=== PATIENT | male | born 1955 | race Caucasian/White ===

== ENCOUNTER → 2017-09-03 | Outpatient (CLI) | payer BC, SELFPAY | PROVIDERS: Visit Provider Family Medicine | DX: Z87.891 Personal history of nicotine dependence (principal); Z12.2 Encounter for screening for malignant neoplasm of respiratory organs ==

== ENCOUNTER → 2018-03-24 11:22 | Outpatient (CLI) | payer BC, SELFPAY ==
--- NOTE | 2018-03-24 11:27 | XR_ITS ---
XR chest 2V HISTORY: ITS.REASON: BRONCHITIS ORDERING PHYSICIAN: Andreia Gabriel PATIENT AGE: 62 years COMPARISON: 07/19/2016 FINDINGS: Prior median sternotomy. There is fracture of the second from the top median sternotomy wire. Normal heart size. There is mild biapical pleural thickening unchanged No lobar consolidation or collapse. No acute bony anomalies. IMPRESSION: No change with no acute finding.
== END ==
PROVIDERS: PCP Nurse Practitioner Family; Visit Provider Nurse Practitioner Family
DX: J40 Bronchitis, not specified as acute or chronic (principal)
CPT/HCPCS: 71046

== ENCOUNTER 2018-04-02 11:22 | Inpatient (IN) ==
--- NOTE | 2018-04-02 12:08 | History & Physical Report ---
*Admission Date: 04/02/18 <Nisreen Delong 04/02/18 12:11> *Chief complaint: SOA, chills <Nisreen Delong 04/02/18 12:11> *History of present illness: Mr. Lynn is a 62yo male who has been seen in the office now for the third time d/t shortness of breath, cough, and chills. His initial CXR showed no pneumonia , although he was clinically felt to have a pneumonia. He was treated with cefdinir, steroids, and nebs. He presented to the office today and continues to feel poorly. His WBC has increased. His oxygen was 87-89% on RA in the office today. He continues to smoke 1ppd. He will be admitted for a possible pneumonia failing outpatient therapy. <Nisreen Delong 04/02/18 14:07> [facility] History Medical History: Reports:: Cancer ([place]), Coronary Artery Disease, Diabetes Mellitus Type 2, Hyperlipidemia, Hypertension, Myocardial Infarction Denies:: Diabetes Mellitus Type 1, MRSA <Nisreen Delong 04/02/18 12:11> Other Medical History: Reports: Arthritis, Blood Transfusion Reaction (pt "had a heart attack"), Cataracts, Chemotherapy, Radiation Therapy <Nisreen Delong 04/02/18 12:11> Laterality Cases: Bilateral: Cataract <Nisreen Delong 04/02/18 12:11> Other Surgeries: Yes: Angioplasty, Cardiac Catheterization, Cardiac Surgery < Nisreen Delong 04/02/18 12:11> Amputation: No <Nisreen Delong 04/02/18 12:11> Fractures: No <Nisreen Delong 04/02/18 12:11> - *Social History Educational Level: Completed High School <Nisreen Delong 04/02/18 12:11> Smoking Status: Current every day smoker <Nisreen Delong 04/02/18 12:11> Tobacco Type: cigarettes <Nisreen Delong 04/02/18 12:11> # Packs/Day (cigarettes): 2 <Nisreen Delong 04/02/18 12:11> #Yrs smoked (if former smoker): 50 <Nisreen Delong 04/02/18 12:11> Alcohol Intake: never <Nisreen Delong 04/02/18 12:11> Occupational Status: employed <Nisreen Delong 04/02/18 12:11> Housing: house <Nisreen Delong 04/02/18 12:11> Household Members: spouse <Nisreen Delong 04/02/18 12:11> - Psychiatric History Expresses thoughts of harming self/others: None <Nisreen Delong 04/02/18 12: 11> Suicide Plan Description: No Plan <Nisreen Delong 04/02/18 12:11> *Family Hx:: Coronary Artery Disease, Diabetes, Heart Attack, Hypertension, Stroke <Nisreen Delong 04/02/18 12:11> Review of Systems - Constitutional Reports body ache(s), Reports chills, Reports fatigue, Reports weakness < Wong Delonga 04/02/18 12:11> - Eyes Denies blurry vision, Denies double vision [facility] 04/02/[facility] 12:11> - ENT Reports nasal congestion, Denies sore throat <[facility] 04/02/18 12:11> - *Cardiovascular Reports chest pain, Denies generalized swelling <[facility] 04/02/18 12: 11> - *Respiratory Reports chest congestion, Reports cough, Reports shortness of breath <[facility] 04/02/18 12:11> - *Gastrointestinal Reports nausea, Denies abdominal pain, Denies loose stools, Denies vomiting < [facility] 04/02/18 12:11> - *Genitourinary Denies difficulty urinating, Denies painful urination <[facility] 12:11> - *Musculoskeletal Denies joint pain <[facility] 04/02/18 12:11> - *Neurologic Reports headache(s), Reports dizziness, Reports weakness [facility] 12:[facility]> Meds Home Medications Medication Instructions Recorded Confirmed Type Acetaminophen [Acetaminophen 325mg 650 mg PO Q6HP PRN 04/02/18 04/02/18 History tab] Aspirin [Aspirin 81mg EC Tab] 81 mg PO DAILY 04/02/18 04/02/18 History Budesonide/Formoterol Fumarate 2 puffs INHALATION BID 04/02/18 04/02/18 History [Symbicort 160-4.5 Mcg Inhaler] Carvedilol [Carvedilol 6.25mg Tab] 6.25 mg PO BID 04/02/18 04/02/18 History Cefdinir [Omnicef 300mg Capsule] 300 mg PO BID 04/02/18 04/02/18 History Clopidogrel Bisulfate [Plavix 75mg 1 tab PO DAILY 04/02/18 04/02/18 History Tab] Dexlansoprazole [Dexilant] 60 mg PO DAILY 04/02/18 04/02/18 History Furosemide [Furosemide 40MG tAB] 40 mg PO DAILY 04/02/18 04/02/18 History Gemfibrozil 600 mg PO DAILY 04/02/18 04/02/18 History Ipratropium/Albuterol Sulfate 3 ml IH QIDRT 04/02/18 04/02/18 History [Duoneb 3mL neb] Isosorbide Mononitrate [Imdur 60mg 1 tab PO DAILY 04/02/18 04/02/18 History ER tablet] Metformin HCl [Metformin 500mg 1,000 mg PO DAILY 04/02/18 04/02/18 History Tablet] Promethazine/Dextromethorphan 120 ml PO Q6HP PRN 04/02/18 04/02/18 History [Promethazine-Dm Syrup] Rosuvastatin Calcium [Crestor] 10 mg PO DAILY 04/02/18 04/02/18 History Sacubitril/Valsartan [Entresto 1 tab PO BID 04/02/18 04/02/18 History 24/26mg Tablet] <Damien Murillo - 04/02/18 22:31> Allergies Allergy/AdvReac Type Severity Reaction Status Date / Time No Known Drug Allergies Allergy Verified 04/02/18 14:42 <Damien Murillo - 04/02/18 22:31> Exam Vital signs and Labs for Last 24 Hours: Temp Pulse Resp BP Pulse Ox 97.8 F 84 20 143/64 96 04/02/18 20:00 04/02/18 20:00 04/02/18 20:00 04/02/18 20:00 04/02/18 20:00 Laboratory Results - last 24 hr 04/02/18 12:00: WBC 11.0 H, RBC 4.65, Hgb 13.8 L, Hct 44.8, MCV 96.3 H, MCH 29.6 , MCHC 30.7 L, RDW 13.9, Plt Count 292, MPV 7.9, Neut % (Auto) 82.4 H, Lymph % ( Auto) 10.9, [place] % (Auto) 5.0, Eos % (Auto) 1.3, Baso % (Auto) 0.3, Neut # (Auto ) 9.1 H, Lymph # (Auto) 1.2, [place] # (Auto) 0.6, Eos # (Auto) 0.2, Baso # (Auto) 0.0 04/02/18 12:00: Sodium 139, Potassium 4.1, Chloride 104, Carbon Dioxide 25, Anion Gap 14.1, BUN 24 H, Creatinine 1.40 H, Estimated Creat Clear 64, Estimated GFR 51 L, Est GFR ( Amer) 62, Glucose 123 H, Calcium 9.0, Total Bilirubin 0.5, AST 9 L, ALT 18, Alkaline Phosphatase 93, Total Protein 7.4 , Albumin 3.6, Globulin 3.8 H, Albumin/Globulin Ratio 0.9 L 04/02/18 12:00: Mycoplasma pneumon IgM Non-reactive 04/02/18 12:00: B-Natriuretic Peptide 351 H 04/02/18 12:00: Total Creatine Kinase 112, CK-MB (CK-2) 2.0, CK-MB (CK-2) Rel Index 1.8, Troponin I < 0.02 04/02/18 16:44: POC Glucose 130 H 04/02/18 20:56: POC Glucose 258 H <ChidiDamien Otoniel - 04/02/18 22:31> Temp Pulse Resp BP Pulse Ox 98.5 F 46 L 22 146/73 95 04/02/18 11:46 04/02/18 11:46 04/02/18 11:46 04/02/18 11:46 04/02/18 11:46 <Nisreen Delong - 04/02/18 12:11> I & O for Last 24 hours: Intake & Output 03/31/18 04/01/18 04/02/1818 11:59 11:59 11:59 11:59 Intake Total 918 / 918 Balance 918 / 918 Weight 187 lb 8 oz <Damien Murillo - 04/02/18 22:31> Intake & Output 03/31/18 04/01/18 04/02/18 04/03/18 11:59 11:59 11:59 11:59 Weight 187 lb 8 oz <Nisreen Delong 04/02/18 12:11> Microbiology Reports for the Last 24 Hours: Microbiology 04/02/18 14:00 Sputum - Expectorated Sputum Gram Stain - Final <Damien Murillo - 04/02/18 22:31> - Constitutional Comments: Does not appear to feel well <Nisreen Delong 04/02/18 12:11> - *Routine HEENT Exam Head: Present: normocephalic, atraumatic <Nisreen Delong 04/02/18 12:11> Eye: Present: EOMI, PERRL <Nisreen Delong 04/02/18 12:11> ENT: Present: mucous membranes dry <Nisreen Delong 04/02/18 12:11> - *Routine Neck Exam Present: supple, full ROM <Nisreen Delong 04/02/18 12:11> - *Routine Respiratory Exam Present: decreased breath sounds, rhonchi (right base) <Nisreen Delong 12:11> - *Routine Cardiovascular Exam Present: RRR <Nisreen Delong 04/02/18 12:11> - *Routine Abdominal Exam Present: soft, normoactive bowel sounds. Absent: tenderness <Nisreen Delong 04/02/18 12:11> - *Routine Extremities Exam Absent: edema <Nisreen Delong 04/02/18 12:11> - *Routine Skin Exam Present: intact <Nisreen Delong 04/02/18 12:11> - *Routine Neurological Exam Present: alert, oriented X3 <Nisreen Delong 04/02/18 12:11> H&P: Result - Labs Labs: Short CBC 04/02/18 Range/Units 12:00 WBC 11.0 H (4.8-10.8) K/mm3 Hgb 13.8 L (14.1-18.0) g/dL Hct 44.8 (42.0-52.0) % Plt Count 292 (142-424) K/mm3 BMP 04/02/18 12:00 Sodium 139 Potassium 4.1 Chloride 104 Carbon Dioxide 25 BUN 24 H Creatinine 1.40 H Glucose 123 H Calcium 9.0 Cardiac Enzymes 04/02/18 Range/Units 12:00 Total Creatine Kinase 112 (39-308) U/L CK-MB (CK-2) 2.0 (0.0-3.6) ng/ml Troponin I < 0.02 (0.00-0.06) ng/ml Liver Function 04/02/18 Range/Units 12:00 Total Bilirubin 0.5 (0.2-1.0) mg/dL AST 9 L (15-37) U/L ALT 18 (12-78) U/L Alkaline Phosphatase 93 (46-116) U/L Albumin 3.6 (3.4-5.0) gm/dL <Damien Murillo - 04/02/18 22:31> - Impressions CXR - pending <Nisreen Delong - 04/02/18 16:52> Assessment and Plan (1) Hypoxia Current visit: Yes Status: Acute Category: Medical Code(s): R09.02 - Hypoxemia (2) Bronchitis Current visit: Yes Status: Acute Category: Medical Code(s): J40 - Bronchitis, not specified as acute or chronic (3) COPD (chronic obstructive pulmonary disease) Current visit: Yes Status: Chronic Category: Medical Code(s): J44.9 - Chronic obstructive pulmonary disease, unspecified (4) Tobacco abuse Current visit: Yes Status: Chronic Category: Medical Code(s): Z72.0 - Tobacco use (5) Hypertension Current visit: Yes Status: Chronic Category: Medical Code(s): I10 - Essential (primary) hypertension (6) Hyperlipidemia Current visit: Yes Status: Chronic Category: Medical Code(s): E78.5 - Hyperlipidemia, unspecified (7) Coronary artery disease Current visit: Yes Status: Chronic Category: Medical Code(s): I25.10 - Atherosclerotic heart disease of [place] coronary artery without angina pectoris (8) Type 2 diabetes mellitus Current visit: Yes Status: Chronic Category: Medical Code(s): E11.9 - Type 2 diabetes mellitus without complications (9) Lymphoma Current visit: Yes Status: Chronic Category: Medical Code(s): C85.90 - Non-Hodgkin lymphoma, unspecified, unspecified site (10) History of CVA (cerebrovascular accident) Current visit: Yes Status: Chronic Category: Medical Code(s): Z86.73 - Personal history of transient ischemic attack (TIA), and cerebral infarction without residual deficits (11) History of non-ST elevation myocardial infarction (NSTEMI) Current visit: Yes Status: Acute Category: Medical Code(s): I25.2 - Old myocardial infarction (12) Ischemic cardiomyopathy Current visit: Yes Status: Chronic Category: Medical Code(s): I25.5 - Ischemic cardiomyopathy <Nisreen Delong - 04/02/18 16:51> (1) COPD exacerbation Problem details: R/o pneumonia Current visit: Yes Status: Acute Category: Medical Code(s): J44.1 - Chronic obstructive pulmonary disease with (acute) exacerbation (2) Acute bronchitis due to infection Current visit: Yes Status: Acute Category: Medical Code(s): J20.8 - Acute bronchitis due to other specified organisms (3) Hypoxia Current visit: Yes Status: Acute Category: Medical Code(s): R09.02 - Hypoxemia (4) COPD (chronic obstructive pulmonary disease) Current visit: Yes Status: Chronic Category: Medical Code(s): J44.9 - Chronic obstructive pulmonary disease, unspecified (5) Tobacco abuse Current visit: Yes Status: Chronic Category: Medical Code(s): Z72.0 - Tobacco use (6) Hypertension Current visit: Yes Status: Chronic Category: Medical Code(s): I10 - Essential (primary) hypertension (7) Hyperlipidemia Current visit: Yes Status: Chronic Category: Medical Code(s): E78.5 - Hyperlipidemia, unspecified (8) Coronary artery disease Current visit: Yes Status: Chronic Category: Medical Code(s): I25.10 - Atherosclerotic heart disease of [place] coronary artery without angina pectoris (9) Type 2 diabetes mellitus Current visit: Yes Status: Chronic Category: Medical Code(s): E11.9 - Type 2 diabetes mellitus without complications (10) Lymphoma Current visit: Yes Status: Chronic Category: Medical Code(s): C85.90 - Non-Hodgkin lymphoma, unspecified, unspecified site (11) History of CVA (cerebrovascular accident) Current visit: Yes Status: Chronic Category: Medical Code(s): Z86.73 - Personal history of transient ischemic attack (TIA), and cerebral infarction without residual deficits (12) History of non-ST elevation myocardial infarction (NSTEMI) Current visit: Yes Status: Acute Category: Medical Code(s): I25.2 - Old myocardial infarction (13) Ischemic cardiomyopathy Current visit: Yes Status: Chronic Category: Medical Code(s): I25.5 - Ischemic cardiomyopathy <Damien Murillo - 04/02/18 22:31> - Assessment and plan all Dx Assessment and Plan for all problems:: Patient seen and examined. Concur with assessment and plan per admision orders. <Damien Murillo - 04/02/18 22:31> As patient has failed outpatient treatment, he was admitted and started on IV abx, nebs, steroids, and oxygen. <Nisreen Delong - 04/02/18 16:52>
[2018-04-02 12:30] LABS: Basophils % 0.3 % (0.1-2.0); Eosinophils # 0.2 K/mm3 (0.0-0.4); Eosinophils % 1.3 % (0.1-12.0); Hematocrit 44.8 % (42.0-52.0); Hemoglobin 13.8 g/dL (14.1-18.0); Lymphocytes # 1.2 K/mm3 (0.7-4.5); Lymphocytes % 10.9 K/mm3 (10-50); Mean Corpuscular HGB Conc 30.7 g/dL (31.8-35.4); Mean Corpuscular Hemoglobin 29.6 pg (27.0-31.2); Mean Corpuscular Volume 96.3 fl (80-94); Mean Platelet Volume 7.9 fl (7.4-10.4); Monocytes # 0.6 K/mm3 (0.1-1.0); Neutrophils # 9.1 K/mm3 (1.8-7.8); Neutrophils % 82.4 % (37.0-80.0); Platelet Count 292 K/mm3 (142-424); Red Blood Count 4.65 M/mm3 (4.60-6.20); Red Cell Distribution Width 13.9 % (11.5-17.5)
[2018-04-02 12:36] LABS: Albumin Level 3.6 gm/dL (3.4-5.0); Albumin/Globulin Ratio 0.9 (1.1-1.8); Anion Gap 14.1 mEq/L (5-15); Bilirubin,Total 0.5 mg/dL (0.2-1.0); Globulin 3.8 gm/dl (1.3-3.2); Potassium 4.1 mmoL/L (3.5-5.1); Total Protein,Serum 7.4 gm/dL (6.4-8.2)
[2018-04-02 13:15] LABS: Creatine Kinase 112 U/L (39-308)
--- NOTE | 2018-04-03 07:26 | Pharmacy Consult Notes ---
[facility] Pharmacy VTE Monitoring - Patient Demographics Admission date: 04/02/18 Report Date: 04/03/18 Time: 07:26 Allergies/Adverse Reactions: Patient Allergies No Known Drug Allergies Allergy (Verified 04/02/18 14:42) Height: 1.8 m Weight: 85.049 kg Patient Problems: Current Active Problems Hypoxia (Acute) COPD (chronic obstructive pulmonary disease) (Chronic) Tobacco abuse (Chronic) Hypertension (Chronic) Hyperlipidemia (Chronic) Coronary artery disease (Chronic) Type 2 diabetes mellitus (Chronic) Lymphoma (Chronic) History of CVA (cerebrovascular accident) (Chronic) History of non-ST elevation myocardial infarction (NSTEMI) (Acute) Ischemic cardiomyopathy (Chronic) COPD exacerbation (Acute) Acute bronchitis due to infection (Acute) - VTE Risk Labs: VTE Related Lab Results Hgb 13.8 g/dL (14.1-18.0) L 04/02/18 12:00 Hct 44.8 % (42.0-52.0) 04/02/18 12:00 Plt Count 292 K/mm3 (142-424) 04/02/18 12:00 BUN 24 mg/dL (7-18) H 04/02/18 12:00 Creatinine 1.40 mg/dL (0.70-1.30) H 04/02/18 12:00 Estimated Creat Clear 64 mL/min (0-300) 04/02/18 12:00 Was VTE Risk Assessment Performed: Yes VTE Score: 5 VTE Risk Level: Low Risk - Prophylaxis VTE Prophylaxis Ordered?: Yes Types of VTE Prophylaxis: TEDS Knee High Location of Applied Device: Bilateral Lower Extremeties - VTE Diagnosis Confirmed Treatment or plan recommended: Continue Current Treatment
--- NOTE | 2018-04-03 08:25 | Progress Note ---
<Nisreen Delong - Last Filed: 04/03/18 08:23> Internal Medicine - PN: Subj *Date: 04/03/18 *Time: 08:23 Interval history: Patient states he is feeling much better this morning. He is less short of breath. His chills and fever have improved. He denies any pain. He slept off and on throughout the night and ate breakfast. Exam Vital signs and Labs for Last 24 Hours: Temp Pulse Resp BP Pulse Ox 9.3 F L 64 18 143/44 97 04/03/18 07:46 04/03/18 07:46 04/03/18 07:46 04/03/18 07:46 04/03/18 07:46 Laboratory Results - last 24 hr 04/02/18 12:00: WBC 11.0 H, RBC 4.65, Hgb 13.8 L, Hct 44.8, MCV 96.3 H, MCH 29.6 , MCHC 30.7 L, RDW 13.9, Plt Count 292, MPV 7.9, Neut % (Auto) 82.4 H, Lymph % ( Auto) 10.9, [place] % (Auto) 5.0, Eos % (Auto) 1.3, Baso % (Auto) 0.3, Neut # (Auto ) 9.1 H, Lymph # (Auto) 1.2, [place] # (Auto) 0.6, Eos # (Auto) 0.2, Baso # (Auto) 0.0 04/02/18 12:00: Sodium 139, Potassium 4.1, Chloride 104, Carbon Dioxide 25, Anion Gap 14.1, BUN 24 H, Creatinine 1.40 H, Estimated Creat Clear 64, Estimated GFR 51 L, Est GFR ( Amer) 62, Glucose 123 H, Calcium 9.0, Total Bilirubin 0.5, AST 9 L, ALT 18, Alkaline Phosphatase 93, Total Protein 7.4 , Albumin 3.6, Globulin 3.8 H, Albumin/Globulin Ratio 0.9 L 04/02/18 12:00: Mycoplasma pneumon IgM Non-reactive 04/02/18 12:00: B-Natriuretic Peptide 351 H 04/02/18 12:00: Total Creatine Kinase 112, CK-MB (CK-2) 2.0, CK-MB (CK-2) Rel Index 1.8, Troponin I < 0.02 04/02/18 16:44: POC Glucose 130 H 04/02/18 20:56: POC Glucose 258 H 04/03/18 05:46: POC Glucose 207 H I & O for Last 24 hours: Intake & Output 03/31/18 04/01/18 04/02/18 04/03/18 11:59 11:59 11:59 11:59 Intake Total 1278 / 1278 Balance 1278 / 1278 Weight 187 lb 8 oz 187 lb 8 oz Microbiology Reports for the Last 24 Hours: Microbiology 04/02/18 14:00 Sputum - Expectorated Sputum Gram Stain - Final 04/02/18 14:00 Sputum - Expectorated Sputum Sputum Culture - Preliminary Gram Negative Rods - Constitutional no acute distress - *Routine Respiratory Exam Present: rhonchi (bibasilar) - *Routine Cardiovascular Exam Present: RRR - *Routine Abdominal Exam Present: soft, normoactive bowel sounds. Absent: tenderness - *Routine Extremities Exam Absent: edema Assessment and Plan (1) COPD exacerbation Problem details: R/o pneumonia Current visit: Yes Status: Acute Category: Medical Code(s): J44.1 - Chronic obstructive pulmonary disease with (acute) exacerbation (2) Acute bronchitis due to infection Current visit: Yes Status: Acute Category: Medical Code(s): J20.8 - Acute bronchitis due to other specified organisms (3) Hypoxia Current visit: Yes Status: Acute Category: Medical Code(s): R09.02 - Hypoxemia (4) COPD (chronic obstructive pulmonary disease) Current visit: Yes Status: Chronic Category: Medical Code(s): J44.9 - Chronic obstructive pulmonary disease, unspecified (5) Tobacco abuse Current visit: Yes Status: Chronic Category: Medical Code(s): Z72.0 - Tobacco use (6) Hypertension Current visit: Yes Status: Chronic Category: Medical Code(s): I10 - Essential (primary) hypertension (7) Hyperlipidemia Current visit: Yes Status: Chronic Category: Medical Code(s): E78.5 - Hyperlipidemia, unspecified (8) Coronary artery disease Current visit: Yes Status: Chronic Category: Medical Code(s): I25.10 - Atherosclerotic heart disease of [place] coronary artery without angina pectoris (9) Type 2 diabetes mellitus Current visit: Yes Status: Chronic Category: Medical Code(s): E11.9 - Type 2 diabetes mellitus without complications (10) Lymphoma Current visit: Yes Status: Chronic Category: Medical Code(s): C85.90 - Non -Hodgkin lymphoma, unspecified, unspecified site (11) History of CVA (cerebrovascular accident) Current visit: Yes Status: Chronic Category: Medical Code(s): Z86.73 - Personal history of transient ischemic attack (TIA), and cerebral infarction without residual deficits (12) History of non-ST elevation myocardial infarction (NSTEMI) Current visit: Yes Status: Acute Category: Medical Code(s): I25.2 - Old myocardial infarction (13) Ischemic cardiomyopathy Current visit: Yes Status: Chronic Category: Medical Code(s): I25.5 - Ischemic cardiomyopathy - Assessment and plan all Dx Assessment and Plan for all problems:: Will wean steroids as well as oxygen. Will continue antibiotics. <Damien Murillo - Last Filed: 04/03/18 13:06> Internal Medicine - PN: Subj *Date: 04/03/18 *Time: 13:05 Exam Vital signs and Labs for Last 24 Hours: Temp Pulse Resp BP Pulse Ox 97.3 F L 64 18 143/44 97 04/03/18 07:46 04/03/18 07:46 04/03/18 07:46 04/03/18 07:46 04/03/18 07:46 Laboratory Results - last 24 hr 04/02/18 12:00: Mycoplasma pneumon IgM Non-reactive 04/02/18 12:00: B-Natriuretic Peptide 351 H 04/02/18 12:00: Total Creatine Kinase 112, CK-MB (CK-2) 2.0, CK-MB (CK-2) Rel Index 1.8, Troponin I < 0.02 04/02/18 16:44: POC Glucose 130 H 04/02/18 20:56: POC Glucose 258 H 04/03/18 05:46: POC Glucose 207 H 04/03/18 11:19: POC Glucose 283 H I & O for Last 24 hours: Intake & Output 04/01/18 04/02/18 04/03/18 04/04/18 11:59 11:59 11:59 11:59 Intake Total 1278 / 1278 Balance 1278 / 1278 Weight 187 lb 8 oz 187 lb 8 oz Microbiology Reports for the Last 24 Hours: Microbiology 04/02/18 14:00 Sputum - Expectorated Sputum Gram Stain - Final 04/02/18 14:00 Sputum - Expectorated Sputum Sputum Culture - Preliminary Gram Negative Rods Assessment and Plan (1) COPD exacerbation Problem details: R/o pneumonia Current visit: Yes Status: Acute Category: Medical Code(s): J44.1 - Chronic obstructive pulmonary disease with (acute) exacerbation (2) Acute bronchitis due to infection Current visit: Yes Status: Acute Category: Medical Code(s): J20.8 - Acute bronchitis due to other specified organisms (3) Hypoxia Current visit: Yes Status: Acute Category: Medical Code(s): R09.02 - Hypoxemia (4) COPD (chronic obstructive pulmonary disease) Current visit: Yes Status: Chronic Category: Medical Code(s): J44.9 - Chronic obstructive pulmonary disease, unspecified (5) Tobacco abuse Current visit: Yes Status: Chronic Category: Medical Code(s): Z72.0 - Tobacco use (6) Hypertension Current visit: Yes Status: Chronic Category: Medical Code(s): I10 - Essential (primary) hypertension (7) Hyperlipidemia Current visit: Yes Status: Chronic Category: Medical Code(s): E78.5 - Hyperlipidemia, unspecified (8) Coronary artery disease Current visit: Yes Status: Chronic Category: Medical Code(s): I25.10 - Atherosclerotic heart disease of [place] coronary artery without angina pectoris (9) Type 2 diabetes mellitus Current visit: Yes Status: Chronic Category: Medical Code(s): E11.9 - Type 2 diabetes mellitus without complications (10) Lymphoma Current visit: Yes Status: Chronic Category: Medical Code(s): C85.90 - Non -Hodgkin lymphoma, unspecified, unspecified site (11) History of CVA (cerebrovascular accident) Current visit: Yes Status: Chronic Category: Medical Code(s): Z86.73 - Personal history of transient ischemic attack (TIA), and cerebral infarction without residual deficits (12) History of non-ST elevation myocardial infarction (NSTEMI) Current visit: Yes Status: Acute Category: Medical Code(s): I25.2 - Old myocardial infarction (13) Ischemic cardiomyopathy Current visit: Yes Status: Chronic Category: Medical Code(s): I25.5 - Ischemic cardiomyopathy - Assessment and plan all Dx Assessment and Plan for all problems:: Patient seen and examined. Clinically improved. Concur with assessment and plan.
[2018-04-04 07:56] VITALS: BP 142/53
--- NOTE | 2018-04-04 08:14 | Progress Note ---
<Nisreen Delong - Last Filed: 04/04/18 08:12> Internal Medicine - PN: Subj *Date: 04/04/18 *Time: 08:12 Interval history: Patient states he is feeling better today. He has less shortness of breath. He has been off of his supplemental oxygen for the past hour and his oxygen saturation is 95% on room air. Denies any pain and is anxious to go home. Exam Vital signs and Labs for Last 24 Hours: Temp Pulse Resp BP Pulse Ox 97.9 F 65 18 142/53 95 04/04/18 07:54 04/04/18 07:54 04/04/18 07:54 04/04/18 07:54 04/04/18 07:54 Laboratory Results - last 24 hr 04/03/18 11:19: POC Glucose 283 H 04/03/18 16:22: POC Glucose 244 H 04/03/18 21:04: POC Glucose 282 H 04/04/18 06:14: POC Glucose 230 H I & O for Last 24 hours: Intake & Output 04/01/18 04/02/18 04/03/18 04/04/18 11:59 11:59 11:59 11:59 Intake Total 1278 / 1278 1723 / 1723 Balance 1278 / 1278 1723 / 1723 Weight 187 lb 8 oz 187 lb 8 oz 202 lb Microbiology Reports for the Last 24 Hours: Microbiology 04/02/18 14:00 Sputum - Expectorated Sputum Gram Stain - Final 04/02/18 14:00 Sputum - Expectorated Sputum Sputum Culture - Preliminary Gram Negative Rods - Constitutional no acute distress - *Routine Respiratory Exam Present: wheezes (worse on the left but improved from yesterday) - *Routine Cardiovascular Exam Present: RRR - *Routine Abdominal Exam Present: soft, normoactive bowel sounds. Absent: tenderness - *Routine Extremities Exam Absent: edema Assessment and Plan (1) COPD exacerbation Problem details: R/o pneumonia Status: Acute Category: Medical Code(s): J44.1 - Chronic obstructive pulmonary disease with (acute) exacerbation (2) Acute bronchitis due to infection Status: Acute Category: Medical Code(s): J20.8 - Acute bronchitis due to other specified organisms (3) Hypoxia Status: Acute Category: Medical Code(s): R09.02 - Hypoxemia (4) COPD (chronic obstructive pulmonary disease) Status: Chronic Category: Medical Code(s): J44.9 - Chronic obstructive pulmonary disease, unspecified (5) Tobacco abuse Status: Chronic Category: Medical Code(s): Z72.0 - Tobacco use (6) Hypertension Status: Chronic Category: Medical Code(s): I10 - Essential (primary) hypertension (7) Hyperlipidemia Status: Chronic Category: Medical Code(s): E78.5 - Hyperlipidemia, unspecified (8) Coronary artery disease Status: Chronic Category: Medical Code(s): I25.10 - Atherosclerotic heart disease of [place] coronary artery without angina pectoris (9) Type 2 diabetes mellitus Status: Chronic Category: Medical Code(s): E11.9 - Type 2 diabetes mellitus without complications (10) Lymphoma Status: Chronic Category: Medical Code(s): C85.90 - Non-Hodgkin lymphoma, unspecified, unspecified site (11) History of CVA (cerebrovascular accident) Status: Chronic Category: Medical Code(s): Z86.73 - Personal history of transient ischemic attack (TIA), and cerebral infarction without residual deficits (12) History of non-ST elevation myocardial infarction (NSTEMI) Status: Acute Category: Medical Code(s): I25.2 - Old myocardial infarction (13) Ischemic cardiomyopathy Status: Chronic Category: Medical Code(s): I25.5 - Ischemic cardiomyopathy - Assessment and plan all Dx Assessment and Plan for all problems:: Possible discharge home today on abx, nebs, and steroids. <Damien Murillo - Last Filed: 04/04/18 17:07> Internal Medicine - PN: Subj *Date: 04/04/18 *Time: 17:05 Exam Vital signs and Labs for Last 24 Hours: Temp Pulse Resp BP Pulse Ox 97.9 F 65 18 142/53 95 04/04/18 07:54 04/04/18 07:54 04/04/18 07:54 04/04/18 07:54 04/04/18 08:00 Laboratory Results - last 24 hr 04/03/18 21:04: POC Glucose 282 H 04/04/18 06:14: POC Glucose 230 H I & O for Last 24 hours: Intake & Output 04/02/18 04/03/18 04/04/18 04/05/18 11:59 11:59 11:59 11:59 Intake Total 1278 / 1278 1723 / 1723 Balance 1278 / 1278 1723 / 1723 Weight 187 lb 8 oz 187 lb 8 oz 202 lb Microbiology Reports for the Last 24 Hours: Microbiology 04/02/18 12:00 Blood Blood Culture - Preliminary NO GROWTH AFTER 48 HOURS 04/02/18 12:00 Blood Blood Culture - Preliminary NO GROWTH AFTER 48 HOURS 04/02/18 14:00 Sputum - Expectorated Sputum Gram Stain - Final 04/02/18 14:00 Sputum - Expectorated Sputum Sputum Culture - Preliminary Gram Negative Rods Assessment and Plan (1) COPD exacerbation Problem details: R/o pneumonia Status: Acute Category: Medical Code(s): J44.1 - Chronic obstructive pulmonary disease with (acute) exacerbation (2) Acute bronchitis due to infection Status: Acute Category: Medical Code(s): J20.8 - Acute bronchitis due to other specified organisms (3) Hypoxia Status: Acute Category: Medical Code(s): R09.02 - Hypoxemia (4) COPD (chronic obstructive pulmonary disease) Status: Chronic Category: Medical Code(s): J44.9 - Chronic obstructive pulmonary disease, unspecified (5) Tobacco abuse Status: Chronic Category: Medical Code(s): Z72.0 - Tobacco use (6) Hypertension Status: Chronic Category: Medical Code(s): I10 - Essential (primary) hypertension (7) Hyperlipidemia Status: Chronic Category: Medical Code(s): E78.5 - Hyperlipidemia, unspecified (8) Coronary artery disease Status: Chronic Category: Medical Code(s): I25.10 - Atherosclerotic heart disease of [place] coronary artery without angina pectoris (9) Type 2 diabetes mellitus Status: Chronic Category: Medical Code(s): E11.9 - Type 2 diabetes mellitus without complications (10) Lymphoma Status: Chronic Category: Medical Code(s): C85.90 - Non-Hodgkin lymphoma, unspecified, unspecified site (11) History of CVA (cerebrovascular accident) Status: Chronic Category: Medical Code(s): Z86.73 - Personal history of transient ischemic attack (TIA), and cerebral infarction without residual deficits (12) History of non-ST elevation myocardial infarction (NSTEMI) Status: Acute Category: Medical Code(s): I25.2 - Old myocardial infarction (13) Ischemic cardiomyopathy Status: Chronic Category: Medical Code(s): I25.5 - Ischemic cardiomyopathy - Assessment and plan all Dx Assessment and Plan for all problems:: Patient seen and examined. He is feeling better and eager to go home. Notes that he still feels weak but SOA is improved and cough is minimal. He is stable for discharge. Sputum cultures are showing a Gm negative efren with ID still pending. Will f/u on report.
--- NOTE | 2018-04-05 08:28 | Discharge Summary ---
General - General Admission date:: 04/02/18 <Damien Murillo - 04/17/18 14:00> 04/02/18 <Nisreen Delong - 04/05/18 08:28> Discharge date: 04/04/18 <Nisreen Delong - 04/05/18 08:28> HPI HPI: Mr. Lynn is a 62yo male who has been seen in the office now for the third time d/t shortness of breath, cough, and chills. His initial CXR showed no pneumonia , although he was clinically felt to have a pneumonia. He was treated with cefdinir, steroids, and nebs. He presented to the office today and continues to feel poorly. His WBC has increased. His oxygen was 87-89% on RA in the office today. He continues to smoke 1ppd. He will be admitted for a possible pneumonia failing outpatient therapy. <Nisreen Delong - 04/05/18 08:28> Hospital Course Hospital Course: The patient was started on IV abx, nebs, steroids, and oxygen. His repeat CXR showed no pneumonia, only COPD and fibrotic changes. He improved throughout his stay and was able to be weaned off of his oxygen. He was stable to be discharged home on antibiotics and steroids. Sputum cx's are still pending. <Nisreen Delong - 04/05/18 08:28> Objective Vital signs: Temp Pulse Resp BP Pulse Ox 97.9 F 65 18 142/53 95 04/04/18 07:54 04/04/18 07:54 04/04/18 07:54 04/04/18 07:54 04/04/18 08:00 <Damien Murillo - 04/17/18 14:00> Temp Pulse Resp BP Pulse Ox 97.9 F 65 18 142/53 95 04/04/18 07:54 04/04/18 07:54 04/04/18 07:54 04/04/18 07:54 04/04/18 08:00 <Nisreen Delong - 04/05/18 08:28> Narrative: - Constitutional Comments: Does not appear to feel well - *Routine HEENT Exam Head: Present: normocephalic, atraumatic Eye: Present: EOMI, PERRL ENT: Present: mucous membranes dry - *Routine Neck Exam Present: supple, full ROM - *Routine Respiratory Exam Present: decreased breath sounds, rhonchi (right base) - *Routine Cardiovascular Exam Present: RRR - *Routine Abdominal Exam Present: soft, normoactive bowel sounds. Absent: tenderness - *Routine Extremities Exam Absent: edema - *Routine Skin Exam Present: intact - *Routine Neurological Exam Present: alert, oriented X3 <Nisreen Delong - 04/05/18 08:28> Results Labs on day of discharge: Preliminary micro results at discharge 04/02/18 14:00 Sputum Culture - Preliminary Sputum - Expectorated Sputum Gram Positive Cocci 04/02/18 12:00 Blood Culture - Preliminary Blood NO GROWTH AFTER 48 HOURS 04/02/18 12:00 Blood Culture - Preliminary Blood NO GROWTH AFTER 48 HOURS <Nisreen Delong - 04/05/18 08:28> DS: Diagnosis - Discharge Diagnosis (1) COPD exacerbation Status: Acute Problem details: R/o pneumonia (2) Acute bronchitis due to infection Status: Acute (3) Hypoxia Status: Acute (4) COPD (chronic obstructive pulmonary disease) Status: Chronic (5) Tobacco abuse Status: Chronic (6) Hypertension Status: Chronic (7) Hyperlipidemia Status: Chronic (8) Coronary artery disease Status: Chronic (9) Type 2 diabetes mellitus Status: Chronic (10) Lymphoma Status: Chronic (11) History of CVA (cerebrovascular accident) Status: Chronic (12) History of non-ST elevation myocardial infarction (NSTEMI) Status: Acute (13) Ischemic cardiomyopathy Status: Chronic <Nisreen Delong - 04/05/18 08:24> (1) COPD exacerbation Status: Acute Problem details: R/o pneumonia (2) Acute bronchitis due to infection Status: Acute (3) Hypoxia Status: Acute (4) COPD (chronic obstructive pulmonary disease) Status: Chronic (5) Tobacco abuse Status: Chronic (6) Hypertension Status: Chronic (7) Hyperlipidemia Status: Chronic (8) Coronary artery disease Status: Chronic (9) Type 2 diabetes mellitus Status: Chronic (10) Lymphoma Status: Chronic (11) History of CVA (cerebrovascular accident) Status: Chronic (12) History of non-ST elevation myocardial infarction (NSTEMI) Status: Acute (13) Ischemic cardiomyopathy Status: Chronic <Damien Murillo - 04/17/18 14:00> Discharge Plan - Patient Discharge Instructions ACTIVITY: Limited activity <Nisreen Delong - 04/05/18 08:28> DIET: continue same diet <Nisreen Delong - 04/05/18 08:28> Patient Instructions: DI for Hypoxia <Damien Murillo - 04/17/18 14:00 > Forms: <Damien Murillo - 04/17/18 14:00> - Follow up Plan Follow up with: Damien Murillo MD [Primary Care Provider] - 04/08/18 <Damien Murillo - 04/17/18 14:00> Disposition: Home, Self-Care <Damien Murillo - 04/17/18 14:00> Home Medications: Home Medications Medication Instructions Recorded Confirmed Type Acetaminophen [Acetaminophen 325mg 650 mg PO Q6HP PRN 04/02/18 04/02/18 History tab] Aspirin [Aspirin 81mg EC Tab] 81 mg PO DAILY 04/02/18 04/02/18 History Budesonide/Formoterol Fumarate 2 puffs INHALATION BID 04/02/18 04/02/18 History [Symbicort 160-4.5 Mcg Inhaler] Carvedilol [Carvedilol 6.25mg Tab] 6.25 mg PO BID 04/02/18 04/02/18 History Clopidogrel Bisulfate [Plavix 75mg 1 tab PO DAILY 04/02/18 04/02/18 History Tab] Dexlansoprazole [Dexilant] 60 mg PO DAILY 04/02/18 04/02/18 History Furosemide [Furosemide 40MG tAB] 40 mg PO DAILY 04/02/18 04/03/18 History Gemfibrozil 600 mg PO DAILY 04/02/18 04/02/18 History Ipratropium/Albuterol Sulfate 3 ml IH QIDRT 04/02/18 04/02/18 History [Duoneb 3mL neb] Isosorbide Mononitrate [Imdur 60mg 1 tab PO DAILY 04/02/18 04/02/18 History ER tablet] Metformin HCl [Metformin 500mg 1,000 mg PO DAILY 04/02/18 04/02/18 History Tablet] Promethazine/Dextromethorphan 120 ml PO Q6HP PRN 04/02/18 04/02/18 History [Promethazine-Dm Syrup] Rosuvastatin Calcium [Crestor] 10 mg PO DAILY 04/02/18 04/02/18 History Sacubitril/Valsartan [Entresto 1 tab PO BID 04/02/18 04/02/18 History 24/26mg Tablet] <Damien Murillo - 04/17/18 14:00> Prescriptions/Medication Reconciliation: New Azithromycin [Zithromax 500mg ADV] 500 mg IV Q24H #3 vial.port cefUROXime axetil [Ceftin 500mg Tab (GEQ)] 500 mg PO BID #10 tab Nicotine [Nicoderm 21mg/24hr patch] 21 mg TD DAILY #30 patch.td24 predniSONE [Deltasone 10mg tablet] 10 mg PO DIRECTED #18 tab Continue Furosemide [Furosemide 40MG tAB] 40 mg PO DAILY Rosuvastatin Calcium [Crestor] 10 mg PO DAILY Carvedilol [Carvedilol 6.25mg Tab] 6.25 mg PO BID Metformin HCl [Metformin 500mg Tablet] 1,000 mg PO DAILY Gemfibrozil 600 mg PO DAILY Isosorbide Mononitrate [Imdur 60mg ER tablet] 1 tab PO DAILY Sacubitril/Valsartan [Entresto 24/26mg Tablet] 1 tab PO BID Ipratropium/Albuterol Sulfate [Duoneb 3mL neb] 3 ml IH QIDRT Clopidogrel Bisulfate [Plavix 75mg Tab] 1 tab PO DAILY Budesonide/Formoterol Fumarate [Symbicort 160-4.5 Mcg Inhaler] 2 puffs INHALATION BID Promethazine/Dextromethorphan [Promethazine-Dm Syrup] 120 ml PO Q6HP PRN PRN Reason: Cough Acetaminophen [Acetaminophen 325mg tab] 650 mg PO Q6HP PRN PRN Reason: Mild To Moderate Pain Aspirin [Aspirin 81mg EC Tab] 81 mg PO DAILY Dexlansoprazole [Dexilant] 60 mg PO DAILY Discontinued Cefdinir [Omnicef 300mg Capsule] 300 mg PO BID <Damien Murillo - 14:00> - Additional Information Additional Information: Concur with assessment and plan for discharge. <Damien Murillo - 04/17/18 14:00>
== END 2018-04-04 10:07 | disposition home or self-care (01) ==
LOC: 2ND → OBSVTOIN 11:30
PROVIDERS: ADMIT Family Medicine; ATTEND Family Medicine

== ENCOUNTER → 2018-04-22 12:05 | Outpatient (CLI) | payer BC, SELFPAY ==
--- NOTE | 2018-04-22 12:14 | XR_ITS ---
EXAM: XR lumbar spine min 4V HISTORY: ITS.REASON: LOW BACK PAIN ORDERING PHYSICIAN: Damien Murillo MD PATIENT AGE: 62 years COMPARISON: None FINDINGS: Normal alignment. No fracture or dislocation. No lytic or blastic change. Mild facet hypertrophic changes are present at L5-S1. Calcification is noted in the right mid abdominal region may be renal in nature. Possible renal stone. There is diffuse vascular calcification. There is some sclerosis of the right femoral head seen on image of the film. IMPRESSION: 1. Mild facet arthritic change L5-S1 2. Possible right nephrolithiasis 3. Nonspecific sclerosis of the right femoral head. Hip films may be of further value if clinically warranted
== END ==
PROVIDERS: PCP Family Medicine; Visit Provider Family Medicine
DX: M54.5 Low back pain (principal)
CPT/HCPCS: 72110

== ENCOUNTER 2019-08-31 14:57 | Observation (INO) ==
--- NOTE | 2019-08-31 15:23 | History & Physical Report ---
*Admission Date: 08/31/19 <Andreia Gabriel 08/31/19 15:30> *Chief complaint: Shortness of breath <Andreia Gabriel 08/31/19 15:30> *History of present illness: Mr. Lynn is a 63-year-old male patient with a history of hypertension, hyperlipidemia, coronary artery disease status post CABG 1996, tobacco abuse, type 2 diabetes mellitus, multiple lacunar infarcts, lymphoma, CVA, GERD, and ischemic cardiomyopathy who presented to the office of [facility] today for follow-up on his cough. He states that he has been sick since and has been on several antibiotics to include Levaquin, cefdinir, and Zithromax. He states initially he did fell a little better after 2 days of the first antibiotic but then has felt worse since. He has had postnasal drainage, some chest pain, increasing shortness of breath, and dizziness as well as body aches. Despite antibiotics his white count has increased to 18,000 today. Thus he was admitted having failed outpatient treatment for IV antibiotics and respiratory care. At the time of this exam patient continues to have shortness of breath. He describes very little cough. Nasal drainage is green. He does continues to smoke although he is down to half a pack per day. <Gabriel,Andreia 08/31/19 16:06> [facility] History Medical History: Reports:: Atherosclerotic Heart Disease, Cancer ([place]), Cardiomyopathy, Chronic Obstructive Pulmonary Disease (COPD), Coronary Artery Disease, Cerebrovascular Accident, Diabetes Mellitus Type 2, Gastroesophageal Reflux Disease(GERD), Hyperlipidemia, Hypertension, Lung Disease, Myocardial Infarction Denies:: Diabetes Mellitus Type 1, Home Oxygen, MRSA <HarveyAndreia 08/31/19 16:06> *Have you ever received a pneumonia vaccine?: Yes <HarveyAndreia - 08/31/19 15:30> *Have you received a flu vaccine this season?: Yes <Andreia Gabriel 08/31/19 15:30> Other Medical History: Reports: Arthritis, Blood Transfusion Reaction (pt "had a heart attack"), Cataracts, Chemotherapy, Radiation Therapy <Andreia Gabriel 08/31/19 16:06> Other Surgeries: Yes: Angioplasty, Cardiac Catheterization, Cardiac Surgery, Coronary Stent <Andreia Gabriel 08/31/19 16:06> Amputation: No <Andreia Gabriel 08/31/19 15:30> Fractures: No <Andreia Gabriel 08/31/19 15:30> - *Social History Smoking Status: Current every day smoker <Andreia Gabriel 08/31/19 15:30> Tobacco Type: cigarettes <HarveyAndreia 08/31/19 15:30> # Packs/Day (cigarettes): 2 <HarveyAndreia 08/31/19 15:30> #Yrs smoked (if former smoker): 50 <HarveyAndreia 08/31/19 15:30> Alcohol Intake: never <HarveyAndreia 08/31/19 15:30> *Occupational Status:: employed <HarveyAndreia 08/31/19 15:30> Housing: house <HarveyAndreia 08/31/19 15:30> Household Members: spouse <HarveyAndreia 08/31/19 15:30> *Travel in the last 8 weeks: None <GabrielAndreia - 08/31/19 16:06> Family Hx:: Cancer, Coronary Artery Disease, Diabetes, Heart Attack, Hypertension, Stroke <[facility] 08/31/19 16:06> Review of Systems - Constitutional Reports body ache(s), Reports headache(s), Denies fever(s) <HarveyAndreia 08/31/19 16:06> - Eyes Denies change in vision <GabrielAndreia - 08/31/19 16:06> - ENT Reports abnormal hearing, Reports hearing loss, Reports nasal congestion, Reports nasal discharge, Reports sore throat <GabrielAndreia - 08/31/19 16:06> - *Cardiovascular Reports chest pain, Reports shortness of breath <GabrielAndreia - 08/31/19 16:06> - *Respiratory Reports chest congestion, Reports cough, Reports shortness of breath, Denies coughing up blood <GabrielAndreia - 08/31/19 16:06> - *Gastrointestinal Denies abdominal pain, Denies loose stools, Denies nausea, Denies vomiting <HarveyAndreia - 08/31/19 16:06> - *Genitourinary Denies difficulty urinating <Andreia Gabriel - 08/31/19 16:06> - *Musculoskeletal Denies abnormal walking, Denies joint pain <HarveyAndreia - 08/31/19 16:06> - *Neurologic Reports dizziness, Denies seizure-like activity <GabrielGalileaAndreia - 08/31/19 16:06> Meds Home Medications Medication Instructions Recorded Confirmed Type Acetaminophen [Acetaminophen 325mg 650 mg PO Q6HP PRN 04/02/18 08/31/19 History tab] Aspirin [Aspirin 81mg EC Tab] 81 mg PO DAILY 04/02/18 08/31/19 History Budesonide/Formoterol Fumarate 2 puffs INHALATION BID 04/02/18 08/31/19 History [Symbicort 160-4.5 Mcg Inhaler] Clopidogrel Bisulfate [Plavix 75mg 1 tab PO DAILY 04/02/18 08/31/19 History Tab] Dexlansoprazole [Dexilant] 60 mg PO DAILY 04/02/18 08/31/19 History Furosemide [Furosemide 40MG tAB] 40 mg PO DAILY 04/02/18 08/31/19 History Gemfibrozil 600 mg PO DAILY 04/02/18 08/31/19 History Ipratropium/Albuterol Sulfate 3 ml IH QIDRT 04/02/18 08/31/19 History [Duoneb 3mL neb] Isosorbide Mononitrate [Imdur 60mg 1 tab PO DAILY 04/02/18 08/31/19 History ER tablet] Metformin HCl [Glucophage 500mg 1,000 mg PO DAILY 04/02/18 08/31/19 History Tablet] Promethazine/Dextromethorphan 120 ml PO Q6HP PRN 04/02/18 08/31/19 History [Promethazine-Dm Syrup] Rosuvastatin Calcium [Crestor] 10 mg PO DAILY 04/02/18 08/31/19 History Sacubitril/Valsartan [Entresto 1 tab PO BID 04/02/18 08/31/19 History 24/26mg Tablet] carvediloL [Carvedilol 6.25mg Tab] 6.25 mg PO BID 04/02/18 08/31/19 History Azithromycin [Zithromax 500mg ADV] 500 mg IV Q24H 08/31/19 08/31/19 History Nicotine [Nicoderm 21mg/24hr 21 mg TD DAILY 08/31/19 08/31/19 History patch] Potassium Chloride [Pot Chlor 10 10 meq PO DAILY 08/31/19 08/31/19 History mEq Tab] cefUROXime axetil [Ceftin 500mg 500 mg PO BID 08/31/19 08/31/19 History Tab (GEQ)] predniSONE [Deltasone 10mg tablet] 10 mg PO DIRECTED 08/31/19 08/31/19 History <Damien Murillo - 08/31/19 21:45> Allergies Allergy/AdvReac Type Severity Reaction Status Date / Time No Known Drug Allergies Allergy Verified 04/02/18 14:42 <Damien Murillo - 08/31/19 21:45> Exam Vital signs and Labs for Last 24 Hours: Temp Pulse Resp BP Pulse Ox 98.2 F 56 L 21 146/70 H 96 08/31/19 19:40 08/31/19 19:40 08/31/19 19:40 08/31/19 19:40 08/31/19 19:40 Laboratory Results - last 24 hr 08/31/19 16:20: WBC 15.0 H, RBC 4.05 L, Hgb 12.7 L, Hct 40.4 L, MCV 99.5 H, MCH 31.3 H, MCHC 31.4 L, RDW 13.4, Plt Count 296, MPV 8.3, Neut % (Auto) 87.5 H, Lymph % (Auto) 7.2 L, [place] % (Auto) 5.0, Eos % (Auto) 0.3, Baso % (Auto) 0.1, Neut # (Auto) 13.1 H, Lymph # (Auto) 1.1, [place] # (Auto) 0.8, Eos # (Auto) 0.0, Baso # (Auto) 0.0, Total Counted 100, Neutrophils % (Manual) 90 H, Lymphocytes % (Manual) 7 L, Monocytes % (Manual) 3, Platelet Estimate Normal, RBC Morphology Normal 08/31/19 16:20: Sodium 134 L, Potassium 4.6, Chloride 96 L, Carbon Dioxide 26, Anion Gap 16.6 H, BUN 38 H, Creatinine 1.77 H, Estimated Creat Clear 52, Estimated GFR 39 L, Est GFR ( Amer) 47 L, Glucose 396 H, Calcium 8.5, Total Bilirubin 0.2, AST 4 L, ALT 19, Alkaline Phosphatase 83, Total Protein 7.1, Albumin 3.2 L, Globulin 3.9 H, Albumin/Globulin Ratio 0.8 L 08/31/19 16:20: Mycoplasma pneumon IgM Non-reactive 08/31/19 16:45: POC Glucose 387 H* 08/31/19 18:04: Chlamy pneumoniae PCR Not detected, Adenovirus (PCR) Not detected, B. pertussis DNA (PCR) Not detected, Coronavirus OC43 (PCR) Not detected, Coronavirus HKU1 (PCR) Not detected, Coronavirus 229E (PCR) Not detected, Coronavirus NL63 (PCR) Not detected, Human Metapneumovir PCR Not detected, Influenza A (H1) PCR Not detected, Influ A (H1N1/09) PCR Not detected, Influenza A (H3) PCR Not detected, Influenza Type A (PCR) Not detected, Influenza Type B (PCR) Not detected, M. pneumoniae (PCR) Not detected, Parainfluenza 1 (PCR) Not detected, Parainfluenza 2 (PCR) Not detected, Parainfluenza 3 (PCR) Not detected, Parainfluenza 4 (PCR) Not detected, RSV (PCR) Not detected, Entero/Rhino (PCR) Not detected <Damien Murillo - 08/31/19 21:45> I & O for Last 24 hours: Intake & Output 08/29/19 08/30/19 08/31/19 09/01/19 11:59 11:59 11:59 11:59 Intake Total 240 / 240 Balance 240 / 240 Weight 195 lb <Damien Murillo - 08/31/19 21:45> Microbiology Reports for the Last 24 Hours: Microbiology 08/31/19 18:50 Sputum - Expectorated Sputum Gram Stain - Final <Damien Murillo - 08/31/19 21:45> - Constitutional no acute distress <Andreia Gabriel 08/31/19 16:06> - *Routine HEENT Exam Head: Present: normocephalic, atraumatic <[facility] 08/31/19 16:06> Eye: Present: PERRL. Absent: conjunctival icterus, scleral injection <[facility] 08/31/19 16:06> ENT: Present: mucous membranes moist, oropharynx clear <[facility] 08/31/19 16:06> - *Routine Neck Exam Present: full ROM, carotid bruit (right). Absent: lymphadenopathy, thyromegaly <[facility] 08/31/19 16:06> - *Routine Respiratory Exam Present: wheezes (On the right), crackles (On the right) <[facility] 08/31/19 16:06> - *Routine Cardiovascular Exam Present: RRR <[facility] 08/31/19 16:06> - *Routine Abdominal Exam Present: soft, normoactive bowel sounds. Absent: tenderness <[facility] 08/31/19 16:06> - *Routine Extremities Exam Absent: edema, calf tenderness <[facility] 08/31/19 16:06> - *Routine Neurological Exam Present: alert, oriented X3 <[facility] 08/31/19 16:06> Assessment and Plan (1) COPD exacerbation Problem details: R/o pneumonia Current visit: No Status: Acute Category: Medical Code(s): J44.1 - Chronic obstructive pulmonary disease with (acute) exacerbation (2) Acute bronchitis Current visit: Yes Status: Acute Category: Medical Code(s): J20.9 - Acute bronchitis, unspecified (3) COPD (chronic obstructive pulmonary disease) Current visit: No Status: Chronic Category: Medical Code(s): J44.9 - Chronic obstructive pulmonary disease, unspecified (4) Coronary artery disease Current visit: No Status: Chronic Category: Medical Code(s): I25.10 - Atherosclerotic heart disease of [place] coronary artery without angina pectoris (5) History of CVA (cerebrovascular accident) Current visit: No Status: Chronic Category: Medical Code(s): Z86.73 - Personal history of transient ischemic attack (TIA), and cerebral infarction without residual deficits (6) Hypertension Current visit: No Status: Chronic Category: Medical Code(s): I10 - Essential (primary) hypertension (7) Ischemic cardiomyopathy Current visit: No Status: Chronic Category: Medical Code(s): I25.5 - Ischemic cardiomyopathy (8) Lymphoma Current visit: No Status: Chronic Category: Medical Code(s): C85.90 - Non-Hodgkin lymphoma, unspecified, unspecified site (9) Tobacco abuse Current visit: No Status: Chronic Category: Medical Code(s): Z72.0 - Tobacco use (10) Type 2 diabetes mellitus Current visit: No Status: Chronic Category: Medical Code(s): E11.9 - Type 2 diabetes mellitus without complications <Damien Murillo - 08/31/19 21:45> (1) Pneumonia Current visit: Yes Status: Acute Category: Medical Code(s): J18.9 - Pneumonia, unspecified organism (2) COPD exacerbation Problem details: R/o pneumonia Current visit: No Status: Acute Category: Medical Code(s): J44.1 - Chronic obstructive pulmonary disease with (acute) exacerbation (3) COPD (chronic obstructive pulmonary disease) Current visit: No Status: Chronic Category: Medical Code(s): J44.9 - Chronic obstructive pulmonary disease, unspecified (4) Coronary artery disease Current visit: No Status: Chronic Category: Medical Code(s): I25.10 - Atherosclerotic heart disease of [place] coronary artery without angina pectoris (5) History of CVA (cerebrovascular accident) Current visit: No Status: Chronic Category: Medical Code(s): Z86.73 - Personal history of transient ischemic attack (TIA), and cerebral infarction without residual deficits (6) Hypertension Current visit: No Status: Chronic Category: Medical Code(s): I10 - Essential (primary) hypertension (7) Ischemic cardiomyopathy Current visit: No Status: Chronic Category: Medical Code(s): I25.5 - Ischemic cardiomyopathy (8) Lymphoma Current visit: No Status: Chronic Category: Medical Code(s): C85.90 - Non-Hodgkin lymphoma, unspecified, unspecified site (9) Tobacco abuse Current visit: No Status: Chronic Category: Medical Code(s): Z72.0 - Tobacco use (10) Type 2 diabetes mellitus Current visit: No Status: Chronic Category: Medical Code(s): E11.9 - Type 2 diabetes mellitus without complications <Andreia Gabriel - 08/31/19 15:45> - Assessment and plan all Dx Assessment and Plan for all problems:: He is being admitted from the office today having failed 3 rounds of antibiotics as an outpatient. Clinically appears to have bronchitis but with his increasing white count, cannot rule out pneumonia. <Damien Murillo - 08/31/19 21:45> Having failed outpatient treatment with Levaquin, cefdinir and Zithromax patient placed on Zosyn and vancomycin. Will start on duo nebs and continue most of home meds. <Andreia Gabriel - 08/31/19 16:06>
--- NOTE | 2019-08-31 15:46 | Pharmacy Consult Notes ---
[facility] Pharmacy VTE Monitoring - Patient Demographics Admission date: 08/31/19 Report Date: 08/31/19 Time: 15:46 Allergies/Adverse Reactions: Patient Allergies No Known Drug Allergies Allergy (Verified 04/02/18 14:42) - VTE Risk Clinical Trial Participant: No - Prophylaxis VTE Prophylaxis Ordered?: Yes Types of VTE Prophylaxis: TEDS Knee High
[2019-08-31 16:43] LABS: Basophils % 0.1 % (0.1-2.0); Eosinophils % 0.3 % (0.1-12.0); Hematocrit 40.4 % (42.0-52.0); Hemoglobin 12.7 g/dL (14.1-18.0); Lymphocytes # 1.1 K/mm3 (0.7-4.5); Lymphocytes % 7.2 % (10-50); Mean Corpuscular HGB Conc 31.4 g/dL (31.8-35.4); Mean Corpuscular Volume 99.5 fl (80-94); Mean Platelet Volume 8.3 fl (7.4-10.4); Monocytes # 0.8 K/mm3 (0.1-1.0); Neutrophils # 13.1 K/mm3 (1.8-7.8); Neutrophils % 87.5 % (37.0-80.0); Platelet Count 296 K/mm3 (142-424); Red Blood Count 4.05 M/mm3 (4.60-6.20); Red Cell Distribution Width 13.4 % (11.5-17.5)
[2019-08-31 17:04] LABS: Lymphocytes % 7 % (10-50); Monocytes % 3 % (2-9); Neutrophils % 90 % (42-76); RBC Morphology Normal; Total Cells Counted 100
[2019-08-31 17:09] LABS: Albumin Level 3.2 gm/dL (3.4-5.0); Albumin/Globulin Ratio 0.8 (1.1-1.8); Anion Gap 16.6 mEq/L (5-15); Bilirubin,Total 0.2 mg/dL (0.2-1.0); Calcium 8.5 mg/dL (8.5-10.1); Globulin 3.9 gm/dl (1.3-3.2); Total Protein,Serum 7.1 gm/dL (6.4-8.2)
[2019-08-31 18:14] LABS: Coronavirus 229E Not Detected (NotDetected); Coronavirus NL63 Not Detected (NotDetected); Coronavirus OC43 Not Detected (NotDetected); Coronovirus HKU1,PCR Not Detected (NotDetected)
[2019-09-01 07:09] LABS: Basophils % 0.1 % (0.1-2.0); Hematocrit 36.3 % (42.0-52.0); Hemoglobin 11.7 g/dL (14.1-18.0); Lymphocytes # 0.8 K/mm3 (0.7-4.5); Lymphocytes % 7.5 % (10-50); Mean Corpuscular HGB Conc 32.2 g/dL (31.8-35.4); Mean Corpuscular Volume 97.1 fl (80-94); Mean Platelet Volume 8.8 fl (7.4-10.4); Monocytes # 0.2 K/mm3 (0.1-1.0); Monocytes % 1.9 % (1.7-9.3); Neutrophils # 9.8 K/mm3 (1.8-7.8); Neutrophils % 90.5 % (37.0-80.0); Platelet Count 246 K/mm3 (142-424); Red Blood Count 3.74 M/mm3 (4.60-6.20); Red Cell Distribution Width 13.3 % (11.5-17.5); White Blood Count 10.9 K/mm3 (4.8-10.8)
--- NOTE | 2019-09-01 08:18 | Progress Note ---
<Andreia Gabriel - Last Filed: 09/01/19 08:15> Internal Medicine - PN: Subj *Date: 09/01/19 *Time: 08:15 Interval history: Was unable to sleep last night and request sleeping med for tonight. He states he does not feel any better. He has a rare cough. He remains short of breath. He has some chest tightness. He is eating without problems. He is voiding without difficulties. Exam Vital signs and Labs for Last 24 Hours: Temp Pulse Resp BP Pulse Ox 97.5 F L 70 24 143/59 H 96 09/01/19 04:00 09/01/19 05:54 09/01/19 04:00 09/01/19 04:00 09/01/19 04:00 Laboratory Results - last 24 hr 08/31/19 16:20: WBC 15.0 H, RBC 4.05 L, Hgb 12.7 L, Hct 40.4 L, MCV 99.5 H, MCH 31.3 H, MCHC 31.4 L, RDW 13.4, Plt Count 296, MPV 8.3, Neut % (Auto) 87.5 H, Lymph % (Auto) 7.2 L, [place] % (Auto) 5.0, Eos % (Auto) 0.3, Baso % (Auto) 0.1, Neut # (Auto) 13.1 H, Lymph # (Auto) 1.1, [place] # (Auto) 0.8, Eos # (Auto) 0.0, Baso # (Auto) 0.0, Total Counted 100, Neutrophils % (Manual) 90 H, Lymphocytes % (Manual) 7 L, Monocytes % (Manual) 3, Platelet Estimate Normal, RBC Morphology Normal 08/31/19 16:20: Sodium 134 L, Potassium 4.6, Chloride 96 L, Carbon Dioxide 26, Anion Gap 16.6 H, BUN 38 H, Creatinine 1.77 H, Estimated Creat Clear 52, Estimated GFR 39 L, Est GFR ( Amer) 47 L, Glucose 396 H, Calcium 8.5, Total Bilirubin 0.2, AST 4 L, ALT 19, Alkaline Phosphatase 83, Total Protein 7.1, Albumin 3.2 L, Globulin 3.9 H, Albumin/Globulin Ratio 0.8 L 08/31/19 16:20: Mycoplasma pneumon IgM Non-reactive 08/31/19 16:45: POC Glucose 387 H* 08/31/19 18:04: Chlamy pneumoniae PCR Not detected, Adenovirus (PCR) Not detected, B. pertussis DNA (PCR) Not detected, Coronavirus OC43 (PCR) Not detected, Coronavirus HKU1 (PCR) Not detected, Coronavirus 229E (PCR) Not detected, Coronavirus NL63 (PCR) Not detected, Human Metapneumovir PCR Not detected, Influenza A (H1) PCR Not detected, Influ A (H1N1/09) PCR Not detected, Influenza A (H3) PCR Not detected, Influenza Type A (PCR) Not detected, I nfluenza Type B (PCR) Not detected, M. pneumoniae (PCR) Not detected, Parainfluenza 1 (PCR) Not detected, Parainfluenza 2 (PCR) Not detected, Parainfluenza 3 (PCR) Not detected, Parainfluenza 4 (PCR) Not detected, RSV (PCR) Not detected, Entero/Rhino (PCR) Not detected 09/01/19 06:45: WBC 10.9 H D, RBC 3.74 L, Hgb 11.7 L, Hct 36.3 L, MCV 97.1 H, MCH 31.2, MCHC 32.2, RDW 13.3, Plt Count 246, MPV 8.8, Neut % (Auto) 90.5 H, Lymph % (Auto) 7.5 L, [place] % (Auto) 1.9, Eos % (Auto) 0.0 L, Baso % (Auto) 0.1, Neut # (Auto) 9.8 H, Lymph # (Auto) 0.8, [place] # (Auto) 0.2, Eos # (Auto) 0.0, Baso # (Auto) 0.0 I & O for Last 24 hours: Intake & Output 08/29/19 08/30/19 08/31/19 09/01/19 11:59 11:59 11:59 11:59 Intake Total 1268 / 1268 Balance 1268 / 1268 Weight 190 lb 4 oz Microbiology Reports for the Last 24 Hours: Microbiology 08/31/19 18:50 Sputum - Expectorated Sputum Gram Stain - Final Radiology Reports for the Last 24 Hours: 08/31/2019 chest x-ray IMPRESSION: No change with no acute finding - Constitutional no acute distress Comments: Sitting on the bedside eating his breakfast - *Routine Respiratory Exam Comments: Fair air movement with wheezing scattered throughout. Crackles also noted - *Routine Cardiovascular Exam Present: RRR - *Routine Abdominal Exam Present: soft, normoactive bowel sounds. Absent: tenderness - *Routine Extremities Exam Absent: edema, calf tenderness - *Routine Neurological Exam Present: alert, oriented X3 Assessment and Plan (1) COPD exacerbation Problem details: R/o pneumonia Current visit: No Status: Acute Category: Medical Code(s): J44.1 - Chronic obstructive pulmonary disease with (acute) exacerbation (2) Acute bronchitis Current visit: Yes Status: Acute Category: Medical Code(s): J20.9 - Acute bronchitis, unspecified (3) COPD (chronic obstructive pulmonary disease) Current visit: No Status: Chronic Category: Medical Code(s): J44.9 - Chronic obstructive pulmonary disease, unspecified (4) Coronary artery disease Current visit: No Status: Chronic Category: Medical Code(s): I25.10 - Atherosclerotic heart disease of [place] coronary artery without angina pectoris (5) History of CVA (cerebrovascular accident) Current visit: No Status: Chronic Category: Medical Code(s): Z86.73 - Personal history of transient ischemic attack (TIA), and cerebral infarction without residual deficits (6) Hypertension Current visit: No Status: Chronic Category: Medical Code(s): I10 - Essential (primary) hypertension (7) Ischemic cardiomyopathy Current visit: No Status: Chronic Category: Medical Code(s): I25.5 - Ischemic cardiomyopathy (8) Lymphoma Current visit: No Status: Chronic Category: Medical Code(s): C85.90 - Non- Hodgkin lymphoma, unspecified, unspecified site (9) Tobacco abuse Current visit: No Status: Chronic Category: Medical Code(s): Z72.0 - Tobacco use (10) Type 2 diabetes mellitus Current visit: No Status: Chronic Category: Medical Code(s): E11.9 - Type 2 diabetes mellitus without complications - Assessment and plan all Dx Assessment and Plan for all problems:: Continue with current pulmonary care. <Damien Murillo - Last Filed: 09/01/19 08:58> Internal Medicine - PN: Subj *Date: 09/01/19 *Time: 08:55 Exam Vital signs and Labs for Last 24 Hours: Temp Pulse Resp BP Pulse Ox 97.9 F 67 22 142/64 H 96 09/01/19 08:00 09/01/19 08:00 09/01/19 08:00 09/01/19 08:00 09/01/19 08:00 Laboratory Results - last 24 hr 08/31/19 16:20: WBC 15.0 H, RBC 4.05 L, Hgb 12.7 L, Hct 40.4 L, MCV 99.5 H, MCH 31.3 H, MCHC 31.4 L, RDW 13.4, Plt Count 296, MPV 8.3, Neut % (Auto) 87.5 H, Lymph % (Auto) 7.2 L, [place] % (Auto) 5.0, Eos % (Auto) 0.3, Baso % (Auto) 0.1, Neut # (Auto) 13.1 H, Lymph # (Auto) 1.1, [place] # (Auto) 0.8, Eos # (Auto) 0.0, Baso # (Auto) 0.0, Total Counted 100, Neutrophils % (Manual) 90 H, Lymphocytes % (Manual) 7 L, Monocytes % (Manual) 3, Platelet Estimate Normal, RBC Morphology Normal 08/31/19 16:20: Sodium 134 L, Potassium 4.6, Chloride 96 L, Carbon Dioxide 26, Anion Gap 16.6 H, BUN 38 H, Creatinine 1.77 H, Estimated Creat Clear 52, Estimated GFR 39 L, Est GFR ( Amer) 47 L, Glucose 396 H, Calcium 8.5, Total Bilirubin 0.2, AST 4 L, ALT 19, Alkaline Phosphatase 83, Total Protein 7.1, Albumin 3.2 L, Globulin 3.9 H, Albumin/Globulin Ratio 0.8 L 08/31/19 16:20: Mycoplasma pneumon IgM Non-reactive 08/31/19 16:45: POC Glucose 387 H* 08/31/19 18:04: Chlamy pneumoniae PCR Not detected, Adenovirus (PCR) Not detected, B. pertussis DNA (PCR) Not detected, Coronavirus OC43 (PCR) Not detected, Coronavirus HKU1 (PCR) Not detected, Coronavirus 229E (PCR) Not detected, Coronavirus NL63 (PCR) Not detected, Human Metapneumovir PCR Not detected, Influenza A (H1) PCR Not detected, Influ A (H1N1/09) PCR Not detected, Influenza A (H3) PCR Not detected, Influenza Type A (PCR) Not detected, Influenza Type B (PCR) Not detected, M. pneumoniae (PCR) Not detected, Parainfluenza 1 (PCR) Not detected, Parainfluenza 2 (PCR) Not detected, Parainfluenza 3 (PCR) Not detected, Parainfluenza 4 (PCR) Not detected, RSV (PCR) Not detected, Entero/Rhino (PCR) Not detected 09/01/19 06:45: WBC 10.9 H D, RBC 3.74 L, Hgb 11.7 L, Hct 36.3 L, MCV 97.1 H, MCH 31.2, MCHC 32.2, RDW 13.3, Plt Count 246, MPV 8.8, Neut % (Auto) 90.5 H, Lymph % (Auto) 7.5 L, [place] % (Auto) 1.9, Eos % (Auto) 0.0 L, Baso % (Auto) 0.1, Neut # (Auto) 9.8 H, Lymph # (Auto) 0.8, [place] # (Auto) 0.2, Eos # (Auto) 0.0, Baso # (Auto) 0.0 I & O for Last 24 hours: Intake & Output 08/29/19 08/30/19 08/31/19 09/01/19 11:59 11:59 11:59 11:59 Intake Total 1748 / 1748 Balance 1748 / 1748 Weight 190 lb 4 oz Microbiology Reports for the Last 24 Hours: Microbiology 08/31/19 18:50 Sputum - Expectorated Sputum Gram Stain - Final Assessment and Plan (1) COPD exacerbation Problem details: R/o pneumonia Current visit: No Status: Acute Category: Medical Code(s): J44.1 - Chronic obstructive pulmonary disease with (acute) exacerbation (2) Acute bronchitis Current visit: Yes Status: Acute Category: Medical Code(s): J20.9 - Acute bronchitis, unspecified (3) COPD (chronic obstructive pulmonary disease) Current visit: No Status: Chronic Category: Medical Code(s): J44.9 - Chronic obstructive pulmonary disease, unspecified (4) Coronary artery disease Current visit: No Status: Chronic Category: Medical Code(s): I25.10 - Atherosclerotic heart disease of [place] coronary artery without angina pectoris (5) History of CVA (cerebrovascular accident) Current visit: No Status: Chronic Category: Medical Code(s): Z86.73 - Personal history of transient ischemic attack (TIA), and cerebral infarction without residual deficits (6) Hypertension Current visit: No Status: Chronic Category: Medical Code(s): I10 - Essential (primary) hypertension (7) Ischemic cardiomyopathy Current visit: No Status: Chronic Category: Medical Code(s): I25.5 - Ischemic cardiomyopathy (8) Lymphoma Current visit: No Status: Chronic Category: Medical Code(s): C85.90 - Non- Hodgkin lymphoma, unspecified, unspecified site (9) Tobacco abuse Current visit: No Status: Chronic Category: Medical Code(s): Z72.0 - Tobacco use (10) Type 2 diabetes mellitus Current visit: No Status: Chronic Category: Medical Code(s): E11.9 - Type 2 diabetes mellitus without complications - Assessment and plan all Dx Assessment and Plan for all problems:: He feels about the same. Did not rest well last night. Cough is only occasionally productive after aerosol treatments. Denies chest pain. Chest x- ray yesterday did not show pneumonia. His white count is improved today 18 PCR respiratory panel was negative. Sputum cultures are pending. We will continue current antibiotics and steroids.
[2019-09-01 09:17] LABS: Anion Gap 14.8 mEq/L (5-15); Calcium 8.6 mg/dL (8.5-10.1)
[2019-09-01 09:18] LABS: Lymphocytes % 9 % (10-50); Monocytes % 2 % (2-9); Neutrophils % 89 % (42-76); Nucleated Red Blood Cells 1; Ovalocytes 1+; Tear Drop Cells 2+; Total Cells Counted 100
--- NOTE | 2019-09-01 11:17 | Pharmacy Consult Notes ---
- Pharmacy Consult Date: 09/01/19 Time: 11:12 Referring provider: DR. HOGAN Reason for Consult:: VANCOMYCIN DOSING Allergies and ADEs:: Allergies Allergy/AdvReac Type Severity Reaction Status Date / Time No Known Drug Allergies Allergy Verified 04/02/18 14:42 Home Medications:: Home Medications Medication Instructions Recorded Confirmed Type Acetaminophen [Acetaminophen 325mg 650 mg PO Q6HP PRN 04/02/18 08/31/19 History tab] Aspirin [Aspirin 81mg EC Tab] 81 mg PO DAILY 04/02/18 08/31/19 History Budesonide/Formoterol Fumarate 2 puffs INHALATION BID 04/02/18 08/31/19 History [Symbicort 160-4.5 Mcg Inhaler] Furosemide [Furosemide 40MG tAB] 40 mg PO DAILY 04/02/18 08/31/19 History Ipratropium/Albuterol Sulfate 3 ml IH QIDRT 04/02/18 08/31/19 History [Duoneb 3mL neb] Isosorbide Mononitrate [Imdur 60mg 60 mg PO DAILY 04/02/18 09/01/19 History ER tablet] Metformin HCl [Glucophage 500mg 1,000 mg PO DAILY 04/02/18 08/31/19 History Tablet] Promethazine/Dextromethorphan 120 ml PO Q6HP PRN 04/02/18 08/31/19 History [Promethazine-Dm Syrup] Sacubitril/Valsartan [Entresto 1 tab PO BID 04/02/18 08/31/19 History 24/26mg Tablet] carvediloL [Carvedilol 6.25mg Tab] 6.25 mg PO BID 04/02/18 08/31/19 History Azithromycin [Zithromax 500mg ADV] 500 mg IV Q24H 08/31/19 08/31/19 History Nicotine [Nicoderm 21mg/24hr 21 mg TD DAILY 08/31/19 08/31/19 History patch] Potassium Chloride [Pot Chlor 10 10 meq PO DAILY 08/31/19 08/31/19 History mEq Tab] cefUROXime axetil [Ceftin 500mg 500 mg PO BID 08/31/19 08/31/19 History Tab (GEQ)] predniSONE [Deltasone 10mg tablet] 10 mg PO DIRECTED 08/31/19 08/31/19 History Dexlansoprazole [Dexilant] 60 mg PO DAILY 09/01/19 09/01/19 History Gemfibrozil 600 mg PO DAILY 09/01/19 09/01/19 History Rosuvastatin Calcium [Crestor 10mg 10 mg PO HS 09/01/19 09/01/19 History Tablets] Ticagrelor [Brilinta 90mg Tablet] 90 mg PO BID 09/01/19 09/01/19 History Height: 1.8 m Weight: 86.296 kg Laboratory Results:: Laboratory Results - last 24 hr 08/31/19 16:20: WBC 15.0 H, RBC 4.05 L, Hgb 12.7 L, Hct 40.4 L, MCV 99.5 H, MCH 31.3 H, MCHC 31.4 L, RDW 13.4, Plt Count 296, MPV 8.3, Neut % (Auto) 87.5 H, Lymph % (Auto) 7.2 L, [place] % (Auto) 5.0, Eos % (Auto) 0.3, Baso % (Auto) 0.1, Neut # (Auto) 13.1 H, Lymph # (Auto) 1.1, [place] # (Auto) 0.8, Eos # (Auto) 0.0, Baso # (Auto) 0.0, Total Counted 100, Neutrophils % (Manual) 90 H, Lymphocytes % (Manual) 7 L, Monocytes % (Manual) 3, Platelet Estimate Normal, RBC Morphology Normal 08/31/19 16:20: Sodium 134 L, Potassium 4.6, Chloride 96 L, Carbon Dioxide 26, Anion Gap 16.6 H, BUN 38 H, Creatinine 1.77 H, Estimated Creat Clear 52, Estimated GFR 39 L, Est GFR ( Amer) 47 L, Glucose 396 H, Calcium 8.5, Total Bilirubin 0.2, AST 4 L, ALT 19, Alkaline Phosphatase 83, Total Protein 7.1, Albumin 3.2 L, Globulin 3.9 H, Albumin/Globulin Ratio 0.8 L 08/31/19 16:20: Mycoplasma pneumon IgM Non-reactive 08/31/19 16:45: POC Glucose 387 H* 08/31/19 18:04: Chlamy pneumoniae PCR Not detected, Adenovirus (PCR) Not detected, B. pertussis DNA (PCR) Not detected, Coronavirus OC43 (PCR) Not detected, Coronavirus HKU1 (PCR) Not detected, Coronavirus 229E (PCR) Not detected, Coronavirus NL63 (PCR) Not detected, Human Metapneumovir PCR Not detected, Influenza A (H1) PCR Not detected, Influ A (H1N1/09) PCR Not detected, Influenza A (H3) PCR Not detected, Influenza Type A (PCR) Not detected, Influenza Type B (PCR) Not detected, M. pneumoniae (PCR) Not detected, Parainfluenza 1 (PCR) Not detected, Parainfluenza 2 (PCR) Not detected, Parainfluenza 3 (PCR) Not detected, Parainfluenza 4 (PCR) Not detected, RSV (PCR) Not detected, Entero/Rhino (PCR) Not detected 09/01/19 06:45: WBC 10.9 H D, RBC 3.74 L, Hgb 11.7 L, Hct 36.3 L, MCV 97.1 H, MCH 31.2, MCHC 32.2, RDW 13.3, Plt Count 246, MPV 8.8, Neut % (Auto) 90.5 H, Lymph % (Auto) 7.5 L, [place] % (Auto) 1.9, Eos % (Auto) 0.0 L, Baso % (Auto) 0.1, Neut # (Auto) 9.8 H, Lymph # (Auto) 0.8, [place] # (Auto) 0.2, Eos # (Auto) 0.0, Baso # (Auto) 0.0, Total Counted 100, Neutrophils % (Manual) 89 H, Lymphocytes % (Manual) 9 L, Monocytes % (Manual) 2, Nucleated RBCs 1, Platelet Estimate Normal, Poikilocytosis 2+, Tear Drop Cells 2+, Ovalocytes 1+ 09/01/19 06:45: Sodium 136, Potassium 4.8, Chloride 99, Carbon Dioxide 27, Anion Gap 14.8, BUN 32 H, Creatinine 1.78 H, Estimated Creat Clear 51, Estimated GFR 39 L, Est GFR ( Amer) 47 L, Glucose 343 H, Calcium 8.6 Medical History: Reports:: Atherosclerotic Heart Disease, Cancer ([place]), Cardiomyopathy, Chronic Obstructive Pulmonary Disease (COPD), Coronary Artery Disease, Cerebrovascular Accident, Diabetes Mellitus Type 1, Diabetes Mellitus Type 2, Gastroesophageal Reflux Disease(GERD), Hyperlipidemia, Hypertension, Lung Disease, Myocardial Infarction Denies:: Home Oxygen, MRSA Assessment and Plan (1) COPD exacerbation Problem details: R/o pneumonia Current visit: No Status: Acute Category: Medical Code(s): J44.1 - Chronic obstructive pulmonary disease with (acute) exacerbation (2) Acute bronchitis Current visit: Yes Status: Acute Category: Medical Code(s): J20.9 - Acute bronchitis, unspecified (3) COPD (chronic obstructive pulmonary disease) Current visit: No Status: Chronic Category: Medical Code(s): J44.9 - Chronic obstructive pulmonary disease, unspecified (4) Coronary artery disease Current visit: No Status: Chronic Category: Medical Code(s): I25.10 - Atherosclerotic heart disease of [place] coronary artery without angina pectoris (5) History of CVA (cerebrovascular accident) Current visit: No Status: Chronic Category: Medical Code(s): Z86.73 - Personal history of transient ischemic attack (TIA), and cerebral infarction without residual deficits (6) Hypertension Current visit: No Status: Chronic Category: Medical Code(s): I10 - Essential (primary) hypertension (7) Ischemic cardiomyopathy Current visit: No Status: Chronic Category: Medical Code(s): I25.5 - Ischemic cardiomyopathy (8) Lymphoma Current visit: No Status: Chronic Category: Medical Code(s): C85.90 - Non- Hodgkin lymphoma, unspecified, unspecified site (9) Tobacco abuse Current visit: No Status: Chronic Category: Medical Code(s): Z72.0 - Tobacco use (10) Type 2 diabetes mellitus Current visit: No Status: Chronic Category: Medical Code(s): E11.9 - Type 2 diabetes mellitus without complications - Assessment and plan all Dx Assessment and Plan for all problems:: BASED ON PATIENT FACTORS, RECOMMEND VANCOMYCIN 1750 MG IV ONCE, FOLLOWED BY VANCOMYCIN 1500 MG IV Q24H. WILL OBTAIN VANCOMYCIN TROUGH LEVEL TOMORROW PRIOR TO 3RD DOSE. PHARMACY WILL FOLLOW DAILY AND ADJUST APPROPRIATE.
[2019-09-02 06:24] LABS: Eosinophils % 0.1 % (0.1-12.0); Hematocrit 35.3 % (42.0-52.0); Hemoglobin 11.4 g/dL (14.1-18.0); Lymphocytes # 0.8 K/mm3 (0.7-4.5); Lymphocytes % 4.6 % (10-50); Mean Corpuscular HGB Conc 32.2 g/dL (31.8-35.4); Mean Corpuscular Volume 97.4 fl (80-94); Mean Platelet Volume 8.8 fl (7.4-10.4); Monocytes # 0.4 K/mm3 (0.1-1.0); Monocytes % 2.6 % (1.7-9.3); Neutrophils # 15.9 K/mm3 (1.8-7.8); Neutrophils % 92.8 % (37.0-80.0); Platelet Count 245 K/mm3 (142-424); Red Blood Count 3.63 M/mm3 (4.60-6.20); Red Cell Distribution Width 13.4 % (11.5-17.5); White Blood Count 17.1 K/mm3 (4.8-10.8)
--- NOTE | 2019-09-02 07:56 | Progress Note ---
<Andreia Gabriel - Last Filed: 09/02/19 07:50> Internal Medicine - PN: Subj *Date: 09/02/19 *Time: 07:50 Interval history: Patient had several coughing spasms throughout the night. Cough was productive. Cough medicine and hot tea did help. He denies chest pain. Shortness of breath is better. He is eating well. He is voiding QS and bowels have moved. Exam Vital signs and Labs for Last 24 Hours: Temp Pulse Resp BP Pulse Ox 97.4 F L 56 L 18 134/46 L 93 L 09/02/19 04:00 09/02/19 05:58 09/02/19 04:00 09/02/19 04:00 09/02/19 05:58 Laboratory Results - last 24 hr 09/01/19 06:08: POC Glucose 326 H* 09/01/19 06:45: Total Counted 100, Neutrophils % (Manual) 89 H, Lymphocytes % (Manual) 9 L, Monocytes % (Manual) 2, Nucleated RBCs 1, Platelet Estimate Normal, Poikilocytosis 2+, Tear Drop Cells 2+, Ovalocytes 1+ 09/01/19 06:45: Sodium 136, Potassium 4.8, Chloride 99, Carbon Dioxide 27, Anion Gap 14.8, BUN 32 H, Creatinine 1.78 H, Estimated Creat Clear 51, Estimated GFR 39 L, Est GFR ( Amer) 47 L, Glucose 343 H, Calcium 8.6 09/01/19 11:36: POC Glucose 541 H* 09/01/19 11:55: POC Glucose 500 H* 09/01/19 12:10: Random Glucose 459 H 09/01/19 16:10: POC Glucose 374 H* 09/01/19 21:15: POC Glucose 344 H* 09/02/19 05:48: POC Glucose 289 H 09/02/19 06:10: WBC 17.1 H D, RBC 3.63 L, Hgb 11.4 L, Hct 35.3 L, MCV 97.4 H, MCH 31.4 H, MCHC 32.2, RDW 13.4, Plt Count 245, MPV 8.8, Neut % (Auto) 92.8 H, Lymph % (Auto) 4.6 L, [place] % (Auto) 2.6, Eos % (Auto) 0.1, Baso % (Auto) 0.0 L, Neut # (Auto) 15.9 H, Lymph # (Auto) 0.8, [place] # (Auto) 0.4, Eos # (Auto) 0.0, Baso # (Auto) 0.0 I & O for Last 24 hours: Intake & Output 08/30/19 08/31/19 09/01/19 09/02/19 11:59 11:59 11:59 11:59 Intake Total 1748 / 1748 1350 / 1350 Balance 1748 / 1748 1350 / 1350 Weight 190 lb 4 oz 193 lb 3 oz - Constitutional no acute distress - *Routine Respiratory Exam Comments: Bilateral prescription scattered wheezing and loose crackles. Loose cough. - *Routine Cardiovascular Exam Present: RRR - *Routine Abdominal Exam Present: soft, normoactive bowel sounds. Absent: tenderness - *Routine Extremities Exam Absent: edema, calf tenderness - *Routine Neurological Exam Present: alert, oriented X3 Assessment and Plan (1) COPD exacerbation Problem details: R/o pneumonia Current visit: No Status: Acute Category: Medical Code(s): J44.1 - Chronic obstructive pulmonary disease with (acute) exacerbation (2) Acute bronchitis Current visit: Yes Status: Acute Category: Medical Code(s): J20.9 - Acute bronchitis, unspecified (3) COPD (chronic obstructive pulmonary disease) Current visit: No Status: Chronic Category: Medical Code(s): J44.9 - Chronic obstructive pulmonary disease, unspecified (4) Coronary artery disease Current visit: No Status: Chronic Category: Medical Code(s): I25.10 - Atherosclerotic heart disease of [place] coronary artery without angina pectoris (5) History of CVA (cerebrovascular accident) Current visit: No Status: Chronic Category: Medical Code(s): Z86.73 - Personal history of transient ischemic attack (TIA), and cerebral infarction without residual deficits (6) Hypertension Current visit: No Status: Chronic Category: Medical Code(s): I10 - Essential (primary) hypertension (7) Ischemic cardiomyopathy Current visit: No Status: Chronic Category: Medical Code(s): I25.5 - Ischemic cardiomyopathy (8) Lymphoma Current visit: No Status: Chronic Category: Medical Code(s): C85.90 - Non- Hodgkin lymphoma, unspecified, unspecified site (9) Tobacco abuse Current visit: No Status: Chronic Category: Medical Code(s): Z72.0 - Tobacco use (10) Type 2 diabetes mellitus Current visit: No Status: Chronic Category: Medical Code(s): E11.9 - Type 2 diabetes mellitus without complications - Assessment and plan all Dx Assessment and Plan for all problems:: Will repeat chest x-ray. We will add as needed duo nebs. White blood cell count elevated to 17.1 possibly due to steroids. <Damien Murillo - Last Filed: 09/02/19 08:47> Internal Medicine - PN: Subj *Date: 09/02/19 *Time: 08:45 Exam Vital signs and Labs for Last 24 Hours: Temp Pulse Resp BP Pulse Ox 98.2 F 54 L 22 139/49 L 96 09/02/19 08:00 09/02/19 08:00 09/02/19 08:00 09/02/19 08:00 09/02/19 08:00 Laboratory Results - last 24 hr 09/01/19 06:08: POC Glucose 326 H* 09/01/19 06:45: Total Counted 100, Neutrophils % (Manual) 89 H, Lymphocytes % (Manual) 9 L, Monocytes % (Manual) 2, Nucleated RBCs 1, Platelet Estimate Normal, Poikilocytosis 2+, Tear Drop Cells 2+, Ovalocytes 1+ 09/01/19 06:45: Sodium 136, Potassium 4.8, Chloride 99, Carbon Dioxide 27, Anion Gap 14.8, BUN 32 H, Creatinine 1.78 H, Estimated Creat Clear 51, Estimated GFR 39 L, Est GFR ( Amer) 47 L, Glucose 343 H, Calcium 8.6 09/01/19 11:36: POC Glucose 541 H* 09/01/19 11:55: POC Glucose 500 H* 09/01/19 12:10: Random Glucose 459 H 09/01/19 16:10: POC Glucose 374 H* 09/01/19 21:15: POC Glucose 344 H* 09/02/19 05:48: POC Glucose 289 H 09/02/19 06:10: WBC 17.1 H D, RBC 3.63 L, Hgb 11.4 L, Hct 35.3 L, MCV 97.4 H, MCH 31.4 H, MCHC 32.2, RDW 13.4, Plt Count 245, MPV 8.8, Neut % (Auto) 92.8 H, Lymph % (Auto) 4.6 L, [place] % (Auto) 2.6, Eos % (Auto) 0.1, Baso % (Auto) 0.0 L, Neut # (Auto) 15.9 H, Lymph # (Auto) 0.8, [place] # (Auto) 0.4, Eos # (Auto) 0.0, Baso # (Auto) 0.0, Total Counted 100, Neutrophils % (Manual) 90 H, Lymphocytes % (Manual) 6 L, Monocytes % (Manual) 4, Platelet Estimate Normal, RBC Morphology Normal I & O for Last 24 hours: Intake & Output 08/30/19 08/31/19 09/01/19 09/02/19 11:59 11:59 11:59 11:59 Intake Total 1748 / 1748 1710 / 1710 Balance 1748 / 1748 1710 / 1710 Weight 190 lb 4 oz 193 lb 3 oz Assessment and Plan (1) COPD exacerbation Problem details: R/o pneumonia Current visit: No Status: Acute Category: Medical Code(s): J44.1 - Chronic obstructive pulmonary disease with (acute) exacerbation (2) Acute bronchitis Current visit: Yes Status: Acute Category: Medical Code(s): J20.9 - Acute bronchitis, unspecified (3) COPD (chronic obstructive pulmonary disease) Current visit: No Status: Chronic Category: Medical Code(s): J44.9 - Chronic obstructive pulmonary disease, unspecified (4) Coronary artery disease Current visit: No Status: Chronic Category: Medical Code(s): I25.10 - Atherosclerotic heart disease of [place] coronary artery without angina pectoris (5) History of CVA (cerebrovascular accident) Current visit: No Status: Chronic Category: Medical Code(s): Z86.73 - Personal history of transient ischemic attack (TIA), and cerebral infarction without residual deficits (6) Hypertension Current visit: No Status: Chronic Category: Medical Code(s): I10 - Essential (primary) hypertension (7) Ischemic cardiomyopathy Current visit: No Status: Chronic Category: Medical Code(s): I25.5 - Ischemic cardiomyopathy (8) Lymphoma Current visit: No Status: Chronic Category: Medical Code(s): C85.90 - Non- Hodgkin lymphoma, unspecified, unspecified site (9) Tobacco abuse Current visit: No Status: Chronic Category: Medical Code(s): Z72.0 - Tobacco use (10) Type 2 diabetes mellitus Current visit: No Status: Chronic Category: Medical Code(s): E11.9 - Type 2 diabetes mellitus without complications - Assessment and plan all Dx Assessment and Plan for all problems:: Subjectively feels better. Cough is more productive. He is breathing better and less short of breath. White count elevated likely due to steroids. Repeat chest pending. Continue current antibiotic regimen pending cultures.
[2019-09-02 08:05] LABS: Lymphocytes % 6 % (10-50); Monocytes % 4 % (2-9); Neutrophils % 90 % (42-76); RBC Morphology Normal; Total Cells Counted 100
--- NOTE | 2019-09-03 07:57 | Progress Note ---
Internal Medicine - PN: Subj *Date: 09/03/19 *Time: 07:57 Exam Vital signs and Labs for Last 24 Hours: Temp Pulse Resp BP Pulse Ox 97.8 F 57 L 18 140/54 L 92 L 09/03/19 04:00 09/03/19 06:15 09/03/19 04:00 09/03/19 04:00 09/03/19 06:15 Laboratory Results - last 24 hr 09/02/19 06:10: Total Counted 100, Neutrophils % (Manual) 90 H, Lymphocytes % (Manual) 6 L, Monocytes % (Manual) 4, Platelet Estimate Normal, RBC Morphology Normal 09/02/19 11:02: POC Glucose 395 H* 09/02/19 16:08: POC Glucose 326 H* 09/02/19 17:23: Vancomycin Trough 8.5 L 09/02/19 20:15: POC Glucose 364 H* 09/03/19 06:11: POC Glucose 287 H I & O for Last 24 hours: Intake & Output 08/31/19 09/01/19 09/02/19 09/03/19 23:59 23:59 23:59 23:59 Intake Total 240 / 240 2738 / 2738 2005 908 / 908 Balance 240 / 240 2738 / 2738 2005 908 / 908 Weight 88.451 kg 86.296 kg 87.628 kg 89.386 kg Microbiology Reports for the Last 24 Hours: Microbiology 08/31/19 17:24 Blood Blood Culture - Preliminary NO GROWTH AFTER 48 HOURS 08/31/19 16:20 Blood Blood Culture - Preliminary NO GROWTH AFTER 48 HOURS 08/31/19 18:50 Sputum - Expectorated Sputum Gram Stain - Final 08/31/19 18:50 Sputum - Expectorated Sputum Sputum Culture - Preliminary Assessment and Plan (1) COPD exacerbation Problem details: R/o pneumonia Current visit: No Status: Acute Category: Medical Code(s): J44.1 - Chronic obstructive pulmonary disease with (acute) exacerbation (2) Acute bronchitis Current visit: Yes Status: Acute Category: Medical Code(s): J20.9 - Acute bronchitis, unspecified (3) COPD (chronic obstructive pulmonary disease) Current visit: No Status: Chronic Category: Medical Code(s): J44.9 - Chronic obstructive pulmonary disease, unspecified (4) Coronary artery disease Current visit: No Status: Chronic Category: Medical Code(s): I25.10 - Atherosclerotic heart disease of [place] coronary artery without angina pectoris (5) History of CVA (cerebrovascular accident) Current visit: No Status: Chronic Category: Medical Code(s): Z86.73 - Personal history of transient ischemic attack (TIA), and cerebral infarction without residual deficits (6) Hypertension Current visit: No Status: Chronic Category: Medical Code(s): I10 - E ssential (primary) hypertension (7) Ischemic cardiomyopathy Current visit: No Status: Chronic Category: Medical Code(s): I25.5 - Ischemic cardiomyopathy (8) Lymphoma Current visit: No Status: Chronic Category: Medical Code(s): C85.90 - Non- Hodgkin lymphoma, unspecified, unspecified site (9) Tobacco abuse Current visit: No Status: Chronic Category: Medical Code(s): Z72.0 - Tobacco use (10) Type 2 diabetes mellitus Current visit: No Status: Chronic Category: Medical Code(s): E11.9 - Type 2 diabetes mellitus without complications The patient's infection will respond to the chosen ABx?: Yes Is the patient receiving the right drug, dose, and route?: Yes Could a more targeted ABx be ordered?: No (SPUTUM PENDING OF DOCUMENTATION)
--- NOTE | 2019-09-03 08:27 | Progress Note ---
<Nisreen Delong - Last Filed: 09/03/19 08:24> Internal Medicine - PN: Subj *Date: 09/03/19 *Time: 08:24 Interval history: Patient states he is feeling much better today. He has less shortness of breath and less wheezing. He finally slept last night and is eating this morning. Exam Vital signs and Labs for Last 24 Hours: Temp Pulse Resp BP Pulse Ox 97.7 F 52 L 18 165/60 H 96 09/03/19 07:58 09/03/19 07:58 09/03/19 07:58 09/03/19 07:58 09/03/19 07:58 Laboratory Results - last 24 hr 09/02/19 11:02: POC Glucose 395 H* 09/02/19 16:08: POC Glucose 326 H* 09/02/19 17:23: Vancomycin Trough 8.5 L 09/02/19 20:15: POC Glucose 364 H* 09/03/19 06:11: POC Glucose 287 H I & O for Last 24 hours: Intake & Output 08/31/19 09/01/19 09/02/19 09/03/19 11:59 11:59 11:59 11:59 Intake Total 1748 / 1748 1710 / 1710 2794 / 2794 Balance 1748 / 1748 1710 / 1710 2794 / 2794 Weight 190 lb 4 oz 193 lb 3 oz 197 lb 1 oz Microbiology Reports for the Last 24 Hours: Microbiology 08/31/19 17:24 Blood Blood Culture - Preliminary NO GROWTH AFTER 48 HOURS 08/31/19 16:20 Blood Blood Culture - Preliminary NO GROWTH AFTER 48 HOURS 08/31/19 18:50 Sputum - Expectorated Sputum Gram Stain - Final 08/31/19 18:50 Sputum - Expectorated Sputum Sputum Culture - Preliminary Radiology Reports for the Last 24 Hours: CXR - Hyperinflation which may be related to small airway disease such as COPD bronchitis or asthma otherwise negative - Constitutional no acute distress - *Routine Respiratory Exam Present: rhonchi, wheezes. Absent: rales - *Routine Cardiovascular Exam Present: RRR - *Routine Abdominal Exam Present: soft, normoactive bowel sounds. Absent: tenderness - *Routine Extremities Exam Absent: cyanosis, clubbing, edema - *Routine Skin Exam Present: warm. Absent: rash - *Routine Neurological Exam Present: alert, oriented X3 Assessment and Plan (1) COPD exacerbation Problem details: R/o pneumonia Status: Acute Category: Medical Code(s): J44.1 - Chronic obstructive pulmonary disease with (acute) exacerbation (2) Acute bronchitis Status: Acute Category: Medical Code(s): J20.9 - Acute bronchitis, unspecified (3) COPD (chronic obstructive pulmonary disease) Status: Chronic Category: Medical Code(s): J44.9 - Chronic obstructive pulmonary disease, unspecified (4) Coronary artery disease Status: Chronic Category: Medical Code(s): I25.10 - Atherosclerotic heart disease of [place] coronary artery without angina pectoris (5) History of CVA (cerebrovascular accident) Status: Chronic Category: Medical Code(s): Z86.73 - Personal history of transient ischemic attack (TIA), and cerebral infarction without residual deficits (6) Hypertension Status: Chronic Category: Medical Code(s): I10 - Essential (primary) hypertension (7) Ischemic cardiomyopathy Status: Chronic Category: Medical Code(s): I25.5 - Ischemic cardiomyopathy (8) Lymphoma Status: Chronic Category: Medical Code(s): C85.90 - Non-Hodgkin lymphoma, unspecified, unspecified site (9) Tobacco abuse Status: Chronic Category: Medical Code(s): Z72.0 - Tobacco use (10) Type 2 diabetes mellitus Status: Chronic Category: Medical Code(s): E11.9 - Type 2 diabetes mellitus without complications - Assessment and plan all Dx Assessment and Plan for all problems:: Sputum culture is growing a few gram-positive cocci. Patient is improving on IV antibiotics. Will discuss further care with Dr. Murillo. <Damien Murillo - Last Filed: 09/05/19 08:52> Internal Medicine - PN: Subj *Date: 09/05/19 *Time: 08:51 Exam Vital signs and Labs for Last 24 Hours: Temp Pulse Resp BP Pulse Ox 97.7 F 52 L 18 165/60 H 96 09/03/19 07:58 09/03/19 07:58 09/03/19 07:58 09/03/19 07:58 09/03/19 07:58 I & O for Last 24 hours: Intake & Output 09/02/19 09/03/19 09/04/19 09/05/19 11:59 11:59 11:59 11:59 Intake Total 1709 / 1710 2794 / 2794 Balance 1709 1710 2794 / 2794 Weight 193 lb 3 oz 197 lb 1 oz Microbiology Reports for the Last 24 Hours: Microbiology 08/31/19 18:50 Sputum - Expectorated Sputum Gram Stain - Final 08/31/19 18:50 Sputum - Expectorated Sputum Sputum Culture - Preliminary Assessment and Plan (1) COPD exacerbation Problem details: R/o pneumonia Status: Acute Category: Medical Code(s): J44.1 - Chronic obstructive pulmonary disease with (acute) exacerbation (2) Acute bronchitis Status: Acute Category: Medical Code(s): J20.9 - Acute bronchitis, unspecified (3) COPD (chronic obstructive pulmonary disease) Status: Chronic Category: Medical Code(s): J44.9 - Chronic obstructive pulmonary disease, unspecified (4) Coronary artery disease Status: Chronic Category: Medical Code(s): I25.10 - Atherosclerotic heart disease of [place] coronary artery without angina pectoris (5) History of CVA (cerebrovascular accident) Status: Chronic Category: Medical Code(s): Z86.73 - Personal history of transient ischemic attack (TIA), and cerebral infarction without residual deficits (6) Hypertension Status: Chronic Category: Medical Code(s): I10 - Essential (primary) hypertension (7) Ischemic cardiomyopathy Status: Chronic Category: Medical Code(s): I25.5 - Ischemic cardiomyopathy (8) Lymphoma Status: Chronic Category: Medical Code(s): C85.90 - Non-Hodgkin lymphoma, unspecified, unspecified site (9) Tobacco abuse Status: Chronic Category: Medical Code(s): Z72.0 - Tobacco use (10) Type 2 diabetes mellitus Status: Chronic Category: Medical Code(s): E11.9 - Type 2 diabetes mellitus without complications - Assessment and plan all Dx Assessment and Plan for all problems:: Patient seen and examined this AM. Concur with plan as outlined above.
--- NOTE | 2019-09-08 10:33 | Discharge Summary ---
General - General Admission date:: 08/31/19 Discharge date: 09/03/19 HPI HPI: Mr. Lynn is a 63-year-old male patient with a history of hypertension, hyperlipidemia, coronary artery disease status post CABG 1996, tobacco abuse, type 2 diabetes mellitus, multiple lacunar infarcts, lymphoma, CVA, GERD, and ischemic cardiomyopathy who presented to the office of [facility] for follow-up on his cough. He stated that he has been sick since and had been on several antibiotics to include Levaquin, cefdinir, and Zithromax. He stated initially he did fell a little better after 2 days of the first antibiotic, but then had felt worse since. He had had postnasal drainage, some chest pain, increasing shortness of breath, and dizziness as well as body aches. Despite antibiotics, his white count has increased to 18,000, thus he was admitted having failed outpatient treatment for IV antibiotics and respiratory care. Hospital Course Hospital Course: The patient was admitted and started on Zosyn and vancomycin as well as duo nebs, steroids, and most of his home medications. A chest x-ray was ordered and showed nothing acute. His white count did improve with antibiotics. A PCR re spiratory panel was ordered and was negative. He continued with a productive cough, but his shortness of breath did improve. His white count did elevate, but this was thought to be due to the steroids. He had a repeat chest x-ray showing COPD bronchitis versus asthma. He did begin feeling much better and had less wheezing. He was finally able to sleep and eat. His blood cultures revealed no growth. His sputum cultures came back positive for many gram- positive cocci but only fungus was isolated from the specimen. He was stable to be discharged home on Bactrim as well as prednisone will follow-up with Dr. Murillo in the office. Objective Vital signs: Temp Pulse Resp BP Pulse Ox 97.7 F 52 L 18 165/60 H 96 09/03/19 07:58 09/03/19 07:58 09/03/19 07:58 09/03/19 07:58 09/03/19 07:58 Narrative: - Constitutional no acute distress - *Routine Respiratory Exam Present: rhonchi, wheezes. Absent: rales - *Routine Cardiovascular Exam Present: RRR - *Routine Abdominal Exam Present: soft, normoactive bowel sounds. Absent: tenderness - *Routine Extremities Exam Absent: cyanosis, clubbing, edema - *Routine Skin Exam Present: warm. Absent: rash - *Routine Neurological Exam Present: alert, oriented X3 DS: Diagnosis - Discharge Diagnosis (1) COPD exacerbation Status: Acute Problem details: R/o pneumonia (2) Acute bronchitis Status: Acute (3) COPD (chronic obstructive pulmonary disease) Status: Chronic (4) Coronary artery disease Status: Chronic (5) History of CVA (cerebrovascular accident) Status: Chronic (6) Hypertension Status: Chronic (7) Ischemic cardiomyopathy Status: Chronic (8) Lymphoma Status: Chronic (9) Tobacco abuse Status: Chronic (10) Type 2 diabetes mellitus Status: Chronic Discharge Plan - Patient Discharge Instructions ACTIVITY: Limited activity DIET: continue same diet Patient Instructions: Serious Ways to Stop Smoking, DI for Chronic Obstructive Pulmonary Disease, DI for Acute Bronchitis - Follow up Plan Follow up with: Damien Murillo MD [Primary Care Provider] - 09/07/19 Disposition: Home, Self-M[facility] Medications: Home Medications Medication Instructions Recorded Confirmed Type Acetaminophen [Acetaminophen 325mg 650 mg PO Q6HP PRN 04/02/18 08/31/19 History tab] Aspirin [Aspirin 81mg EC Tab] 81 mg PO DAILY 04/02/18 08/31/19 History Budesonide/Formoterol Fumarate 2 puffs INHALATION BID 04/02/18 08/31/19 History [Symbicort 160-4.5 Mcg Inhaler] Furosemide [Furosemide 40MG tAB] 40 mg PO DAILY 04/02/18 08/31/19 History Ipratropium/Albuterol Sulfate 3 ml IH QIDRT 04/02/18 08/31/19 History [Duoneb 3mL neb] Isosorbide Mononitrate [Imdur 60mg 60 mg PO DAILY 04/02/18 09/01/19 History ER tablet] Metformin HCl [Glucophage 500mg 1,000 mg PO DAILY 04/02/18 08/31/19 History Tablet] Promethazine/Dextromethorphan 120 ml PO Q6HP PRN 04/02/18 08/31/19 History [Promethazine-Dm Syrup] Sacubitril/Valsartan [Entresto 1 tab PO BID 04/02/18 08/31/19 History 24/26mg Tablet] carvediloL [Carvedilol 6.25mg Tab] 6.25 mg PO BID 04/02/18 08/31/19 History Nicotine [Nicoderm 21mg/24hr 21 mg TD DAILY 08/31/19 08/31/19 History patch] Potassium Chloride [Pot Chlor 10 10 meq PO DAILY 08/31/19 08/31/19 History mEq Tab] Dexlansoprazole [Dexilant] 60 mg PO DAILY 09/01/19 09/01/19 History Gemfibrozil 600 mg PO DAILY 09/01/19 09/01/19 History Rosuvastatin Calcium [Crestor 10mg 10 mg PO HS 09/01/19 09/01/19 History Tablets] Ticagrelor [Brilinta 90mg Tablet] 90 mg PO BID 09/01/19 09/01/19 History Sulfamethoxazole/Trimethoprim 1 each PO BID #14 tab 09/03/19 Rx [Bactrim DS tablet] predniSONE [Prednisone 20mg 20 mg PO BID #10 tab 09/03/19 Rx Tab] Prescriptions/Medication Reconciliation: New Sulfamethoxazole/Trimethoprim [Bactrim DS tablet] 1 each PO BID #14 tab predniSONE [Prednisone 20mg Tab] 20 mg PO BID #10 tab Continued Furosemide [Furosemide 40MG tAB] 40 mg PO DAILY carvediloL [Carvedilol 6.25mg Tab] 6.25 mg PO BID Metformin HCl [Glucophage 500mg Tablet] 1,000 mg PO DAILY Isosorbide Mononitrate [Imdur 60mg ER tablet] 60 mg PO DAILY Sacubitril/Valsartan [Entresto 24/26mg Tablet] 1 tab PO BID Ipratropium/Albuterol Sulfate [Duoneb 3mL neb] 3 ml IH QIDRT Budesonide/Formoterol Fumarate [Symbicort 160-4.5 Mcg Inhaler] 2 puffs INHALATION BID Promethazine/Dextromethorphan [Promethazine-Dm Syrup] 120 ml PO Q6HP PRN PRN Reason: Cough Rosuvastatin Calcium [Crestor 10mg Tablets] 10 mg PO HS Ticagrelor [Brilinta 90mg Tablet] 90 mg PO BID Acetaminophen [Acetaminophen 325mg tab] 650 mg PO Q6HP PRN PRN Reason: Mild To Moderate Pain Aspirin [Aspirin 81mg EC Tab] 81 mg PO DAILY Nicotine [Nicoderm 21mg/24hr patch] 21 mg TD DAILY Potassium Chloride [Pot Chlor 10 mEq Tab] 10 meq PO DAILY Dexlansoprazole [Dexilant] 60 mg PO DAILY Gemfibrozil 600 mg PO DAILY Discontinued cefUROXime axetil [Ceftin 500mg Tab (GEQ)] 500 mg PO BID Azithromycin [Zithromax 500mg ADV] 500 mg IV Q24H predniSONE [Deltasone 10mg tablet] 10 mg PO DIRECTED - Problem Reconciliation Problems Reviewed?: Yes
== END 2019-09-03 09:45 | disposition home or self-care (01) ==
LOC: 2ND
PROVIDERS: ADMIT Family Medicine; ATTEND Family Medicine
CPT/HCPCS: 36415; 71010; 71020; 71045; 71046; 80048; 80053; 80202; 82947; 82962; 85007; 85025; 86738; 87040; 87070; 87077; 87205; 87486; 87581; 87633; 87798; 94640; 94761; G0378; J2543; J3370

== ENCOUNTER 2020-07-03 11:51 | Observation (INO) | payer MEDICARE, SELFPAY ==
[2020-07-03] VITALS (10 sets, daily range): BP systolic 118–144; BP diastolic 61–69; PULSE 66–86; RESP 17–22; TEMP 36.5–36.8; O2SAT 93–96; BMI 28.1; BMI 26.9
--- NOTE | 2020-07-03 11:55 | HMH.EDGENADL ---
ED Disposition Clinical Impression: Acute exacerbation of chronic obstructive airways disease COPD (chronic obstructive pulmonary disease) Qualifiers: COPD type: COPD with acute exacerbation Qualified Code(s): J44.1 - Chronic obstructive pulmonary disease with (acute) exacerbation Disposition: Admitted As Inpatient Condition on Discharge: Fair Instructions: DI for Chronic Obstructive Pulmonary Disease Referrals: Damien Murillo MD [Primary Care Provider] - - Critical Care Critical Care Time: No Attestation: On , the high probability of a clinically significant, sudden or life threatening deterioration of the following system(s) required my full and direct attention, intervention and personal management. The time I documented below is in addition to time spent performing reported procedures but includes the following listed in this critical care notation. Medical Decision Making - Medical Records Medical records reviewed: Yes: I reviewed the patient's medical records. - Samson Inquiry Pt receiving controlled substance: No Vital Signs: 07/03/20 11:54 07/03/20 12:20 Temperature 97.8 F Temperature Source Oral Pulse Rate [Left Radial] 66 Respiratory Rate 18 Blood Pressure [Right Arm] 136/68 Blood Pressure Mean [Right Arm] 90 Blood Pressure Source [Right Arm] Automatic Cuff Blood Pressure Position [Right Arm] Sitting 02 Sat by Pulse Oximetry 96 96 Oxygen Delivery Method Room Air Nasal Cannula Oxygen Flow Rate (LPM) 0.5 - Lab Data Lab Results 07/03/20 12:07: WBC 11.8 H, RBC 3.99 L, Hgb 11.9 L, Hct 39.3 L, MCV 98.4 H, MCH 29.7, MCHC 30.2 L, RDW 13.9, Plt Count 391, MPV 8.1, Neut % (Auto) 82.0 H, Lymph % (Auto) 9.8 L, Caroline % (Auto) 6.1, Eos % (Auto) 1.8, Baso % (Auto) 0.3, Neut # (Auto) 9.7 H, Lymph # (Auto) 1.2, Caroline # (Auto) 0.7, Eos # (Auto) 0.2, Baso # (Auto) 0.0 07/03/20 12:07: Sodium 138, Potassium 4.1, Chloride 101, Carbon Dioxide 25, Anion Gap 16.1 H, BUN 19, Creatinine 1.40 H, Estimated Creat Clear 62, Estimated GFR 51 L, Est GFR ( Amer) 61, Glucose 130 H, Calcium 10.0, Total Bilirubin 0.5, AST 24, ALT 18, Alkaline Phosphatase 107, Total Protein 7.9, Albumin 4.1, Globulin 3.8 H, Albumin/Globulin Ratio 1.1 07/03/20 12:12: Specimen Source Right radial, O2 % 0.5l nc, ABG pH 7.47 H, ABG pCO2 30.3 L, ABG pO2 72.0 L, ABG HCO3 21.3 L, ABG Total CO2 22.2 L, ABG O2 Saturation 95, ABG Base Excess -2.4, Fan Test Acceptable Result diagrams: 07/03/20 12:07 07/03/20 12:07 Orders (Tests/Meds): ED MEDICATIONS Generic Name Dose Route Start Last Admin Trade Name Freq PRN Reason Stop Dose Admin Ceftriaxone Sodium 1 gm/ 50 mls @ 100 mls/hr 07/03/20 12:15 07/03/20 12:25 Sodium Chloride IV 07/17/20 12:14 100 mls/hr Q24H ROYER Administration Protocol Azithromycin 500 mg/ Sodium 250 mls @ 250 mls/hr 07/03/20 12:15 07/03/20 12:24 Chloride IV 07/17/20 12:14 250 mls/hr Q24H ROYER Administration Protocol Discontinued Medications Generic Name Dose Route Start Last Admin Trade Name Freq PRN Reason Stop Dose Admin Albuterol/Ipratropium 3 ml 07/03/20 12:12 07/03/20 12:20 Albuterol/Ipratropium 3 Ml Neb IH 07/03/20 12:13 3 ml ONCE ONE Administration Methylprednisolone Sodium Succinate 125 mg 07/03/20 12:23 07/03/20 12:24 Methylprednisolone Sod Succ 125mg Vial IV 07/03/20 12:24 125 mg ONCE ONE Administration Prednisone 60 mg 07/03/20 12:12 07/03/20 12:23 Prednisone 20mg Tab PO 07/03/20 12:13 Not Given ONCE ONE ORDERS Category Date Time Status XR chest portable Stat Exams 07/03/20 12:12 Taken Blood Culture Stat Micro 07/03/20 12:07 Received ECG Request by /Anat Stat Y 07/03/20 12:12 Ordered - ECG Data Tracing #2 I reviewed this ECG and interpreted as documented below: EKG demonstrates sinus rhythm at a rate of 70 bpm; no acute ST elevation/depression noted on my assessment; no dysrhythmia Medical Decision
--- NOTE | 2020-07-03 12:12 | XR_ITS ---
PROCEDURE: XR CHEST PORTABLE CLINICAL HISTORY: cough COMPARISON: CR CXR2V XR chest 2V from 04/02/2018 CR XR CHEST PORTABLE from 08/31/2019 CR XR CHEST 2V from 09/02/2019 FINDINGS: The cardiomediastinal silhouette and pulmonary vascularity are within normal limits. There is a left-sided cardiac pacemaker with dual chamber electrodes in good position. There are sternal wire sutures likely from previous CABG. The lungs are slightly hyperexpanded and are clear without infiltrates, suspicious nodules, or pleural effusions. No acute bony abnormalities. IMPRESSION: Borderline emphysematous changes, no acute chest pathology noted Dictated by: Dr. Maninder Roy MD 07/03/2020 18:53 Dr. Maninder Roy MD in [place] 07/03/2020 18:53
[2020-07-03 12:24] LABS: Basophils % 0.3 % (0.1-2.0); Eosinophils # 0.2 K/mm3 (0.0-0.4); Eosinophils % 1.8 % (0.1-12.0); Hematocrit 39.3 % (42.0-52.0); Hemoglobin 11.9 g/dL (14.1-18.0); Lymphocytes # 1.2 K/mm3 (0.7-4.5); Lymphocytes % 9.8 % (10-50); Mean Corpuscular HGB Conc 30.2 g/dL (31.8-35.4); Mean Corpuscular Hemoglobin 29.7 pg (27.0-31.2); Mean Corpuscular Volume 98.4 fl (80-94); Mean Platelet Volume 8.1 fl (7.4-10.4); Monocytes # 0.7 K/mm3 (0.1-1.0); Monocytes % 6.1 % (1.7-9.3); Neutrophils # 9.7 K/mm3 (1.8-7.8); Platelet Count 391 K/mm3 (142-424); Red Blood Count 3.99 M/mm3 (4.60-6.20); Red Cell Distribution Width 13.9 % (11.5-17.5); White Blood Count 11.8 K/mm3 (4.8-10.8)
[2020-07-03 12:30] LABS: Alanine Aminotransferase 18 U/L (12-78); Albumin Level 4.1 g/dl (3.5-5.0); Albumin/Globulin Ratio 1.1 (1.1-1.8); Alkaline Phosphatase 107 U/L (38-126); Anion Gap 16.1 mEq/L (5-15); Aspartate Amino Transferase 24 U/L (17-59); Bilirubin,Total 0.5 mg/dl (0.2-1.3); Blood Urea Nitrogen 19 mg/dl (9-20); Carbon Dioxide 25 mmol/L (22.0-30.0); Chloride 101 mmol/L (98-107); Creatinine Clearance Estimated 62 mL/min (50-200); Estimated Glomerular Filt Rate 51 ml/min (>60); GFR (African American) 61 ML/MIN (>60); Globulin 3.8 g/dL (1.3-3.2); Glucose 130 mg/dl (74-100); Potassium 4.1 mmoL/L (3.5-5.1); Sodium 138 mmol/L (136-145); Total Protein,Serum 7.9 g/dl (6.3-8.2)
[2020-07-03 12:34] LABS: ABG Base Excess -2.4 mmol/L (-2.4-2.3); ABG HCO3 21.3 mmhg (22.0-26.0); ABG Oxygen Saturation 95 % (90-100); ABG PCO2 30.3 mmhg (35.0-45.0); ABG PH 7.47 mmol/L (7.35-7.45); ABG TCO2 22.2 mmhg (23-27)
[2020-07-03 12:35] LABS: Allen's Test Acceptable; Oxygen 0.5L NC %; Source Right Radial
--- NOTE | 2020-07-03 14:03 | ECG_ITS ---
APPROVED REPORT Exam: Resting ECG HR:74 bpm ECG Measurements Heart Rate 74 AXES CA 80 P QRSd 150 QRS 229 QT 488 T 76 QTc 541 Conclusion Sinus rhythm with short CA Nonspecific intraventricular block Right ventricular hypertrophy Lateral infarct, age undetermined Inferior infarct, age undetermined Abnormal ECG Electronically signed by : Akin Jaeger, 07/04/2020 15:10:31
[2020-07-03 14:31] LABS: Coronavirus 19 IgG Antibody Negative (Negative); Coronavirus 19 IgM Antibody Positive (Negative)
[2020-07-03 14:44] LABS: Adenovirus,PCR Not Detected (NotDetected); Bordetella Pertussis Not Detected (NotDetected); Chlamydophila Pneumoniae, PCR Not Detected (NotDetected); Coronavirus 19, PCR Not Detected (NotDetected); Coronavirus 229E Not Detected (NotDetected); Coronavirus NL63 Not Detected (NotDetected); Coronavirus OC43 Not Detected (NotDetected); Coronovirus HKU1,PCR Not Detected (NotDetected); Human Metapneumovirus Not Detected (NotDetected); Influenza A, PCR Not Detected (NotDetected); Influenza AH1, 2009 Not Detected (NotDetected); Influenza AH1, PCR Not Detected (NotDetected); Influenza AH3,PCR Not Detected (NotDetected); Influenza B, PCR Not Detected (NotDetected); Mycoplasma Pneumoniae, PCR Not Detected (NotDetected); Parainfluenza 1, PCR Not Detected (NotDetected); Parainfluenza 2, PCR Not Detected (NotDetected); Parainfluenza 3, PCR Not Detected (NotDetected); Parainfluenza 4, PCR Not Detected (NotDetected); Respiratory Syncytial Virus Not Detected (NotDetected); Rhinovirus/Enterovirus Not Detected (NotDetected)
[2020-07-03 15:03] LABS: Lactic Acid 2.2 mmol/L (0.7-2.1)
--- NOTE | 2020-07-03 15:10 | PC.NURSE ---
igM results called to Ariane Reed RN. aware. Covid swab ordered and running at this time. As soon as results are back pt will be admitted to the appropriate unit.
[2020-07-03 17:37] LABS: Reflex Lactic Add Lactic Reflex
[2020-07-03 18:13] LABS: Lactic Acid Follow Up (RFLX 1) 2.3 mmol/L (0.7-2.1)
[2020-07-03 19:57] LABS: Reflex Lactic (2 hrs) Add Lactic Reflex
[2020-07-03 20:46] LABS: Lactic Acid Follow up (RFLX 2) 2.2 mmol/L (0.7-2.1)
[2020-07-03 20:59] LABS: POC Glucose,Bedside 305 (70-110)
--- NOTE | 2020-07-03 21:03 | PC.NURSE ---
During assessment, pt c/o soa. RT notified for breathing Tx. Pt noted to have rhonchi t/o and crackles in (R) base. Random fingerstick obtained because pt is diabetic resulting 305. MD notified. Pt placed on ACHS medium intensity sliding scale.
[2020-07-04] VITALS (14 sets, daily range): BP systolic 123–145; BP diastolic 55–82; PULSE 60–81; RESP 16–28; TEMP 36.3–36.9; O2SAT 92–97; BMI 26.7; BMI 26.8
--- NOTE | 2020-07-04 | ECG_ITS ---
APPROVED REPORT Exam: Resting ECG HR:70 bpm ECG Measurements Heart Rate 70 AXES WA 136 P 67 QRSd 126 QRS 83 QT 424 T 257 QTc 457 Conclusion Normal sinus rhythm Nonspecific intraventricular block T wave abnormality, consider inferolateral ischemia Abnormal ECG Electronically signed by : Akin Jaeger, 07/04/2020 15:07:54
--- NOTE | 2020-07-04 02:23 | PC.NURSE ---
Pt c/o a headache and a sore throat. Requested tylenol. Medication administered. Pt requested to have a snack. Stated that he was craving a cigarette. Pt was offered a nicotine patch. Pt declined. He has been coughing frequently,but nonproductive. Lungs noted to have rhonchi t/o and crackles to (R) base. Pt has been given breathing tx for soa this shift. Remains on 2L NC. notified of pt condition. Solumedrol 60 mg Q8 IV ordered and administered. No other concerns at this time. Will continue to monitor.
--- NOTE | 2020-07-04 03:40 | PC.NURSE ---
Pt c/o chest pain @ 0309. Pt described it as burning and heaviness and rated it an 9 on [employer] scale. Pt stated that this happens occasionally at home and he takes a nitro and it goes away. Pt has a cardiac Hx. VS obtained. BP 139/82, P 81, 97% 2L NC. Nitro 0.4 mg SL tab administered @ 030. EKG obtained. 0314 pt states that pain is now 0. EKG taken to ER. MD Mars read EKG @ 0320. No acute ME. New VS obtained @ 0325. BP 137/61, P 70, 94% 2L NC. Pain level remains 0. MD Murillo notified @ 0330. Declined order for troponins or CXR. No additional orders. Will continue to monitor.
--- NOTE | 2020-07-04 05:44 | ECG_ITS ---
APPROVED REPORT Exam: Resting ECG HR:66 bpm ECG Measurements Heart Rate 66 AXES NJ 140 P 68 QRSd 130 QRS 84 QT 436 T -60 QTc 457 Conclusion Normal sinus rhythm Nonspecific intraventricular block T wave abnormality, consider inferolateral ischemia Abnormal ECG Electronically signed by : Akin Jaeger, 07/04/2020 15:07:50
--- NOTE | 2020-07-04 06:01 | PC.NURSE ---
Pt c/o chest pain after ambulating to toilet @ 0525. Rating 8. Describing it as pressure. VS 155/78, P 67, O2 99% 2L NC, R28. Nitro SL tab ADMINISTERED @ 0526. MD NOTIFIED. Repeat EKG and cardiac enzymes obtained. ER MD Mars read EKG. No acute changes. Pt states that pain is 0 at this time. FSBS obtained 315. Humalog 10 units administered. Will continue to monitor.
[2020-07-04 06:03] LABS: Hematocrit 36.8 % (42.0-52.0); Hemoglobin 11.4 g/dL (14.1-18.0); Lymphocytes # 0.7 K/mm3 (0.7-4.5); Mean Corpuscular Hemoglobin 29.7 pg (27.0-31.2); Mean Corpuscular Volume 95.7 fl (80-94); Mean Platelet Volume 8.6 fl (7.4-10.4); Monocytes # 0.4 K/mm3 (0.1-1.0); Monocytes % 1.9 % (1.7-9.3); Neutrophils # 17.2 K/mm3 (1.8-7.8); Neutrophils % 94.1 % (37.0-80.0); Platelet Count 368 K/mm3 (142-424); Red Blood Count 3.84 M/mm3 (4.60-6.20); Red Cell Distribution Width 14.3 % (11.5-17.5); White Blood Count 18.2 K/mm3 (4.8-10.8)
[2020-07-04 06:07] LABS: MANUAL DIFFERENTIAL MANUAL DIFFERENTIAL (MANUAL DIFF)
[2020-07-04 06:17] LABS: Hypochromasia 1+; Lymphocytes % 3 % (10-50); Macrocytosis 1+; Neutrophils % 86 % (42-76); Platelet Estimate Normal; Poikilocytosis 1+; Rouleaux 2+; Total Cells Counted 100
[2020-07-04 06:18] LABS: Chloride 99 mmol/L (98-107); Sodium 134 mmol/L (136-145)
[2020-07-04 06:19] LABS: Potassium 4.1 mmoL/L (3.5-5.1)
[2020-07-04 06:20] LABS: Creatine Kinase 39 U/L (55-170)
[2020-07-04 06:21] LABS: Alanine Aminotransferase 16 U/L (12-78); Alkaline Phosphatase 88 U/L (38-126); Anion Gap 16.1 mEq/L (5-15); Aspartate Amino Transferase 19 U/L (17-59); Bilirubin,Total 0.3 mg/dl (0.2-1.3); Blood Urea Nitrogen 23 mg/dl (9-20); Carbon Dioxide 23 mmol/L (22.0-30.0); Creatinine Clearance Estimated 73 mL/min (50-200); Estimated Glomerular Filt Rate 61 ml/min (>60); GFR (African American) 73 ML/MIN (>60)
[2020-07-04 06:22] LABS: Albumin Level 3.6 g/dl (3.5-5.0); Calcium 9.6 mg/dl (8.4-10.2); Globulin 3.5 g/dL (1.3-3.2); Glucose 288 mg/dl (74-100); Total Protein,Serum 7.1 g/dl (6.3-8.2)
[2020-07-04 06:35] LABS: CKMB Relative Index 4.1 U/L (0-4.0); Creatine Kinase MB 1.6 ng/ml (0.0-2.03)
[2020-07-04 07:03] LABS: Troponin I < 0.01 ng/ml (0.00-0.034)
--- NOTE | 2020-07-04 07:36 | HMH.PHAVTE ---
[facility] Pharmacy VTE Monitoring - Patient Demographics Admission date: 07/04/20 Report Date: 07/04/20 Time: 07:36 Allergies/Adverse Reactions: Patient Allergies No Known Drug Allergies Allergy (Verified 04/02/18 14:42) Height: 1.78 m Weight: 84.822 kg Patient Problems: Current Active Problems COPD (chronic obstructive pulmonary disease) (Chronic) Acute exacerbation of chronic obstructive airways disease (Acute) - VTE Risk Labs: VTE Related Lab Results Hgb 11.4 g/dL (14.1-18.0) L 07/04/20 05:34 Hct 36.8 % (42.0-52.0) L 07/04/20 05:34 Plt Count 368 K/mm3 (142-424) 07/04/20 05:34 BUN 23 mg/dl (9-20) H 07/04/20 05:34 Creatinine 1.20 mg/dl (0.66-1.25) 07/04/20 05:34 Estimated Creat Clear 73 mL/min (50-200) 07/04/20 05:34 Was VTE Risk Assessment Performed: Yes VTE Score: 4 VTE Risk Level: Low Risk Clinical Trial Participant: No - Prophylaxis VTE Prophylaxis Ordered?: Yes Types of VTE Prophylaxis: TEDS Knee High
--- NOTE | 2020-07-04 08:24 | HMH.HP ---
*Admission Date: 07/03/20 <Jasmin Jane 07/04/20 08:48> *Chief complaint: COPD Exacerbation <Jasmin Jane 07/04/20 08:48> *History of present illness: Mr. Lynn is a 64yo white male with history of T2DM, CAD with CABG and cardiac stenting, [place], CVA, COPD, tobacco abuse, HTN, HLP, lymphoma, GERD, carotid stenosis, and ischemic cardiomyopathy with ICD placement in April. He describes a 2 week history of sinus congestion along with developing chest congestion. He had become increasingly short of breath over the last 2-3 days despite nebulizer treatments and MDI use and was considering being seen in the office of his PCP. He reports yesterday his SOB became severe and he developed some nausea and lightheadedness and came to [facility] for evaluation. On arrival, he was hemodynamically stable with O2 saturations 98% on room air, however, he did appear to be symptomatically improved when placed on 1 to 2 L O2 via nasal cannula. Chest x-ray showed borderline emphysematous changes without acute chest pathology. Lab workup was relatively unremarkable. EKG was sinus rhythm. He had some symptomatic improvement after IV steroids, antibiotics, and a DuoNeb treatment but continued with conversational dyspnea and stated he did not feel well when without supplement oxygen. Due to his significant significant comorbidities and only mild symptomatic improvement, he was admitted for further evaluation and treatment. This morning he is resting quietly in bed. He denies any pain. He continues with some conversational dyspnea but denies SOBOE. He describes non-productive cough and feels that his nasal and chest congestion improved after initial treatment yesterday. <Jasmin Jane 07/04/20 09:02> [facility] History Medical History: Reports:: Atherosclerotic Heart Disease, Cancer (tonsils), Cardiomyopathy, Carotid Stenosis, Congestive Heart Failure, Chronic Obstructive Pulmonary Disease (COPD), Coronary Artery Disease, Cerebrovascular Accident, Diabetes Mellitus Type 2, Gastroesophageal Reflux Disease(GERD), Hyperlipidemia, Hypertension, Lung Disease, Myocardial Infarction Denies:: Diabetes Mellitus Type 1, Home Oxygen, MRSA <Jasmin Jane 07/04/20 08:48> *Have you ever received a pneumonia vaccine?: Yes <Jasmin Jane 07/04/20 08:48> *Have you received a flu vaccine this season?: No <Maninder Janea 07/04/20 08:48> Other Medical History: Reports: Arthritis, Blood Transfusion Reaction (pt had a heart attack ), Cataracts, Chemotherapy, Radiation Therapy, Other <Jasmin Jane 07/04/20 08:48> Comment:: ischemic cardiomyopathy with ICD placed 04/2020 <Jasmin Jane 07/04/20 08:48> Other Surgeries: Yes: Angioplasty, CABG, Cardiac Catheterization, Cardiac Surgery, Coronary Stent, Open Heart Surgery, Other (carotid stent) <Maninder Jane07/04/20 08:48> Amputation: No <Maninder Jane07/04/20 08:48> Fractures: No <Maninder Jane07/04/20 08:48> - *Social History Last grade of school completed: High school graduate <Maninder Jane07/04/20 08:48> Smoking Status: Current every day smoker <Maninder Jane07/04/20 08:48> Tobacco Type: cigarettes <Maninder Jane07/04/20 08:48> # Packs/Day (cigarettes): 1 <Buck07/04/20 08:48> #Yrs smoked (if former smoker): 50 <Buck07/04/20 08:48> Alcohol Intake: never <Buck07/04/20 08:48> *Occupational Status:: retired <Maninder Jane07/04/20 08:48> Housing: house <Maninder Jane07/04/20 08:48> Household Members: spouse <Maninder Jane07/04/20 08:48> *Travel in the last 8 weeks: None <Maninder Jane07/04/20 08:48> Family Hx:: Cancer, Coronary Artery Disease, Diabetes, Heart Attack, Hypertension, Stroke <Maninder Jane07/04/20 08:48> Review of Systems - Constitutional Reports body ache(s), Reports chills, Reports fatigue, Reports fever(s), Reports headache(s), Reports lack of energy, Reports weakness <Maninder Jane07/04/20 08:48> - Eyes Denies blurry vision, Denies change in vision <Jasmin Jane - 07/04/20 08:48> - ENT Report
--- NOTE | 2020-07-04 10:36 | HMH.PHAINT ---
MED REC-COMPARED RX BOTTLES, MED LIST, AND FILL HX. DISCUSSED WITH DR. HOGAN.
[2020-07-04 11:11] LABS: POC Glucose,Bedside 269 (70-110)
[2020-07-04 15:37] LABS: POC Glucose,Bedside 172 (70-110)
--- NOTE | 2020-07-04 17:41 | PC.NURSE ---
Pt alert and oriented and able to make needs known. Has been on ra this afternoon and tolerated well thus far, has been 93-95 % on RA. CB in reach. Lungs scattered wheezes and rhonchi. Pt states he is breathing better. Sputum sent and pending. Will cont to mx this shift. BS x 4 quads. Has been paced on tele. VSS.
--- NOTE | 2020-07-04 17:44 | PC.NURSE ---
Pt has not c/o of chest pain this shift. Also, pt did make 1 lap around [place]on, he did have exertional soa. Have encouraged pt to use incentive spirometer this shift q one hr.
--- NOTE | 2020-07-04 19:15 | PC.NURSE ---
report given to ashley
[2020-07-05] VITALS (17 sets, daily range): BP systolic 106–148; BP diastolic 52–79; PULSE 59–126; RESP 19–26; TEMP 36.2–36.9; O2SAT 90–97; BMI 27.2
--- NOTE | 2020-07-05 | ECG_ITS ---
APPROVED REPORT Exam: Resting ECG HR:126 bpm ECG Measurements Heart Rate 126 AXES QRSd 170 QRS 244 QT 408 T 52 QTc 590 Conclusion Ventricular pacer with tachycardia Abnormal ECG Electronically signed by : Alfredo Diaz, 07/18/2020 16:35:54
--- NOTE | 2020-07-05 04:52 | PC.NURSE ---
Pt is A&Ox4 and has ambulated to the BR & in room a few times this shift and tolerated well. Pt denies any pain or N/V/D t/o shift. Pt has c/o exertional SOB after coughing episodes, pt offered neb tx although pt refused. Inspiratory/expiratory wheezing noted on auscultation, room air sat 92-93% this shift. ABD is soft, non-tender and pt reports BM on prev shift. Pt has not slept very well t/o night. No pitting edema noted. VSS, dorothy light within reach, will continue to monitor.
[2020-07-05 06:29] LABS: Hematocrit 35.5 % (42.0-52.0); Lymphocytes # 0.7 K/mm3 (0.7-4.5); Lymphocytes % 2.9 % (10-50); Mean Corpuscular HGB Conc 30.9 g/dL (31.8-35.4); Mean Corpuscular Hemoglobin 29.8 pg (27.0-31.2); Mean Corpuscular Volume 96.5 fl (80-94); Mean Platelet Volume 8.9 fl (7.4-10.4); Monocytes # 0.6 K/mm3 (0.1-1.0); Monocytes % 2.2 % (1.7-9.3); Neutrophils # 24.4 K/mm3 (1.8-7.8); Neutrophils % 94.8 % (37.0-80.0); Platelet Count 364 K/mm3 (142-424); Red Blood Count 3.68 M/mm3 (4.60-6.20); Red Cell Distribution Width 14.4 % (11.5-17.5); White Blood Count 25.7 K/mm3 (4.8-10.8)
[2020-07-05 06:43] LABS: POC Glucose,Bedside 207 (70-110)
[2020-07-05 06:54] LABS: MANUAL DIFFERENTIAL MANUAL DIFFERENTIAL (MANUAL DIFF)
--- NOTE | 2020-07-05 08:15 | HMH.ACPN2 ---
<Andreia Gabriel - Last Filed: 07/05/20 08:15> Internal Medicine - PN: Subj *Date: 07/05/20 *Time: 08:15 Interval history: Patient states he has really improved since admission. His breathing is better although he is still short of breath with exertion. He states he has never had any chest pain. He is eating without difficulty. He has been up to the bathroom. He is voiding QS. Patient states he was awake all night long. O2 sat noted to be 89 on room air and 98 with oxygen. White blood cell count is 25,700. He remains on Solu-Medrol 60 mg IV every 8 hours. Exam Vital signs and Labs for Last 24 Hours: Temp Pulse Resp BP Pulse Ox 97.7 F 72 19 137/68 92 L 07/05/20 07:40 07/05/20 07:40 07/05/20 07:40 07/05/20 07:40 07/05/20 07:40 Laboratory Results - last 24 hr 07/04/20 10:58: POC Glucose 269 H 07/04/20 15:25: POC Glucose 172 H 07/05/20 05:59: POC Glucose 207 H 07/05/20 06:00: WBC 25.7 H* D, RBC 3.68 L, Hgb 11.0 L, Hct 35.5 L, MCV 96.5 H, MCH 29.8, MCHC 30.9 L, RDW 14.4, Plt Count 364, MPV 8.9, Neut % (Auto) 94.8 H, Lymph % (Auto) 2.9 L, [place] % (Auto) 2.2, Eos % (Auto) 0.0 L, Baso % (Auto) 0.0 L, Neut # (Auto) 24.4 H, Lymph # (Auto) 0.7, [place] # (Auto) 0.6, Eos # (Auto) 0.0, Baso # (Auto) 0.0 I & O for Last 24 hours: Intake & Output 07/02/20 07/03/20 07/04/20 07/05/20 11:59 11:59 11:59 11:59 Intake Total 480 / 480 1660 / 1660 Output Total 2425 / 2425 Balance 480 / 480 -765 / -765 Weight 185 lb 187 lb 190 lb 8 oz Microbiology Reports for the Last 24 Hours: Microbiology 07/04/20 09:35 Sputum - Expectorated Sputum Gram Stain - Final - Constitutional no acute distress Comments: Sitting on bedside eating his breakfast. He appears comfortable. - *Routine Respiratory Exam Present: wheezes (Few inspiratory and expiratory posteriorly with scattered rhonchi.) - *Routine Cardiovascular Exam Present: RRR Comments: Monitor showing mostly paced rhythm - *Routine Abdominal Exam Present: soft, normoactive bowel sounds. Absent: tenderness - *Routine Extremities Exam Absent: edema, calf tenderness - *Routine Neurological Exam Present: alert, oriented X3 Assessment and Plan (1) Acute exacerbation of chronic obstructive airways disease Status: Acute Category: Medical Code(s): J44.1 - Chronic obstructive pulmonary disease with (acute) exacerbation (2) Acute bronchitis Status: Acute Category: Medical Code(s): J20.9 - Acute bronchitis, unspecified (3) ASCVD (arteriosclerotic cardiovascular disease) Status: Acute Category: Medical Code(s): I25.10 - Atherosclerotic heart disease of [place] coronary artery without angina pectoris (4) Hypertension Status: Chronic Category: Medical Code(s): I10 - Essential (primary) hypertension (5) Ischemic cardiomyopathy Status: Chronic Category: Medical Code(s): I25.5 - Ischemic cardiomyopathy (6) Type 2 diabetes mellitus Status: Chronic Category: Medical Code(s): E11.9 - Type 2 diabetes mellitus without complications (7) Hx of lymphoma Status: Acute Category: Medical Code(s): Z85.72 - Personal history of non-Hodgkin lymphomas (8) GERD (gastroesophageal reflux disease) Status: Acute Category: Medical Code(s): K21.9 - Gastro-esophageal reflux disease without esophagitis (9) History of CVA (cerebrovascular accident) Status: Chronic Category: Medical Code(s): Z86.73 - Personal history of transient ischemic attack (TIA), and cerebral infarction without residual deficits - Assessment and plan all Dx Assessment and Plan for all problems:: Continue current pulmonary care. <Damien Murillo - Last Filed: 07/05/20 14:01> Internal Medicine - PN: Subj *Date: 07/05/20 *Time: 13:57 Exam Vital signs and Labs for Last 24 Hours: Temp Pulse Resp BP Pulse Ox 97.1 F L 64 19 132/64 93 L 07/05/20 11:02 07/05/20 11:02 07/05/20 11:02 07/05/20 11:02 07/05/20
[2020-07-05 08:17] LABS: Hypochromasia 1+; Lymphocytes % 4 % (10-50); Monocytes % 1 % (2-9); Neutrophils % 95 % (42-76); Platelet Estimate Normal; Total Cells Counted 100
[2020-07-05 08:18] LABS: Rouleaux 2+
--- NOTE | 2020-07-05 08:47 | SW/DCPLANNER ---
MADE ROUNDS WITH DR HELM THIS MORNING, HE STATED PATIENT SOUNDS BETTER BUT IS STILL COUGHING, HE IS WAITING ON CULTURES AND WILL NOT DISCHARGE UNTIL [facility] PENDING RESULTS.. PATIENT WILL DISCHARGE BACK HOME AFTER COMPLETION OF HER ACUTE CARE STAY...
[2020-07-05 11:43] LABS: POC Glucose,Bedside 376 (70-110)
--- NOTE | 2020-07-05 12:53 | PC.NURSE ---
1225: Someone from pt's room yelled for help, Kal & Dana Osullivan, SRNA's and myself responded. Upon arrival patient was sitting in bed, coughing, face red. Per family member pt had taken a bite of food, coughed, then fell over in bed unresponsive. Per patient, he took a bite of food, got choked, and he is unsure if he lost consciousness or not. Bedside swallow eval performed and pt able to swallow without difficulty. The only question that patient didn't pass was if there was a neurological diagnosis in patients history. Patient has had a CVA in the past. Dr Murillo notified, he requested a bedside swallow eval by nurse. I told him I had already performed one and that patient failed due to having a neurological diagnosis in his history (CVA) but otherwise patient swallowed liquids fine. No new orders at this time. Pt was alert & oriented x4 after episode. He denied chest pain. V/S as follows: 138/71, R: 20, O2: 99 RA, HR: 89. Will continue to monitor.
[2020-07-05 16:15] LABS: POC Glucose,Bedside 186 (70-110)
[2020-07-05 16:24] LABS: POC Glucose,Bedside 345 (70-110)
[2020-07-05 16:24] LABS: POC Glucose,Bedside 312 (70-110)
[2020-07-05 16:24] LABS: POC Glucose,Bedside 290 (70-110)
--- NOTE | 2020-07-05 16:44 | PC.NURSE ---
Pt is alert and oriented x4. Lungs with wheezes and rhonchi. O2 sats have been 90's on RA. 1 PRN breathing treatment requested this shift. He states he feels much better today than yesterday. He has ambulated in the halls today and been up to the chair. IS use encouraged. Glucose was 376 and 186 at checks, insulin per SS. Paced on telemetry. Denies any pain. Will continue to monitor.
--- NOTE | 2020-07-05 18:57 | PC.NURSE ---
rn called to room, patient complaining of pressure in chest rated at 10 on pain scale 126/81, 127, rr 24, o2 95% on r/a. 1 nitro tablet givensl
--- NOTE | 2020-07-05 19:00 | PC.NURSE ---
post 5 min follow up from nitro 140/85, sats 97% on ra, hr 126. patient rates pain level at 5 and decreasing on pain scale.
--- NOTE | 2020-07-05 19:16 | PC.NURSE ---
report given to ashley
--- NOTE | 2020-07-05 19:29 | PC.NURSE ---
office clerk notified me at 1845 that patients HR jumped to 150's with a wide qrs complex. Pt was asymptomatic, denied chest pain at that time. EKG obtained and taken to ER, per Dr Ca ekg showed paced rhythm but couldn't tell beyond that since pt has a pacemaker. Upon arrival back to floor pt had reported chest pain, ntg given x1 with relief noted and HR returning to baseline, see Barry Kraues RN note. Dr Murillo notified, he said to go ahead and give 2100 coreg and order cardiology consult for am to interrogate pacemaker. report given to Marcelo Castillo RN
[2020-07-05 20:14] LABS: POC Glucose,Bedside 267 (70-110)
[2020-07-06] VITALS (10 sets, daily range): BP systolic 111–130; BP diastolic 59–69; PULSE 59–70; RESP 18–24; TEMP 36.3–36.5; O2SAT 90–95; BMI 27.3
[2020-07-06 06:10] LABS: POC Glucose,Bedside 234 (70-110)
--- NOTE | 2020-07-06 06:41 | PC.NURSE ---
Pt is A&Ox4 and has ambulated to the BR & in room a few times this shift and pt tolerated well. Pt has denied any pain this shift. PT c/o exertional SOB with intense coughing episodes, neb given 1x and pt reported ease in SOB on reassessment. Coarse rhonchi and wheezing t/o on lung auscultation. Pt continued on room air with sats 93-95% t/o shift. Pt completed IS several times, goal increased. Pt slept very well after receiving Restoril, pt was very pleased with the medication results. Pt has not had any further episodes of chest pain or tachycardia and continues to be paced on tele. Call light within reach, will continue to monitor.
[2020-07-06 07:35] LABS: Hematocrit 33.6 % (42.0-52.0); Hemoglobin 10.8 g/dL (14.1-18.0); Lymphocytes # 0.7 K/mm3 (0.7-4.5); Lymphocytes % 3.2 % (10-50); Mean Corpuscular Volume 93.6 fl (80-94); Mean Platelet Volume 8.7 fl (7.4-10.4); Monocytes # 0.6 K/mm3 (0.1-1.0); Neutrophils # 20.1 K/mm3 (1.8-7.8); Neutrophils % 93.7 % (37.0-80.0); Platelet Count 360 K/mm3 (142-424); Red Blood Count 3.59 M/mm3 (4.60-6.20); Red Cell Distribution Width 14.5 % (11.5-17.5); White Blood Count 21.4 K/mm3 (4.8-10.8)
[2020-07-06 07:39] LABS: MANUAL DIFFERENTIAL MANUAL DIFFERENTIAL (MANUAL DIFF)
--- NOTE | 2020-07-06 08:27 | HMH.ACPN2 ---
<Andreia Gabriel - Last Filed: 07/06/20 08:27> Internal Medicine - PN: Subj *Date: 07/06/20 *Time: 08:27 Interval history: Events of yesterday reviewed. Nurse states she noticed a wide-complex rhythm at about 150/min. At this time patient did not have chest discomfort. He did develop chest discomfort midsternal after eating dinner. He said 1 nitroglycerin relieved the discomfort. He describes an infrequent cough. He did sleep last night without any problems. Laboratory data this morning reveals a white blood cell count of 21,400 with a hemoglobin of 10.8 and hematocrit of 33.6. F monitor strips reviewed from yesterday. Showed mild run of paced rhythm at rate of 150/min. Exam Vital signs and Labs for Last 24 Hours: Temp Pulse Resp BP Pulse Ox 97.7 F 64 20 127/63 91 L 07/06/20 08:00 07/06/20 08:00 07/06/20 08:00 07/06/20 08:00 07/06/20 08:00 Laboratory Results - last 24 hr 07/04/20 05:55: POC Glucose 345 H* 07/04/20 05:56: POC Glucose 312 H* 07/04/20 20:56: POC Glucose 290 H 07/05/20 11:36: POC Glucose 376 H* 07/05/20 16:08: POC Glucose 186 H 07/05/20 19:56: POC Glucose 267 H 07/06/20 06:00: WBC 21.4 H*, RBC 3.59 L, Hgb 10.8 L, Hct 33.6 L, MCV 93.6, MCH 30.0, MCHC 32.0, RDW 14.5, Plt Count 360, MPV 8.7, Neut % (Auto) 93.7 H, Lymph % (Auto) 3.2 L, [place] % (Auto) 3.0, Eos % (Auto) 0.0 L, Baso % (Auto) 0.0 L, Neut # (Auto) 20.1 H, Lymph # (Auto) 0.7, [place] # (Auto) 0.6, Eos # (Auto) 0.0, Baso # (Auto) 0.0 07/06/20 06:01: POC Glucose 234 H I & O for Last 24 hours: Intake & Output 07/03/20 07/04/20 07/05/20 07/06/20 11:59 11:59 11:59 11:59 Intake Total 480 / 480 1660 / 1660 1780 / 1780 Output Total 2425 / 2425 2195 / 2195 Balance 480 / 480 -765 / -765 -415 / -415 Weight 185 lb 187 lb 190 lb 8 oz 191 lb 5 oz Microbiology Reports for the Last 24 Hours: Microbiology 07/03/20 12:07 Blood - Other Blood Culture - Preliminary NO GROWTH AFTER 48 HOURS 07/03/20 12:07 Blood - Other Blood Culture - Preliminary NO GROWTH AFTER 48 HOURS 07/04/20 09:35 Sputum - Expectorated Sputum Gram Stain - Final 07/04/20 09:35 Sputum - Expectorated Sputum Sputum Culture - Preliminary - Constitutional no acute distress - *Routine Respiratory Exam Present: other Comments: Bilateral coarse expiratory wheeze throughout - *Routine Cardiovascular Exam Present: RRR (Monitor showing paced rhythm.) - *Routine Abdominal Exam Present: soft, normoactive bowel sounds. Absent: tenderness - *Routine Extremities Exam Absent: edema, calf tenderness - *Routine Neurological Exam Present: alert, oriented X3 Assessment and Plan (1) Acute exacerbation of chronic obstructive airways disease Status: Acute Category: Medical Code(s): J44.1 - Chronic obstructive pulmonary disease with (acute) exacerbation (2) Acute bronchitis Status: Acute Category: Medical Code(s): J20.9 - Acute bronchitis, unspecified (3) ASCVD (arteriosclerotic cardiovascular disease) Status: Acute Category: Medical Code(s): I25.10 - Atherosclerotic heart disease of [place] coronary artery without angina pectoris (4) Hypertension Status: Chronic Category: Medical Code(s): I10 - Essential (primary) hypertension (5) Ischemic cardiomyopathy Status: Chronic Category: Medical Code(s): I25.5 - Ischemic cardiomyopathy (6) Type 2 diabetes mellitus Status: Chronic Category: Medical Code(s): E11.9 - Type 2 diabetes mellitus without complications (7) Hx of lymphoma Status: Acute Category: Medical Code(s): Z85.72 - Personal history of non-Hodgkin lymphomas (8) GERD (gastroesophageal reflux disease) Status: Acute Category: Medical Code(s): K21.9 - Gastro-esophageal reflux disease without esophagitis (9) History of CVA (cerebrovascular accident) Status: Chronic Category: Medical Code(s): Z86.73 - Personal history of transient i
[2020-07-06 08:42] LABS: Lymphocytes % 2 % (10-50); Monocytes % 2 % (2-9); Neutrophils % 96 % (42-76); Total Cells Counted 100
[2020-07-06 08:43] LABS: Platelet Estimate Normal; RBC Morphology Normal
--- NOTE | 2020-07-06 09:27 | HMH.CNCARD ---
History of Present Illness Consult date: 07/06/20 Requesting physician: Damien Murillo Chief complaint: tachycardia/palps History of present illness: This is a 64-year-old gentleman who was admitted to the hospital with shortness of breath that had been progressively worsening over the last 2 weeks associated with sinus and chest congestion. The patient has been in the hospital being treated for COPD exacerbation. He does have a history of coronary artery disease with coronary artery bypass grafting and recent cardiac stenting. He also has a history of [place], CVA, COPD, tobacco use, hypertension, hyperlipidemia, lymphoma, GERD, carotid artery stenosis and ischemic cardiomyopathy with biventricular AICD placement in April of this year. The patient is followed by Dr. Chan in [place] and he sees the knitted cloth examiner Dr. Dior who implanted his AICD. The patient has a Biotronix device in place. Overnight the patient did have tachycardia with a rate up to 150 bpm, however the patient was pacing throughout this tachycardia event. His EKG has been reviewed by Dr. Mckeon which looks like he had underlying atrial flutter with ventricular pacing. The patient states that following this event he did have some chest pressure in the center of his chest. He states that it did not radiate and was associated with shortness of breath. He states that he has these episodes where his heart rate gets high like this and it causes him to have some chest pressure. He did take a nitroglycerin following this event and his symptoms subsided. He states that his shortness of breath has been much better since he has been in the hospital. He denies any nausea or diaphoresis. He denies any lower extremity edema. He denies any fever, chills, nausea, vomiting, diarrhea, PND or orthopnea. [facility] History I have reviewed the patient's past medical history: Yes Medical History: Reports:: Atherosclerotic Heart Disease, Cancer (tonsils), Cardiomyopathy, Carotid Stenosis, Congestive Heart Failure, Chronic Obstructive Pulmonary Disease (COPD), Coronary Artery Disease, Cerebrovascular Accident, Diabetes Mellitus Type 2, Gastroesophageal Reflux Disease(GERD), Hyperlipidemia, Hypertension, Lung Disease, Myocardial Infarction, Palpitations, Peripheral Vascular Disease (SIRENA, s/p R carotid stenting) Denies:: Diabetes Mellitus Type 1, Home Oxygen, MRSA *Have you ever received a pneumonia vaccine?: Yes *Have you received a flu vaccine this season?: No Other Medical History: Reports: Arthritis, Blood Transfusion Reaction (pt had a heart attack ), Cataracts, Chemotherapy, Radiation Therapy, Other Other Surgeries: Yes: Angioplasty, CABG, Cardiac Catheterization, Cardiac Surgery, Coronary Stent, Open Heart Surgery, Other (carotid stent) Amputation: No Fractures: No - *Social History Last grade of school completed: High school graduate Smoking Status: Current every day smoker Tobacco Type: cigarettes # Packs/Day (cigarettes): 1 #Yrs smoked (if former smoker): 50 Alcohol Intake: never *Occupational Status:: retired Housing: house Household Members: spouse *Travel in the last 8 weeks: None Family Hx:: Cancer, Coronary Artery Disease, Diabetes, Heart Attack, Hypertension, Stroke Meds Home Medications Medication Instructions Recorded Confirmed Type Acetaminophen [Acetaminophen 325mg 650 mg PO Q6HP PRN 04/02/18 07/03/20 History tab] Aspirin [Aspirin 81mg EC Tab] 81 mg PO DAILY 04/02/18 07/03/20 History Budesonide/Formoterol Fumarate 2 puffs INHALATION BID 04/02/18 07/03/20 History [Symbicort 160-4.5 Mcg Inhaler] Furosemide [Furosemide 40MG tAB*] 40 mg PO DAILY 04/02/18 07/03/20 History Ipratropium/Albuterol Sulfate 3 ml IH QIDRT 04/02/18 07/03/20 History [Duoneb 3mL neb] Isosorbide Mononitrate [Imdur 60mg 60 mg PO BID 04/02/18 07/04/20 History ER tablet] Metformin HCl [Glucophage 500mg 1,000 mg PO DAILY 04/02/18 07/03/20 History Tablet]
--- NOTE | 2020-07-06 09:46 | CA_ITS ---
APPROVED REPORT Parking Meter Collector: Eveline Farley RVT Laterality: Bilateral Study Quality: Adequate Indications: left carotid bruit Risk Factors Hypertension: Hyperlipidemia Smoking Surgery/Intervention Carotid Stent: left Doppler Spectral Velocity Analysis ECA (R) 87.60/9.60 cm/s ECA (L) 100.50/10.70 cm/s dICA (R) 356.40/77.10 cm/s dICA (L) 296.60/71.30 cm/s [place]anna (R) 236.90/53.90 cm/s [place]anna (L) 292.80/63.60 cm/s pICA (R) 263.90/66.60 cm/s pICA (L) 319.80/94.40 cm/s dCCA (R) 53.90/15.40 cm/s dCCA (L) 160.20/19.50 cm/s pCCA (R) 61.60/12.80 cm/s pCCA (L) 121.20/16.70 cm/s Vert (R) 61.30/19.50 cm/s ICA/CCA 6.61 ICA/CCA 2.00 Findings Study suggests 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 Study suggests 50-69% stenosis of the left internal cartoid artery. Antegrade flow seen in the right vertebral artery. Non-visualization of the left verterbral artery. 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 Study suggests 50-69% stenosis of the left internal cartoid artery. Antegrade flow seen in the right vertebral artery. Non-visualization of the left verterbral artery. Critical Notification Physician Notified Date: 07/06/2020 Time: 11:26 Physician Name: Tobi Lopez Electronically signed by : Fan Harrison MD 07/06/2020 17:22:52
[2020-07-06 10:19] LABS: D-Dimer 1.06 ug/mL (0.15-8.0)
[2020-07-06 10:27] LABS: Troponin I 0.02 ng/ml (0.00-0.034)
[2020-07-06 11:57] LABS: POC Glucose,Bedside 261 (70-110)
--- NOTE | 2020-07-06 14:29 | DIET.NUTRFU ---
Pt doing well nutritionally- 75% intakes, BG moderate- ~250, weight has remained stable. Continuing to monitor.
[2020-07-06 16:26] LABS: POC Glucose,Bedside 271 (70-110)
--- NOTE | 2020-07-06 16:29 | PC.NURSE ---
Pt alert and oriented x4. Lungs with rhonchi and wheezes. He remains on RA with O2 running in low - mid 90's. He has been paced on telemetry w/ rate in upper 50's to 70's. No reports of chest pain today. Family has been to visit. No complaints verbalized. Will continue to monitor. IV to LAC due to be changed today but pt would like to wait since it is patent and flushes without difficulty. No pain with flushing. Will continue to monitor.
--- NOTE | 2020-07-06 19:17 | PC.NURSE ---
report given to santo
[2020-07-06 20:50] LABS: POC Glucose,Bedside 248 (70-110)
[2020-07-07] VITALS (7 sets, daily range): BP systolic 139–144; BP diastolic 53–75; PULSE 58–69; RESP 18–20; TEMP 36.4–37.1; O2SAT 92–95; BMI 27.3
--- NOTE | 2020-07-07 05:41 | PC.NURSE ---
Pt is A&Ox4 and has rested well t/o the night after Restoril. This is the 2nd night that pt has had a good response to this medication. Pt denies any pain and any SOB thus far. Scattered rhonchi noted on lung auscultation. Room air sats 93-95%. No peripheral edema and pulses 2+. ABD is soft, round and active BS x4 quads. Pt did have a soft BM on prev shift. Pt denies any n/v/d. Paced rhythm on telemetry. VSS, call light within reach, will continue to monitor
[2020-07-07 07:04] LABS: POC Glucose,Bedside 249 (70-110)
--- NOTE | 2020-07-07 08:16 | HMH.PNCARD ---
Subjective Date: 07/07/20 Time: 08:17 Principal diagnosis: CHF Interval history: 64-year-old white male in bed in no acute distress. States he is feeling better today after diuretic therapy yesterday. He is anxious to go home. Exam Vital signs and Labs for Last 24 Hours: Temp Pulse Resp BP Pulse Ox 97.6 F 66 20 144/60 H 92 L 07/07/20 07:51 07/07/20 07:59 07/07/20 07:59 07/07/20 07:51 07/07/20 07:59 Laboratory Results - last 24 hr 07/06/20 06:00: Total Counted 100, Neutrophils % (Manual) 96 H, Lymphocytes % (Manual) 2 L, Monocytes % (Manual) 2, Platelet Estimate Normal, RBC Morphology Normal 07/06/20 09:50: D-Dimer 1.06 07/06/20 09:50: Troponin I 0.02 07/06/20 11:48: POC Glucose 261 H 07/06/20 16:17: POC Glucose 271 H 07/06/20 20:30: POC Glucose 248 H 07/07/20 06:56: POC Glucose 249 H I & O for Last 24 hours: Intake & Output 07/04/20 07/05/20 07/06/20 07/07/20 11:59 11:59 11:59 11:59 Intake Total 480 / 480 1660 / 1660 2080 / 2080 560 / 560 Output Total 2425 / 2425 3070 / 3070 2500 / 2500 Balance 480 / 480 -765 / -765 -990 / -990 -1940 / -1940 Weight 187 lb 190 lb 8 oz 191 lb 5 oz 191 lb Microbiology Reports for the Last 24 Hours: Microbiology 07/04/20 09:35 Sputum - Expectorated Sputum Gram Stain - Final 07/04/20 09:35 Sputum - Expectorated Sputum Sputum Culture - Final Normal Respiratory [place] - Constitutional no acute distress - *Routine HEENT Exam Head: Present: normocephalic Eye: Present: EOMI, PERRL ENT: Present: mucous membranes moist - *Routine Respiratory Exam Present: decreased breath sounds, rhonchi - *Routine Cardiovascular Exam Present: RRR - *Routine Extremities Exam Absent: cyanosis, clubbing, edema - *Routine Neurological Exam Present: alert, oriented X3 Progress Note: A&P (1) Acute exacerbation of chronic obstructive airways disease Status: Acute (2) Acute bronchitis Status: Acute (3) Atrial flutter Status: Acute (4) Biventricular automatic implantable cardioverter defibrillator in situ Status: Acute (5) ASCVD (arteriosclerotic cardiovascular disease) Status: Acute (6) Hypertension Status: Chronic (7) Ischemic cardiomyopathy Status: Chronic (8) Type 2 diabetes mellitus Status: Chronic (9) Hx of lymphoma Status: Acute (10) GERD (gastroesophageal reflux disease) Status: Acute (11) History of CVA (cerebrovascular accident) Status: Chronic Assessment and Plan for All Diagnoses:: 1. COPD exacerbation with bronchitis, per Dr. Murillo 2. Acute on chronic systolic congestive heart failure, improved with IV diuretic therapy. Continue home PO lasix 40 mg daily. 3. Ischemic cardiomyopathy with BiV AICD implantation recently, checked here during this hospitalization and functioning appropriately. Normal troponin this admission. Patient remains on goal-directed medical therapy including carvedilol, Entresto, isosorbide mononitrate, Ranexa and Brilinta. Aspirin discontinued due to Xarelto therapy. 4. Atrial flutter with RVR, improved with increasing carvedilol to 25 mg twice daily. Continue digoxin therapy. Xarelto started for thromboembolic prevention. 5. Carotid artery stenosis, patient to follow-up with Dr. Chan for further treatment. 6. Type 2 diabetes mellitus 7. History of lymphoma 8. Hyperlipidemia, on statin and fibrate therapy Patient could be discharged home from cardiology standpoint with follow-up in Dr. Chan's office in 1 to 2 weeks. Continue current medications.
--- NOTE | 2020-07-07 08:40 | HMH.ACPN2 ---
<Jasmin Jane - Last Filed: 07/07/20 08:40> Internal Medicine - PN: Subj *Date: 07/07/20 *Time: 07:50 Interval history: Patient is sitting up in bed without complaint. He reports resting well overnight and feeling much better this morning. He denies any cough, SOB, or SOBOE. He has not had any chest pain or discomfort. Exam Vital signs and Labs for Last 24 Hours: Temp Pulse Resp BP Pulse Ox 97.6 F 66 20 144/60 H 92 L 07/07/20 07:51 07/07/20 07:59 07/07/20 07:59 07/07/20 07:51 07/07/20 07:59 Laboratory Results - last 24 hr 07/06/20 06:00: Total Counted 100, Neutrophils % (Manual) 96 H, Lymphocytes % (Manual) 2 L, Monocytes % (Manual) 2, Platelet Estimate Normal, RBC Morphology Normal 07/06/20 09:50: D-Dimer 1.06 07/06/20 09:50: Troponin I 0.02 07/06/20 11:48: POC Glucose 261 H 07/06/20 16:17: POC Glucose 271 H 07/06/20 20:30: POC Glucose 248 H 07/07/20 06:56: POC Glucose 249 H I & O for Last 24 hours: Intake & Output 07/04/20 07/05/20 07/06/20 07/07/20 11:59 11:59 11:59 11:59 Intake Total 480 / 480 1660 / 1660 2080 / 2080 560 / 560 Output Total 2425 / 2425 3070 / 3070 2500 / 2500 Balance 480 / 480 -765 / -765 -990 / -990 -1940 / -1940 Weight 187 lb 190 lb 8 oz 191 lb 5 oz 191 lb Microbiology Reports for the Last 24 Hours: Microbiology 07/04/20 09:35 Sputum - Expectorated Sputum Gram Stain - Final 07/04/20 09:35 Sputum - Expectorated Sputum Sputum Culture - Final Normal Respiratory Kamilla - Constitutional no acute distress - *Routine HEENT Exam Head: Present: normocephalic ENT: Present: mucous membranes moist - *Routine Respiratory Exam Comments: good air movement with wheezes throughout - *Routine Cardiovascular Exam Present: RRR - *Routine Abdominal Exam Present: soft, normoactive bowel sounds. Absent: tenderness, distended, guarding, firm, rigid - *Routine Extremities Exam Present: full ROM, pulses intact. Absent: edema, calf tenderness - *Routine Neurological Exam Present: alert, oriented X3, moving all extremities, normal speech Assessment and Plan (1) Acute exacerbation of chronic obstructive airways disease Status: Acute Category: Medical Code(s): J44.1 - Chronic obstructive pulmonary disease with (acute) exacerbation (2) Acute bronchitis Status: Acute Category: Medical Code(s): J20.9 - Acute bronchitis, unspecified (3) Atrial flutter Status: Acute Category: Medical Code(s): I48.92 - Unspecified atrial flutter (4) Biventricular automatic implantable cardioverter defibrillator in situ Status: Acute Category: Medical Code(s): Z95.810 - Presence of automatic (implantable) cardiac defibrillator (5) ASCVD (arteriosclerotic cardiovascular disease) Status: Acute Category: Medical Code(s): I25.10 - Atherosclerotic heart disease of tribe coronary artery without angina pectoris (6) Hypertension Status: Chronic Category: Medical Code(s): I10 - Essential (primary) hypertension (7) Ischemic cardiomyopathy Status: Chronic Category: Medical Code(s): I25.5 - Ischemic cardiomyopathy (8) Type 2 diabetes mellitus Status: Chronic Category: Medical Code(s): E11.9 - Type 2 diabetes mellitus without complications (9) Hx of lymphoma Status: Acute Category: Medical Code(s): Z85.72 - Personal history of non-Hodgkin lymphomas (10) GERD (gastroesophageal reflux disease) Status: Acute Category: Medical Code(s): K21.9 - Gastro-esophageal reflux disease without esophagitis (11) History of CVA (cerebrovascular accident) Status: Chronic Category: Medical Code(s): Z86.73 - Personal history of transient ischemic attack (TIA), and cerebral infarction without residual deficits - Assessment and plan all Dx Assessment and Plan for all problems:: Plan for discharge today. <Damien Murillo - Last Filed: 07/07/20 10:16> Internal Medicine - PN: Subj *Date: 07/07
--- NOTE | 2020-07-08 12:03 | HMH.DCSUM ---
General - General Admission date:: 07/03/20 <Damien Murillo - 07/09/20 08:59> 07/03/20 <Gabriel,Andreia - 07/08/20 12:46> Discharge date: 07/07/20 <Andreia Gabriel - 07/08/20 12:46> HPI HPI: Mr. Lynn is a 64yo white male with history of T2DM, CAD with CABG and cardiac stenting, MO, CVA, COPD, tobacco abuse, HTN, HLP, lymphoma, GERD, carotid stenosis, and ischemic cardiomyopathy with ICD placement in April. He described a 2 week history of sinus congestion along with developing chest congestion. He had become increasingly short of breath over the last 2-3 days despite nebulizer treatments and MDI use and was considering being seen in the office of his PCP. He reported yesterday his SOB became severe and he developed some nausea and lightheadedness. He came to [facility] ED for evaluation. On arrival, he was hemodynamically stable with O2 saturations of 98% on room air. However, he did appear to be symptomatically improved when placed on 1 to 2 L O2 via nasal cannula. Chest x-ray showed borderline emphysematous changes without acute chest pathology. Lab workup was relatively unremarkable. EKG was sinus rhythm. He had some symptomatic improvement after IV steroids, antibiotics, and a DuoNeb treatment but continued with conversational dyspnea and stated he did not feel well when without supplement oxygen. Due to his significant comorbidities and only mild symptomatic improvement, he was admitted for further evaluation and treatment. The following morning he was resting quietly in bed. He denied any pain. He continued with some conversational dyspnea but denied SOBOE. He described non-productive cough and felt that his nasal and chest congestion improved after initial treatment yesterday. <GabrielGalileaAndreia - 07/08/20 12:46> Hospital Course Hospital Course: The night after admission patient had a couple episodes of chest pain which were promptly relieved with nitroglycerin. EKG at that time showed no changes and enzymes were negative. The following morning he felt somewhat better and breathing was better although dyspneic on exertion. White blood cell count was noted to be elevated which was felt likely due to steroids. Of note his Covid IgM was positive but IgG was negative and PCR was negative . He was continued on with antibiotics of Zithromax and Rocephin pending results of sputum culture. Patient did begin to feel better. He continued to breath better although he was still short of breath with exertion. He remained on steroids as well as duo nebs. On 07/05/2019 patient developed a wide-complex rhythm at about 150/minute. It appeared to be a paced rhythm. He did again develop midsternal chest discomfort after eating dinner. 1 nitroglycerin relieved the discomfort. He described an infrequent cough. He was able to sleep that night. Patient was seen by cardiology and pacer interrogated. No ventricular events were noted and no shocks were delivered. Patient was noted to have underlying atrial flutter. Carvedilol was increased to 25 mg twice a day for better heart rate control and digoxin was added 0.125 mg daily for better heart rate control. He was also started on Xarelto due to the underlying atrial flutter. On 07/07 patient was feeling well and anxious to go home. Patient was sitting up in bed without complaint. He denies shortness of breath on exertion and any chest pain. On this date he was stable to be discharged. Discharged home in stable condition. He was to follow-up with Dr. Murillo on 07/15/2020. He was to continue with digoxin, carvedilol, Xarelto, and Ceftin. <Andreia Gabriel - 07/08/20 12:46> Objective Vital signs: Temp Pulse Resp BP Pulse Ox 97.6 F 66 20 144/60 H 92 L 07/07/20 07:51 07/07/20 08:52 07/07/20 07:59 07/07/20 07:51 07/07/20 07:59 <Damien Murillo - 07/09/20 08:59> Temp Pulse Resp BP Pulse Ox 97.6 F 66 20 144/60 H 92 L 07/07/20 07:51 10
== END 2020-07-07 09:40 | disposition home or self-care (01) ==
LOC: ER 14:19 → 2ND 14:28
PROVIDERS: Nurse Practitioner Family; Admitting Provider Family Medicine; Emergency Provider Emergency Medicine; PCP Family Medicine; Visit Provider Family Medicine
DX: J44.0 Chronic obstructive pulmonary disease with (acute) lower respiratory infection (principal); J20.9 Acute bronchitis, unspecified; J44.1 Chronic obstructive pulmonary disease with (acute) exacerbation; Z86.19 Personal history of other infectious and parasitic diseases; E11.9 Type 2 diabetes mellitus without complications; I25.10 Atherosclerotic heart disease of native coronary artery without angina pectoris; Z95.1 Presence of aortocoronary bypass graft; Z95.810 Presence of automatic (implantable) cardiac defibrillator; Z95.5 Presence of coronary angioplasty implant and graft; I25.2 Old myocardial infarction; I25.5 Ischemic cardiomyopathy; Z86.73 Personal history of transient ischemic attack (TIA), and cerebral infarction without residual deficits; I48.92 Unspecified atrial flutter; Z72.0 Tobacco use; Z79.52 Long term (current) use of systemic steroids; Z79.82 Long term (current) use of aspirin; Z79.84 Long term (current) use of oral hypoglycemic drugs; Z79.01 Long term (current) use of anticoagulants; Z79.899 Other long term (current) drug therapy; I11.0 Hypertensive heart disease with heart failure; I50.9 Heart failure, unspecified; C85.90 Non-Hodgkin lymphoma, unspecified, unspecified site; Z85.89 Personal history of malignant neoplasm of other organs and systems
CPT/HCPCS: 36415; 71045; 80053; 82550; 82553; 82803; 82962; 83605; 84484; 85007; 85025; 85378; 86328; 87040; 87070; 87205; 87581; 87633; 87798; 90686; 93005; 93880; 94640; 96365; 96367; 96375; 99284; G0378; J0456

== ENCOUNTER 2020-07-18 12:50 | Inpatient (IN) | payer MEDICARE, SELFPAY ==
[2020-07-18] VITALS (30 sets, daily range): BP systolic 75–138; BP diastolic 37–75; PULSE 69–101; RESP 16–20; TEMP 36.4–37.2; O2SAT 86–100; BMI 26.2; BMI 26.5
--- NOTE | 2020-07-18 13:03 | XR_ITS ---
PROCEDURE: XR CHEST PORTABLE CLINICAL HISTORY: cough Cough and shortness of breath COMPARISON: CR XR CHEST PORTABLE from 08/31/2019 CR XR CHEST 2V from 09/02/2019 CR XR CHEST PORTABLE from 07/03/2020 FINDINGS: There has been a prior CABG. Biventricular pacemaker is present from left subclavian approach as before. Normal heart size. Clear lungs. No acute bony abnormalities. IMPRESSION: No change with no acute finding. Dictated by: Fan Harrison MD 07/18/2020 14:10 Fan Harrison MD in [place] 07/18/2020 14:10
--- NOTE | 2020-07-18 13:10 | PC.NURSE ---
notified pt of urine specimen ordered, gave pt a urinal, pt states does not need to void at this time.
--- NOTE | 2020-07-18 13:12 | ECG_ITS ---
APPROVED REPORT Exam: Resting ECG HR:88 bpm ECG Measurements Heart Rate 88 AXES MA 116 P 66 QRSd 120 QRS 60 QT 356 T -60 QTc 430 Conclusion Normal sinus rhythm Nonspecific intraventricular conduction delay T wave abnormality, consider inferior ischemia T wave abnormality, consider anterolateral ischemia Abnormal ECG Electronically signed by : Akin Jaeger, 07/19/2020 14:47:44
--- NOTE | 2020-07-18 13:14 | HMH.EDGIBL ---
ED Disposition Clinical Impression: Acute colitis, Acute on chronic blood loss anemia, Lower GI bleeding Disposition: Admitted As Inpatient Condition on Discharge: Fair Instructions: DI for Gastrointestinal Bleeding Referrals: Damien Murillo MD [Primary Care Provider] - - Critical Care Critical Care Time: No Attestation: On 07/18/20, the high probability of a clinically significant, sudden or life threatening deterioration of the following system(s) required my full and direct attention, intervention and personal management. The time I documented below is in addition to time spent performing reported procedures but includes the following listed in this critical care notation. Medical Decision Making - Medical Records Medical records reviewed: Yes: I reviewed the patient's medical records. - Samson Inquiry Pt receiving controlled substance: No Vital Signs: 07/18/20 12:57 07/18/20 13:33 07/18/20 14:50 Temperature 97.5 F L Temperature Source Oral Pulse Rate [Apical] 91 H 94 H 81 Respiratory Rate 18 20 16 Blood Pressure [Right Arm] 109/54 L 92/45 L 90/48 L Blood Pressure Mean [Right Arm] 72 60 62 Blood Pressure Source [Right Arm] Automatic Cuff Automatic Cuff Automatic Cuff Blood Pressure Position [Right Arm] Sitting Sitting Sitting 02 Sat by Pulse Oximetry 92 L Oxygen Delivery Method Nasal Cannula Nasal Cannula Nasal Cannula Oxygen Flow Rate (LPM) 2 2 - Lab Data Lab Results 07/18/20 13:10: WBC 16.7 H, RBC 2.62 L, Hgb 7.8 L*, Hct 25.4 L, MCV 96.9 H, MCH 29.9, MCHC 30.9 L, RDW 15.2, Plt Count 389, MPV 8.8, Neut % (Auto) 85.9 H, Lymph % (Auto) 8.4 L, [place] % (Auto) 5.0, Eos % (Auto) 0.5, Baso % (Auto) 0.1, Neut # (Auto) 14.4 H, Lymph # (Auto) 1.4, [place] # (Auto) 0.8, Eos # (Auto) 0.1, Baso # (Auto) 0.0, Total Counted 100, Neutrophils % (Manual) 85 H, Lymphocytes % (Manual) 10, Monocytes % (Manual) 5, Platelet Estimate Normal, RBC Morphology Normal 07/18/20 13:10: Sodium 134 L, Potassium 5.3 H, Chloride 100, Carbon Dioxide 24, Anion Gap 15.3 H, BUN 40 H, Creatinine 1.50 H, Estimated Creat Clear 58, Estimated GFR 47 L, Est GFR ( Amer) 57 L, Glucose 141 H, Calcium 9.4, Total Bilirubin 0.5, AST 23, ALT 16, Alkaline Phosphatase 67, Total Protein 6.8, Albumin 3.5, Globulin 3.3 H, Albumin/Globulin Ratio 1.1 07/18/20 13:10: Blood Type A Positive, Antibody Screen Negative, Crossmatch (AHG) See Detail 07/18/20 13:10: PT 14.2 H, INR 1.31 H, APTT 30.4 07/18/20 13:10: Lipase 99 Result diagrams: 07/18/20 13:10 07/18/20 13:10 Orders (Tests/Meds): ED MEDICATIONS Generic Name Dose Route Start Last Admin Trade Name Freq PRN Reason Stop Dose Admin Sodium Chloride 250 mls @ 25 mls/hr 07/18/20 13:45 Sod Chlor 0.9% 250ml Bag IV 07/19/20 13:44 .Q10H ROYER Discontinued Medications Generic Name Dose Route Start Last Admin Trade Name Freq PRN Reason Stop Dose Admin Iopamidol 75 ml 07/18/20 14:09 07/18/20 14:11 Iopamidol-370 (76%); 50ml Vial IV 07/18/20 14:10 75 ml ONCE ONE Administration Iopamidol 75 ml 07/18/20 14:10 Iopamidol-370 (76%); 50ml Vial IV 07/18/20 14:11 ONCE ONE Sodium Chloride 10 ml 07/18/20 14:09 07/18/20 14:11 Sodium Chloride 0.9% 10ml Syr (Rad Only) IV 07/18/20 14:10 10 ml ONCE ONE Administration Sodium Chloride 10 ml 07/18/20 14:10 Sodium Chloride 0.9% 10ml Syr (Rad Only) IV 07/18/20 14:11 ONCE ONE ORDERS Category Date Time Status Transfuse RBC's [Red Blood Cells] Stat BBK 07/18/20 13:10 Results Type and Screen Stat BBK 07/18/20 13:10 Results Occult Blood,Stool Stat Lab 07/18/20 12:58 Ordered Urinalysis and Microscopic Stat Lab 07/18/20 13:03 Ordered ABG [Arterial Blood Gas] Stat RT 07/18/20 14:52 Ordered - Radiology Data #1 Image(s): Chest Image Reviewed: Yes I reviewed the patient's radiology results, Yes I reviewed the patient's radiology image, Yes I have reviewed radiologist's interpretation
--- NOTE | 2020-07-18 13:17 | PC.NURSE ---
rad at BS
--- NOTE | 2020-07-18 13:25 | PC.NURSE ---
pt reports needing have a BM, pt placed on a bed dela cruz. Pt reports unable to have a BM at this time. pt at BS
[2020-07-18 13:26] LABS: Basophils % 0.1 % (0.1-2.0); Eosinophils # 0.1 K/mm3 (0.0-0.4); Eosinophils % 0.5 % (0.1-12.0); Hematocrit 25.4 % (42.0-52.0); Lymphocytes # 1.4 K/mm3 (0.7-4.5); Lymphocytes % 8.4 % (10-50); Mean Corpuscular HGB Conc 30.9 g/dL (31.8-35.4); Mean Corpuscular Hemoglobin 29.9 pg (27.0-31.2); Mean Corpuscular Volume 96.9 fl (80-94); Mean Platelet Volume 8.8 fl (7.4-10.4); Monocytes # 0.8 K/mm3 (0.1-1.0); Neutrophils # 14.4 K/mm3 (1.8-7.8); Neutrophils % 85.9 % (37.0-80.0); Platelet Count 389 K/mm3 (142-424); Red Blood Count 2.62 M/mm3 (4.60-6.20); Red Cell Distribution Width 15.2 % (11.5-17.5); White Blood Count 16.7 K/mm3 (4.8-10.8)
[2020-07-18 13:28] LABS: Hemoglobin 7.8 g/dL (14.1-18.0)
--- NOTE | 2020-07-18 13:28 | PC.NURSE ---
notified NNEKA MARCELO of critical hgb.
[2020-07-18 13:30] LABS: MANUAL DIFFERENTIAL MANUAL DIFFERENTIAL (MANUAL DIFF)
--- NOTE | 2020-07-18 13:45 | CT_ITS ---
PROCEDURE: CT ABDOMEN PELVIS W CON CLINICAL INDICATION: abd pain, gi bleed abdominal pain, GI bleeding, dark stools, lower back pain COMPARISON: None TECHNIQUE: IV Contrast: 75ML OPTIRAY 350 Oral Contrast None Axial images obtained with sagittal and coronal reformats. All CT scans at the facility use one or more dose reduction, viz: automated exposure control, ma/kV adjustment per patient size (including targeted exams where dose is matched to indication, i.e. head), or iterative reconstruction technique. FINDINGS: LOWER THORAX: Artifact is present from cardiac pacemaker device. There has been a prior CABG. There is some mild atelectatic or fibrotic changes in the right lung base. ABDOMEN & PELVIS: Liver, spleen, adrenal glands, has an unremarkable appearance. There are some punctate calcifications in the head of the pancreas which are nonspecific and could be sequela from prior chronic pancreatitis. There is mild ectasia of the abdominal aorta at 3 cm. There is a mild amount of plaque also present. The renal arteries are small with plaque present at the ostium of the arteries. Severe stenosis versus occlusion suspected involving the ostium of both renal arteries. There is a 1.7 cm cyst along the lower pole of the right kidney. Along the posterior aspect of the descending abdominal aorta on the left there is a 1.5 cm soft tissue density which is contiguous with the aorta and could be due to an enlarged lymph node or a thrombosed saccular aneurysm. A similar density is present on the right on image number 58 at 11 mm and posteriorly on the right image number 65 at 11 mm. These are favored to be thrombosed saccular aneurysms. Common iliac artery is dilated on both sides measuring 1.7 cm on the right and left. There is no evidence of acute retroperitoneal hemorrhage. There is a rectangular opacity within the pyloric region of the duodenum and may be due to an ingested pill. There is no evidence of appendicitis or diverticulitis. There is thickening of the descending and sigmoid colon which could be due to nondistention or colitis. The prostate is enlarged at 5 cm. There is curvilinear subcortical sclerosis of the femoral heads consistent with avascular necrosis on both sides. IMPRESSION: 1. 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 2. Severe stenosis versus occlusion of the ostium of the renal arteries 3. Thickening of the descending and sigmoid colon which may be due to nondistention or colitis. 4. Avascular necrosis of the femoral heads. Dictated by: Fan Harrison MD 07/18/2020 14:41 Fan Harrison MD in [place] 07/18/2020 14:41
[2020-07-18 13:46] LABS: Alanine Aminotransferase 16 U/L (12-78); Albumin Level 3.5 g/dl (3.5-5.0); Albumin/Globulin Ratio 1.1 (1.1-1.8); Alkaline Phosphatase 67 U/L (38-126); Anion Gap 15.3 mEq/L (5-15); Aspartate Amino Transferase 23 U/L (17-59); Bilirubin,Total 0.5 mg/dl (0.2-1.3); Blood Urea Nitrogen 40 mg/dl (9-20); Calcium 9.4 mg/dl (8.4-10.2); Carbon Dioxide 24 mmol/L (22.0-30.0); Chloride 100 mmol/L (98-107); Creatinine Clearance Estimated 58 mL/min (50-200); Estimated Glomerular Filt Rate 47 ml/min (>60); GFR (African American) 57 ML/MIN (>60); Globulin 3.3 g/dL (1.3-3.2); Glucose 141 mg/dl (74-100); Lipase 99 U/L (23-300); Potassium 5.3 mmoL/L (3.5-5.1); Sodium 134 mmol/L (136-145); Total Protein,Serum 6.8 g/dl (6.3-8.2)
[2020-07-18 13:48] LABS: Activated Partial Thrombo Time 30.4 seconds (23.6-34.0); INR 1.31 (0.9-1.1); Prothrombin Time 14.2 seconds (9.4-11.8)
--- NOTE | 2020-07-18 14:02 | PC.NURSE ---
pt to CT
[2020-07-18 14:29] LABS: Lymphocytes % 10 % (10-50); Monocytes % 5 % (2-9); Neutrophils % 85 % (42-76); Platelet Estimate Normal; RBC Morphology Normal; Total Cells Counted 100
--- NOTE | 2020-07-18 15:00 | PC.NURSE ---
notified ER MD having difficulty obtaining accurate SaO2 on pt, pt hands are cold, nail beds are pale. Pt on 2L per NC (brought in per EMS on O2), ER MD states he will place order for abg to assess. will continue to monitor.
--- NOTE | 2020-07-18 15:02 | PC.NURSE ---
called for abg
--- NOTE | 2020-07-18 15:11 | PC.NURSE ---
Care management Iris Braswell advised of admission
--- NOTE | 2020-07-18 15:15 | PC.NURSE ---
RT at BS for slime
[2020-07-18 15:30] LABS: ABG Base Excess -2.2 mmol/L (-2.4-2.3); ABG HCO3 21.9 mmhg (22.0-26.0); ABG Oxygen Saturation 99 % (90-100); ABG PCO2 32.8 mmhg (35.0-45.0); ABG PH 7.44 mmol/L (7.35-7.45); ABG PO2 117.1 mmhg (80-100); ABG TCO2 22.9 mmhg (23-27)
[2020-07-18 15:32] LABS: Allen's Test Acceptable; Source Right Brachial
--- NOTE | 2020-07-18 16:22 | PC.NURSE ---
notified lab of igg/igm order on pt
[2020-07-18 16:25] LABS: Coronavirus 19 IgG Antibody Negative (Negative)
[2020-07-18 16:25] LABS: Microscopic, Urine URINE MICROSCOPIC (MICROSCOPIC)
--- NOTE | 2020-07-18 16:25 | PC.NURSE ---
notified ER MD of pt positive IGM, verbal order for covid swab for admission
[2020-07-18 16:26] LABS: Coronavirus 19 IgM Antibody Positive (Negative)
[2020-07-18 16:27] LABS: Appearance,Urine CLEAR (Clear); Bilirubin,Urine Negative (Negative); Blood, Urine Negative (Negative); Color,Urine YELLOW (Yellow); Glucose,Urine (UA) Negative (Negative); Ketones,Urine Negative (Negative); Leukocyte Esterase,Urine Negative (Negative); Nitrate,Urine Negative (Negative); Protein,Urine Negative (Negative); Urobilinogen,Urine 0.2 EU/dl (0.2)
--- NOTE | 2020-07-18 16:30 | PC.NURSE ---
notified lab of covid swab being sent up at this time
[2020-07-18 16:38] LABS: Bacteria,Urine 3+ /lpf; Hyaline Casts,Urine Occasional #/lpf (0)
[2020-07-18 16:39] LABS: Fine Granular Casts,Urine Occasional #/lpf (0)
[2020-07-18 16:57] LABS: Adenovirus,PCR Not Detected (NotDetected); Bordetella Pertussis Not Detected (NotDetected); Chlamydophila Pneumoniae, PCR Not Detected (NotDetected); Coronavirus 19, PCR Not Detected (NotDetected); Coronavirus 229E Not Detected (NotDetected); Coronavirus NL63 Not Detected (NotDetected); Coronavirus OC43 Not Detected (NotDetected); Coronovirus HKU1,PCR Not Detected (NotDetected); Human Metapneumovirus Not Detected (NotDetected); Influenza A, PCR Not Detected (NotDetected); Influenza AH1, 2009 Not Detected (NotDetected); Influenza AH1, PCR Not Detected (NotDetected); Influenza AH3,PCR Not Detected (NotDetected); Influenza B, PCR Not Detected (NotDetected); Mycoplasma Pneumoniae, PCR Not Detected (NotDetected); Parainfluenza 1, PCR Not Detected (NotDetected); Parainfluenza 2, PCR Not Detected (NotDetected); Parainfluenza 3, PCR Not Detected (NotDetected); Parainfluenza 4, PCR Not Detected (NotDetected); Respiratory Syncytial Virus Not Detected (NotDetected)
--- NOTE | 2020-07-18 17:15 | PC.NURSE ---
assumed care of patient at this time for nurse relief. pt vomiting moderate amount of dark liquid emesis, patient c/o severe abdominal pain and is pale/rojas in color. pt agitated in bed and cant get comfortable. prbc infusing at this time. spoke with dr araiza concerning patient status, assessment/findings. 2nd iv access obtained to right wrist. obtained orders for nausea meds. protonix bolus and drip given/started. see MAR. pt remains on cardiac, spo2, nibp monitoring. see orders for further intervention.
--- NOTE | 2020-07-18 17:23 | CT_ITS ---
Procedure: CT ANGIO ABDOMEN PELVIS CLINICAL HISTORY: pain, bleeding, AAA Abdominal aortic aneurysm COMPARISON: CT CT ABDOMEN PELVIS W CON from 07/18/2020 TECHNIQUE: IV Contrast: 100ml Isovue 370 Axial images obtained with sagittal and coronal reformats. All CT scans at the facility use one or more dose reduction, viz: automated exposure control, ma/kV adjustment per patient size (including targeted exams where dose is matched to indication, i.e. head), or iterative reconstruction technique. FINDINGS: Comparison is made to exam performed on the same day. There is some mild interstitial fibrotic changes in the lung bases and there is a small hiatal hernia. Diffuse atheromatous changes are present involving the descending thoracic and abdominal aorta with fibrocalcific plaque scattered throughout also with involvement of the iliac arteries and aortic branches. There is fusiform dilatation of the mid and distal abdominal aorta measuring up to 3.1 cm. Small saccular aneurysm is noted along the right posterior lateral margin of the aorta measuring 13 x 9 x 15 mm and a small posterior saccular aneurysm along the distal segment posteriorly and on the right measuring 13 x 12 mm and 3 cm cephalad caudad.. These aneurysms contain mural thrombus and demonstrate no evidence of rupture or leak. There is severe stenosis involving the solitary right renal artery. There is saccular dilatation of the ostium of the right renal artery with thrombosis. There is at least 75 day 80 percent stenosis of the ostium of the right renal artery. There are 2 small left renal arteries with calcific plaque at their ostia with 60 percent stenosis of the most superior left renal artery and 50 percent stenosis of the inferior left renal artery. Atheromatous changes involve the celiac artery but with no significant stenosis. Atheromatous changes also involve the superior mesenteric artery with no significant stenosis. The MARIA LUZ reconstitutes but appears either critically stenosed or occluded at its ostium. There is mild aneurysmal dilatation of the common iliac arteries at 2 cm. There is moderate short segment stenosis of the right common iliac artery at 60 percent and less than 50 percent of the left common iliac artery. There is severe stenosis of the left common femoral artery of greater than 70 percent and moderate to severe stenosis of approximately 70 percent in the right common femoral artery No intestinal obstruction or free air. Mild stranding of perinephric renal fat. Small right renal cyst. There is mild thickening of the descending colon and sigmoid colon which could be due to nondistention or colitis. There is avascular necrosis involving both femoral heads. IMPRESSION: 1. Moderate extensive aortic plaque with mild fusiform dilatation of the aorta with 2 small saccular aneurysms along the mid distal aspect as detailed above with no evidence of aneurysmal rupture or leak. No evidence of aortic dissection. 2. Mild aneurysmal dilatation of the common iliac arteries. 3. Ostial critical stenosis versus occlusion of the MARIA LUZ with thickening of the descending and sigmoid colon which could be due to nondistention or colitis.. 4. Short segment severe stenosis of greater than 70 percent in the left common femoral and 70 percent stenosis of the right common femoral with approximately 60 percent stenosis of the right common iliac 5. Severe stenosis of the ostium of the right renal artery of greater than 70 percent 6. 2 small left renal arteries with ostial stenosis. Dictated by: Fan Harrison MD 07/19/2020 09:35 Fan Harrison MD in [place] 07/19/2020 09:35
--- NOTE | 2020-07-18 17:41 | PC.NURSE ---
cta ordered by dr araiza after patient re eval. radiology notified of need for scan. awaiting their readiness. pt states she feels much better after zofran administration.
[2020-07-18 18:02] LABS: Rhinovirus/Enterovirus Detected (NotDetected)
--- NOTE | 2020-07-18 18:05 | PC.NURSE ---
BS report given to Paulo Jacobs RN at this time
--- NOTE | 2020-07-18 19:23 | PC.NURSE ---
report given to ashley
[2020-07-18 20:47] LABS: POC Glucose,Bedside 105 (70-110)
[2020-07-19] VITALS (16 sets, daily range): BP systolic 95–112; BP diastolic 40–75; PULSE 65–92; RESP 16–20; TEMP 36.3–37.2; O2SAT 95–100; BMI 26.4
--- NOTE | 2020-07-19 00:14 | PC.NURSE ---
1st unit of PBRC complete @ change of shift by Marcelo gilliam. 2nd unit started @ 2219 by manisha MOORE
[2020-07-19 01:41] LABS: Hematocrit 27.2 % (42.0-52.0)
[2020-07-19 01:45] LABS: Hemoglobin 8.7 g/dL (14.1-18.0)
--- NOTE | 2020-07-19 02:01 | PC.NURSE ---
2nd unit start @ 2220 verified with Barry chung. unit complete @ 0018 post H&H @ 0118 all vitals document in TAR with correct times error in system unable to end unit
--- NOTE | 2020-07-19 03:11 | PC.NURSE ---
Pt A&OX4. rhonchi throughout lungs. Pt received unit of PRBC this shift and tolerated well. O2 @ 2L O2 sats 99-100%. pt denies SOA. pt c/o abd & back pain medicated per NOV. BS active in all quads. No BM noted on this shift. @ bedside
[2020-07-19 06:07] LABS: POC Glucose,Bedside 95 (70-110)
[2020-07-19 06:25] LABS: Basophils % 0.3 % (0.1-2.0); Eosinophils # 0.1 K/mm3 (0.0-0.4); Hematocrit 28.6 % (42.0-52.0); Hemoglobin 9.4 g/dL (14.1-18.0); Lymphocytes # 2.2 K/mm3 (0.7-4.5); Lymphocytes % 19.4 % (10-50); Mean Corpuscular HGB Conc 32.8 g/dL (31.8-35.4); Mean Corpuscular Hemoglobin 30.8 pg (27.0-31.2); Mean Platelet Volume 7.9 fl (7.4-10.4); Monocytes # 0.8 K/mm3 (0.1-1.0); Monocytes % 6.8 % (1.7-9.3); Neutrophils # 8.2 K/mm3 (1.8-7.8); Neutrophils % 72.5 % (37.0-80.0); Platelet Count 256 K/mm3 (142-424); Red Blood Count 3.04 M/mm3 (4.60-6.20); Red Cell Distribution Width 15.7 % (11.5-17.5); White Blood Count 11.3 K/mm3 (4.8-10.8)
[2020-07-19 06:37] LABS: Chloride 103 mmol/L (98-107); Potassium 4.1 mmoL/L (3.5-5.1); Sodium 133 mmol/L (136-145)
[2020-07-19 06:39] LABS: Blood Urea Nitrogen 45 mg/dl (9-20); Creatinine Clearance Estimated 59 mL/min (50-200); Estimated Glomerular Filt Rate 47 ml/min (>60); GFR (African American) 57 ML/MIN (>60)
[2020-07-19 06:40] LABS: Alanine Aminotransferase 12 U/L (12-78); Albumin Level 3.1 g/dl (3.5-5.0); Albumin/Globulin Ratio 1.1 (1.1-1.8); Alkaline Phosphatase 59 U/L (38-126); Anion Gap 11.1 mEq/L (5-15); Aspartate Amino Transferase 20 U/L (17-59); Bilirubin,Total 0.4 mg/dl (0.2-1.3); Calcium 8.7 mg/dl (8.4-10.2); Carbon Dioxide 23 mmol/L (22.0-30.0); Globulin 2.9 g/dL (1.3-3.2); Glucose 84 mg/dl (74-100)
--- NOTE | 2020-07-19 07:39 | HMH.PHAVTE ---
[facility] Pharmacy VTE Monitoring - Patient Demographics Admission date: 07/18/20 Report Date: 07/19/20 Time: 07:39 Allergies/Adverse Reactions: Patient Allergies No Known Drug Allergies Allergy (Verified 04/02/18 14:42) Height: 1.8 m Weight: 85.729 kg Patient Problems: Current Active Problems Acute colitis (Acute) Acute on chronic blood loss anemia (Acute) Lower GI bleeding (Acute) - VTE Risk Labs: VTE Related Lab Results Hgb 9.4 g/dL (14.1-18.0) L 07/19/20 05:52 Hct 28.6 % (42.0-52.0) L 07/19/20 05:52 Plt Count 256 K/mm3 (142-424) D 07/19/20 05:52 PT 14.2 seconds (9.4-11.8) H 07/18/20 13:10 INR 1.31 (0.9-1.1) H 07/18/20 13:10 APTT 30.4 seconds (23.6-34.0) 07/18/20 13:10 BUN 45 mg/dl (9-20) H 07/19/20 05:52 Creatinine 1.50 mg/dl (0.66-1.25) H 07/19/20 05:52 Estimated Creat Clear 59 mL/min (50-200) 07/19/20 05:52 Was VTE Risk Assessment Performed: Yes VTE Score: 3 VTE Risk Level: Low Risk - Prophylaxis VTE Prophylaxis Ordered?: Yes Types of VTE Prophylaxis: TEDS Knee High Location of Applied Device: Bilateral Lower Extremeties
--- NOTE | 2020-07-19 08:07 | HMH.HP ---
*Admission Date: 07/18/20 <Andreia Gabriel - 07/19/20 08:42> *Chief complaint: Nausea and bloody stools. <Andreia Gabriel - 07/19/20 08:42> *History of present illness: Mr. Wayne is a 64-year-old male with a history of hypertension, hyperlipidemia, coronary artery disease status post CABG in , tobacco use disorder, Multiple lacunar infarcts, type 2 diabetes mellitus, acute [place] 12/2011, lymphoma, GERD, ischemic cardiomyopathy, NSTEMI 02/2017 and 2018, and COPD who presented to [facility] emergency room after bloody/black stools at home throughout the day. He was nauseated and did vomit although he did not vomit any blood. He had been generally weak for the previous few days. To note: he was recently hospitalized for COPD exacerbation 2 weeks ago and did have a follow-up visit in the office of [facility] on 07/15/2020 at which time he was much improved. Patient's stated he had been constipated and she had given him an enema previously. He wanted another enema yesterday but then his bowels did start to move at which time they were noted to be bloody and dark. He did not have any difficulty with voiding with no dysuria or hematuria. He denies having shortness of breath and chest pain. With evaluation in the emergency room white blood cell count was found to be 16,700 with a hemoglobin of 7.8 and hematocrit of 25.4. Blood chemistries revealed a BUN of 40 and creatinine of 1.5. CT of the abdomen revealed the following: IMPRESSION: 1. 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 2. Severe stenosis versus occlusion of the ostium of the renal arteries 3. Thickening of the descending and sigmoid colon which may be due to nondistention or colitis. 4. Avascular necrosis of the femoral heads. Thus a CTA of the abdomin?Pelvis was ordered. These results are pending. Fecal Occult blood was positive. Patient is extremely nauseated at present. He has already received Zofran and morphine for back pain. He did receive 2 units of packed red blood cells with improved of hemoglobin to 9.4 and hematocrit of 28.6. White count has decreased to 11,300. To note COVID IgG is negative and Covid IgM is positive with a negative PCR. His respiratory panel is positive for PCR entero-/rhino. <HarveyAndreia 07/19/20 08:42> [facility] History Medical History: Reports:: Atherosclerotic Heart Disease, Cardiomyopathy, Carotid Stenosis, Congestive Heart Failure, Chronic Obstructive Pulmonary Disease (COPD), Coronary Artery Disease, Cerebrovascular Accident, Diabetes Mellitus Type 1, Diabetes Mellitus Type 2, Gastroesophageal Reflux Disease(GERD), Hyperlipidemia, Hypertension, Lung Disease, Myocardial Infarction, Palpitations, Peripheral Vascular Disease ([place]RE[place], s/p R carotid stenting) Denies:: Cancer, Home Oxygen, MRSA <Andreia Gabriel 07/19/20 08:42> *Have you ever received a pneumonia vaccine?: No <Andreia Gabriel 07/19/20 08:42> *Have you received a flu vaccine this season?: Yes <Andreia Gabriel 07/19/20 08:42> Other Medical History: Reports: Arthritis, Blood Transfusion Reaction (pt had a heart attack ), Cataracts, Chemotherapy, Radiation Therapy, Other <Andreia Gabriel 07/19/20 08:42> Other Surgeries: Yes: Angioplasty, CABG, Cardiac Catheterization, Cardiac Surgery, Coronary Stent, Open Heart Surgery, Other (carotid stent) <Andreia Gabriel 07/19/20 08:42> Amputation: No <Andreia Gabriel 07/19/20 08:42> Fractures: No <Andreia Gabriel 07/19/20 08:42> - *Social History Last grade of school completed: High school graduate <Andreia Gabriel 07/19/20 08:42> Smoking Status: Current some day smoker <Andreia Gabriel 07/19/20 08:42> Tobacco Type: cigarettes <Andreia Gabriel 07/19/20 08:42> # Packs/Day (cigarettes): 1 <Andreia Gabriel 07/19/20 08:42> #Yrs smoked (if former smoker): 50 <Andreia Gabriel 07/19/20 08:42> Alcohol Intake: current <Eloise Gabriel
--- NOTE | 2020-07-19 09:35 | ECG_ITS ---
APPROVED REPORT Exam: Resting ECG HR:86 bpm ECG Measurements Heart Rate 86 AXES CA 128 P 73 QRSd 138 QRS 77 QT 356 T 213 QTc 426 Conclusion Sinus rhythm with fusion complexes Nonspecific intraventricular block T wave abnormality, consider inferior ischemia T wave abnormality, consider anterolateral ischemia Abnormal ECG Electronically signed by : Akin Jaeger, 07/19/2020 14:45:27
--- NOTE | 2020-07-19 09:57 | HMH.PHAINT ---
clarified home medication list with home pharmacy and [facility] office. Pt is taking xarelto and brilinta and aspirin. pt in on dexilant to protect from GI bleed.
--- NOTE | 2020-07-19 11:20 | PC.NURSE ---
EARLY THIS MORNING AT 0745 PT WAS SITTING UP ON THE SOB STATING THAT HE WAS VERY NAUSEATED. LYNDA TORRES WAS IN THE ROOM AND ORDERED A ONE TIME DOSE OF PHENERGAN 12.5 MG IV. PT HAD PHENERGAN AND HE STATED HIS NAUSEA WAS BETTER. AROUND 0830 PT CALLED OUT AND STATED HE NEEDED A NITRO. PT STATES IT WAS THE SAME TYPE OF CHEST DISCOMFORT HE HAS AT HOME ON OCCASION AND USUALLY HE TAKES A NITRO AND IT GOES AWAY. MANUAL BP 108/68. HR 92. SPO2 97%. EKG WAS ALSO DONE. NOTIFIED PCP AND HE STATED IT WOULD BE OKAY TO GIVE PT NITRO. PT HAS FIRST DOSE OF NITRO AT 0835 AND REQUIRED ANOTHER DOSE AT 0852. PT STATES HE HAS NEVER HAD TO TAKE ANYMORE THAN 2 NITRO AT HOME TO RELIEVE THE PAIN. AFTER NITRO PT'S BP WAS 150/87. PT IS RESTING ON HIS RT SIDE AT THIS TIME WITH AT BEDSIDE.
[2020-07-19 11:32] LABS: POC Glucose,Bedside 139 (70-110)
[2020-07-19 13:25] LABS: Hematocrit 28.1 % (42.0-52.0); Hemoglobin 9.2 g/dL (14.1-18.0)
[2020-07-19 17:19] LABS: POC Glucose,Bedside 144 (70-110)
--- NOTE | 2020-07-19 17:49 | PC.NURSE ---
PT IS RESTING IN BED. STATES HE FEELS SOMEWHAT BETTER THAN HE DID THIS MORNING. PT HAS NOT HAD ANYMORE COMPLAINTS OF CHEST PAIN OR NAUSEA. TOLERATED CLEAR LIQUIDS AND SOME CRACKERS LATE THIS AFTERNOON. PT STATES HE HAS NOT HAD A BOWEL MOVEMENT SINCE BEING ADMITTED TO THE HOSPITAL. WILL CONTINUE TO MONITOR.
--- NOTE | 2020-07-19 19:06 | PC.NURSE ---
report given to ashley
[2020-07-19 21:23] LABS: POC Glucose,Bedside 111 (70-110)
[2020-07-20] VITALS (37 sets, daily range): BP systolic 94–146; BP diastolic 42–75; PULSE 58–89; RESP 16–22; TEMP 36.6–37; O2SAT 89–100; BMI 26.3
--- NOTE | 2020-07-20 04:46 | PC.NURSE ---
Addendum entered by Bella Soriano RN 07/20/20 04:58: Pt declined EKG with epigastric pain and Nitroglycerin administration. Advised pt that EKG would alert staff to any changes in cardiac rhythm and was advised by RN that EKG should be done. Pt verbalized understanding, but declined EKG. Original Note: Pt has slept intermittently this shift. Denies soa/nausea. C/o of back pain. Morphine administered once with good effectiveness. Lung sounds remain clear. Pt had one episode of burning in the epigastric area; requested nitroglycerin. Pt verbalized relief after administration of one Nitroglycerin tablet. Lung sounds are clear. Heart rhythm remains regular cap refill <3sec and positive pulses. Pt states that he has this same type of burning sensation at home and takes Nitroglycerin for it. ekg monitor tech shows no changes in rhythm.
[2020-07-20 06:05] LABS: POC Glucose,Bedside 97 (70-110)
[2020-07-20 06:24] LABS: Chloride 101 mmol/L (98-107)
[2020-07-20 06:25] LABS: Potassium 4.3 mmoL/L (3.5-5.1); Sodium 134 mmol/L (136-145)
[2020-07-20 06:27] LABS: Blood Urea Nitrogen 31 mg/dl (9-20); Creatinine Clearance Estimated 63 mL/min (50-200); Estimated Glomerular Filt Rate 51 ml/min (>60); GFR (African American) 61 ML/MIN (>60)
[2020-07-20 06:28] LABS: Anion Gap 12.3 mEq/L (5-15); Calcium 8.8 mg/dl (8.4-10.2); Carbon Dioxide 25 mmol/L (22.0-30.0); Glucose 100 mg/dl (74-100)
[2020-07-20 06:49] LABS: Basophils % 0.2 % (0.1-2.0); Eosinophils # 0.2 K/mm3 (0.0-0.4); Eosinophils % 2.2 % (0.1-12.0); Hematocrit 25.2 % (42.0-52.0); Lymphocytes # 1.2 K/mm3 (0.7-4.5); Lymphocytes % 12.8 % (10-50); Mean Corpuscular HGB Conc 31.2 g/dL (31.8-35.4); Mean Corpuscular Hemoglobin 29.5 pg (27.0-31.2); Mean Corpuscular Volume 94.4 fl (80-94); Monocytes # 0.5 K/mm3 (0.1-1.0); Monocytes % 5.6 % (1.7-9.3); Neutrophils # 7.5 K/mm3 (1.8-7.8); Neutrophils % 79.1 % (37.0-80.0); Platelet Count 253 K/mm3 (142-424); Red Blood Count 2.67 M/mm3 (4.60-6.20); Red Cell Distribution Width 15.2 % (11.5-17.5); White Blood Count 9.5 K/mm3 (4.8-10.8)
--- NOTE | 2020-07-20 07:28 | PC.NURSE ---
PT C/O BURNING SENSATION IN CHEST, REQUESTED NITRO TAB, THIS RN ASKED PT TO POINT TO PAIN LOCATION, PT POINTED TO UPPER EPIGASTRIC AREA, PT DENIES RADIATION OF PAIN, STATES THAT HE HAS THIS PAIN EVERYDAY, PT DECLINED AN EKG STATING THAT HE HAS ALREADY HAD ONE, THIS NURSE INFORMED PT THAT AN EKG WOULD RULE OUT ANY ACUTE CHANGES IN HIS STATUS, PT STILL DECLINED AN EKG, PRN NITROGLYCERIN ADMIN PER NOV, PT SAID THAT CHEST PAIN WAS EASING UP, PT IS ON HEALTH SERVICES COORDINATOR AT THIS TIME, PACED WITH HR 60 BPM, PT DENIES SOA AND JAW/ARM PAIN AT THIS TIME. PT IS SITTING ON SIDE OF BED EATING AT THIS TIME, WILL CONTINUE TO MONITOR
[2020-07-20 07:30] LABS: Hemoglobin 7.9 g/dL (14.1-18.0)
--- NOTE | 2020-07-20 07:57 | PC.NURSE ---
MD HOGAN MADE AWARE OF PT CRITICAL H/H LEVEL AT THIS TIME
--- NOTE | 2020-07-20 08:30 | HMH.ACPN2 ---
<Andreia Gabriel - Last Filed: 07/20/20 08:30> Internal Medicine - PN: Subj *Date: 07/20/20 *Time: 08:30 Interval history: Patient states he had a terrible night from 3 AM on. Started with a burning in his anterior chest associated with nausea. He did not vomit. He states he has had about 7-8 nitros with some relief. Hot tea he had this morning helped the most. His bowels have not moved since admission. He has had no vomiting since admission. He states his breathing is doing just fine. Repeat labs this morning show a CBC with a white blood cell count of 9500 hemoglobin of 7.9 hematocrit of 25.2. Blood chemistries with a sodium of 134 potassium of 4.3 renal function with BUN of 31 and creatinine of 1.4. Blood sugars are well controlled. Exam Vital signs and Labs for Last 24 Hours: Temp Pulse Resp BP Pulse Ox 98.1 F 63 19 106/42 L 94 L 07/20/20 04:00 07/20/20 04:00 07/20/20 04:00 07/20/20 04:00 07/20/20 04:00 Laboratory Results - last 24 hr 07/18/20 13:10: Crossmatch (AHG) See Detail 07/19/20 11:16: POC Glucose 139 H 07/19/20 12:23: Hgb 9.2 L, Hct 28.1 L 07/19/20 17:03: POC Glucose 144 H 07/19/20 21:08: POC Glucose 111 H 07/20/20 05:54: WBC 9.5, RBC 2.67 L, Hgb 7.9 L*, Hct 25.2 L, MCV 94.4 H, MCH 29.5, MCHC 31.2 L, RDW 15.2, Plt Count 253, MPV 8.0, Neut % (Auto) 79.1, Lymph % (Auto) 12.8, [place] % (Auto) 5.6, Eos % (Auto) 2.2, Baso % (Auto) 0.2, Neut # (Auto) 7.5, Lymph # (Auto) 1.2, [place] # (Auto) 0.5, Eos # (Auto) 0.2, Baso # (Auto) 0.0 07/20/20 05:54: Sodium 134 L, Potassium 4.3, Chloride 101, Carbon Dioxide 25, Anion Gap 12.3, BUN 31 H D, Creatinine 1.40 H, Estimated Creat Clear 63, Estimated GFR 51 L, Est GFR ( Amer) 61, Glucose 100, Calcium 8.8 07/20/20 05:55: POC Glucose 97 I & O for Last 24 hours: Intake & Output 07/17/20 07/18/20 07/19/20 07/20/20 11:59 11:59 11:59 11:59 Intake Total 1073 / 1073 1798 / 1798 Output Total 1300 / 1300 1860 / 1860 Balance -227 / -227 -62 / -62 Weight 189 lb 188 lb 3.274 oz Microbiology Reports for the Last 24 Hours: Microbiology 07/18/20 16:18 Urine,Clean Catch Urine Culture - Final Multiple organisms, suggests contamination. - Constitutional no acute distress Comments: Appears comfortable at present and denies any chest discomfort - *Routine Respiratory Exam Present: diminished air movement (Posteriorly) - *Routine Cardiovascular Exam Present: RRR - *Routine Abdominal Exam Present: soft, normoactive bowel sounds. Absent: tenderness, distended - *Routine Extremities Exam Absent: edema, calf tenderness - *Routine Neurological Exam Present: alert, oriented X3 Assessment and Plan (1) Acute colitis Status: Acute Category: Medical Code(s): K52.9 - Noninfective gastroenteritis and colitis, unspecified (2) Acute on chronic blood loss anemia Status: Acute Category: Medical Code(s): D62 - Acute posthemorrhagic anemia (3) Lower GI bleeding Status: Acute Category: Medical Code(s): K92.2 - Gastrointestinal hemorrhage, unspecified (4) ASCVD (arteriosclerotic cardiovascular disease) Status: Chronic Category: Medical Code(s): I25.10 - Atherosclerotic heart disease of [place] coronary artery without angina pectoris (5) History of non-ST elevation myocardial infarction (NSTEMI) Status: Chronic Category: Medical Code(s): I25.2 - Old myocardial infarction (6) COPD (chronic obstructive pulmonary disease) Status: Chronic Qualifiers: COPD type: COPD with acute exacerbation Qualified Code(s): J44.1 - Chronic obstructive pulmonary disease with (acute) exacerbation Category: Medical Code(s): J44.9 - Chronic obstructive pulmonary disease, unspecified (7) Coronary artery disease Status: Chronic Category: Medical Code(s): I25.10 - Atherosclerotic heart disease of [place] coronary artery without angina pectoris (8) GERD (gastroesophageal reflux disea
--- NOTE | 2020-07-20 08:32 | PC.NURSE ---
EKG OBTAINED 819, EKG REPORT DELIVERED TO MD HOGAN, CARDIAC ENZYMES ORDERED. NITRO 0.4MG SL GIVEN
[2020-07-20 08:56] LABS: Creatine Kinase 63 U/L (55-170)
[2020-07-20 09:06] LABS: CKMB Relative Index 5.4 U/L (0-4.0); Creatine Kinase MB 3.4 ng/ml (0.0-2.03)
[2020-07-20 09:09] LABS: Troponin I 0.38 ng/ml (0.00-0.034)
--- NOTE | 2020-07-20 09:29 | ECG_ITS ---
APPROVED REPORT Exam: Resting ECG HR:85 bpm ECG Measurements Heart Rate 85 AXES MS 120 P 45 QRSd 144 QRS 85 QT 372 T 189 QTc 442 Conclusion Demand pacemaker, interpretation is based on intrinsic rhythm Sinus rhythm with occasional premature ventricular complexes Nonspecific intraventricular block T wave abnormality, consider inferolateral ischemia Abnormal ECG Electronically signed by : Alfredo Diaz, 07/20/2020 16:06:43
--- NOTE | 2020-07-20 09:34 | HMH.CNCARD ---
History of Present Illness Consult date: 07/20/20 Requesting physician: Damien Murillo Consult reason: chest pain Chief complaint: chest pain History of present illness: This is a 64-year-old white gentleman who was admitted to the hospital with weakness and black tarry stools. The patient was found to be having a GI bleed and all of his blood thinners have been stopped. He states that he was nauseated and did vomit but he did not vomit any blood. The patient states that he had been weak for several days prior to him being admitted into the hospital. He states that he had been doing well up until a few days before his appointment. He denied any chest pain or pressure at the time of admission. He was also denying any shortness of breath at the time of his admission. The patient was admitted to the hospital here [facility] a few weeks ago and treated for COPD. He was also found to have an atrial tachycardia and was started on Xarelto at that time in addition to Brilinta. The patient reported on his last admission having recent stents to his coronary arteries and a history of coronary artery bypass grafting as well as an AICD placement in April 2020. He does normally follow-up with Dr. Chan in [place]. Overnight last night the patient did develop chest pain. He states that this is a burning sensation in the center of his chest and radiates up to his neck. It is associated with diaphoresis and nausea. He denies any shortness of breath. He states nothing makes his symptoms worse and nothing helped to improve his symptoms until he was given a GI cocktail which he does state helped to improve the burning sensation. He did have a troponin drawn this morning which is elevated at 0.38. He is anemic with a hemoglobin of 7.9. He states he was transfused with 2 units of packed red blood cells on Saturday. His hemoglobin was 9 yesterday and is down to 7.9 this morning. The patient does have an extensive coronary history as well as PAD history. He denies any fever, chills, diarrhea, PND or orthopnea. [facility] History I have reviewed the patient's past medical history: Yes Medical History: Reports:: Atherosclerotic Heart Disease, Cardiomyopathy, Carotid Stenosis, Congestive Heart Failure, Chronic Obstructive Pulmonary Disease (COPD), Coronary Artery Disease, Cerebrovascular Accident, Diabetes Mellitus Type 1, Diabetes Mellitus Type 2, Gastroesophageal Reflux Disease(GERD), Hyperlipidemia, Hypertension, Lung Disease, Myocardial Infarction, Palpitations, Peripheral Vascular Disease (SIRENA, s/p R carotid stenting) Denies:: Cancer, Home Oxygen, MRSA *Have you ever received a pneumonia vaccine?: No *Have you received a flu vaccine this season?: Yes Other Medical History: Reports: Arthritis, Blood Transfusion Reaction (pt had a heart attack ), Cataracts, Chemotherapy, Radiation Therapy, Other Other Surgeries: Yes: Angioplasty, CABG, Cardiac Catheterization, Cardiac Surgery, Coronary Stent, Open Heart Surgery, Other (carotid stent) Amputation: No Fractures: No - *Social History Last grade of school completed: High school graduate Smoking Status: Current some day smoker Tobacco Type: cigarettes # Packs/Day (cigarettes): 1 #Yrs smoked (if former smoker): 50 Alcohol Intake: current Alcohol Intake Frequency:: holidays/special occasions only *Occupational Status:: retired Housing: house Household Members: spouse *Travel in the last 8 weeks: None Family Hx:: Anemia, Heart Attack, Hyperlipidemia Meds Home Medications Medication Instructions Recorded Confirmed Type Acetaminophen [Acetaminophen 325mg 650 mg PO Q6HP PRN 04/02/18 07/18/20 History tab] Aspirin [Aspirin 81mg EC Tab] 81 mg PO DAILY 04/02/18 07/18/20 History Budesonide/Formoterol Fumarate 2 puffs INHALATION BID 04/02/18 07/18/20 History [Symbicort 160-4.5 Mcg Inhaler] Furosemide [Furosemide 40MG tAB*] 40 mg PO DAILY 04/02/18 07/18/20 History Ipratropium/A
--- NOTE | 2020-07-20 10:24 | PC.NURSE ---
MD HOGAN GAVE THIS RN VERBAL PERMISSION TO INFUSE RBC'S OVER FOUR HOURS DUE TO PT HISTORY OF CHF AND THIS TIMEFRAME WAS INCLUDED IN THE TRANSFUSION ORDER.
--- NOTE | 2020-07-20 13:22 | XR_ITS ---
PROCEDURE: XR CHEST PORTABLE PICC PLAC CLINICAL HISTORY: Confirm PICC line placement COMPARISON: CR XR CHEST 2V from 09/02/2019 CR XR CHEST PORTABLE from 07/03/2020 CR XR CHEST PORTABLE from 07/18/2020 FINDINGS: Right upper extremity PICC line has been inserted. The tip is in the region of the SVC. Bipolar pacemaker is present from left subclavian approach. There has been a prior CABG. The lungs are clear without infiltrates, suspicious nodules, or pleural effusions. No acute bony abnormalities. IMPRESSION: Right upper extremity PICC line in good position. Dictated by: Fan Harrison MD 07/20/2020 15:06 Fan Harrison MD in [place] 07/20/2020 15:06
--- NOTE | 2020-07-20 13:35 | PC.NURSE ---
CONTACTED MD GARCIA THIRD MILLER FOR MD HOGAN TO REQUEST PICC LINE FOR BLOOD TRANSFUSIONS.
[2020-07-20 16:44] LABS: POC Glucose,Bedside 177 (70-110)
--- NOTE | 2020-07-20 16:56 | PC.NURSE ---
TERESA DESAI REPORTED NO BED AVAILABLE A [facility], UPDATE ON BED AVAILABILITY TO BE CALLED Q4 HOURS BY NURSING STAFF AT [facility].
[2020-07-20 16:58] LABS: POC Glucose,Bedside 135 (70-110)
--- NOTE | 2020-07-20 17:00 | PC.NURSE ---
RBC TRANSFUSION IN PROCESS AT THIS TIME, 2LNC WITH 02 SATS >95%, PICC LINE PLACED THIS AFTERNOON, PT HAS NOT C/O CHEST PAIN OR EPIGASTRIC PAIN SINCE THIS MORNING, PT PACED WITH HR OF 65 ON TELEMETRY, VSS, WILL CONTINUE TO MONITOR.
--- NOTE | 2020-07-20 19:06 | PC.NURSE ---
report given to santo
[2020-07-20 20:58] LABS: Hemoglobin 8.6 g/dL (14.1-18.0)
[2020-07-20 21:21] LABS: POC Glucose,Bedside 120 (70-110)
--- NOTE | 2020-07-20 23:50 | PC.NURSE ---
Pt refusing to wear o2 at this time per RT. RA sat noted at 89%, no respiratory distress noted. Denies SOA. Will continue to monitor.
[2020-07-21] VITALS (22 sets, daily range): BP systolic 90–145; BP diastolic 45–83; PULSE 6–68; RESP 16–20; TEMP 36.1–36.9; O2SAT 90–99; BMI 26.0; BMI 25.9
--- NOTE | 2020-07-21 02:59 | PC.NURSE ---
Pt is alert and oriented x4. Pt rested well with eyes closed this shift. No new complaints. No acute changes noted from previous shift. Denies pain when asked. Denies nausea and vomiting. PERRLA. Bilateral hand general engineer noted equal and strong. Cap refill < 3 seconds. Bilateral lungs noted with rhonchi. Pt tolerates RA well with no c/o SOA, refused to wear O2, sats noted 89% RA this am. Will continue to monitor O2. Encouraged use of incentive spirometer while awake. This RN provided IS education to pt. Pt verbalized understanding and demonstrated appropriate use of device. Abdomen noted soft, large and non-tender upon palpation. Pt noted with constipation t/o shift, denies discomfort or urge to defecate. Urine noted clear and bright yellow in color. Independent use of urinal at bedside. No edema noted. Refused TEDS. PACED rhythm noted on cafeteria monitor t/o shift. VSS. Remains safe. Call light within reach. Will continue to monitor.
--- NOTE | 2020-07-21 05:00 | PC.NURSE ---
[facility] called, no bed available for transfer at this time.
[2020-07-21 06:18] LABS: POC Glucose,Bedside 115 (70-110)
--- NOTE | 2020-07-21 08:20 | HMH.ACPN2 ---
Internal Medicine - PN: Subj *Date: 07/21/20 *Time: 08:21 Interval history: After his episode of chest pain yesterday morning, he has had no further chest pain. He states that was the worst episode of chest pain he has ever had . He did bump his troponin to 0.38. Cardiology was consulted. Please refer to their consult note in chart. Recommendation was that he be transferred to his primary analyst microbiology lab in [place]. Dr. Chan was contacted and she accepted patient in transfer but no beds were available and he is currently on a waiting list. He rested better last night. He denies chest pain or nausea this morning. He feels a bit hungry. He is still not had a bowel movement. After 2 units of blood yesterday his hemoglobin is up to 8.6. Repeat labs are pending this morning. Exam Vital signs and Labs for Last 24 Hours: Temp Pulse Resp BP Pulse Ox 97.4 F L 68 19 90/63 L 95 07/21/20 04:00 07/21/20 06:23 07/21/20 04:00 07/21/20 04:00 07/21/20 04:00 Laboratory Results - last 24 hr 07/18/20 13:10: Blood Type A Positive, Antibody Screen Negative, Crossmatch (AHG) See Detail 07/20/20 08:38: Total Creatine Kinase 63, CK-MB (CK-2) 3.4 H D, CK-MB (CK-2) Rel Index 5.4 H, Troponin I 0.38 H 07/20/20 11:13: POC Glucose 177 H 07/20/20 16:41: POC Glucose 135 H 07/20/20 20:40: Hgb 8.6 L, Hct 27.0 L 07/20/20 21:02: POC Glucose 120 H 07/21/20 05:39: POC Glucose 115 H I & O for Last 24 hours: Intake & Output 07/18/20 07/19/20 07/20/20 07/21/20 11:59 11:59 11:59 11:59 Intake Total 1073 / 1073 1798 / 1798 1194 / 1194 Output Total 1300 / 1300 2260 / 2260 1550 / 1550 Balance -227 / -227 -462 / -462 -356 / -356 Weight 189 lb 188 lb 3.274 oz 186 lb Microbiology Reports for the Last 24 Hours: Microbiology 07/18/20 16:18 Urine,Clean Catch Urine Culture - Final Multiple organisms, suggests contamination. Narrative: He appears in no acute distress. His color is improved. Chest with generally diminished breath sounds and a few scattered rhonchi. No wheezes. Heart is regular. Abdomen is soft and nondistended with no unusual masses or tenderness. Assessment and Plan (1) Angina pectoris Status: Acute Category: Medical Code(s): I20.9 - Angina pectoris, unspecified (2) Non-ST elevation myocardial infarction (NSTEMI) Status: Acute Category: Medical Code(s): I21.4 - Non-ST elevation (NSTEMI) myocardial infarction (3) Acute colitis Status: Acute Category: Medical Code(s): K52.9 - Noninfective gastroenteritis and colitis, unspecified (4) Acute on chronic blood loss anemia Status: Acute Category: Medical Code(s): D62 - Acute posthemorrhagic anemia (5) Lower GI bleeding Status: Acute Category: Medical Code(s): K92.2 - Gastrointestinal hemorrhage, unspecified (6) ASCVD (arteriosclerotic cardiovascular disease) Status: Chronic Category: Medical Code(s): I25.10 - Atherosclerotic heart disease of [place] coronary artery without angina pectoris (7) COPD (chronic obstructive pulmonary disease) Status: Chronic Qualifiers: COPD type: COPD with acute exacerbation Qualified Code(s): J44.1 - Chronic obstructive pulmonary disease with (acute) exacerbation Category: Medical Code(s): J44.9 - Chronic obstructive pulmonary disease, unspecified (8) Coronary artery disease Status: Chronic Category: Medical Code(s): I25.10 - Atherosclerotic heart disease of [place] coronary artery without angina pectoris (9) GERD (gastroesophageal reflux disease) Status: Chronic Category: Medical Code(s): K21.9 - Gastro-esophageal reflux disease without esophagitis (10) History of CVA (cerebrovascular accident) Status: Chronic Category: Medical Code(s): Z86.73 - Personal history of transient ischemic attack (TIA), and cerebral infarction without residual deficits (11) Ischemic cardiomyopathy Status: Chronic Category: Medical C
[2020-07-21 11:38] LABS: Basophils % 0.3 % (0.1-2.0); Eosinophils # 0.2 K/mm3 (0.0-0.4); Eosinophils % 2.5 % (0.1-12.0); Hematocrit 26.8 % (42.0-52.0); Hemoglobin 8.5 g/dL (14.1-18.0); Lymphocytes % 13.9 % (10-50); Mean Corpuscular HGB Conc 31.7 g/dL (31.8-35.4); Mean Corpuscular Hemoglobin 29.8 pg (27.0-31.2); Mean Platelet Volume 8.1 fl (7.4-10.4); Monocytes # 0.4 K/mm3 (0.1-1.0); Monocytes % 6.2 % (1.7-9.3); Neutrophils # 5.3 K/mm3 (1.8-7.8); Neutrophils % 77.1 % (37.0-80.0); Platelet Count 212 K/mm3 (142-424); Red Blood Count 2.85 M/mm3 (4.60-6.20); Red Cell Distribution Width 15.2 % (11.5-17.5); White Blood Count 6.9 K/mm3 (4.8-10.8)
[2020-07-21 12:14] LABS: POC Glucose,Bedside 142 (70-110)
--- NOTE | 2020-07-21 19:57 | PC.NURSE ---
Pt alert and oriented and awaiting a bed at [facility] still at this time. CB in reach. Continues in droplet precautions. NAD. RA. VSS. Receiving blood transfusion still currently and tolerating well, was to be given over 4 hrs. Report given.
[2020-07-21 21:43] LABS: Hematocrit 28.9 % (42.0-52.0)
--- NOTE | 2020-07-21 22:07 | PC.NURSE ---
2100 COURTESY ROUND PT AWAKE AND STATED NO NEEDS AT THIS TIME. TRASH EMPTIED.
[2020-07-21 22:24] LABS: POC Glucose,Bedside 107 (70-110)
[2020-07-21 23:55] LABS: POC Glucose,Bedside 115 (70-110)
[2020-07-22] VITALS (9 sets, daily range): BP systolic 117–141; BP diastolic 55–60; PULSE 50–70; RESP 17–18; TEMP 36.3–36.9; O2SAT 92–97; BMI 26.8
--- NOTE | 2020-07-22 04:38 | PC.NURSE ---
PT. HAS NOT HAD A BM THIS SHIFT. NO C/O N/V/D, DIZZINESS, OR SOA. PT. C/O LOWER BACK PAIN X1; TX WITH MORPHINE, EFFECTIVENESS REPORTED. INTERMITTENT COUGH NOTED WITH EXPIRATORY WHEEZES NOTED TO R LOBE.
[2020-07-22 06:48] LABS: POC Glucose,Bedside 111 (70-110)
--- NOTE | 2020-07-22 08:09 | HMH.ACPN2 ---
Internal Medicine - PN: Subj *Date: 07/22/20 *Time: 08:21 Interval history: He generally does not feel well this morning but no specific complaints except weakness. Denies chest pain. No nausea. He is tolerating liquids. No bowel movement. Still awaiting transfer to [facility] Exam Vital signs and Labs for Last 24 Hours: Temp Pulse Resp BP Pulse Ox 98.0 F 61 18 128/55 L 94 L 07/22/20 04:00 07/22/20 06:45 07/22/20 04:00 07/22/20 04:00 07/22/20 06:45 Laboratory Results - last 24 hr 07/18/20 13:10: Crossmatch ([facility]) See Detail 07/21/20 11:22: WBC 6.9 D, RBC 2.85 L, Hgb 8.5 L, Hct 26.8 L, MCV 94.0, MCH 29.8, MCHC 31.7 L, RDW 15.2, Plt Count 212, MPV 8.1, Neut % (Auto) 77.1, Lymph % (Auto) 13.9, [place] % (Auto) 6.2, Eos % (Auto) 2.5, Baso % (Auto) 0.3, Neut # (Auto) 5.3, Lymph # (Auto) 1.0, [place] # (Auto) 0.4, Eos # (Auto) 0.2, Baso # (Auto) 0.0 07/21/20 12:02: POC Glucose 142 H 07/21/20 14:00: Blood Type A Positive, Antibody Screen Negative, Crossmatch ([facility]) See Detail 07/21/20 16:53: POC Glucose 115 H 07/21/20 20:49: POC Glucose 107 07/21/20 21:28: Hgb 10.0 L D, Hct 28.9 L 07/22/20 05:01: POC Glucose 111 H I & O for Last 24 hours: Intake & Output 07/19/20 07/20/20 07/21/20 07/22/20 11:59 11:59 11:59 11:59 Intake Total 1073 / 1073 1798 / 1798 1674 / 1674 1744 / 1744 Output Total 1300 / 1300 2260 / 2260 1550 / 1550 2090 / 2090 Balance -227 / -227 -462 / -462 124 / 124 -346 / -346 Weight 189 lb 188 lb 3.274 oz 185 lb 3.013 oz 191 lb 12.8 oz Narrative: He appears in no acute distress. Flat affect. Color is good. Chest with scattered rhonchi. No wheezes. Heart is regular. Abdomen is soft and nondistended. Bowel sounds are present but diminished. No unusual tenderness. Extremities show no edema. Hemoglobin after 5 units of blood is 10.0. Assessment and Plan (1) Angina pectoris Status: Acute Category: Medical Code(s): I20.9 - Angina pectoris, unspecified (2) Non-ST elevation myocardial infarction (NSTEMI) Status: Acute Category: Medical Code(s): I21.4 - Non-ST elevation (NSTEMI) myocardial infarction (3) Acute colitis Status: Acute Category: Medical Code(s): K52.9 - Noninfective gastroenteritis and colitis, unspecified (4) Acute on chronic blood loss anemia Status: Acute Category: Medical Code(s): D62 - Acute posthemorrhagic anemia (5) Lower GI bleeding Status: Acute Category: Medical Code(s): K92.2 - Gastrointestinal hemorrhage, unspecified (6) ASCVD (arteriosclerotic cardiovascular disease) Status: Chronic Category: Medical Code(s): I25.10 - Atherosclerotic heart disease of [place] coronary artery without angina pectoris (7) COPD (chronic obstructive pulmonary disease) Status: Chronic Qualifiers: COPD type: COPD with acute exacerbation Qualified Code(s): J44.1 - Chronic obstructive pulmonary disease with (acute) exacerbation Category: Medical Code(s): J44.9 - Chronic obstructive pulmonary disease, unspecified (8) Coronary artery disease Status: Chronic Category: Medical Code(s): I25.10 - Atherosclerotic heart disease of [place] coronary artery without angina pectoris (9) GERD (gastroesophageal reflux disease) Status: Chronic Category: Medical Code(s): K21.9 - Gastro-esophageal reflux disease without esophagitis (10) History of CVA (cerebrovascular accident) Status: Chronic Category: Medical Code(s): Z86.73 - Personal history of transient ischemic attack (TIA), and cerebral infarction without residual deficits (11) Ischemic cardiomyopathy Status: Chronic Category: Medical Code(s): I25.5 - Ischemic cardiomyopathy (12) Lymphoma Status: Chronic Category: Medical Code(s): C85.90 - Non-Hodgkin lymphoma, unspecified, unspecified site (13) Tobacco abuse Status: Chronic Category: Medical Code(s): Z72.0 - Tobacco use (14) Type 2 diabetes mellitus Status: Chronic Category: Medical Code
--- NOTE | 2020-07-22 10:54 | HMH.ACPN ---
Internal Medicine - PN: Subj *Date: 07/22/20 *Time: 10:55 Exam Vital signs and Labs for Last 24 Hours: Temp Pulse Resp BP Pulse Ox 98.0 F 57 L 18 141/58 H 95 07/22/20 08:00 07/22/20 08:00 07/22/20 08:00 07/22/20 08:00 07/22/20 08:00 Laboratory Results - last 24 hr 07/18/20 13:10: Crossmatch ([facility]) See Detail 07/21/20 11:22: WBC 6.9 D, RBC 2.85 L, Hgb 8.5 L, Hct 26.8 L, MCV 94.0, MCH 29.8, MCHC 31.7 L, RDW 15.2, Plt Count 212, MPV 8.1, Neut % (Auto) 77.1, Lymph % (Auto) 13.9, [place] % (Auto) 6.2, Eos % (Auto) 2.5, Baso % (Auto) 0.3, Neut # (Auto) 5.3, Lymph # (Auto) 1.0, [place] # (Auto) 0.4, Eos # (Auto) 0.2, Baso # (Auto) 0.0 07/21/20 12:02: POC Glucose 142 H 07/21/20 14:00: Blood Type A Positive, Antibody Screen Negative, Crossmatch ([facility]) See Detail 07/21/20 16:53: POC Glucose 115 H 07/21/20 20:49: POC Glucose 107 07/21/20 21:28: Hgb 10.0 L D, Hct 28.9 L 07/22/20 05:01: POC Glucose 111 H I & O for Last 24 hours: Intake & Output 07/19/20 07/20/20 07/21/20 07/22/20 23:59 23:59 23:59 23:59 Intake Total 1791 / 2 1419 / 1419 1905 / 1905 1653 / 1653 Output Total 2550 / 2550 1935 / 1935 2145 / 2145 420 / 420 Balance -758 / -518 -516 / -516 -240 / -240 1233 / 1233 Weight 85.729 kg 85.368 kg 84 kg 86.999 kg Assessment and Plan (1) Angina pectoris Status: Acute Category: Medical Code(s): I20.9 - Angina pectoris, unspecified (2) Non-ST elevation myocardial infarction (NSTEMI) Status: Acute Category: Medical Code(s): I21.4 - Non-ST elevation (NSTEMI) myocardial infarction (3) Acute colitis Status: Acute Category: Medical Code(s): K52.9 - Noninfective gastroenteritis and colitis, unspecified (4) Acute on chronic blood loss anemia Status: Acute Category: Medical Code(s): D62 - Acute posthemorrhagic anemia (5) Lower GI bleeding Status: Acute Category: Medical Code(s): K92.2 - Gastrointestinal hemorrhage, unspecified (6) ASCVD (arteriosclerotic cardiovascular disease) Status: Chronic Category: Medical Code(s): I25.10 - Atherosclerotic heart disease of [place] coronary artery without angina pectoris (7) COPD (chronic obstructive pulmonary disease) Status: Chronic Qualifiers: COPD type: COPD with acute exacerbation Qualified Code(s): J44.1 - Chronic obstructive pulmonary disease with (acute) exacerbation Category: Medical Code(s): J44.9 - Chronic obstructive pulmonary disease, unspecified (8) Coronary artery disease Status: Chronic Category: Medical Code(s): I25.10 - Atherosclerotic heart disease of [place] coronary artery without angina pectoris (9) GERD (gastroesophageal reflux disease) Status: Chronic Category: Medical Code(s): K21.9 - Gastro-esophageal reflux disease without esophagitis (10) History of CVA (cerebrovascular accident) Status: Chronic Category: Medical Code(s): Z86.73 - Personal history of transient ischemic attack (TIA), and cerebral infarction without residual deficits (11) Ischemic cardiomyopathy Status: Chronic Category: Medical Code(s): I25.5 - Ischemic cardiomyopathy (12) Lymphoma Status: Chronic Category: Medical Code(s): C85.90 - Non-Hodgkin lymphoma, unspecified, unspecified site (13) Tobacco abuse Status: Chronic Category: Medical Code(s): Z72.0 - Tobacco use (14) Type 2 diabetes mellitus Status: Chronic Category: Medical Code(s): E11.9 - Type 2 diabetes mellitus without complications (15) PAD (peripheral artery disease) Status: Acute Category: Medical Code(s): I73.9 - Peripheral vascular disease, unspecified (16) Carotid artery stenosis Status: Acute Category: Medical Code(s): I65.29 - Occlusion and stenosis of unspecified carotid artery The patient's infection will respond to the chosen ABx?: Yes Is the patient receiving the right drug, dose, and route?: Yes Could a more targeted ABx be ordered?: No
[2020-07-22 11:38] LABS: POC Glucose,Bedside 123 (70-110)
--- NOTE | 2020-07-22 11:39 | HMH.PHAINT ---
STOP PROTONIX DRIP AND START PROTONIX IV PUSH BID PER CRYSTAL ([facility]) AT [facility].
--- NOTE | 2020-07-22 15:25 | PC.NURSE ---
Pt is alert and oriented and up to chair at this time and has no c/o currently thus time. CB in reach. VSS. Have spoke with cb several times this shift - pantry steward/stewardess has and still no bed available. Have made Dr. Hernandez aware of this earlier this shift. Remains safe. Will cont to mx this shift. Wheezes heard throughout lungs, abd distended, bs hypoactive. No notable bleeding.
[2020-07-22 16:33] LABS: POC Glucose,Bedside 127 (70-110)
[2020-07-22 21:25] LABS: POC Glucose,Bedside 181 (70-110)
[2020-07-23] VITALS (8 sets, daily range): BP systolic 115–133; BP diastolic 46–57; PULSE 57–68; RESP 16–19; TEMP 36.7–37; O2SAT 93–100; BMI 26.4
--- NOTE | 2020-07-23 03:23 | PC.NURSE ---
@ 0030 this RN s/w Dr. Lloyd to verify if pt could be removed from cardiac monitoring. new order to remove tele at this time. This RN passed onto primary RN Gagan Sibley new order to remove tele.
--- NOTE | 2020-07-23 03:56 | PC.NURSE ---
Pt A&Ox4. pt denies SOA and pain. wheezes noted in lungs. BS noted in all quads. pt voids per urinal. pt has rested quietly this shift.
[2020-07-23 05:33] LABS: POC Glucose,Bedside 111 (70-110)
[2020-07-23 05:59] LABS: Basophils % 0.2 % (0.1-2.0); Eosinophils # 0.3 K/mm3 (0.0-0.4); Eosinophils % 3.5 % (0.1-12.0); Hemoglobin 9.9 g/dL (14.1-18.0); Lymphocytes % 11.8 % (10-50); Mean Corpuscular HGB Conc 33.1 g/dL (31.8-35.4); Mean Corpuscular Hemoglobin 30.8 pg (27.0-31.2); Mean Corpuscular Volume 93.2 fl (80-94); Mean Platelet Volume 8.5 fl (7.4-10.4); Monocytes # 0.6 K/mm3 (0.1-1.0); Monocytes % 6.9 % (1.7-9.3); Neutrophils # 6.3 K/mm3 (1.8-7.8); Neutrophils % 77.5 % (37.0-80.0); Platelet Count 202 K/mm3 (142-424); Red Blood Count 3.22 M/mm3 (4.60-6.20); Red Cell Distribution Width 15.6 % (11.5-17.5); White Blood Count 8.1 K/mm3 (4.8-10.8)
--- NOTE | 2020-07-23 06:02 | PC.NURSE ---
Argenis from [facility] no available beds @ this time. she states possible open beds @ this afternoon
--- NOTE | 2020-07-23 08:11 | HMH.ACPN2 ---
Internal Medicine - PN: Subj *Date: 07/23/20 *Time: 08:24 Interval history: He rested fairly well last night. He is tolerating his diet. Still has had no bowel movement. He still feels weak when out of bed but spent a good part of the day sitting in the chair yesterday. Exam Vital signs and Labs for Last 24 Hours: Temp Pulse Resp BP Pulse Ox 98.5 F 58 L 16 131/54 L 93 L 07/23/20 04:00 07/23/20 06:59 07/23/20 04:00 07/23/20 04:00 07/23/20 06:59 Laboratory Results - last 24 hr 07/22/20 10:25: POC Glucose 123 H 07/22/20 16:03: POC Glucose 127 H 07/22/20 20:38: POC Glucose 181 H 07/23/20 05:14: POC Glucose 111 H 07/23/20 05:45: WBC 8.1, RBC 3.22 L, Hgb 9.9 L, Hct 30.0 L, MCV 93.2, MCH 30.8, MCHC 33.1, RDW 15.6, Plt Count 202, MPV 8.5, Neut % (Auto) 77.5, Lymph % (Auto) 11.8, [place] % (Auto) 6.9, Eos % (Auto) 3.5, Baso % (Auto) 0.2, Neut # (Auto) 6.3, Lymph # (Auto) 1.0, [place] # (Auto) 0.6, Eos # (Auto) 0.3, Baso # (Auto) 0.0 I & O for Last 24 hours: Intake & Output 07/20/20 07/21/20 07/22/20 07/23/20 11:59 11:59 11:59 11:59 Intake Total 1798 / 1798 1674 / 1674 2464 / 2464 880 / 880 Output Total 2260 / 2260 1550 / 1550 2390 / 2390 2400 / 2400 Balance -462 / -462 124 / 124 74 / 74 -1520 / -1520 Weight 188 lb 3.274 oz 185 lb 3.013 oz 191 lb 12.8 oz 189 lb 5 oz Narrative: He appears in no distress. Color is good. Chest with generally diminished breath sounds and only plain occasional rhonchi. Heart is regular. Abdomen is soft and nondistended. Minimal left-sided tenderness. Assessment and Plan (1) Angina pectoris Status: Acute Category: Medical Code(s): I20.9 - Angina pectoris, unspecified (2) Non-ST elevation myocardial infarction (NSTEMI) Status: Acute Category: Medical Code(s): I21.4 - Non-ST elevation (NSTEMI) myocardial infarction (3) Acute colitis Status: Acute Category: Medical Code(s): K52.9 - Noninfective gastroenteritis and colitis, unspecified (4) Acute on chronic blood loss anemia Status: Acute Category: Medical Code(s): D62 - Acute posthemorrhagic anemia (5) Lower GI bleeding Status: Acute Category: Medical Code(s): K92.2 - Gastrointestinal hemorrhage, unspecified (6) ASCVD (arteriosclerotic cardiovascular disease) Status: Chronic Category: Medical Code(s): I25.10 - Atherosclerotic heart disease of [place] coronary artery without angina pectoris (7) COPD (chronic obstructive pulmonary disease) Status: Chronic Qualifiers: COPD type: COPD with acute exacerbation Qualified Code(s): J44.1 - Chronic obstructive pulmonary disease with (acute) exacerbation Category: Medical Code(s): J44.9 - Chronic obstructive pulmonary disease, unspecified (8) Coronary artery disease Status: Chronic Category: Medical Code(s): I25.10 - Atherosclerotic heart disease of [place] coronary artery without angina pectoris (9) GERD (gastroesophageal reflux disease) Status: Chronic Category: Medical Code(s): K21.9 - Gastro-esophageal reflux disease without esophagitis (10) History of CVA (cerebrovascular accident) Status: Chronic Category: Medical Code(s): Z86.73 - Personal history of transient ischemic attack (TIA), and cerebral infarction without residual deficits (11) Ischemic cardiomyopathy Status: Chronic Category: Medical Code(s): I25.5 - Ischemic cardiomyopathy (12) Lymphoma Status: Chronic Category: Medical Code(s): C85.90 - Non-Hodgkin lymphoma, unspecified, unspecified site (13) Tobacco abuse Status: Chronic Category: Medical Code(s): Z72.0 - Tobacco use (14) Type 2 diabetes mellitus Status: Chronic Category: Medical Code(s): E11.9 - Type 2 diabetes mellitus without complications (15) PAD (peripheral artery disease) Status: Acute Category: Medical Code(s): I73.9 - Peripheral vascular disease, unspecified (16) Carotid artery stenosis Status: Acute Category: Medical Code(s): I65.29 -
--- NOTE | 2020-07-23 09:59 | PC.NURSE ---
Spoke with Selin at this time 0935 and there is still no bed available at [facility].
[2020-07-23 11:39] LABS: POC Glucose,Bedside 120 (70-110)
[2020-07-23 15:48] LABS: POC Glucose,Bedside 136 (70-110)
--- NOTE | 2020-07-23 18:07 | PC.NURSE ---
[facility] St[facility] still no beds available at this time.
--- NOTE | 2020-07-23 19:46 | PC.NURSE ---
Still awaiting bed at [facility]. CB in reach. Prn morphine x 1 this shift r/t back pain. VSS. here this shift to visit. BS x4. Lungs wheezes scattered.
[2020-07-23 20:21] LABS: POC Glucose,Bedside 150 (70-110)
[2020-07-24] VITALS (8 sets, daily range): BP systolic 115–132; BP diastolic 42–87; PULSE 50–65; RESP 18–26; TEMP 36.6–36.9; O2SAT 94–95; BMI 26.4
--- NOTE | 2020-07-24 04:26 | PC.NURSE ---
Pt A&OX4 scattered wheezes. pt c/o pain x1 medicated per MAR. Pt voids per urinal. pt has rested quietly this shift
[2020-07-24 05:29] LABS: POC Glucose,Bedside 120 (70-110)
[2020-07-24 07:36] LABS: Hemoglobin 9.8 g/dL (14.1-18.0)
--- NOTE | 2020-07-24 08:34 | HMH.ACPN2 ---
Internal Medicine - PN: Subj *Date: 07/24/20 *Time: 08:45 Interval history: No new concerns or complaints. He is tolerating his diet and activity. Still has not had a bowel movement. No complaints of chest pain. Still awaiting bed at [facility]. Exam Vital signs and Labs for Last 24 Hours: Temp Pulse Resp BP Pulse Ox 98.3 F 62 19 115/42 L 94 L 07/24/20 08:00 07/24/20 08:00 07/24/20 08:00 07/24/20 08:00 07/24/20 08:00 Laboratory Results - last 24 hr 07/23/20 11:31: POC Glucose 120 H 07/23/20 15:38: POC Glucose 136 H 07/23/20 19:55: POC Glucose 150 H 07/24/20 05:01: POC Glucose 120 H 07/24/20 06:48: Hgb 9.8 L, Hct 30.0 L I & O for Last 24 hours: Intake & Output 07/21/20 07/22/20 07/23/20 07/24/20 11:59 11:59 11:59 11:59 Intake Total 1674 / 1674 2464 / 2464 880 / 880 460 / 460 Output Total 1550 / 1550 2390 / 2390 2400 / 2400 2525 / 2525 Balance 124 / 124 74 / 74 -1520 / -1520 -2064 / -206 Weight 185 lb 3.013 oz 191 lb 12.8 oz 189 lb 5 oz 189 lb 1.6 oz Narrative: No distress. Color is good. Chest with occasional rhonchi. Abdomen soft and nondistended with no unusual tenderness. Assessment and Plan (1) Angina pectoris Status: Acute Category: Medical Code(s): I20.9 - Angina pectoris, unspecified (2) Non-ST elevation myocardial infarction (NSTEMI) Status: Acute Category: Medical Code(s): I21.4 - Non-ST elevation (NSTEMI) myocardial infarction (3) Acute colitis Status: Acute Category: Medical Code(s): K52.9 - Noninfective gastroenteritis and colitis, unspecified (4) Acute on chronic blood loss anemia Status: Acute Category: Medical Code(s): D62 - Acute posthemorrhagic anemia (5) Lower GI bleeding Status: Acute Category: Medical Code(s): K92.2 - Gastrointestinal hemorrhage, unspecified (6) ASCVD (arteriosclerotic cardiovascular disease) Status: Chronic Category: Medical Code(s): I25.10 - Atherosclerotic heart disease of [place] coronary artery without angina pectoris (7) COPD (chronic obstructive pulmonary disease) Status: Chronic Qualifiers: COPD type: COPD with acute exacerbation Qualified Code(s): J44.1 - Chronic obstructive pulmonary disease with (acute) exacerbation Category: Medical Code(s): J44.9 - Chronic obstructive pulmonary disease, unspecified (8) Coronary artery disease Status: Chronic Category: Medical Code(s): I25.10 - Atherosclerotic heart disease of [place] coronary artery without angina pectoris (9) GERD (gastroesophageal reflux disease) Status: Chronic Category: Medical Code(s): K21.9 - Gastro-esophageal reflux disease without esophagitis (10) History of CVA (cerebrovascular accident) Status: Chronic Category: Medical Code(s): Z86.73 - Personal history of transient ischemic attack (TIA), and cerebral infarction without residual deficits (11) Ischemic cardiomyopathy Status: Chronic Category: Medical Code(s): I25.5 - Ischemic cardiomyopathy (12) Lymphoma Status: Chronic Category: Medical Code(s): C85.90 - Non-Hodgkin lymphoma, unspecified, unspecified site (13) Tobacco abuse Status: Chronic Category: Medical Code(s): Z72.0 - Tobacco use (14) Type 2 diabetes mellitus Status: Chronic Category: Medical Code(s): E11.9 - Type 2 diabetes mellitus without complications (15) PAD (peripheral artery disease) Status: Acute Category: Medical Code(s): I73.9 - Peripheral vascular disease, unspecified (16) Carotid artery stenosis Status: Acute Category: Medical Code(s): I65.29 - Occlusion and stenosis of unspecified carotid artery - Assessment and plan all Dx Assessment and Plan for all problems:: Hemoglobin remained stable. Continue per orders. Resume Entresto now that his blood pressure has improved. Await bed at [facility].
--- NOTE | 2020-07-24 09:29 | PC.NURSE ---
[facility] called at this time and stated they still do not have a bed.
[2020-07-24 11:34] LABS: POC Glucose,Bedside 123 (70-110)
[2020-07-24 16:27] LABS: POC Glucose,Bedside 179 (70-110)
--- NOTE | 2020-07-24 16:52 | PC.NURSE ---
Pt alert and oriented and able to make needs known. PICC dsg changed to CARROLL. No s/s of problems. CB in reach. ACHS fingersticks. SSI per mar. Awaiting bed still at this time at [facility]. Will cont to mx this shift. VSS. Pt was given senna this am in order to aid with BM and he still has had no success.
--- NOTE | 2020-07-24 17:51 | PC.NURSE ---
Received call from [facility] about bed availability for this pt. Stated no bed at this time.
[2020-07-25 01:32] LABS: POC Glucose,Bedside 139 (70-110)
[2020-07-25 03:20] VITALS: BP 115/52; PULSE 69; RESP 16; TEMP 36.8; O2SAT 92
[2020-07-25 05:00] VITALS: BMI 26.6
--- NOTE | 2020-07-25 05:44 | PC.NURSE ---
Lena from [facility] called for pt status update. no bed available @ this time
--- NOTE | 2020-07-25 05:45 | PC.NURSE ---
PT A&OX4. scattered wheezes. pt c/o abd pain medicated per MAR. pt voids per urinal. active BS in all quads. no BM this shift
[2020-07-25 05:55] LABS: POC Glucose,Bedside 173 (70-110)
[2020-07-25 06:40] VITALS: PULSE 63; PULSE 67; O2SAT 93
[2020-07-25 08:00] VITALS: BP 118/52; PULSE 63; RESP 20; TEMP 36.8; O2SAT 93
[2020-07-25 08:04] VITALS: PULSE 63
--- NOTE | 2020-07-25 08:15 | HMH.ACPN2 ---
Internal Medicine - PN: Subj *Date: 07/25/20 *Time: 08:15 Interval history: No new complaints. [facility] still has no beds available. Patient clinically has improved. No obvious sign of GI bleeding at this time. His H&H has been stable. Exam Vital signs and Labs for Last 24 Hours: Temp Pulse Resp BP Pulse Ox 98.2 F 63 20 118/52 L 93 L 07/25/20 08:00 07/25/20 08:04 07/25/20 08:00 07/25/20 08:00 07/25/20 08:00 Laboratory Results - last 24 hr 07/24/20 16:13: POC Glucose 179 H 07/24/20 20:18: POC Glucose 139 H 07/25/20 05:13: POC Glucose 173 H I & O for Last 24 hours: Intake & Output 07/23/20 07/24/20 07/25/20 07/26/20 11:59 11:59 11:59 11:59 Intake Total 880 / 880 460 / 460 600 / 600 Output Total 2400 / 2400 2525 / 2525 1900 / 1900 Balance -1520 / -1520 -2065 / -2065 -1300 / -1300 Weight 189 lb 5 oz 189 lb 1.6 oz 190 lb 5 oz Narrative: Appears in no distress. Chest with generally diminished breath sounds and scattered rhonchi. No wheezes. Heart is regular. Abdomen soft and nondistended with no tenderness. Assessment and Plan (1) Angina pectoris Status: Acute Category: Medical Code(s): I20.9 - Angina pectoris, unspecified (2) Non-ST elevation myocardial infarction (NSTEMI) Status: Acute Category: Medical Code(s): I21.4 - Non-ST elevation (NSTEMI) myocardial infarction (3) Acute colitis Status: Acute Category: Medical Code(s): K52.9 - Noninfective gastroenteritis and colitis, unspecified (4) Acute on chronic blood loss anemia Status: Acute Category: Medical Code(s): D62 - Acute posthemorrhagic anemia (5) Lower GI bleeding Status: Acute Category: Medical Code(s): K92.2 - Gastrointestinal hemorrhage, unspecified (6) ASCVD (arteriosclerotic cardiovascular disease) Status: Chronic Category: Medical Code(s): I25.10 - Atherosclerotic heart disease of [place] coronary artery without angina pectoris (7) COPD (chronic obstructive pulmonary disease) Status: Chronic Qualifiers: COPD type: COPD with acute exacerbation Qualified Code(s): J44.1 - Chronic obstructive pulmonary disease with (acute) exacerbation Category: Medical Code(s): J44.9 - Chronic obstructive pulmonary disease, unspecified (8) Coronary artery disease Status: Chronic Category: Medical Code(s): I25.10 - Atherosclerotic heart disease of [place] coronary artery without angina pectoris (9) GERD (gastroesophageal reflux disease) Status: Chronic Category: Medical Code(s): K21.9 - Gastro-esophageal reflux disease without esophagitis (10) History of CVA (cerebrovascular accident) Status: Chronic Category: Medical Code(s): Z86.73 - Personal history of transient ischemic attack (TIA), and cerebral infarction without residual deficits (11) Ischemic cardiomyopathy Status: Chronic Category: Medical Code(s): I25.5 - Ischemic cardiomyopathy (12) Lymphoma Status: Chronic Category: Medical Code(s): C85.90 - Non-Hodgkin lymphoma, unspecified, unspecified site (13) Tobacco abuse Status: Chronic Category: Medical Code(s): Z72.0 - Tobacco use (14) Type 2 diabetes mellitus Status: Chronic Category: Medical Code(s): E11.9 - Type 2 diabetes mellitus without complications (15) PAD (peripheral artery disease) Status: Acute Category: Medical Code(s): I73.9 - Peripheral vascular disease, unspecified (16) Carotid artery stenosis Status: Acute Category: Medical Code(s): I65.29 - Occlusion and stenosis of unspecified carotid artery - Assessment and plan all Dx Assessment and Plan for all problems:: He is stable for discharge home. Will arrange outpatient follow-up with his bean picker, Dr. Chan, as transfer to her care could not be accomplished during this admission. He will be continued on aspirin and Brilinta but Xarelto will be discontinued. He would benefit from endoscopy but needs to be cleared by his ca
--- NOTE | 2020-07-26 20:36 | HMH.DCSUM ---
General - General Admission date:: 07/18/20 <Damien Murillo - 08/24/20 12:34> 07/18/20 <HarveyGalileaAndreia - 07/26/20 21:45> Discharge date: 07/25/20 <Andreia Gabriel - 07/26/20 21:45> HPI HPI: Mr. Wayne is a 64-year-old male with a history of hypertension, hyperlipidemia, coronary artery disease status post CABG in , tobacco use disorder, Multiple lacunar infarcts, type 2 diabetes mellitus, acute DE 12/2011, lymphoma, GERD, ischemic cardiomyopathy, NSTEMI 02/2017 and 2018, and COPD who presented to [facility] emergency room after bloody/black stools at home throughout the day. He was nauseated and did vomit although he did not vomit any blood. He had been generally weak for the previous few days. To note: he was recently hospitalized for COPD exacerbation 2 weeks ago and did have a follow-up visit in the office of [facility] on 07/15/2020 at which time he was much improved. Patient's stated he had been constipated and she had given him an enema previously. He wanted another enema yesterday but then his bowels did start to move at which time they were noted to be bloody and dark. He did not have any difficulty with voiding with no dysuria or hematuria. He denied having shortness of breath and chest pain. With evaluation in the emergency room white blood cell count was found to be 16,700 with a hemoglobin of 7.8 and hematocrit of 25.4. Blood chemistries revealed a BUN of 40 and creatinine of 1.5. CT of the abdomen revealed the following: IMPRESSION: 1. 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 2. Severe stenosis versus occlusion of the ostium of the renal arteries 3. Thickening of the descending and sigmoid colon which may be due to nondistention or colitis. 4. Avascular necrosis of the femoral heads. Thus a CTA of the abdomin?Pelvis was ordered. Fecal Occult blood was positive. Patient was extremely nauseated with initial exam. He had received Zofran and morphine for back pain. He did receive 2 units of packed red blood cells with improvement of hemoglobin to 9.4 and hematocrit of 28.6. White count has decreased to 11,300. To note COVID IgG was negative and Covid IgM was positive with a negative PCR. His respiratory panel was positive for PCR entero-/rhino. <Andreia Gabriel - 07/26/20 21:45> Hospital Course Hospital Course: After admission patient received 2 units of packed red blood cells with improvement of hemoglobin and hematocrit. White count did decrease to 11,300. He did not feel well the a.m. after admission due to extreme nausea. He was felt to have a GI bleed from apparent colitis presumably infectious although ischemic colitis was considered to be a possibility given his significant vascular disease. He was initially on a Protonix drip. Levaquin was added to cover infectious colitis. Blood pressure was low but stable. Plan was to follow serial H&H's. Anticoagulant and antiplatelet agents were held. Patient did receive Phenergan and Zofran for nausea. Patient had an episode of chest discomfort requiring several nitroglycerins with troponin I increasing to 0.38. He was seen by cardiology at [facility] who due to his complicated heart disease felt patient would best be served by transfer to his primary specifications checker, Dr. Chan, in [facility]. She was contacted and agreed to admit the patient to her services although there were no beds available at [facility] at this time. He was started back on his aspirin and Ranexa after consultation with [facility] cardiology. After this episode of chest discomfort he had no further chest pain. He did state that this was the worst episode of chest pain he had ever . Hypotension resolved after anemia was resolved. He received a total of 5 units of PRBC. Abdominal exam continued to be benign with no clear source of
== END 2020-07-25 09:35 | disposition home or self-care (01) | DRG 391 ==
LOC: ER 15:11 → 2ND 20:48
PROVIDERS: Admitting Provider Family Medicine; Emergency Provider Emergency Medicine; PCP Family Medicine; Visit Provider Family Medicine
DX: K52.9 Noninfective gastroenteritis and colitis, unspecified (principal); I21.4 Non-ST elevation (NSTEMI) myocardial infarction; D62 Acute posthemorrhagic anemia; C85.90 Non-Hodgkin lymphoma, unspecified, unspecified site; J44.1 Chronic obstructive pulmonary disease with (acute) exacerbation; I25.5 Ischemic cardiomyopathy; I25.118 Atherosclerotic heart disease of native coronary artery with other forms of angina pectoris; Z95.1 Presence of aortocoronary bypass graft; Z95.810 Presence of automatic (implantable) cardiac defibrillator; Z95.5 Presence of coronary angioplasty implant and graft; I70.203 Unspecified atherosclerosis of native arteries of extremities, bilateral legs; I65.29 Occlusion and stenosis of unspecified carotid artery; Z72.0 Tobacco use; E11.9 Type 2 diabetes mellitus without complications; Z79.84 Long term (current) use of oral hypoglycemic drugs; Z79.01 Long term (current) use of anticoagulants; Z79.52 Long term (current) use of systemic steroids; Z79.899 Other long term (current) drug therapy; I10 Essential (primary) hypertension
CPT/HCPCS: 36415; 36430; 36569; 71045; 74174; 74177; 80048; 80053; 81001; 82550; 82553; 82803; 82962; 83690; 84484; 85007; 85014; 85018; 85025; 85610; 85730; 86328; 86850; 87086; 87581; 87633; 87798; 93005; 94640; 94761; 96367; 96374; 96375; 99285; C1751; J1956; J2405; P9016; Q9967

== ENCOUNTER → 2020-08-09 08:42 | Outpatient (CLI) | payer MEDICARE, SELFPAY ==
--- NOTE | 2020-08-09 08:44 | FL_ITS ---
PROCEDURE: FL BARIUM ENEMA CLINICAL INDICATION: LOWER GI BLEEDING, OTHER IRON DEFICIENCY ANEMIA COMPARISON: CT LDCTLCAS LDCT FOR LUNG CA SCREEN from 09/03/[address] ABDOMEN PELVIS W CON from 07/18/2020 FINDINGS: Fluoroscopy time: 1 minutes and 32 seconds. Ux Developer Designer exam shows a area of increased density in the upper pole of the right kidney which could be vascular. Single contrast enema was performed secondary to patient's condition and immobility. The colon is visualized from rectum to cecum. The appendix was filled. No annular constricting lesions or polypoid filling defects were evident. There are only a couple colonic diverticula in the sigmoid colon IMPRESSION: Only a couple of diverticula in the sigmoid colon otherwise negative barium enema Dictated by: Fan Harrison MD 08/09/2020 17:01 Fan Harrison MD in [place] 08/09/2020 17:01
== END ==
PROVIDERS: PCP Family Medicine; Visit Provider Family Medicine
DX: K92.2 Gastrointestinal hemorrhage, unspecified (principal); D50.8 Other iron deficiency anemias
CPT/HCPCS: 74270

== ENCOUNTER → 2021-02-10 14:52 | Outpatient (CLI) | payer MEDICARE, SELFPAY ==
--- NOTE | 2021-02-10 15:02 | XR_ITS ---
PROCEDURE: XR MULTIPLE SPINE 6+V CLINICAL INDICATION: DOSALGIA COMPARISON: CT CT ABDOMEN PELVIS W CON from 07/18/2020 FINDINGS: Cervical spine: 7 views: Significant bilateral carotid artery calcification with a right carotid stent. There is mild degenerative disc disease at C2-C3 C3-C4 and C4-C5. There is 3 mm anterolisthesis of C4. Moderate degenerative disc disease is present at C5-C6. C6-C7 is not well delineated on the lateral view but there is degenerative disc disease noted at this region on the oblique views. There is foraminal narrowing on the right at C4-C5 C5-C6 and C6-C7 worse at C5-C6. On the left foraminal narrowing is present at C4-C5 C5-C6 and C6-C7 worse at C5-C6. No acute fracture or dislocation. No lytic or blastic change. Lumbar spine: Five views with obliques there is normal alignment. The disc spaces are well preserved. There is facet sclerosis/hypertrophy noted at L3, L4, L5, and S1. No acute fracture or dislocation. No lytic or blastic change. There is 2 mm anterolisthesis of L3 on L4. There is diffuse vascular calcification of the aorta and iliac arteries with dilatation of the lower abdominal aorta measuring 5 cm on the lateral view with a saccular component anteriorly. CT would be of further value if clinically desired. Bilateral renal calcifications are present some of which may be vascular. Cannot exclude renal calculi. IMPRESSION: Degenerative changes of the cervical and lumbar spine. Please see above for detailed description. Dilatation of the abdominal aorta which would be better evaluated with CT. Dictated by: Fan Harrison MD 02/14/2021 10:00 Fan Harrison MD in [place] 02/14/2021 10:00
== END ==
PROVIDERS: PCP Family Medicine; Visit Provider Family Medicine
DX: M54.2 Cervicalgia (principal); M54.9 Dorsalgia, unspecified; M54.5 Low back pain
CPT/HCPCS: 72084

== ENCOUNTER 2021-02-20 14:33 | Emergency (ER) | payer MEDICARE, SELFPAY ==
[2021-02-20 14:34] VITALS: BP 130/70; PULSE 75; RESP 20; TEMP 36.3; O2SAT 98; BMI 28.7
--- NOTE | 2021-02-20 14:43 | ECG_ITS ---
APPROVED REPORT Exam: Resting ECG HR:74 bpm ECG Measurements Heart Rate 74 AXES TX 136 P 73 QRSd 128 QRS 49 QT 388 T 64 QTc 430 Conclusion Normal sinus rhythm Nonspecific intraventricular block Lateral infarct, age undetermined Inferior infarct, age undetermined Abnormal ECG Electronically signed by : Akin Jaeger, 02/21/2021 22:00:39
--- NOTE | 2021-02-20 14:48 | XR_ITS ---
PROCEDURE: XR CHEST PORTABLE CLINICAL HISTORY: cough COMPARISON: CR XR CHEST PORTABLE from 07/03/2020 CR XR CHEST PORTABLE from 07/18/2020 CR XR CHEST PORTABLE PICC PLAC from 07/20/2020 FINDINGS: There has been a prior CABG. Normal heart size. Biventricular pacemaker is present by the left subclavian approach. No evidence of CHF. The lungs are clear without infiltrates, suspicious nodules, or pleural effusions. There are mild degenerative changes in the shoulders. IMPRESSION: No acute findings. Dictated by: Fan Harrison MD 02/20/2021 16:13 Fan Harrison MD in [place] 02/20/2021 16:13
--- NOTE | 2021-02-20 14:49 | XR_ITS ---
PROCEDURE: XR SHOULDER LT MIN 2V CLINICAL INDICATION: trauma Pain COMPARISON: No exams were available for comparison FINDINGS: No fracture or dislocation. No lytic or blastic change. There is normal mineralization. Mild osteoarthritic changes are present involving the acromioclavicular and glenohumeral joint. Bipolar pacemaker is present from left subclavian approach Other findings:None. IMPRESSION: Mild osteoarthritic change, no acute fracture Dictated by: Fan Harrison MD 02/20/2021 16:12 Fan Harrison MD in [place] 02/20/2021 16:12
--- NOTE | 2021-02-20 15:20 | HMH.EDGENADL ---
ED Disposition Clinical Impression: Rotator cuff (capsule) sprain Qualifiers: Encounter type: initial encounter Laterality: left Qualified Code(s): S43.422A - Sprain of left rotator cuff capsule, initial encounter Disposition: Home, Self-Care Condition on Discharge: Good Instructions: DI for Rotator Cuff Injury Prescriptions: Hydrocod/Acet 5/325 mg [[place] 5/325mg tablet] 1 tab PO Q6HP PRN #7 tab PRN Reason: Moderate Pain Transmission Status: Sent to [facility] Referrals: Damien Murillo MD [Primary Care Provider] - - Critical Care Critical Care Time: No Attestation: On 02/20/21, the high probability of a clinically significant, sudden or life threatening deterioration of the following system(s) required my full and direct attention, intervention and personal management. The time I documented below is in addition to time spent performing reported procedures but includes the following listed in this critical care notation. Medical Decision Making - Medical Records Medical records reviewed: Yes: I reviewed the patient's medical records. - Samson Inquiry Pt receiving controlled substance: Yes Samson was queried for this patient: No Reason not queried -: Samson login issues Risks and benefits of using a controlled substance: were discussed with pt by me Vital Signs: 02/20/21 14:34 Temperature 97.4 F L Temperature Source Oral Pulse Rate [Left] 75 Respiratory Rate 20 Blood Pressure [Right Arm] 130/70 Blood Pressure Mean [Right Arm] 90 Blood Pressure Source [Right Arm] Automatic Cuff Blood Pressure Position [Right Arm] Supine 02 Sat by Pulse Oximetry 98 Oxygen Delivery Method Room Air - Lab Data Lab Results 02/20/21 15:04: WBC 9.0, RBC 3.78 L, Hgb 11.9 L, Hct 34.9 L, MCV 92.4, MCH 31.4 H, MCHC 33.9, RDW 15.9, Plt Count 263, MPV 9.3, Neut % (Auto) 71.4, Lymph % (Auto) 17.1, [place] % (Auto) 6.2, Eos % (Auto) 4.6, Baso % (Auto) 0.6, Neut # (Auto) 6.4, Lymph # (Auto) 1.5, [place] # (Auto) 0.6, Eos # (Auto) 0.4, Baso # (Auto) 0.1 02/20/21 15:34: Sodium 134 L, Potassium 4.9, Chloride 98, Carbon Dioxide 28, Anion Gap 12.9, BUN 27 H, Creatinine 1.60 H, Estimated Creat Clear 57, Estimated GFR 43 L, Est GFR ( Amer) 52 L, Glucose 198 H, Calcium 9.1, Total Bilirubin 0.5, AST 30, ALT 18, Alkaline Phosphatase 87, Troponin I 0.03, Total Protein 7.3, Albumin 4.3, Globulin 3.0, Albumin/Globulin Ratio 1.4 Result diagrams: 02/20/21 15:04 02/20/21 15:34 Orders (Tests/Meds): ED MEDICATIONS Discontinued Medications Generic Name Dose Route Start Last Admin Trade Name Anil PRN Reason Stop Dose Admin Morphine Sulfate 4 mg 02/20/21 14:49 02/20/21 15:00 Morphine 4mg/Ml Syringe IV 02/20/21 14:50 4 mg ONCE ONE Administration Morphine Sulfate 4 mg 02/20/21 15:43 02/20/21 16:12 Morphine 4mg/Ml Syringe IV 02/20/21 15:44 4 mg ONCE ONE Administration Ondansetron HCl 4 mg 02/20/21 14:49 02/20/21 15:00 Ondansetron 4mg/2ml Vial IV 02/20/21 14:50 4 mg ONCE ONE Administration ORDERS Category Date Time Status Troponin I Q3H Lab 02/20/21 18:00 Ordered Troponin I Q3H Lab 02/20/21 21:00 Ordered - Radiology Data #1 Image(s): Chest, Shoulder Image Reviewed: Yes I reviewed the patient's radiology results, Yes I reviewed the patient's radiology image, Yes I have reviewed radiologist's interpretation Preliminary Findings: Normal/NAD, No Fracture Seen - ECG Data Tracing #1 Normal ventricular rate of 74 bpm, normal FL interval, normal QTC. Sinus rhythm with nonspecific ST changes, ECG initial impression date: 02/20/21 ECG initial impression time: 14:43 - Reevaluation(s) Time: 16:44 Reevaluation #1: On reevaluation, the patient is feeling much better. Pain is improved. Range of motion is also improved. Troponin is at baseline. Patient needs to follow-up with PCP in 48 hours. Given strict return precautions. Verbalized understanding. Medical Dec
[2021-02-20 15:28] LABS: Basophils # 0.1 K/mm3 (0-0.2); Basophils % 0.6 % (0.1-2.0); Eosinophils # 0.4 K/mm3 (0.0-0.4); Eosinophils % 4.6 % (0.1-12.0); Hematocrit 34.9 % (42.0-52.0); Hemoglobin 11.9 g/dL (14.1-18.0); Lymphocytes # 1.5 K/mm3 (0.7-4.5); Lymphocytes % 17.1 % (10-50); Mean Corpuscular HGB Conc 33.9 g/dL (31.8-35.4); Mean Corpuscular Hemoglobin 31.4 pg (27.0-31.2); Mean Corpuscular Volume 92.4 fl (80-94); Mean Platelet Volume 9.3 fl (7.4-10.4); Monocytes # 0.6 K/mm3 (0.1-1.0); Monocytes % 6.2 % (1.7-9.3); Neutrophils # 6.4 K/mm3 (1.8-7.8); Neutrophils % 71.4 % (37.0-80.0); Platelet Count 263 K/mm3 (142-424); Red Blood Count 3.78 M/mm3 (4.60-6.20); Red Cell Distribution Width 15.9 % (11.5-17.5)
[2021-02-20 16:03] LABS: Chloride 98 mmol/L (98-107)
[2021-02-20 16:04] LABS: Potassium 4.9 mmoL/L (3.5-5.1); Sodium 134 mmol/L (136-145)
[2021-02-20 16:06] LABS: Alanine Aminotransferase 18 U/L (12-78); Alkaline Phosphatase 87 U/L (38-126); Aspartate Amino Transferase 30 U/L (17-59); Bilirubin,Total 0.5 mg/dl (0.2-1.3); Blood Urea Nitrogen 27 mg/dl (9-20); Creatinine Clearance Estimated 57 mL/min (50-200); Estimated Glomerular Filt Rate 43 ml/min (>60); GFR (African American) 52 ML/MIN (>60)
[2021-02-20 16:07] LABS: Albumin Level 4.3 g/dl (3.5-5.0); Albumin/Globulin Ratio 1.4 (1.1-1.8); Anion Gap 12.9 mEq/L (5-15); Calcium 9.1 mg/dl (8.4-10.2); Carbon Dioxide 28 mmol/L (22.0-30.0); Glucose 198 mg/dl (74-100); Total Protein,Serum 7.3 g/dl (6.3-8.2)
[2021-02-20 16:23] LABS: Troponin I 0.03 ng/ml (0.00-0.034)
[2021-02-20 16:55] VITALS: BP 149/65; PULSE 58; RESP 18; TEMP 36.3; O2SAT 93
== END 2021-02-20 16:55 | disposition home or self-care (01) ==
PROVIDERS: Emergency Provider Emergency Medicine; PCP Family Medicine
DX: S43.422A Sprain of left rotator cuff capsule, initial encounter (principal); X50.0XXA Overexertion from strenuous movement or load, initial encounter; Y92.89 Other specified places as the place of occurrence of the external cause; I25.10 Atherosclerotic heart disease of native coronary artery without angina pectoris; J44.9 Chronic obstructive pulmonary disease, unspecified; K21.9 Gastro-esophageal reflux disease without esophagitis; E78.5 Hyperlipidemia, unspecified; I10 Essential (primary) hypertension; I25.2 Old myocardial infarction; F17.210 Nicotine dependence, cigarettes, uncomplicated; Z79.899 Other long term (current) drug therapy
CPT/HCPCS: 71045; 73030; 80053; 84484; 85025; 93005; 96374; 96375; 96376; 99282; J2405

== ENCOUNTER → 2021-02-21 12:21 | Outpatient (CLI) | payer MEDICARE, SELFPAY ==
[2021-02-21 14:13] LABS: Blood Urea Nitrogen 25 mg/dl (9-20); Estimated Glomerular Filt Rate 47 ml/min (>60); GFR (African American) 56 ML/MIN (>60)
== END ==
PROVIDERS: Visit Provider Family Medicine
DX: I71.4 Abdominal aortic aneurysm, without rupture (principal)
CPT/HCPCS: 36415; 82565; 84520

== ENCOUNTER → 2021-03-01 10:06 | Outpatient (CLI) | payer MEDICARE, SELFPAY ==
--- NOTE | 2021-03-01 10:10 | CT_ITS ---
Procedure: CT ANGIO ABDOMEN PELVIS CLINICAL HISTORY: AAA W/O RUPTURE COMPARISON: CT CT ABDOMEN PELVIS W CON from 07/18/[address] ANGIO ABDOMEN PELVIS from 07/18/2020 TECHNIQUE: IV Contrast: 100ml Isovue 370 Axial images obtained with sagittal and coronal reformats. All CT scans at the facility use one or more dose reduction, viz: automated exposure control, ma/kV adjustment per patient size (including targeted exams where dose is matched to indication, i.e. head), or iterative reconstruction technique. FINDINGS: CT angiography of the abdomen and pelvis again shows fusiform aneurysmal dilatation of the abdominal aorta of upwards of 3.5 centimeters distally, 2 small saccular aneurysm is again noted involving right posterolateral mid to distal and left lateral distal abdominal aorta with the saccular aneurysm similar in size measuring about 1.3 centimeters more proximal and 1.5 centimeters more distal in maximal dimension. There is no evidence of aneurysmal rupture or aortic dissection. Extensive calcified plaque throughout the abdominal aorta is again noted. Diffuse calcification of the celiac artery and superior mesenteric arteries with probable occlusion of the inferior mesenteric artery origin noted. Mild aneurysmal dilatation of the common iliac arteries again noted of about 1.8 centimeters in maximal dimension bilaterally. High-grade stenosis of the right renal artery also again noted as well as moderate to high-grade stenoses of the bilateral common femoral arteries, similar to prior exam. Lung bases show some scar versus atelectasis. Mild diffuse fatty infiltration of the liver. No focal liver or splenic lesion. Gallbladder is contracted. Pancreas and adrenal glands are normal. A few small bilateral renal cortical cysts are again noted with a small unchanged complex cystic area on the lower pole of the left kidney. No free intraperitoneal air or fluid. Moderate amount of stool in the colon. No distended large or small bowel or bowel wall thickening. Bladder is normal. Prostate gland and seminal vesicles appear unremarkable. There are no inguinal or femoral hernias. No iliac or inguinal chain lymphadenopathy. Some diffuse degenerative changes of the lumbar spine are present. No acute bony abnormality. IMPRESSION: Unchanged fusiform aneurysmal dilatation of the abdominal aorta and 2 small saccular aneurysms involving the abdominal aorta as described above also similar to prior exam. No evidence of aneurysmal rupture or aortic dissection. Extensive calcified plaque again noted throughout the abdominal aorta. Unchanged mild aneurysmal dilatation of the common iliac arteries as well as high-grade stenosis of the right renal artery and moderate to high-grade stenosis of the bilateral common femoral arteries. No free intraperitoneal air or fluid. No distended large or small bowel or bowel wall thickening. A few small unchanged bilateral renal cortical cysts and unchanged small complex cystic area lower pole left kidney. Repeat CT abdomen and pelvis in 6 months recommended for continued follow-up. Dictated by: Christian Mcdonald MD 03/01/2021 14:00 Christian Mcdonald MD in [place] 03/01/2021 14:00
== END ==
PROVIDERS: PCP Family Medicine; Visit Provider Family Medicine
DX: I71.4 Abdominal aortic aneurysm, without rupture (principal)
CPT/HCPCS: 74174; Q9967

== ENCOUNTER → 2021-05-18 08:59 | Outpatient (CLI) | payer MEDICARE, SELFPAY ==
[2021-05-18 09:54] LABS: Hemoglobin A1C 7.7 % (4.0-6.0)
[2021-05-18 10:48] LABS: Alanine Aminotransferase 12 U/L (12-78); Albumin/Globulin Ratio 1.5 (1.1-1.8); Alkaline Phosphatase 76 U/L (38-126); Anion Gap 15.4 mEq/L (5-15); Aspartate Amino Transferase 19 U/L (17-59); Bilirubin,Total 0.3 mg/dl (0.2-1.3); Blood Urea Nitrogen 19 mg/dl (9-20); Calcium 9.6 mg/dl (8.4-10.2); Carbon Dioxide 30 mmol/L (22.0-30.0); Chloride 98 mmol/L (98-107); Cholesterol 145 mg/dl (140-200); Estimated Glomerular Filt Rate 60 ml/min (>60); GFR (African American) 73 ML/MIN (>60); Globulin 2.6 g/dL (1.3-3.2); Glucose 163 mg/dl (74-100); HDL Cholesterol 29 mg/dl (40-60); Potassium 4.4 mmoL/L (3.5-5.1); Sodium 139 mmol/L (136-145); Total Protein,Serum 6.6 g/dl (6.3-8.2); Triglycerides 284 mg/dl (30-150); VLDL Cholesterol 57 mg/dL (0-40)
[2021-05-18 10:59] LABS: Direct LDL Cholesterol 70.45 mg/dL (100-129)
== END ==
PROVIDERS: Visit Provider Family Medicine
DX: I10 Essential (primary) hypertension (principal); E11.40 Type 2 diabetes mellitus with diabetic neuropathy, unspecified; E78.5 Hyperlipidemia, unspecified; Z79.84 Long term (current) use of oral hypoglycemic drugs
CPT/HCPCS: 36415; 80053; 80061; 83036

== ENCOUNTER → 2021-09-07 09:35 | Outpatient (CLI) | payer MEDICARE, SELFPAY ==
--- NOTE | 2021-09-07 09:38 | CT_ITS ---
PROCEDURE INFORMATION: Exam: CTA Abdomen and Pelvis With Contrast Exam date and time: 09/07/2021 9:38 AM Age: 65 years old Clinical indication: Condition or disease; Arterial aneurysm; Without rupture; Abdominal; Additional info: Aaa TECHNIQUE: Imaging protocol: Computed tomographic angiography of the abdomen and pelvis with contrast material. 3D rendering (Not supervised by radiologist): MIP and/or 3D reconstructed images were created by the technologist. Radiation optimization: All CT scans at this facility use at least one of these dose optimization techniques: automated exposure control; mA and/or kV adjustment per patient size (includes targeted exams where dose is matched to clinical indication); or iterative reconstruction. Contrast material: ISOVUE 370; Contrast volume: 75 ml; Contrast route: INTRAVENOUS (IV); COMPARISON: CT ANGIO ABDOMEN PELVIS 03/01/2021 10:19 AM FINDINGS: Lungs: Scarring/atelectasis at the lung bases without acute findings. Aorta: Essentially stable fusiform aneurysmal dilation of the abdominal aorta, measuring up to 3.7 cm in greatest diameter. Stable saccular aneurysm at the infrarenal abdominal aorta measuring up to 1.3 cm (image 41 series 3). Stable partially thrombosed saccular aneurysm of the infrarenal abdominal aorta measuring 1.2 cm (image 46 series 3). No aortic dissection. Stable moderate to severe calcified and noncalcified atherosclerotic plaque appreciated throughout the abdominal aorta, not causing hemodynamically significant stenosis. No evidence of aneurysmal rupture. Celiac trunk and mesenteric arteries: Celiac artery is completely patent, however demonstrates mild diffuse calcific atherosclerotic disease. SMA is completely patent with moderate calcified atherosclerotic plaque at the proximal segments, causing less than 50% luminal stenosis. Stable severe stenosis to the proximal segments of the MARIA LUZ. MARIA LUZ is otherwise patent. Renal arteries: Stable severe stenosis to the takeoff and proximal segments of the right renal artery. Two left renal arteries are appreciated. There is punctate atherosclerotic plaque appreciated to the inferior left renal artery, not causing hemodynamically significant stenosis. No hemodynamically significant stenosis to the superior left renal artery. Right iliac arteries: Stable aneurysmal dilation to the right common iliac artery measuring 2.4 cm in greatest diameter. Moderate to severe atherosclerotic plaque at the right common iliac artery, causing up to 50% luminal stenosis. This is stable. Right femoral/popliteal arteries: Prominent noncalcified plaque at the right common femoral artery, causing 50% luminal stenosis. This is stable. Left iliac arteries: Stable aneurysmal dilation of the left common iliac artery measuring 2.3 cm in greatest diameter. Moderate atherosclerotic plaque throughout the left common iliac artery, not causing hemodynamically significant stenosis. Diffuse moderate to severe calcified and noncalcified atherosclerotic plaque throughout the bilateral external iliac arteries, not causing hemodynamically significant stenosis. Left femoral/popliteal arteries: Prominent severe calcified and noncalcified plaque at the left common femoral artery, causing 50-69% luminal stenosis. This is stable. Liver: There is enlargement of the liver, measuring 19.2 cm. There is a diffuse decrease in hepatic parenchymal density, consistent with fatty infiltration. The liver is otherwise unremarkable. Gallbladder and bile ducts: Unremarkable. No calcified stones. No ductal dilation. Pancreas: Unremarkable. No mass. No ductal dilation. Spleen: The spleen demonstrates
[2021-09-07 09:45] LABS: Blood Urea Nitrogen 16 mg/dl (9-20); Estimated Glomerular Filt Rate 55 ml/min (>60); GFR (African American) 67 ML/MIN (>60)
== END ==
PROVIDERS: PCP Family Medicine; Visit Provider Family Medicine
DX: I71.4 Abdominal aortic aneurysm, without rupture (principal)
CPT/HCPCS: 36415; 74174; 82565; 84520; Q9967

== ENCOUNTER 2021-10-25 11:25 | Inpatient (IN) | payer MEDICARE, SELFPAY ==
[2021-10-25] VITALS (22 sets, daily range): BP systolic 69–147; BP diastolic 33–61; PULSE 66–105; RESP 16–39; TEMP 36.6–37.2; O2SAT 95–100; BMI 23.7; BMI 24.4
--- NOTE | 2021-10-25 | CA_ITS ---
APPROVED REPORT EXAM: Comprehensive 2D, Doppler, and color-flow Echocardiogram Continuous Improvement Manager: Ale Mak CRT Ht: 5 ft 11 in Wt: 170lbs BSA: 1.97 BP: 84/48 mmHg Indications: COPD, Palpitations, Hyperlipidemia, Cardiomyopathy, Hypertension/HDD,PACER, CABG, NH, CAROTID STENT, CVA, GERD, CM, INCREASED TROP 2D Dimensions LVOT 1.89 cm (M/F) 1.5-2.5 M-Mode Dimensions RVDd 1.96 cm (0.9-2.6) LA Diam 4.14 cm (1.9-4.0) LVDd 7.05 cm (3.5-5.7) Ao Diam 4.09 cm (2.0-3.7) LVDs 6.33 cm (3.5-5.7) IVSd 1.03 cm (0.6-1.1) PWd 0.78 cm (0.6-1.1) EF (Teich) 21.60% FS 10.20% EDV (Teich) 259.60 mL TAPSE 1.32 (<1.7) ESV (Teich) 203.40 mL LV Diastology E Decel Time 197.00 (160-240 msec) E/A Ratio 0.69 MED E' 4.90 (< 7 cm/sec) MED A' 7.60 cm/s E'/MED E' Ratio 13.37 (>14) LAT E' 6.00 (<10 cm/sec) LAT A' 9.40 cm/s E/LAT E' Ratio 10.92 (>14) Aortic Valve AI PHT 666.00 ms AO Peak GR. 10.80 mmHg Mitral Valve MV E Max Amarjit. 65.00 (40-130 cm/s) MV A Velocity 95.00 (40-130 cm/s) E/A Ratio 0.69 MV Decel. Time 197.00 (160-240 ms) MV PHT 58.00 ms Pulmonary Valve PV Peak Velocity 127.00 (50-150 cm/s) Tricuspid Valve TR P. Velocity 220.00 cm/s RAP Estimate 10.00 mmHg RVSP 29.30 mmHg Left Ventricle Left atrium is mildly enlarged, left ventricle is mildly dilated, severe reduced left ventricular systolic function, visually estimated ejection fraction 30%, there is marked hypokinesis involving the basal septum, inferior inferolateral and posterolateral wall. Grade 1 diastolic dysfunction seen without tissue Doppler evidence of raise left atrial pressure. Right Ventricle Right atrium and right ventricle mildly enlarged with normal contractility, there is catheter noted in right ventricle which is likely a pacemaker or an AICD lead. Aortic Valve Aortic valve is thickened and calcified without aortic stenosis, there is mild aortic insufficiency present. Mitral Valve Mitral valve is grossly normal, there is mild mitral regurgitation. Tricuspid Valve Tricuspid grossly normal, there is mild tricuspid regurgitation, tricuspid regurgitation jet velocity is inadequate for calculation of the right ventricular systolic pressure. Pulmonic Valve Pulmonic valve is poorly visualized. Great Vessels Aortic root is normal size. Inferior vena cava is poorly visualized. Pericardium No significant pericardial effusion noted. Conclusion 1. Mildly enlarged left atrium, dilated left ventricle, severely distressed ventricular systolic function, visually estimated ejection fraction 30% with multiple segmental wall motion abnormality described above, grade 1 diastolic dysfunction seen without tissue Doppler evidence of raise left atrial pressure. 2. Mild aortic, mild mitral and tricuspid regurgitation. 3. No significant pericardial effusion. 4. Inferior vena cava is poorly visualized. Electronically signed by : Rell Lui MD 10/25/2021 21:35:54
--- NOTE | 2021-10-25 11:29 | XR_ITS ---
FINAL REPORT CLINICAL HISTORY: weakness, hypotension COMPARISON: February 20, 2021 FINDINGS: There is evidence of median sternotomy. There is a left subclavian pacemaker. The heart size is normal. The mediastinum is normal. There is a new opacity in the right lower thorax of uncertain etiology. There are no pleural effusions. There is no pneumothorax. There is no osseous abnormality. IMPRESSION: New opacity in the right lower thorax of uncertain etiology could represent a localized infiltrate or mass. Recommend follow-up radiographs or CT. Reviewed, Interpreted and Dictated by Doc Porter III, MD Transcribed by Joe Heck Authenticated by Doc Porter III, MD on 10/25/2021 12:27:12 PM [facility]
--- NOTE | 2021-10-25 11:30 | HMH.EDGENADL ---
ED Disposition Clinical Impression: NSTEMI (non-ST elevated myocardial infarction) Sepsis Qualifiers: Sepsis type: sepsis due to unspecified organism Sepsis acute organ dysfunction status: with acute organ dysfunction Severe sepsis acute organ dysfunction type: acute renal failure Acute renal failure type: unspecified Severe sepsis shock status: with septic shock Qualified Code(s): A41.9 - Sepsis, unspecified organism Disposition: Admitted as Observation Condition on Discharge: Critical Referrals: Damien Murillo MD [Primary Care Provider] - - Critical Care Critical Care Time: Yes Attestation: On , the high probability of a clinically significant, sudden or life threatening deterioration of the following system(s) required my full and direct attention, intervention and personal management. The time I documented below is in addition to time spent performing reported procedures but includes the following listed in this critical care notation. Vital system(s) involved:: Circulatory Failure, Renal Failure, Shock (Hemorrhage), Shock (Septic) My critical care processes included: Assessment & monitoring of V/S, Initial and Re-exams, Data Review/Interpretation, Coordinating Care, Medication Orders and management, Documentation Medical Decision Making - Medical Records Medical records reviewed: Yes: I reviewed the patient's medical records. - Samson Inquiry Pt receiving controlled substance: No Vital Signs: 10/25/21 11:33 10/25/21 12:06 10/25/21 12:50 Temperature 98.9 F Temperature Source Oral Pulse Rate 73 76 Pulse Rate [Right Brachial] 79 Respiratory Rate 18 18 Blood Pressure 84/48 L 73/33 L Blood Pressure [Right Arm] 75/41 L Blood Pressure Mean 53 Blood Pressure Mean [Right Arm] 52 Blood Pressure Source [Right Arm] Automatic Cuff Blood Pressure Position [Right Arm] Supine 02 Sat by Pulse Oximetry 95 95 100 Oxygen Delivery Method Room Air Room Air 10/25/21 13:00 10/25/21 13:06 10/25/21 13:10 Temperature Temperature Source Pulse Rate 78 68 68 Pulse Rate [Right Brachial] Respiratory Rate 18 18 18 Blood Pressure 69/37 L 71/47 L 81/39 L Blood Pressure [Right Arm] Blood Pressure Mean 49 53 48 Blood Pressure Mean [Right Arm] Blood Pressure Source [Right Arm] Blood Pressure Position [Right Arm] 02 Sat by Pulse Oximetry 100 98 98 Oxygen Delivery Method - Lab Data Lab Results 10/25/21 11:15: WBC 26.6 H*, RBC 4.16 L, Hgb 13.8 L, Hct 44.1, MCV 105.9 H, MCH 33.2 H, MCHC 31.3 L, RDW 14.4, Plt Count 301, MPV 8.9, Neut % (Auto) 93.4 H, Lymph % (Auto) 3.4 L, [place] % (Auto) 2.8, Eos % (Auto) 0.1, Baso % (Auto) 0.2, Neut # (Auto) 24.8 H, Lymph # (Auto) 0.9, [place] # (Auto) 0.7, Eos # (Auto) 0.0, Baso # (Auto) 0.1, Total Counted 100, Neutrophils % (Manual) 94 H, Lymphocytes % (Manual) 5 L, Monocytes % (Manual) 1 L, Platelet Estimate Normal, RBC Morphology Not Reportable, Macrocytosis 1+ 10/25/21 11:15: Sodium 128 L, Potassium 4.6, Chloride 92 L, Carbon Dioxide 23, Anion Gap 17.6 H, BUN 34 H, Creatinine 3.00 H, Estimated Creat Clear 25, Estimated GFR 21 L, Est GFR ( Amer) 25 L, Glucose 216 H, Calcium 8.9, Total Bilirubin 1.0, AST 41, ALT 21, Alkaline Phosphatase 63, Troponin I 3.94 H, Total Protein 7.5, Albumin 4.3, Globulin 3.2, Albumin/Globulin Ratio 1.3 10/25/21 11:48: Lactate 2.4 H 10/25/21 12:14: SARS-CoV-2 (PCR) Not detected, Influenza A Untype (PCR) Not detected, Influenza Type B (PCR) Not detected Result diagrams: 10/25/21 11:15 10/25/21 11:15 Orders (Tests/Meds): ED MEDICATIONS Generic Name Dose Route Start Last Admin Trade Name Freq PRN Reason Stop Dose Admin Sodium Chloride 1,000 mls @ 999 mls/hr 10/25/21 12:45 10/25/21 12:43 Sod Chlor 0.9% 1000ml Bag IV 10/25/21 13:45 999 mls/hr .Q1H1M ROYER Administration Sodium Chloride 1,000 mls @ 125 mls/hr 10/25/21 13:30 Sod Chlor 0.9% 1000ml Bag IV 11/24/21 13:29 .Q8H ROYER Norepinephri
--- NOTE | 2021-10-25 11:31 | ECG_ITS ---
APPROVED REPORT Exam: Resting ECG HR:77 bpm ECG Measurements Heart Rate 77 AXES [place] 169 P 91 QRSd 114 QRS 77 QT 349 T 106 QTc 380 Conclusion ELECTRONIC VENTRICULAR PACEMAKER ABNORMAL RHYTHM ECG UNCONFIRMED REPORT Electronically signed by : Akin Jaeger MD 10/26/2021 18:51:01
[2021-10-25 11:45] LABS: Chloride 92 mmol/L (98-107); Potassium 4.6 mmoL/L (3.5-5.1); Sodium 128 mmol/L (136-145)
[2021-10-25 11:48] LABS: Alanine Aminotransferase 21 U/L (12-78); Albumin Level 4.3 g/dl (3.5-5.0); Albumin/Globulin Ratio 1.3 (1.1-1.8); Alkaline Phosphatase 63 U/L (38-126); Anion Gap 17.6 mEq/L (5-15); Aspartate Amino Transferase 41 U/L (17-59); Blood Urea Nitrogen 34 mg/dl (9-20); Calcium 8.9 mg/dl (8.4-10.2); Carbon Dioxide 23 mmol/L (22.0-30.0); Creatinine Clearance Estimated 25 mL/min (50-200); Estimated Glomerular Filt Rate 21 ml/min (>60); GFR (African American) 25 ML/MIN (>60); Globulin 3.2 g/dL (1.3-3.2); Glucose 216 mg/dl (74-100); Total Protein,Serum 7.5 g/dl (6.3-8.2)
[2021-10-25 11:49] LABS: Basophils # 0.1 K/mm3 (0-0.2); Basophils % 0.2 % (0.1-2.0); Eosinophils % 0.1 % (0.1-12.0); Hematocrit 44.1 % (42.0-52.0); Hemoglobin 13.8 g/dL (14.1-18.0); Lymphocytes # 0.9 K/mm3 (0.7-4.5); Lymphocytes % 3.4 % (10-50); Mean Corpuscular HGB Conc 31.3 g/dL (31.8-35.4); Mean Corpuscular Hemoglobin 33.2 pg (27.0-31.2); Mean Corpuscular Volume 105.9 fl (80-94); Mean Platelet Volume 8.9 fl (7.4-10.4); Monocytes # 0.7 K/mm3 (0.1-1.0); Monocytes % 2.8 % (1.7-9.3); Neutrophils # 24.8 K/mm3 (1.8-7.8); Neutrophils % 93.4 % (37.0-80.0); Platelet Count 301 K/mm3 (142-424); Red Blood Count 4.16 M/mm3 (4.60-6.20); Red Cell Distribution Width 14.4 % (11.5-17.5); White Blood Count 26.6 K/mm3 (4.8-10.8)
[2021-10-25 11:56] LABS: MANUAL DIFFERENTIAL MANUAL DIFFERENTIAL (MANUAL DIFF)
[2021-10-25 12:06] LABS: Troponin I 3.94 ng/ml (0.00-0.034)
--- NOTE | 2021-10-25 12:07 | PC.NURSE ---
LAB CALLED WITH CRITICALS TROP 3.94 DR DUMONT NOTIFIED , MARCIE BEING CALLED
[2021-10-25 12:14] LABS: Lactic Acid 2.4 mmol/L (0.7-2.1)
[2021-10-25 12:18] LABS: Coronavirus 19, PCR Not Detected (NotDetected); Influenza A, PCR Not Detected (NotDetected); Influenza B, PCR Not Detected (NotDetected)
--- NOTE | 2021-10-25 12:18 | PC.NURSE ---
covid swab collected at this time
[2021-10-25 12:51] LABS: Lymphocytes % 5 % (10-50); Monocytes % 1 % (2-9); Neutrophils % 94 % (42-76); Platelet Estimate Normal; Total Cells Counted 100
[2021-10-25 12:52] LABS: Macrocytosis 1+
--- NOTE | 2021-10-25 13:10 | HMH.CNCARD ---
History of Present Illness Consult date: 10/25/21 Requesting physician: Damien Murillo Consult reason: chest pain, hypotension Chief complaint: N/V/dehydration, elevated troponins with NSTEMI, CAD/CABG/AZUCENA Additional Medical History:: 1. CAD A. History of three-vessel bypass, [place], [place], greater than 10 years ago B. History of coronary artery stents C. Cardiomyopathy and CHF by history 2. History of GERD 3. Tobacco use, currently 1 pack/day 4. Diabetes mellitus type 2, treated for many years 5. Hypertension, treated for many years 6. Hyperlipidemia 7. Carotid artery stenosis, status post right carotid stenting A. Reported history of CVA 8. BiV AICD or Pacemaker in situ 9. COPD A. New right lower thorax opacity, 10/25/2021, compared to March 2021 study History of present illness: 66-year-old white male with known coronary artery disease presented to the emergency department for couple of days history of nausea, vomiting, chest pain and severe weakness. Work-up in the ER revealed a creatinine of 3.0 with elevated white count at 26,000 along with elevated troponin at 3.94. EKG is ventricular paced. Cardiology consulted for evaluation. Systolic blood pressure currently in the 90s millimeters of mercury range and patient is getting IV fluids. He denies chest pain at this time but does relate GERD-like symptoms in the past for which he has taken nitroglycerin for relief. He recently saw his unit aide tech on the fifth of this month and was feeling well. His last cardiac cath was several years ago. Will need cardiac cath once renal functions improved and BP stable. Preliminary Echo results show EF of 30-35%. [facility] History Medical History: Reports:: Atherosclerotic Heart Disease, Cardiomyopathy, Carotid Stenosis, Congestive Heart Failure, Chronic Obstructive Pulmonary Disease (COPD), Coronary Artery Disease, Cerebrovascular Accident, Diabetes Mellitus Type 2, Gastroesophageal Reflux Disease(GERD), Hyperlipidemia, Hypertension, Internal Pacemaker, Lung Disease, Myocardial Infarction, Palpitations, Peripheral Vascular Disease (SIRENA, s/p R carotid stenting) Denies:: Cancer, Diabetes Mellitus Type 1, Home Oxygen, MRSA *Have you ever received a pneumonia vaccine?: No *Have you received a flu vaccine this season?: No Other Medical History: Reports: Arthritis, Blood Transfusion Reaction (pt had a heart attack ), Cataracts, Chemotherapy, Radiation Therapy, Other Other Surgeries: Yes: Angioplasty, CABG, Cardiac Catheterization, Cardiac Surgery, Coronary Stent, Open Heart Surgery, Pacemaker, Other (carotid stent) Amputation: No Fractures: No - *Social History Smoking Status: Current every day smoker Tobacco Type: cigarettes # Packs/Day (cigarettes): 1 #Yrs smoked (if former smoker): 50 Alcohol Intake: former Alcohol Intake Frequency:: holidays/special occasions only *Occupational Status:: retired Housing: house Household Members: spouse *Travel in the last 8 weeks: None Family Hx:: Anemia, Heart Attack, Hyperlipidemia Meds Home Medications Medication Instructions Recorded Confirmed Type Acetaminophen [Acetaminophen 325mg 650 mg PO Q6HP PRN 04/02/18 07/18/20 History tab] Aspirin [Aspirin 81mg EC Tab] 81 mg PO DAILY 04/02/18 07/18/20 History Budesonide/Formoterol Fumarate 2 puffs INHALATION BID 04/02/18 07/18/20 History [Symbicort 160-4.5 Mcg Inhaler] Furosemide [Furosemide 40MG tAB*] 40 mg PO DAILY 04/02/18 07/18/20 History Ipratropium/Albuterol Sulfate 3 ml IH QIDRT 04/02/18 07/18/20 History [Duoneb 3mL neb] Isosorbide Mononitrate [Imdur 60mg 60 mg PO BID 04/02/18 07/18/20 History ER tablet] Promethazine/Dextromethorphan 5 ml PO Q6HP PRN 04/02/18 07/18/20 History [Promethazine-Dm Syrup] Sacubitril/Valsartan [Entresto 1 tab PO BID 04/02/18 07/19/20 History 24/26mg Tablet] Potassium Chloride [Pot Chlor 10 10 meq PO DAILY 08/31/19 07/18/20 History mEq Tab] Dexlan
--- NOTE | 2021-10-25 13:34 | PC.NURSE ---
SPOKE WITH DR YEN
--- NOTE | 2021-10-25 13:38 | PC.NURSE ---
SPOKE WITH HOUSE FOR A BED
--- NOTE | 2021-10-25 14:52 | PC.NURSE ---
report called this time to Vicky Garcia RN
[2021-10-25 15:06] LABS: Procalcitonin 11.4 ng/mL (0.0-2.0)
--- NOTE | 2021-10-25 15:12 | P.CONPHA_ITS ---
[facility] Pharmacy VTE Monitoring - Patient Demographics Admission date: 10/25/21 Report Date: 10/25/21 Time: 15:12 Allergies/Adverse Reactions: Patient Allergies No Known Drug Allergies Allergy (Verified 04/02/18 14:42) Height: 1.8 m Weight: 77.111 kg Patient Problems: Current Active Problems Tobacco abuse (Chronic) Hypertension (Chronic) Hyperlipidemia (Chronic) Coronary artery disease (Chronic) Type 2 diabetes mellitus (Chronic) History of CVA (cerebrovascular accident) (Chronic) Ischemic cardiomyopathy (Chronic) COPD exacerbation (Acute) GERD (gastroesophageal reflux disease) (Chronic) Biventricular automatic implantable cardioverter defibrillator in situ (Acute) Carotid artery stenosis (Acute) Non-ST elevation myocardial infarction (NSTEMI) (Acute) Sepsis (Acute) Right lower lobe lung mass (Acute) - VTE Risk Labs: VTE Related Lab Results Hgb 13.8 g/dL (14.1-18.0) L 10/25/21 11:15 Hct 44.1 % (42.0-52.0) 10/25/21 11:15 Plt Count 301 K/mm3 (142-424) 10/25/21 11:15 BUN 34 mg/dl (9-20) H 10/25/21 11:15 Creatinine 3.00 mg/dl (0.66-1.25) H 10/25/21 11:15 Estimated Creat Clear 25 mL/min (50-200) 10/25/21 11:15 - Prophylaxis VTE Prophylaxis Ordered?: Yes Types of VTE Prophylaxis: TEDS Knee High Location of Applied Device: Bilateral Lower Extremeties
--- NOTE | 2021-10-25 15:15 | HMH.HP ---
*Admission Date: 10/25/21 <Nisreen Delong - 10/25/21 15:30> *Chief complaint: weakness, body aches <Nisreen Delong 10/25/21 15:30> *History of present illness: Mr. Lynn is a 66-year-old male with a history of COPD, type 2 diabetes, hyperlipidemia, hypertension, ASCVD, cardiomyopathy, and tobacco use who began feeling poorly a few days ago. He states his has had a cold for the past week. He began getting nauseated and started vomiting off and on a few days ago but denies any respiratory symptoms. He has had decreased appetite and severe weakness to the point that he could not get out of bed today. His had to call an ambulance and he was transported to the emergency room for further evaluation and treatment. His white blood cell count was elevated at 26.6, his sodium was low at 128, and his BUN and creatinine were elevated at 34 and 3. His lactic acid was elevated as was his troponin at 3.94. His Covid test was negative. He had a chest x-ray showing a new opacity in the right lower thorax of uncertain etiology and radiology recommended a follow-up CT. Cardiology was consulted due to patient's elevated troponin and hypotension. He denied any chest pain but did relate GERD-like symptoms. His last cath was several years ago. Cardiology felt he would need a heart cath once his renal function improved and his blood pressure stabilized. His preliminary echo showed an EF of 30 to 35%. He was started on pressors and antibiotics and a sepsis protocol was initiated. <Nisreen Delong 10/25/21 15:30> [facility] History I have reviewed the patient's past medical history: Yes <Nisreen Delong 10/25/21 15:30> Medical History: Reports:: Atherosclerotic Heart Disease, Cardiomyopathy, Carotid Stenosis, Congestive Heart Failure, Chronic Obstructive Pulmonary Disease (COPD), Coronary Artery Disease, Cerebrovascular Accident, Diabetes Mellitus Type 2, Gastroesophageal Reflux Disease(GERD), Hyperlipidemia, Hypertension, Internal Pacemaker, Lung Disease, Myocardial Infarction, Palpitations, Peripheral Vascular Disease (SIRENA, s/p R carotid stenting) Denies:: Cancer, Diabetes Mellitus Type 1, Home Oxygen, MRSA <Nisreen Delong 10/25/21 15:30> *Have you ever received a pneumonia vaccine?: No <Nisreen Delong 10/25/21 15:30> *Have you received a flu vaccine this season?: No <Nisreen Delong 10/25/21 15:30> Other Medical History: Reports: Arthritis, Blood Transfusion Reaction (pt had a heart attack ), Cataracts, Chemotherapy, Radiation Therapy, Other <Nisreen Delong 10/25/21 15:30> Other Surgeries: Yes: Angioplasty, CABG, Cardiac Catheterization, Cardiac Surgery, Coronary Stent, Open Heart Surgery, Pacemaker, Other (carotid stent) <Nisreen Delong 10/25/21 15:30> Amputation: No <Nisreen Delong 10/25/21 15:30> Fractures: No <Nisreen Delong 10/25/21 15:30> - *Social History Smoking Status: Current every day smoker <Nisreen Delong 10/25/21 15:30> Tobacco Type: cigarettes <Nisreen Delong 10/25/21 15:30> # Packs/Day (cigarettes): 1 <Nisreen Delong 10/25/21 15:30> #Yrs smoked (if former smoker): 50 <Nisreen Delong 10/25/21 15:30> Alcohol Intake: former <Nisreen Delong 10/25/21 15:30> Alcohol Intake Frequency:: holidays/special occasions only <Nisreen Delong 10/25/21 15:30> *Occupational Status:: retired <Nisreen Delong 10/25/21 15:30> Housing: house <Nisreen Delong 10/25/21 15:30> Household Members: spouse <Nisreen Delong 10/25/21 15:30> *Travel in the last 8 weeks: None <Nisreen Delong 10/25/21 15:30> Family Hx:: Anemia, Heart Attack, Hyperlipidemia <Nisreen Delong 10/25/21 15:30> Review of Systems - Constitutional Reports body ache(s), Reports chills, Reports fatigue, Denies fever(s) <Nisreen Delong 10/25/21 15:30> - Eyes Denies blurry vision, Denies double vision <Nisreen Delong 10/25/21 15:30> - ENT Reports sore throat, Denies nasal congestion <Nisreen Delong - 10/25/21 15:30> - *Cardiovascular Reports brian
[2021-10-25 16:02] LABS: Reflex Lactic Add Lactic Reflex
--- NOTE | 2021-10-25 16:35 | PC.NURSE ---
Received call from lab reporting Troponin 2.55. Rian SALDANA updated
[2021-10-25 16:36] LABS: Troponin I 2.55 ng/ml (0.00-0.034)
[2021-10-25 16:51] LABS: Lactic Acid Follow Up (RFLX 1) 1.7 mmol/L (0.7-2.1)
--- NOTE | 2021-10-25 17:00 | PC.NURSE ---
BP 147/60. Levo gtt turned OFF at this time
[2021-10-25 18:30] LABS: POC Glucose,Bedside 118 (70-110)
[2021-10-25 21:14] LABS: POC Glucose,Bedside 106 (70-110)
[2021-10-26] VITALS (16 sets, daily range): BP systolic 100–130; BP diastolic 47–77; PULSE 62–91; RESP 16–20; TEMP 36.4–36.9; O2SAT 92–98; BMI 24.5
--- NOTE | 2021-10-26 03:01 | PC.NURSE ---
bp 85/39 (54) restarting levo drip at 2 per protocol
--- NOTE | 2021-10-26 05:51 | PC.NURSE ---
notified MD David walden that pt having angina and is requesting nitro and morphine, MD instructed to give one time dose of 2mg of morphine and reassess, will do so and continue to monitor
[2021-10-26 06:20] LABS: Basophils % 0.1 % (0.1-2.0)
[2021-10-26 06:22] LABS: POC Glucose,Bedside 83 (70-110)
[2021-10-26 06:25] LABS: Chloride 106 mmol/L (98-107); Sodium 131 mmol/L (136-145)
[2021-10-26 06:27] LABS: Blood Urea Nitrogen 30 mg/dl (9-20); Creatinine Clearance Estimated 44 mL/min (50-200); Estimated Glomerular Filt Rate 38 ml/min (>60); GFR (African American) 46 ML/MIN (>60)
[2021-10-26 06:28] LABS: Alanine Aminotransferase 15 U/L (12-78); Albumin/Globulin Ratio 1.1 (1.1-1.8); Alkaline Phosphatase 55 U/L (38-126); Aspartate Amino Transferase 41 U/L (17-59); Bilirubin,Total 0.4 mg/dl (0.2-1.3); Calcium 7.3 mg/dl (8.4-10.2); Carbon Dioxide 21 mmol/L (22.0-30.0); Globulin 2.7 g/dL (1.3-3.2); Glucose 80 mg/dl (74-100); Total Protein,Serum 5.7 g/dl (6.3-8.2)
[2021-10-26 06:45] LABS: Eosinophils % 0.2 % (0.1-12.0); Hematocrit 34.9 % (42.0-52.0); Lymphocytes # 0.9 K/mm3 (0.7-4.5); Lymphocytes % 4.5 % (10-50); Mean Corpuscular HGB Conc 31.9 g/dL (31.8-35.4); Mean Corpuscular Hemoglobin 32.6 pg (27.0-31.2); Mean Corpuscular Volume 102.3 fl (80-94); Mean Platelet Volume 9.1 fl (7.4-10.4); Monocytes # 0.5 K/mm3 (0.1-1.0); Monocytes % 2.7 % (1.7-9.3); Neutrophils # 18.1 K/mm3 (1.8-7.8); Neutrophils % 92.5 % (37.0-80.0); Platelet Count 232 K/mm3 (142-424); Red Blood Count 3.42 M/mm3 (4.60-6.20); Red Cell Distribution Width 14.2 % (11.5-17.5); White Blood Count 19.5 K/mm3 (4.8-10.8)
--- NOTE | 2021-10-26 06:48 | ECG_ITS ---
APPROVED REPORT Exam: Resting ECG HR:85 bpm ECG Measurements Heart Rate 85 AXES [place] 167 P 65 QRSd 125 QRS 77 QT 340 T -39 QTc 382 Conclusion ELECTRONIC VENTRICULAR PACEMAKER ABNORMAL RHYTHM ECG UNCONFIRMED REPORT Electronically signed by : Akin Jaeger MD 10/26/2021 18:44:03
[2021-10-26 06:49] LABS: MANUAL DIFFERENTIAL MANUAL DIFFERENTIAL (MANUAL DIFF)
--- NOTE | 2021-10-26 06:59 | PC.NURSE ---
notified MD Murillo pt c/o angina but no nitro ordered, ordered nitro 0.4 sublingual q 5 minutes for angina, will give and continue to monitor 0700-first dose nitro given, unable to scan awaiting night watch to enter order
[2021-10-26 07:56] LABS: Lymphocytes % 5 % (10-50); Monocytes % 2 % (2-9); Neutrophils % 93 % (42-76); Platelet Estimate Normal; Total Cells Counted 100
[2021-10-26 07:57] LABS: Macrocytosis 1+
[2021-10-26 08:44] LABS: Hemoglobin 11.1 g/dL (14.1-18.0)
--- NOTE | 2021-10-26 09:13 | HMH.ACPN2 ---
<Nisreen Delong - Last Filed: 10/26/21 09:13> Internal Medicine - PN: Subj *Date: 10/26/21 *Time: 09:13 Interval history: Patient is still not feeling well this morning. He states he takes a medication for chest pain twice a day at home and he had chest pain and reflux all night without that medication. He is unsure of the name. He states his is bringing his medications this morning. He does normally take ranexa and isosorbide. He still has some shortness of breath but denies cough. He was able to eat a small amount of breakfast this morning. Exam Vital signs and Labs for Last 24 Hours: Temp Pulse Resp BP Pulse Ox 98.5 F 78 20 106/58 L 96 10/26/21 08:00 10/26/21 08:00 10/26/21 08:00 10/26/21 08:00 10/26/21 08:00 Laboratory Results - last 24 hr 10/25/21 11:15: WBC 26.6 H*, RBC 4.16 L, Hgb 13.8 L, Hct 44.1, MCV 105.9 H, MCH 33.2 H, MCHC 31.3 L, RDW 14.4, Plt Count 301, MPV 8.9, Neut % (Auto) 93.4 H, Lymph % (Auto) 3.4 L, [place] % (Auto) 2.8, Eos % (Auto) 0.1, Baso % (Auto) 0.2, Neut # (Auto) 24.8 H, Lymph # (Auto) 0.9, [place] # (Auto) 0.7, Eos # (Auto) 0.0, Baso # (Auto) 0.1, Total Counted 100, Neutrophils % (Manual) 94 H, Lymphocytes % (Manual) 5 L, Monocytes % (Manual) 1 L, Platelet Estimate Normal, RBC Morphology Not Reportable, Macrocytosis 1+ 10/25/21 11:15: Sodium 128 L, Potassium 4.6, Chloride 92 L, Carbon Dioxide 23, Anion Gap 17.6 H, BUN 34 H, Creatinine 3.00 H, Estimated Creat Clear 25, Estimated GFR 21 L, Est GFR ( Amer) 25 L, Glucose 216 H, Calcium 8.9, Total Bilirubin 1.0, AST 41, ALT 21, Alkaline Phosphatase 63, Troponin I 3.94 H, Total Protein 7.5, Albumin 4.3, Globulin 3.2, Albumin/Globulin Ratio 1.3 10/25/21 11:15: Procalcitonin 11.4 H 10/25/21 11:48: Lactate 2.4 H 10/25/21 12:14: SARS-CoV-2 (PCR) Not detected, Influenza A Untype (PCR) Not detected, Influenza Type B (PCR) Not detected 10/25/21 15:23: Troponin I 2.55 H 10/25/21 16:13: POC Glucose 118 H 10/25/21 16:35: Lactate 1.7 10/25/21 21:08: POC Glucose 106 10/26/21 05:51: WBC 19.5 H D, RBC 3.42 L, Hgb 11.1 L D, Hct 34.9 L, MCV 102.3 H, MCH 32.6 H, MCHC 31.9, RDW 14.2, Plt Count 232, MPV 9.1, Neut % (Auto) 92.5 H, Lymph % (Auto) 4.5 L, [place] % (Auto) 2.7, Eos % (Auto) 0.2, Baso % (Auto) 0.1, Neut # (Auto) 18.1 H, Lymph # (Auto) 0.9, [place] # (Auto) 0.5, Eos # (Auto) 0.0, Baso # (Auto) 0.0, Total Counted 100, Neutrophils % (Manual) 93 H, Lymphocytes % (Manual) 5 L, Monocytes % (Manual) 2, Platelet Estimate Normal, Macrocytosis 1+ 10/26/21 05:51: Sodium 131 L, Potassium 4.0, Chloride 106, Carbon Dioxide 21 L, Anion Gap 8.0, BUN 30 H, Creatinine 1.80 H D, Estimated Creat Clear 44, Estimated GFR 38 L, Est GFR ( Amer) 46 L D, Glucose 80 D, Calcium 7.3 L, Total Bilirubin 0.4, AST 41, ALT 15 D, Alkaline Phosphatase 55, Total Protein 5.7 L, Albumin 3.0 L D, Globulin 2.7, Albumin/Globulin Ratio 1.1 10/26/21 05:51: Troponin I 1.20 H 10/26/21 06:04: POC Glucose 83 I & O for Last 24 hours: Intake & Output 10/23/21 10/24/21 10/25/21 10/26/21 11:59 11:59 11:59 11:59 Intake Total 2188 / 2188 Output Total 1350 / 1350 Balance 838 / 838 Weight 170 lb 175 lb 4 oz - Constitutional Comments: Does not appear to feel well - *Routine Respiratory Exam Present: wheezes. Absent: rales - *Routine Cardiovascular Exam Present: RRR - *Routine Abdominal Exam Present: soft (Nail), normoactive bowel sounds. Absent: tenderness - *Routine Extremities Exam Absent: cyanosis, clubbing, edema - *Routine Skin Exam Present: warm. Absent: rash - *Routine Neurological Exam Present: alert, oriented X3 Assessment and Plan (1) Non-ST elevation myocardial infarction (NSTEMI) Status: Acute Category: Medical Code(s): I21.4 - Non-ST elevation (NSTEMI) myocardial infarction (2) Sepsis Status: Acute Qualifiers: Sepsis type: sepsis due to unspecified organism Sepsis acute organ dysfunction status: with acute organ dysfunction
--- NOTE | 2021-10-26 09:47 | HMH.PNCARD ---
Subjective Date: 10/26/21 Time: 09:48 Principal diagnosis: ELIJAH, NSTEMI Interval history: 66-year-old white male in bed. Patient describes some throat and upper shoulder discomfort through the night which he believes is related to reflux. 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 He followed with [facility] in the past but has not seen them recently. He also states he takes 2 medications to help with any coronary or chest pain. If he remains on those medicines he does not need nitroglycerin. He was given nitroglycerin overnight with some improvement in the throat and shoulder discomfort but it would not last. Creatinine has improved to 1.8 Troponins are elevated but trending down. Echocardiogram shows dilated left ventricle with reduced EF of 30% with multiple segmental wall motion abnormalities. No significant valve disease noted. Patient is unsure of the brand of his ICD. Patient is now off of Levophed with blood pressure in the 100-120 mmHg range. Exam Vital signs and Labs for Last 24 Hours: Temp Pulse Resp BP Pulse Ox 98.5 F 78 20 106/58 L 96 10/26/21 08:00 10/26/21 08:00 10/26/21 08:00 10/26/21 08:00 10/26/21 08:00 Laboratory Results - last 24 hr 10/25/21 11:15: WBC 26.6 H*, RBC 4.16 L, Hgb 13.8 L, Hct 44.1, MCV 105.9 H, MCH 33.2 H, MCHC 31.3 L, RDW 14.4, Plt Count 301, MPV 8.9, Neut % (Auto) 93.4 H, Lymph % (Auto) 3.4 L, [place] % (Auto) 2.8, Eos % (Auto) 0.1, Baso % (Auto) 0.2, Neut # (Auto) 24.8 H, Lymph # (Auto) 0.9, [place] # (Auto) 0.7, Eos # (Auto) 0.0, Baso # (Auto) 0.1, Total Counted 100, Neutrophils % (Manual) 94 H, Lymphocytes % (Manual) 5 L, Monocytes % (Manual) 1 L, Platelet Estimate Normal, RBC Morphology Not Reportable, Macrocytosis 1+ 10/25/21 11:15: Sodium 128 L, Potassium 4.6, Chloride 92 L, Carbon Dioxide 23, Anion Gap 17.6 H, BUN 34 H, Creatinine 3.00 H, Estimated Creat Clear 25, Estimated GFR 21 L, Est GFR ( Amer) 25 L, Glucose 216 H, Calcium 8.9, Total Bilirubin 1.0, AST 41, ALT 21, Alkaline Phosphatase 63, Troponin I 3.94 H, Total Protein 7.5, Albumin 4.3, Globulin 3.2, Albumin/Globulin Ratio 1.3 10/25/21 11:15: Procalcitonin 11.4 H 10/25/21 11:48: Lactate 2.4 H 10/25/21 12:14: SARS-CoV-2 (PCR) Not detected, Influenza A Untype (PCR) Not detected, Influenza Type B (PCR) Not detected 10/25/21 15:23: Troponin I 2.55 H 10/25/21 16:13: POC Glucose 118 H 10/25/21 16:35: Lactate 1.7 10/25/21 21:08: POC Glucose 106 10/26/21 05:51: WBC 19.5 H D, RBC 3.42 L, Hgb 11.1 L D, Hct 34.9 L, MCV 102.3 H, MCH 32.6 H, MCHC 31.9, RDW 14.2, Plt Count 232, MPV 9.1, Neut % (Auto) 92.5 H, Lymph % (Auto) 4.5 L, [place] % (Auto) 2.7, Eos % (Auto) 0.2, Baso % (Auto) 0.1, Neut # (Auto) 18.1 H, Lymph # (Auto) 0.9, [place] # (Auto) 0.5, Eos # (Auto) 0.0, Baso # (Auto) 0.0, Total Counted 100, Neutrophils % (Manual) 93 H, Lymphocytes % (Manual) 5 L, Monocytes % (Manual) 2, Platelet Estimate Normal, Macrocytosis 1+ 10/26/21 05:51: Sodium 131 L, Potassium 4.0, Chloride 106, Carbon Dioxide 21 L, Anion Gap 8.0, BUN 30 H, Creatinine 1.80 H D, Estimated Creat Clear 44, Estimated GFR 38 L, Est GFR ( Amer) 46 L D, Glucose 80 D, Calcium 7.3 L, Total Bilirubin 0.4, AST 41, ALT 15 D, Alkaline Phosphatase 55, Total Protein 5.7 L, Albumin 3.0 L D, Globulin 2.7, Albumin/Globulin Ratio 1.1 10/26/21 05:51: Troponin I 1.20 H 10/26/21 06:04: POC Glucose 83 I & O for Last 24 hours: Intake & Output 10/23/21 10/24/21 10/25/21 10/26/21 11:59 11:59 11:59 11:59 Intake Total 2188 / 2188 Output Total 1350 / 1350 Balance 838 / 838 Weight 170 lb 175 lb 4 oz - Constitutional mild distress - *Routine Respiratory Exam Present: CTA bilaterally - *Routine Cardiovascular Exam Present: RRR - *Routine Extremities Exam Absent: cyanosis, clubbing, edema - *Routine Neurological Exam Present: alert, oriented X3 Progress Note: A&P (1) Non-ST elevation myoc
--- NOTE | 2021-10-26 10:33 | XR_ITS ---
FINAL REPORT CLINICAL HISTORY: f/u PNEUMONIA COMPARISON: October 25, 2021 FINDINGS: There is evidence of sternotomy. There is a left subclavian pacemaker. The heart size is normal. The mediastinum is normal. There is worsening right lung base opacity consistent with worsening pneumonia. There are no pleural effusions. There is no pneumothorax. There is no osseous abnormality. IMPRESSION: Worsening right base pneumonia. Reviewed, Interpreted and Dictated by Doc Porter III, MD Transcribed by Joe Heck Authenticated by Doc Porter III, MD on 10/26/2021 11:24:00 AM [facility]
--- NOTE | 2021-10-26 10:49 | HMH.PHAINT ---
MEDICATION RECONCILIATION COMPLETED ON PATIENT USING EXTERNAL FILL HISTORY FROM PHARMACY AND LIST FROM [facility] OFFICE. -ANYI SIMOND
[2021-10-26 12:19] LABS: POC Glucose,Bedside 136 (70-110)
--- NOTE | 2021-10-26 15:39 | PC.NURSE ---
No acute changes noted today. This am patient was complaining of indigestion type pain, burning in the back of his throat, and neck and shoulder pain. MD made aware, cardiology notified and gave orders for med changes and GI cocktail. Patient reported good relief after GI cocktail, plans were made to proceed with heart cath in am. Patient currently denies any pain, Levophed titrated to off this am at 0800, remains on 2LNC, lung sounds reveal scattered fine crackles, voiding per urinal without difficulty, vss.
[2021-10-26 16:20] LABS: POC Glucose,Bedside 130 (70-110)
--- NOTE | 2021-10-26 16:33 | PC.NURSE ---
1625- Patient noted to have rhythm change on telemetry, EKG obtained, Afib with RVR, Dr Quinones notified at this time, states as long as HR stays below 110 hold on cardizem, he will consult cardiology in the morning and if cardizem is needed we may need an additional pressor.
[2021-10-26 20:43] LABS: POC Glucose,Bedside 128 (70-110)
[2021-10-27] VITALS (54 sets, daily range): BP systolic 106–133; BP diastolic 49–87; PULSE 80–115; RESP 15–22; TEMP 36.5–37.1; O2SAT 87–99; BMI 24.5
--- NOTE | 2021-10-27 | IR_ITS ---
APPROVED REPORT Patient Location: Inpatient Latexer: LORENZO Oliva RT (R) PROCEDURES Left heart catheterization Left ventriculogram Selective coronary angiogram Left internal mammary angiography Selective engagement of the saphenous vein graft to the right coronary Stent deployment to the saphenous vein graft supplying the right coronary artery Stent deployment to the ostial circumflex artery Bilateral selective renal angiogram Stent deployment to the right renal artery INDICATION Coronary artery disease, History of coronary bypass surgery, Acute non-ST elevation myocardial infarction, Acute renal failure, Renal artery stenosis, Systolic congestive heart failure Informed consent was obtained prior to the procedure. COMPLICATIONS None Estimated Blood Loss: Less than 10 ML TECHNIQUE One percent lidocaine used to anesthetize the right groin. The right femoral artery was accessed via the Seldinger technique and a 5 Haitian sheath was placed in the right femoral artery. A JL 4, JR4 catheter were used to perform left heart catheterization, left ventriculogram selective coronary angiography as well as selective engagement of the 1 vein graft and the left internal mammary artery. Because of patient's acute on chronic renal failure bilateral selective renal angiography was performed. Right renal artery was critically stenosed. At this point therapeutic heparin was administered and a 5 Haitian sheath was exchanged for a 6 Haitian sheath. CARTER guide catheter was placed in the right renal artery where a Choice PT extra-support wire was placed distally. A 6 mm x 18 mm Herculink stent was deployed at 20 so reducing the critical stenosis to 0%. Following this a 6 Haitian multipurpose catheter was placed in the saphenous vein graft and there was severe dampening. There appeared to be a flap or eccentric stenosis in the ostial segment therefore 3 mm x 38 mm resolute Freedom stent was deployed over a Choice PT extra-support wire in the ostial and proximal segment reducing the stenosis. The balloon was pulled back and then flared to 24 so. A 6 Haitian JR4 guide catheter was then placed in the left main artery after the multipurpose catheter was removed. A Choice PT extra-support wire was placed in the circumflex artery where a 2 mm x 12 mm balloon was used to predilate the stenosis. Following this a 2.75 x 15 mm resolute Gallito stent was then deployed in the ostium of the circumflex artery and deployed at 24 so. A 3 mm x 12 mm noncompliant balloon was then placed in the proximal segment and deployed at 24 so failing to reduce the stenosis. A 3.5 x 8 mm noncompliant balloon was then deployed in the ostial proximal segment of the circumflex artery at 28 so which then reduced the stenosis. GAEL-3 flow was present before and after the procedure. After achieving excellent angiographic results the apparatus was removed the sheath was taped in place then the patient was transferred to the postop holding area stable condition for sheath removal ANGIOGRAPHIC RESULTS The left main artery Has distal tapering of 50% The left anterior descending artery Ostially occluded The circumflex artery Gives rise to a high ramus intermedius which has a stent in the proximal segment which has moderate eccentric 30 to 40% stenoses. The true circumflex artery then has a stent in its ostial segment going into the body of the circumflex artery which has a 90% stenosis. Following stenting the circumflex artery was widely patent. The right coronary artery Ostially occluded and fills via left to right collaterals The CARRERO ventriculogram reveals Severe left ventricular dilatation ejection fraction 20 to 25% The left ventricular end-di
--- NOTE | 2021-10-27 00:42 | ECG_ITS ---
APPROVED REPORT Exam: Resting ECG HR:90 bpm ECG Measurements Heart Rate 90 AXES AK 140 P 21 QRSd 133 QRS 85 QT 355 T 48 QTc 403 Conclusion ELECTRONIC VENTRICULAR PACEMAKER ABNORMAL RHYTHM ECG UNCONFIRMED REPORT Electronically signed by : Akin Jaeger MD 10/28/2021 07:39:16
[2021-10-27 01:37] LABS: ABG Base Excess -4.8 mmol/L (-2.4-2.3); ABG HCO3 20.5 mmhg (22.0-26.0); ABG Oxygen Saturation 91 % (90-100); ABG PCO2 36.2 mmhg (35.0-45.0); ABG PH 7.37 mmol/L (7.35-7.45); ABG PO2 59.1 mmhg (80-100); ABG TCO2 21.6 mmhg (23-27)
[2021-10-27 01:38] LABS: Allen's Test Acceptable
[2021-10-27 01:39] LABS: Source Left Radial
--- NOTE | 2021-10-27 04:21 | PC.NURSE ---
Pt c/o chest pain and burning throat around 0050 this shift. EKG was obtained and read by MD Aponte.Nitro SL administered x2. MD Mckeon notified of complaints. New orders received. Metoprolol 5 mg IV x3. Morphine 4 mg IV Q15 prn. Pt stated that chest pain has improved. Consent for heart cath on chart. HR and BP stable. O2 sats have declined and O2 titrated up to 4L NC. Pt noted to have wheeezing. Pt states he is soa. Will continue to monitor.
--- NOTE | 2021-10-27 06:00 | PC.NURSE ---
MD Hernandez notified of increased soa. New orders received to give breathing tx.
--- NOTE | 2021-10-27 08:06 | PC.NURSE ---
pt off unit at time report was received.
[2021-10-27 09:36] LABS: Chloride 105 mmol/L (98-107); Potassium 4.9 mmoL/L (3.5-5.1); Sodium 131 mmol/L (136-145)
[2021-10-27 09:39] LABS: Anion Gap 8.9 mEq/L (5-15); Blood Urea Nitrogen 22 mg/dl (9-20); Calcium 7.3 mg/dl (8.4-10.2); Carbon Dioxide 22 mmol/L (22.0-30.0); Creatinine Clearance Estimated 53 mL/min (50-200); Estimated Glomerular Filt Rate 47 ml/min (>60); GFR (African American) 56 ML/MIN (>60); Glucose 134 mg/dl (74-100)
[2021-10-27 10:28] LABS: POC Glucose,Bedside 183 (70-110)
--- NOTE | 2021-10-27 10:43 | HMH.PNCARD ---
Subjective Date: 10/27/21 Time: 10:43 Principal diagnosis: ELIJAH, NSTEMI Interval history: This is a 66-year-old white gentleman with complaints of a sore throat and upper shoulder discomfort that he was attributing to reflux. 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 The patient had an elevated troponin but did trend down. He also had an elevated creatinine which did improve to 1.5 today. The patient has cardiomyopathy with a dilated left ventricle and reduced ejection fraction at 30% with multiple segmental wall motion abnormalities. He does have a Biotronik AICD. He underwent left cardiac catheterization today and had stenting to his circumflex artery and saphenous vein graft to the right coronary artery as well as the right renal stent. The patient tolerated the procedure well and will be on Brilinta and aspirin for dual antiplatelet therapy. Currently he denies any chest pain. He states that he has been short of breath for the past few weeks. His LVEDP is 35 to 40 mmHg which is most likely contributing to his shortness of breath. He denies any fever, chills, nausea, vomiting, diarrhea, PND or orthopnea. Patient is lying flat when I walk in the room. [facility] shows: Critical coronary disease as described above Successful stenting of a critically diseased circumflex artery reducing the stenosis to 0% with 1 drug-eluting stent Successful stenting of what appeared to be a severe ostial stenosis involving a vein graft to the right coronary artery Severe left ventricular dilatation with severely reduced ejection fraction Severe to critically elevated LVEDP Critical right renal artery stenosis Successful stenting the right renal artery critical disease reduced to 0% with 1 bare-metal stent PLAN 1. Dual antiplatelet therapy 2. LDL less than 55 to be achieved with high intensity statin 3. Avoidance of copious IV fluids given the elevated LVEDP with gentle diuresis 4. Continue standard therapy for systolic heart failure 5. Cardiac rehabilitation 6. Avoidance of tobacco products Exam Vital signs and Labs for Last 24 Hours: Temp Pulse Resp BP Pulse Ox 98.2 F 94 H 16 116/56 L 99 10/27/21 04:00 10/27/21 10:15 10/27/21 10:15 10/27/21 10:15 10/27/21 10:15 Laboratory Results - last 24 hr 10/26/21 12:12: POC Glucose 136 H 10/26/21 16:13: POC Glucose 130 H 10/26/21 20:31: POC Glucose 128 H 10/27/21 01:06: Specimen Source Left radial, O2 % 4lpm, ABG pH 7.37, ABG pCO2 36.2, ABG pO2 59.1 L, ABG HCO3 20.5 L, ABG Total CO2 21.6 L, ABG O2 Saturation 91, ABG Base Excess -4.8 L, Fan Test Acceptable 10/27/21 06:43: POC Glucose 183 H 10/27/21 09:21: Sodium 131 L, Potassium 4.9 D, Chloride 105, Carbon Dioxide 22, Anion Gap 8.9, BUN 22 H D, Creatinine 1.50 H, Estimated Creat Clear 53, Estimated GFR 47 L, Est GFR ( Amer) 56 L D, Glucose 134 H, Calcium 7.3 L I & O for Last 24 hours: Intake & Output 10/24/21 10/25/21 10/26/21 10/27/21 23:59 23:59 23:59 23:59 Intake Total 240 / 300 3865 / 3865 Output Total 700 / 700 650 / 1050 400 / 400 Balance -460 / -400 3215 / 2815 -400 / -400 Weight 175 lb 4 oz 175 lb 0.752 oz 175 lb 3.2 oz - Constitutional no acute distress, average body habitus - *Routine HEENT Exam Head: Present: normocephalic, atraumatic Eye: Present: EOMI, PERRL ENT: Present: mucous membranes moist - *Routine Neck Exam Present: supple, full ROM, normal carotid upstroke. Absent: JVD, carotid bruit, lymphadenopathy - *Routine Respiratory Exam Present: decreased breath sounds, rales, wheezes - *Routine Cardiovascular Exam Present: RRR, Normal S1, Normal S2. Absent: murmur - *Routine Abdominal Exam Present: soft, normoactive bowel sounds. Absent: tenderness, distended - *Routine Extremities Exam Present: full ROM, pulses intact, normal capillary refill. Absent: cyanosis, clubbing, edema - *Routine Skin Exam Present: intact, warm. Absent: erythema, rash - *R
[2021-10-27 12:03] LABS: CATHL Activated Clotting Time 330 SEC (74-125)
[2021-10-27 12:04] LABS: CATHL Activated Clotting Time 330 SEC (74-125)
[2021-10-27 12:06] LABS: CATHL Activated Clotting Time 193 SEC (74-125)
[2021-10-27 12:06] LABS: CATHL Activated Clotting Time 201 SEC (74-125)
--- NOTE | 2021-10-27 15:39 | PC.NURSE ---
spoke with A John SIMENTAL. ok for pt to come out of stepdown. pt just needs to remain on tele
--- NOTE | 2021-10-27 16:10 | PC.NURSE ---
no hematoma noted, pt sitting up on the bedside.
--- NOTE | 2021-10-27 19:08 | PC.NURSE ---
pt has done well this shift. he has not complained of any pain, cardiac or otherwise. pt lung sounds continue to sound wheezy. pt appears sob when conversing with staff. nad noted. pt has had good outpt from [employer]. bs active in all quads. has been at bedside. pt has poor appetite.
[2021-10-27 21:19] LABS: POC Glucose,Bedside 134 (70-110)
[2021-10-28] VITALS (15 sets, daily range): BP systolic 92–123; BP diastolic 52–69; PULSE 77–105; RESP 16–24; TEMP 36.4–36.9; O2SAT 92–100; BMI 25.5
--- NOTE | 2021-10-28 04:48 | PC.NURSE ---
Pt c/o soa beginning of shift. Was medicated and slept well the rest of the night. He is currently on 4L O2 NC. O2 sats low 90s. Pt continues to have rhonchi t/o lungs with scattered wheezing noted. (R) femoral cath site is C/D/I. VS currently stable. Will continue to monitor.
[2021-10-28 05:57] LABS: Basophils % 0.2 % (0.1-2.0); Eosinophils % 0.4 % (0.1-12.0); Hematocrit 31.8 % (42.0-52.0); Lymphocytes # 0.9 K/mm3 (0.7-4.5); Mean Corpuscular HGB Conc 31.4 g/dL (31.8-35.4); Mean Corpuscular Hemoglobin 32.5 pg (27.0-31.2); Mean Corpuscular Volume 103.5 fl (80-94); Mean Platelet Volume 9.4 fl (7.4-10.4); Monocytes # 0.5 K/mm3 (0.1-1.0); Monocytes % 5.8 % (1.7-9.3); Neutrophils # 7.2 K/mm3 (1.8-7.8); Neutrophils % 83.5 % (37.0-80.0); Platelet Count 195 K/mm3 (142-424); Red Blood Count 3.07 M/mm3 (4.60-6.20); Red Cell Distribution Width 14.1 % (11.5-17.5); White Blood Count 8.6 K/mm3 (4.8-10.8)
[2021-10-28 06:06] LABS: Chloride 104 mmol/L (98-107)
[2021-10-28 06:07] LABS: Potassium 4.4 mmoL/L (3.5-5.1); Sodium 132 mmol/L (136-145)
[2021-10-28 06:09] LABS: Blood Urea Nitrogen 20 mg/dl (9-20); Creatinine Clearance Estimated 64 mL/min (50-200); Estimated Glomerular Filt Rate 55 ml/min (>60); GFR (African American) 66 ML/MIN (>60)
[2021-10-28 06:10] LABS: Anion Gap 7.4 mEq/L (5-15); Calcium 7.8 mg/dl (8.4-10.2); Carbon Dioxide 25 mmol/L (22.0-30.0); Glucose 111 mg/dl (74-100)
--- NOTE | 2021-10-28 06:29 | ECG_ITS ---
APPROVED REPORT Exam: Resting ECG HR:150 bpm ECG Measurements Heart Rate 150 AXES AL 82 P 192 QRSd 208 QRS 103 QT 331 T 23 QTc 416 Conclusion SINUS TACHYCARDIA WITH SHORT AL INTERVAL, POSSIBLE ATRIAL FLUTTER LBBB - ? new onset UNCONFIRMED REPORT Electronically signed by : Akin Jaeger MD 10/29/2021 14:37:57
--- NOTE | 2021-10-28 06:58 | ECG_ITS ---
APPROVED REPORT Exam: Resting ECG HR:96 bpm ECG Measurements Heart Rate [address] 194 P 48 QRSd 162 QRS 96 QT 372 T 91 QTc 426 Conclusion SINUS RHYTHM BORDERLINE RIGHT AXIS DEVIATION [QRS AXIS > 90] LEFT BUNDLE BRANCH BLOCK [120+ ms QRS DURATION, 80+ ms Q/S IN V1/V2, 85+ ms R IN I/aVL/V5/V6] ABNORMAL ECG UNCONFIRMED REPORT Electronically signed by : Akin Jaeger MD 10/29/2021 14:36:22
--- NOTE | 2021-10-28 08:31 | HMH.ACPN2 ---
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 He states he thought he was going to . Dr. Mckeon was consulted and he was given metoprolol, Lasix, and started on drip. At the present time he is still short of breath but his pain has improved. He is trying to eat some breakfast and his O2 sats are in the low 80s Exam Vital signs and Labs for Last 24 Hours: Temp Pulse Resp BP Pulse Ox 97.9 F 94 H 20 108/66 L 94 L 10/28/21 08:00 10/28/21 08:00 10/28/21 08:00 10/28/21 08:00 10/28/21 08:00 Laboratory Results - last 24 hr 10/27/21 06:43: POC Glucose 183 H 10/27/21 08:49: Activated Clotting Time 330 H* 10/27/21 09:14: Activated Clotting Time 330 H* 10/27/21 09:21: Sodium 131 L, Potassium 4.9 D, Chloride 105, Carbon Dioxide 22, Anion Gap 8.9, BUN 22 H D, Creatinine 1.50 H, Estimated Creat Clear 53, Estimated GFR 47 L, Est GFR ( Amer) 56 L D, Glucose 134 H, Calcium 7.3 L 10/27/21 09:56: Activated Clotting Time 201 H* D 10/27/21 10:26: Activated Clotting Time 193 H* 10/27/21 17:31: POC Glucose 134 H 10/28/21 05:07: WBC 8.6 D, RBC 3.07 L, Hgb 10.0 L, Hct 31.8 L, MCV 103.5 H, MCH 32.5 H, MCHC 31.4 L, RDW 14.1, Plt Count 195, MPV 9.4, Neut % (Auto) 83.5 H, Lymph % (Auto) 10.0, Mccormick % (Auto) 5.8, Eos % (Auto) 0.4, Baso % (Auto) 0.2, Neut # (Auto) 7.2, Lymph # (Auto) 0.9, Mccormick # (Auto) 0.5, Eos # (Auto) 0.0, Baso # (Auto) 0.0 10/28/21 05:07: Sodium 132 L, Potassium 4.4, Chloride 104, Carbon Dioxide 25, Anion Gap 7.4, BUN 20, Creatinine 1.30 H, Estimated Creat Clear 64, Estimated GFR 55 L, Est GFR ( Amer) 66, Glucose 111 H, Calcium 7.8 L I & O for Last 24 hours: Intake & Output 10/25/21 10/26/21 10/27/21 10/28/21 11:59 11:59 11:59 11:59 Intake Total 2188 / 2188 1917 / 1917 420 / 420 Output Total 1350 / 1350 400 / 400 1845 / 1845 Balance 838 / 838 1517 / 1517 -1425 / -1425 Weight 170 lb 175 lb 0.752 oz 175 lb 3.2 oz 182 lb 8 oz Microbiology Reports for the Last 24 Hours: Microbiology 10/25/21 11:48 Blood Blood Culture - Preliminary NO GROWTH AFTER 48 HOURS 10/25/21 11:48 Blood Blood Culture - Preliminary NO GROWTH AFTER 48 HOURS Narrative: He is sitting up in bed. He is a bit anxious. He appears dyspneic. Color is good. Chest reveals generally diminished breath sounds with scattered rhonchi. No wheezes. Heart is regular. Abdomen is soft and nondistended with no tenderness. Extremities no edema. Assessment and Plan (1) Non-ST elevation myocardial infarction (NSTEMI) Status: Acute Category: Medical Code(s): I21.4 - Non-ST elevation (NSTEMI) myocardial infarction (2) Pneumonia Status: Acute Category: Medical Code(s): J18.9 - Pneumonia, unspecified organism (3) Sepsis Status: Acute Qualifiers: Sepsis type: sepsis due to unspecified organism Sepsis acute organ dysfunction status: with acute organ dysfunction Severe sepsis acute organ dysfunction type: acute renal failure Acute renal failure type: unspecified Severe sepsis shock status: with septic shock Qualified Code(s): A41.9 - Sepsis, unspecified organism; R65.21 - Severe sepsis with septic shock; N17.9 - Acute kidney failure, unspecified Category: Medical Code(s): A41.9 - Sepsis, unspecified organism (4) Right lower lobe lung mass Status: Acute Category: Medical Code(s): R91.8 - Other nonspecific abnormal finding of lung field (5) Biventricular automatic implantable cardioverter defibrillator in situ Status: Acute Category: Medical Code(s): Z95.810 - Presence of automatic (implantable) cardiac defibrillator (6) COPD exacerbation Problem details: R/o pneumonia Status: Acute Category: Med
--- NOTE | 2021-10-28 08:38 | PC.NURSE ---
Dr. Chidi kothari. New orders received for ackerman cath insertion with UA and repeat COVID PCR.
[2021-10-28 09:16] LABS: Microscopic, Urine URINE MICROSCOPIC (MICROSCOPIC)
[2021-10-28 09:26] LABS: Appearance,Urine CLEAR (Clear); Bilirubin,Urine Negative (Negative); Blood, Urine Negative (Negative); Color,Urine YELLOW (Yellow); Glucose,Urine (UA) Negative (Negative); Ketones,Urine Negative (Negative); Leukocyte Esterase,Urine Negative (Negative); Nitrate,Urine Negative (Negative); Protein,Urine TRACE (Negative); Urobilinogen,Urine 0.2 EU/dl (0.2)
[2021-10-28 10:03] LABS: Amorphous Sediment,Urine Trace /lpf; Squamous Epithelial Cell,Urine Occasional #/hpf (0-5)
[2021-10-28 11:50] LABS: POC Glucose,Bedside 167 (70-110)
--- NOTE | 2021-10-28 13:00 | PC.NURSE ---
Amio gtt decreased to 0.5mg/min. Will continue this rate for next 18hrs.
[2021-10-28 20:46] LABS: POC Glucose,Bedside 134 (70-110)
[2021-10-28 22:19] LABS: POC Glucose,Bedside 138 (70-110)
[2021-10-28 22:19] LABS: POC Glucose,Bedside 190 (70-110)
[2021-10-29] VITALS (18 sets, daily range): BP systolic 115–137; BP diastolic 60–92; PULSE 77–103; RESP 18–30; TEMP 36.5–37; O2SAT 92–100; BMI 25.4
[2021-10-29 05:47] LABS: POC Glucose,Bedside 166 (70-110)
--- NOTE | 2021-10-29 09:23 | HMH.ACPN2 ---
Internal Medicine - PN: Subj *Date: 10/29/21 *Time: 09:23 Interval history: After the events of yesterday morning he has had a stable course. He is less short of breath but still complains of tightness in his chest. His chief complaint is generalized weakness. His amiodarone drip was discontinued this morning. Exam Vital signs and Labs for Last 24 Hours: Temp Pulse Resp BP Pulse Ox 98.6 F 92 H 20 119/76 100 10/29/21 08:00 10/29/21 08:00 10/29/21 08:00 10/29/21 08:00 10/29/21 08:00 Laboratory Results - last 24 hr 10/28/21 05:54: POC Glucose 138 H 10/28/21 08:38: Urine Color Yellow, Urine Appearance Clear, Urine pH 6.0, Ur Specific [place] 1.020, Urine Protein Trace, Urine Glucose (UA) Negative, Urine Ketones Negative, Urine Blood Negative, Urine Nitrate Negative, Urine Bilirubin Negative, Urine Urobilinogen 0.2, Ur Leukocyte Esterase Negative, Ur Squamous Epith Cells Occasional, Amorphous Sediment Trace 10/28/21 10:59: POC Glucose 167 H 10/28/21 15:59: POC Glucose 134 H 10/28/21 20:20: POC Glucose 190 H 10/29/21 05:38: POC Glucose 166 H I & O for Last 24 hours: Intake & Output 10/26/21 10/27/21 10/28/21 10/29/21 11:59 11:59 11:59 11:59 Intake Total 2188 / 2188 1917 / 1917 540 / 540 1447 / 1447 Output Total 1350 / 1350 400 / 400 2845 / 2845 1075 / 1075 Balance 838 / 838 1517 / 1517 -2305 / -2305 372 / 372 Weight 175 lb 0.752 oz 175 lb 3.2 oz 182 lb 8 oz 182 lb 2 oz Microbiology Reports for the Last 24 Hours: Microbiology 10/28/21 09:34 Nasopharyngeal Coronavirus COVID-19 PCR - Final Narrative: He is alert. He appears more comfortable. He remains mildly dyspneic. Chest with bilateral rhonchi and wheezes. Breath sounds are diminished in the right base. Abdomen is soft and nondistended with no tenderness. Extremities no edema. Assessment and Plan (1) Non-ST elevation myocardial infarction (NSTEMI) Status: Acute Category: Medical Code(s): I21.4 - Non-ST elevation (NSTEMI) myocardial infarction (2) Pneumonia Status: Acute Category: Medical Code(s): J18.9 - Pneumonia, unspecified organism (3) Sepsis Status: Acute Qualifiers: Sepsis type: sepsis due to unspecified organism Sepsis acute organ dysfunction status: with acute organ dysfunction Severe sepsis acute organ dysfunction type: acute renal failure Acute renal failure type: unspecified Severe sepsis shock status: with septic shock Qualified Code(s): A41.9 - Sepsis, unspecified organism; R65.21 - Severe sepsis with septic shock; N17.9 - Acute kidney failure, unspecified Category: Medical Code(s): A41.9 - Sepsis, unspecified organism (4) Right lower lobe lung mass Status: Acute Category: Medical Code(s): R91.8 - Other nonspecific abnormal finding of lung field (5) Biventricular automatic implantable cardioverter defibrillator in situ Status: Acute Category: Medical Code(s): Z95.810 - Presence of automatic (implantable) cardiac defibrillator (6) COPD exacerbation Problem details: R/o pneumonia Status: Acute Category: Medical Code(s): J44.1 - Chronic obstructive pulmonary disease with (acute) exacerbation (7) Carotid artery stenosis Status: Acute Category: Medical Code(s): I65.29 - Occlusion and stenosis of unspecified carotid artery (8) Coronary artery disease Status: Chronic Category: Medical Code(s): I25.10 - Atherosclerotic heart disease of [place] coronary artery without angina pectoris (9) GERD (gastroesophageal reflux disease) Status: Chronic Category: Medical Code(s): K21.9 - Gastro-esophageal reflux disease without esophagitis (10) History of CVA (cerebrovascular accident) Status: Chronic Category: Medical Code(s): Z86.73 - Personal history of transient ischemic attack (TIA), and cerebral infarction without residual deficits (11) Hyperlipidemia Status: Chronic Category: Medical Code(s): E78.5 - Hyperlipidemia, unspecified (12)
--- NOTE | 2021-10-29 10:53 | PC.WOUNDNOTE ---
Dr. Murillo stated pt could come out of step down.
--- NOTE | 2021-10-29 10:54 | PC.NURSE ---
report given to Grabiel Morgan RN and Joao Regan RN as they are now assuming care of pt.
--- NOTE | 2021-10-29 11:05 | HMH.ACPN ---
Internal Medicine - PN: Subj *Date: 10/29/21 *Time: 11:05 Exam Vital signs and Labs for Last 24 Hours: Temp Pulse Resp BP Pulse Ox 98.6 F 99 H 30 H 125/64 100 10/29/21 08:00 10/29/21 10:00 10/29/21 10:00 10/29/21 10:00 10/29/21 10:00 Laboratory Results - last 24 hr 10/28/21 05:54: POC Glucose 138 H 10/28/21 10:59: POC Glucose 167 H 10/28/21 15:59: POC Glucose 134 H 10/28/21 20:20: POC Glucose 190 H 10/29/21 05:38: POC Glucose 166 H I & O for Last 24 hours: Intake & Output 10/26/21 10/27/21 10/28/21 10/29/21 23:59 23:59 23:59 23:59 Intake Total 3865 / 3865 360 / 420 1187 / 1267 440 / 440 Output Total 650 / 1050 1950 / 1950 1945 / 2370 425 / 425 Balance 3215 / 2815 -1590 / -1530 -758 / -1103 Weight 79.4 kg 79.469 kg 82.781 kg 82.611 kg Microbiology Reports for the Last 24 Hours: Microbiology 10/28/21 09:34 Nasopharyngeal Coronavirus COVID-19 PCR - Final Assessment and Plan (1) Non-ST elevation myocardial infarction (NSTEMI) Status: Acute Category: Medical Code(s): I21.4 - Non-ST elevation (NSTEMI) myocardial infarction (2) Pneumonia Status: Acute Category: Medical Code(s): J18.9 - Pneumonia, unspecified organism (3) Sepsis Status: Acute Qualifiers: Sepsis type: sepsis due to unspecified organism Sepsis acute organ dysfunction status: with acute organ dysfunction Severe sepsis acute organ dysfunction type: acute renal failure Acute renal failure type: unspecified Severe sepsis shock status: with septic shock Qualified Code(s): A41.9 - Sepsis, unspecified organism; R65.21 - Severe sepsis with septic shock; N17.9 - Acute kidney failure, unspecified Category: Medical Code(s): A41.9 - Sepsis, unspecified organism (4) Right lower lobe lung mass Status: Acute Category: Medical Code(s): R91.8 - Other nonspecific abnormal finding of lung field (5) Biventricular automatic implantable cardioverter defibrillator in situ Status: Acute Category: Medical Code(s): Z95.810 - Presence of automatic (implantable) cardiac defibrillator (6) COPD exacerbation Problem details: R/o pneumonia Status: Acute Category: Medical Code(s): J44.1 - Chronic obstructive pulmonary disease with (acute) exacerbation (7) Carotid artery stenosis Status: Acute Category: Medical Code(s): I65.29 - Occlusion and stenosis of unspecified carotid artery (8) Coronary artery disease Status: Chronic Category: Medical Code(s): I25.10 - Atherosclerotic heart disease of [place] coronary artery without angina pectoris (9) GERD (gastroesophageal reflux disease) Status: Chronic Category: Medical Code(s): K21.9 - Gastro-esophageal reflux disease without esophagitis (10) History of CVA (cerebrovascular accident) Status: Chronic Category: Medical Code(s): Z86.73 - Personal history of transient ischemic attack (TIA), and cerebral infarction without residual deficits (11) Hyperlipidemia Status: Chronic Category: Medical Code(s): E78.5 - Hyperlipidemia, unspecified (12) Hypertension Status: Chronic Category: Medical Code(s): I10 - Essential (primary) hypertension (13) Ischemic cardiomyopathy Status: Chronic Category: Medical Code(s): I25.5 - Ischemic cardiomyopathy (14) Tobacco abuse Status: Chronic Category: Medical Code(s): Z72.0 - Tobacco use (15) Type 2 diabetes mellitus Status: Chronic Category: Medical Code(s): E11.9 - Type 2 diabetes mellitus without complications The patient's infection will respond to the chosen ABx?: Yes Is the patient receiving the right drug, dose, and route?: Yes Could a more targeted ABx be ordered?: No (BLD CX -(X2), AFEBRILE, WBC WNL)
[2021-10-29 22:51] LABS: POC Glucose,Bedside 109 (70-110)
[2021-10-29 22:51] LABS: POC Glucose,Bedside 159 (70-110)
[2021-10-30] VITALS (10 sets, daily range): BP systolic 99–125; BP diastolic 48–67; PULSE 56–98; RESP 18–24; TEMP 36.4–36.9; O2SAT 92–98; BMI 25.2
[2021-10-30 06:13] LABS: Basophils % 0.2 % (0.1-2.0); Eosinophils # 0.1 K/mm3 (0.0-0.4); Hemoglobin 9.8 g/dL (14.1-18.0); Lymphocytes # 0.8 K/mm3 (0.7-4.5); Lymphocytes % 9.3 % (10-50); Mean Corpuscular HGB Conc 31.8 g/dL (31.8-35.4); Mean Corpuscular Hemoglobin 32.4 pg (27.0-31.2); Mean Platelet Volume 9.5 fl (7.4-10.4); Monocytes # 0.7 K/mm3 (0.1-1.0); Monocytes % 7.3 % (1.7-9.3); Neutrophils # 7.3 K/mm3 (1.8-7.8); Neutrophils % 82.2 % (37.0-80.0); Platelet Count 249 K/mm3 (142-424); Red Blood Count 3.04 M/mm3 (4.60-6.20); Red Cell Distribution Width 14.1 % (11.5-17.5); White Blood Count 8.9 K/mm3 (4.8-10.8)
[2021-10-30 06:17] LABS: Potassium 3.6 mmoL/L (3.5-5.1); Sodium 131 mmol/L (136-145)
[2021-10-30 06:18] LABS: Chloride 99 mmol/L (98-107)
[2021-10-30 06:20] LABS: Calcium 7.8 mg/dl (8.4-10.2); Glucose 119 mg/dl (74-100)
[2021-10-30 06:21] LABS: Anion Gap 8.6 mEq/L (5-15); Blood Urea Nitrogen 19 mg/dl (9-20); Carbon Dioxide 27 mmol/L (22.0-30.0); Creatinine Clearance Estimated 68 mL/min (50-200); Estimated Glomerular Filt Rate 60 ml/min (>60); GFR (African American) 73 ML/MIN (>60)
[2021-10-30 07:00] LABS: POC Glucose,Bedside 136 (70-110)
--- NOTE | 2021-10-30 08:01 | XR_ITS ---
FINAL REPORT CLINICAL HISTORY: f/u pneumonia COMPARISON: October 26, 2021 FINDINGS: There is a left subclavian ICD. Cardiomegaly is noted. Postoperative changes are seen from median sternotomy. There is mild pulmonary vascular congestion. There is persistent right base opacity consistent with atelectasis. A small right pleural effusion is worse. There is no pneumothorax. The bony thorax is intact. IMPRESSION: Mild pulmonary vascular congestion with persistent right basilar atelectasis. Worsening small right pleural effusion. Reviewed, Interpreted and Dictated by Doc Porter III, MD Transcribed by Joe Heck Authenticated by Doc Porter III, MD on 10/30/2021 10:40:43 AM [facility]
--- NOTE | 2021-10-30 10:19 | HMH.PTEV ---
Physical Therapy Evaluation Rehab PT IP Evaluation Start: 10/30/21 08:03 Freq: ONCE Status: Active Protocol: Document 10/30/21 10:16 LANDRY (Rec: 10/30/21 10:19 LANDRY [id number]) Subjective/History History History 66 yowm adm to [facility] with NSTEMI , PNA, and sepsis. He reports he lives with , no steps to enter the home and is independent with all mobility prior to adm. Subjective Subjective Pt reports feeling tired, but otherwise no c/o. Wants to go home. Rehab PT IP Eval Objective Appearance Patient Behavior Appropriate Patient Orientation Person,Place,Time Difficulty following instructions none Speech Pattern Clear Ambulation Patient Able to Ambulate Yes Ambulation Observation IP General Gait Pattern Observation No Deviations/Normal Ambulation Distance (feet) 20 Ambulation Assistive Device None Ambulation Ability Supervision/Stand by Balance Ability to Arise Able, uses arms to help Sitting Balance Steady, safe Standing Balance Steady, wide stance Dynamic Sitting Balance Ability Good Dynamic Standing Balance Ability Good Transfers Bed Transfer Ability Supervision/Stand by Chair Transfer Ability Supervision/Stand by Sit to Stand Bed Transfer Ability Supervision/Stand by Sit to Stand Chair Transfer Ability Supervision/Stand by Rehab PT IP prob,goals,plan Problems Date of Evaluation: 10/30/21 Discharge Plan PT Discharge Plan Pt appears to be at baseline for all mobility at this time and is appropriate to return home once medically stable. No current inpatient therapy needs. G -code Required No Eval Complexity Eval Charge Codes 27705 - Moderate Complexity PHYSICIAN CERTIFICATION: I certify the specified therapy services for Sridhar Lynn are required, authorized, and reviewed every 30 days.
--- NOTE | 2021-10-30 10:48 | HMH.PNCARD ---
Subjective Date: 10/30/21 Time: 10:48 Principal diagnosis: ELIJAH, NSTEMI Interval history: This is a 66-year-old white gentleman who underwent left cardiac catheterization for non-STEMI. He had stenting to his circumflex artery as well as the saphenous vein graft to his right coronary artery. He tolerated that procedure well and remains on Brilinta and aspirin for dual antiplatelet therapy. The patient has known ischemic cardiomyopathy and is status post AICD placement. He has a [employer] AICD which is followed by his primary hydrology professor in [facility]. The patient has been diuresed diuresed as well for his severely elevated LVEDP. Over the weekend the patient did have episodes of paroxysmal atrial fibrillation/flutter with RVR. He was started on an amiodarone drip which is subsequently been discontinued. This morning he states he is feeling much better than he did last week. He states his shortness of breath has significantly improved. He states he is not having any issues with shortness of breath but he does appear to be somewhat short of breath when he is exerting himself. He denies any chest pain or pressure. He denies any fever, chills, nausea, vomiting, diarrhea, PND or orthopnea. Exam Vital signs and Labs for Last 24 Hours: Temp Pulse Resp BP Pulse Ox 97.5 F L 56 L 20 121/60 98 10/30/21 08:00 10/30/21 08:00 10/30/21 08:00 10/30/21 08:00 10/30/21 08:00 Laboratory Results - last 24 hr 10/29/21 16:39: POC Glucose 159 H 10/29/21 19:59: POC Glucose 109 10/30/21 05:14: Sodium 131 L, Potassium 3.6, Chloride 99, Carbon Dioxide 27, Anion Gap 8.6, BUN 19, Creatinine 1.20, Estimated Creat Clear 68, Estimated GFR 60, Est GFR ( Amer) 73, Glucose 119 H, Calcium 7.8 L 10/30/21 05:14: WBC 8.9, RBC 3.04 L, Hgb 9.8 L, Hct 31.0 L, MCV 102.0 H, MCH 32.4 H, MCHC 31.8, RDW 14.1, Plt Count 249 D, MPV 9.5, Neut % (Auto) 82.2 H, Lymph % (Auto) 9.3 L, [place] % (Auto) 7.3, Eos % (Auto) 1.0, Baso % (Auto) 0.2, Neut # (Auto) 7.3, Lymph # (Auto) 0.8, [place] # (Auto) 0.7, Eos # (Auto) 0.1, Baso # (Auto) 0.0 10/30/21 06:03: POC Glucose 136 H I & O for Last 24 hours: Intake & Output 10/27/21 10/28/21 10/29/21 10/30/21 23:59 23:59 23:59 23:59 Intake Total 360 / 420 1187 / 1267 1040 / 1040 240 / 240 Output Total 1950 / 1950 1945 / 2370 4975 / 5575 950 / 950 Balance -1590 / -1530 -758 / -1103 -3935 / -4535 -710 / -710 Weight 175 lb 3.2 oz 182 lb 8 oz 182 lb 2 oz 180 lb 4.8 oz Microbiology Reports for the Last 24 Hours: Microbiology 10/29/21 Unknown Sputum - Expectorated Sputum Gram Stain - Final Narrative: Immature strip shows ventricular pacing - Constitutional no acute distress, average body habitus - *Routine HEENT Exam Head: Present: normocephalic, atraumatic Eye: Present: EOMI, PERRL ENT: Present: mucous membranes moist - *Routine Neck Exam Present: supple, full ROM, normal carotid upstroke. Absent: JVD, carotid bruit, lymphadenopathy - *Routine Respiratory Exam Present: decreased breath sounds, CTA bilaterally - *Routine Cardiovascular Exam Present: RRR, Normal S1, Normal S2. Absent: murmur - *Routine Abdominal Exam Present: soft, normoactive bowel sounds. Absent: tenderness, distended - *Routine Extremities Exam Present: full ROM, pulses intact, normal capillary refill. Absent: cyanosis, clubbing, edema - *Routine Skin Exam Present: intact, warm. Absent: erythema, rash - *Routine Neurological Exam Present: alert, oriented X3, CN II-XII intact. Absent: sensory deficit, motor deficit Progress Note: A&P (1) Non-ST elevation myocardial infarction (NSTEMI) Status: Acute (2) Pneumonia Status: Acute (3) Sepsis Status: Acute (4) Right lower lobe lung mass Status: Acute (5) Biventricular automatic implantable cardioverter defibrillator in situ Status: Acute (6) COPD exacerbation Problem details: R/o pneumonia Status: Acute (7) Carotid artery stenosis S
[2021-10-30 11:53] LABS: POC Glucose,Bedside 134 (70-110)
--- NOTE | 2021-10-30 15:58 | HMH.ACPN2 ---
<Andreia Gabriel - Last Filed: 10/30/21 15:50> Internal Medicine - PN: Subj *Date: 10/30/21 *Time: 15:50 Interval history: Patient states he is greatly improved since admission. He still is very tired. He looks forward to getting out of bed today. He denies chest pain. Breathing has improved. He is eating a little better. CBC this morning shows a normal white blood cell count. Chemistries with a sodium of 131 potassium of 3.6. Normal renal function. Exam Vital signs and Labs for Last 24 Hours: Temp Pulse Resp BP Pulse Ox 97.5 F L 56 L 20 121/60 98 10/30/21 08:00 10/30/21 08:00 10/30/21 08:00 10/30/21 08:00 10/30/21 08:00 Laboratory Results - last 24 hr 10/29/21 16:39: POC Glucose 159 H 10/29/21 19:59: POC Glucose 109 10/30/21 05:14: Sodium 131 L, Potassium 3.6, Chloride 99, Carbon Dioxide 27, Anion Gap 8.6, BUN 19, Creatinine 1.20, Estimated Creat Clear 68, Estimated GFR 60, Est GFR ( Amer) 73, Glucose 119 H, Calcium 7.8 L 10/30/21 05:14: WBC 8.9, RBC 3.04 L, Hgb 9.8 L, Hct 31.0 L, MCV 102.0 H, MCH 32.4 H, MCHC 31.8, RDW 14.1, Plt Count 249 D, MPV 9.5, Neut % (Auto) 82.2 H, Lymph % (Auto) 9.3 L, [place] % (Auto) 7.3, Eos % (Auto) 1.0, Baso % (Auto) 0.2, Neut # (Auto) 7.3, Lymph # (Auto) 0.8, [place] # (Auto) 0.7, Eos # (Auto) 0.1, Baso # (Auto) 0.0 10/30/21 06:03: POC Glucose 136 H I & O for Last 24 hours: Intake & Output 10/27/21 10/28/21 10/29/21 10/30/21 11:59 11:59 11:59 11:59 Intake Total 1917 / 1917 540 / 540 1447 / 1447 840 / 840 Output Total 400 / 400 2845 / 2845 2075 / 2075 4500 / 4500 Balance 1517 / 1517 -2305 / -2305 -628 / -628 -3660 / -3660 Weight 175 lb 3.2 oz 182 lb 8 oz 182 lb 2 oz 180 lb 4.8 oz Microbiology Reports for the Last 24 Hours: Microbiology 10/29/21 Unknown Sputum - Expectorated Sputum Gram Stain - Final - Constitutional no acute distress - *Routine Respiratory Exam Present: CTA bilaterally (A&P) - *Routine Cardiovascular Exam Present: RRR - *Routine Abdominal Exam Present: soft, normoactive bowel sounds. Absent: tenderness - *Routine Extremities Exam Present: edema - *Routine Neurological Exam Present: alert, oriented X3 Assessment and Plan (1) Non-ST elevation myocardial infarction (NSTEMI) Status: Acute Category: Medical Code(s): I21.4 - Non-ST elevation (NSTEMI) myocardial infarction (2) Pneumonia Status: Acute Category: Medical Code(s): J18.9 - Pneumonia, unspecified organism (3) Sepsis Status: Acute Qualifiers: Sepsis type: sepsis due to unspecified organism Sepsis acute organ dysfunction status: with acute organ dysfunction Severe sepsis acute organ dysfunction type: acute renal failure Acute renal failure type: unspecified Severe sepsis shock status: with septic shock Qualified Code(s): A41.9 - Sepsis, unspecified organism; R65.21 - Severe sepsis with septic shock; N17.9 - Acute kidney failure, unspecified Category: Medical Code(s): A41.9 - Sepsis, unspecified organism (4) Right lower lobe lung mass Status: Acute Category: Medical Code(s): R91.8 - Other nonspecific abnormal finding of lung field (5) Biventricular automatic implantable cardioverter defibrillator in situ Status: Acute Category: Medical Code(s): Z95.810 - Presence of automatic (implantable) cardiac defibrillator (6) COPD exacerbation Problem details: R/o pneumonia Status: Acute Category: Medical Code(s): J44.1 - Chronic obstructive pulmonary disease with (acute) exacerbation (7) Carotid artery stenosis Status: Acute Category: Medical Code(s): I65.29 - Occlusion and stenosis of unspecified carotid artery (8) Coronary artery disease Status: Chronic Category: Medical Code(s): I25.10 - Atherosclerotic heart disease of [place] coronary artery without angina pectoris (9) GERD (gastroesophageal reflux disease) Status: Chronic Category: Medical Code(s): K21.9 - Gastro-esophageal reflux disease
[2021-10-30 21:56] LABS: POC Glucose,Bedside 128 (70-110)
[2021-10-30 21:56] LABS: POC Glucose,Bedside 112 (70-110)
[2021-10-30 21:56] LABS: POC Glucose,Bedside 134 (70-110)
[2021-10-30 22:13] LABS: POC Glucose,Bedside 179 (70-110)
[2021-10-31] VITALS (13 sets, daily range): BP systolic 100–132; BP diastolic 46–76; PULSE 62–92; RESP 17–24; TEMP 36.4–37; O2SAT 91–95; BMI 24.5
[2021-10-31 06:06] LABS: POC Glucose,Bedside 159 (70-110)
[2021-10-31 06:39] LABS: MANUAL DIFFERENTIAL MANUAL DIFFERENTIAL (MANUAL DIFF)
[2021-10-31 06:47] LABS: Basophils % 0.3 % (0.1-2.0); Eosinophils # 0.1 K/mm3 (0.0-0.4); Eosinophils % 1.3 % (0.1-12.0); Hematocrit 31.9 % (42.0-52.0); Hemoglobin 10.2 g/dL (14.1-18.0); Lymphocytes # 0.8 K/mm3 (0.7-4.5); Lymphocytes % 9.2 % (10-50); Mean Corpuscular HGB Conc 31.9 g/dL (31.8-35.4); Mean Corpuscular Hemoglobin 32.2 pg (27.0-31.2); Mean Corpuscular Volume 100.9 fl (80-94); Mean Platelet Volume 9.6 fl (7.4-10.4); Monocytes # 0.5 K/mm3 (0.1-1.0); Monocytes % 5.6 % (1.7-9.3); Neutrophils # 7.6 K/mm3 (1.8-7.8); Neutrophils % 83.6 % (37.0-80.0); Platelet Count 286 K/mm3 (142-424); Red Blood Count 3.16 M/mm3 (4.60-6.20); Red Cell Distribution Width 14.5 % (11.5-17.5); White Blood Count 9.1 K/mm3 (4.8-10.8)
[2021-10-31 06:56] LABS: Alanine Aminotransferase 36 U/L (12-78); Albumin Level 3.1 g/dl (3.5-5.0); Alkaline Phosphatase 63 U/L (38-126); Aspartate Amino Transferase 51 U/L (17-59); Bilirubin,Direct 0.4 mg/dl (0.0-0.4); Bilirubin,Indirect 0.3 mg/dL (0.0-0.9); Bilirubin,Total 0.7 mg/dl (0.2-1.3); Bilirubin,Unconjugated 0.3 mg/dL (0.0-1.1); Chloride 97 mmol/L (98-107); Chol/HDL Ratio 4.7 (1-3.5); Cholesterol 117 mg/dl (140-200); HDL Cholesterol 25 mg/dl (40-60); Sodium 130 mmol/L (136-145); Total Protein,Serum 6.2 g/dl (6.3-8.2); Triglycerides 121 mg/dl (30-150); VLDL Cholesterol 24 mg/dL (0-40)
[2021-10-31 06:57] LABS: Potassium 3.5 mmoL/L (3.5-5.1)
[2021-10-31 06:59] LABS: Blood Urea Nitrogen 17 mg/dl (9-20); Creatinine Clearance Estimated 72 mL/min (50-200); Estimated Glomerular Filt Rate 67 ml/min (>60); GFR (African American) 81 ML/MIN (>60)
[2021-10-31 07:00] LABS: Anion Gap 6.5 mEq/L (5-15); Calcium 7.8 mg/dl (8.4-10.2); Carbon Dioxide 30 mmol/L (22.0-30.0); Glucose 140 mg/dl (74-100)
[2021-10-31 07:08] LABS: Direct LDL Cholesterol 70.34 mg/dL (100-129)
[2021-10-31 09:02] LABS: Eosinophils % 1 % (0-3); Lymphocytes % 11 % (10-50); Macrocytosis 1+; Monocytes % 9 % (2-9); Neutrophils % 78 % (42-76); Platelet Estimate Normal; Total Cells Counted 100
--- NOTE | 2021-10-31 09:22 | HMH.ACPN2 ---
<Andreia Gabriel - Last Filed: 10/31/21 09:22> Internal Medicine - PN: Subj *Date: 10/31/21 *Time: 09:22 Interval history: Patient feels he is better and would really like to go home. He states the bed makes his back hurt. He does not feel short of breath and denies chest pain. He has been out of bed and tolerated well. O2 off this morning and saturations are 91 to 93%. Renal function is stable this morning Chest x-ray from 10/30/2021: IMPRESSION: Mild pulmonary vascular congestion with persistent right basilar atelectasis. Worsening small right pleural effusion. Exam Vital signs and Labs for Last 24 Hours: Temp Pulse Resp BP Pulse Ox 98.0 F 90 21 112/55 L 93 L 10/31/21 07:51 10/31/21 07:51 10/31/21 07:51 10/31/21 07:51 10/31/21 09:01 Laboratory Results - last 24 hr 10/27/21 12:50: POC Glucose 112 H 10/27/21 21:30: POC Glucose 134 H 10/29/21 11:03: POC Glucose 128 H 10/30/21 11:46: POC Glucose 134 H 10/30/21 20:51: POC Glucose 179 H 10/31/21 05:48: POC Glucose 159 H 10/31/21 06:25: WBC 9.1, RBC 3.16 L, Hgb 10.2 L, Hct 31.9 L, MCV 100.9 H, MCH 32.2 H, MCHC 31.9, RDW 14.5, Plt Count 286, MPV 9.6, Neut % (Auto) 83.6 H, Lymph % (Auto) 9.2 L, [place] % (Auto) 5.6, Eos % (Auto) 1.3, Baso % (Auto) 0.3, Neut # (Auto) 7.6, Lymph # (Auto) 0.8, [place] # (Auto) 0.5, Eos # (Auto) 0.1, Baso # (Auto) 0.0, Total Counted 100, Neutrophils % (Manual) 78 H, Lymphocytes % (Manual) 11, Monocytes % (Manual) 9, Eosinophils % (Manual) 1, Blast Cells % 1.0, Platelet Estimate Normal, Macrocytosis 1+ 10/31/21 06:25: Sodium 130 L, Potassium 3.5, Chloride 97 L, Carbon Dioxide 30, Anion Gap 6.5, BUN 17, Creatinine 1.10, Estimated Creat Clear 72, Estimated GFR 67, Est GFR ( Amer) 81, Glucose 140 H, Calcium 7.8 L 10/31/21 06:25: Total Bilirubin 0.7, Direct Bilirubin 0.4, Conjugated Bilirubin 0.0, Indirect Bilirubin 0.3, Unconjugated Bilirubin 0.3, AST 51, ALT 36, Alkaline Phosphatase 63, Total Protein 6.2 L, Albumin 3.1 L, Triglycerides 121, Cholesterol 117 L, LDL Cholesterol Direct 70.34 L, VLDL Cholesterol 24, HDL Cholesterol 25 L, Cholesterol/HDL Ratio 4.7 H I & O for Last 24 hours: Intake & Output 10/28/21 10/29/21 10/30/21 10/31/21 11:59 11:59 11:59 11:59 Intake Total 540 / 540 1447 / 1447 840 / 840 480 / 480 Output Total 2845 / 2845 2075 / 2075 4500 / 4500 1025 / 1025 Balance -2305 / -2305 -628 / -628 -3660 / -3660 -545 / -545 Weight 182 lb 8 oz 182 lb 2 oz 180 lb 4.8 oz 175 lb 9.6 oz Microbiology Reports for the Last 24 Hours: Microbiology 10/25/21 11:48 Blood Blood Culture - Final NO GROWTH AFTER 5 DAYS 10/25/21 11:48 Blood Blood Culture - Final NO GROWTH AFTER 5 DAYS - Constitutional no acute distress - *Routine Respiratory Exam Present: crackles (On the right to mid lung field) - *Routine Cardiovascular Exam Present: RRR - *Routine Abdominal Exam Present: soft, normoactive bowel sounds. Absent: tenderness - *Routine Extremities Exam Present: edema (Trace bilateral). Absent: calf tenderness - *Routine Neurological Exam Present: alert, oriented X3 Assessment and Plan (1) Non-ST elevation myocardial infarction (NSTEMI) Status: Acute Category: Medical Code(s): I21.4 - Non-ST elevation (NSTEMI) myocardial infarction (2) Pneumonia Status: Acute Category: Medical Code(s): J18.9 - Pneumonia, unspecified organism (3) Sepsis Status: Acute Qualifiers: Sepsis type: sepsis due to unspecified organism Sepsis acute organ dysfunction status: with acute organ dysfunction Severe sepsis acute organ dysfunction type: acute renal failure Acute renal failure type: unspecified Severe sepsis shock status: with septic shock Qualified Code(s): A41.9 - Sepsis, unspecified organism; R65.21 - Severe sepsis with septic shock; N17.9 - Acute kidney failure, unspecified Category: Medical Code(s): A41.9 - Sepsis, unspecified
--- NOTE | 2021-10-31 09:31 | HMH.PNCARD ---
Subjective Date: 10/31/21 Time: 09:15 Principal diagnosis: ELIJAH, NSTEMI Interval history: This is a 66-year-old white gentleman who underwent left cardiac catheterization for non-ST elevation myocardial infarction. He had stenting to the circumflex artery and a saphenous vein graft to his right coronary artery. The patient has remained on Brilinta and aspirin for dual antiplatelet therapy since that time and tolerated it well. Patient has nonischemic cardiomyopathy. He is status post AICD placement. He is now on Entresto for his CHF and tolerating this well. This morning he denies any chest pain or pressure. He states his shortness of breath has significantly improved and he is feeling much better. He denies any lower extremity edema. He denies any fever, chills, nausea, vomiting, diarrhea, PND orthopnea. Exam Vital signs and Labs for Last 24 Hours: Temp Pulse Resp BP Pulse Ox 98.0 F 90 21 112/55 L 93 L 10/31/21 07:51 10/31/21 07:51 10/31/21 07:51 10/31/21 07:51 10/31/21 09:01 Laboratory Results - last 24 hr 10/27/21 12:50: POC Glucose 112 H 10/27/21 21:30: POC Glucose 134 H 10/29/21 11:03: POC Glucose 128 H 10/30/21 11:46: POC Glucose 134 H 10/30/21 20:51: POC Glucose 179 H 10/31/21 05:48: POC Glucose 159 H 10/31/21 06:25: WBC 9.1, RBC 3.16 L, Hgb 10.2 L, Hct 31.9 L, MCV 100.9 H, MCH 32.2 H, MCHC 31.9, RDW 14.5, Plt Count 286, MPV 9.6, Neut % (Auto) 83.6 H, Lymph % (Auto) 9.2 L, [place] % (Auto) 5.6, Eos % (Auto) 1.3, Baso % (Auto) 0.3, Neut # (Auto) 7.6, Lymph # (Auto) 0.8, [place] # (Auto) 0.5, Eos # (Auto) 0.1, Baso # (Auto) 0.0, Total Counted 100, Neutrophils % (Manual) 78 H, Lymphocytes % (Manual) 11, Monocytes % (Manual) 9, Eosinophils % (Manual) 1, Blast Cells % 1.0, Platelet Estimate Normal, Macrocytosis 1+ 10/31/21 06:25: Sodium 130 L, Potassium 3.5, Chloride 97 L, Carbon Dioxide 30, Anion Gap 6.5, BUN 17, Creatinine 1.10, Estimated Creat Clear 72, Estimated GFR 67, Est GFR ( Amer) 81, Glucose 140 H, Calcium 7.8 L 10/31/21 06:25: Total Bilirubin 0.7, Direct Bilirubin 0.4, Conjugated Bilirubin 0.0, Indirect Bilirubin 0.3, Unconjugated Bilirubin 0.3, AST 51, ALT 36, Alkaline Phosphatase 63, Total Protein 6.2 L, Albumin 3.1 L, Triglycerides 121, Cholesterol 117 L, LDL Cholesterol Direct 70.34 L, VLDL Cholesterol 24, HDL Cholesterol 25 L, Cholesterol/HDL Ratio 4.7 H I & O for Last 24 hours: Intake & Output 10/28/21 10/29/21 10/30/21 10/31/21 23:59 23:59 23:59 23:59 Intake Total 1187 / 1267 1040 / 1040 480 / 480 240 / 240 Output Total 1945 / 2370 4975 / 5575 1550 / 1700 425 / 425 Balance -758 / -1103 -3935 / -4535 -1070 / -1220 -185 / -185 Weight 182 lb 8 oz 182 lb 2 oz 180 lb 4.8 oz 175 lb 9.6 oz Microbiology Reports for the Last 24 Hours: Microbiology 10/25/21 11:48 Blood Blood Culture - Final NO GROWTH AFTER 5 DAYS 10/25/21 11:48 Blood Blood Culture - Final NO GROWTH AFTER 5 DAYS Narrative: Telemetry strip shows ventricular pacing with a rate of 79. - Constitutional no acute distress, average body habitus - *Routine HEENT Exam Head: Present: normocephalic, atraumatic Eye: Present: EOMI, PERRL ENT: Present: mucous membranes moist - *Routine Neck Exam Present: supple, full ROM, normal carotid upstroke. Absent: JVD, carotid bruit, lymphadenopathy - *Routine Respiratory Exam Present: decreased breath sounds, rales - *Routine Cardiovascular Exam Present: RRR, Normal S1, Normal S2. Absent: murmur - *Routine Abdominal Exam Present: soft, normoactive bowel sounds. Absent: tenderness, distended - *Routine Extremities Exam Present: full ROM, pulses intact, normal capillary refill. Absent: cyanosis, clubbing, edema - *Routine Skin Exam Present: intact, warm. Absent: erythema, rash - *Routine Neurological Exam Present: alert, oriented X3, CN II-XII intact. Absent: sensory deficit, motor deficit Progress Note: A&P (1)
--- NOTE | 2021-10-31 15:12 | PC.NURSE ---
No acute changes noted this shift, patient has been up to chair this shift and has been weaned to RA, denies any cp or soa this shift, vss, will continue to monitor.
[2021-10-31 21:56] LABS: POC Glucose,Bedside 151 (70-110)
[2021-11-01] VITALS: BP 130/43; PULSE 70; PULSE 82; RESP 18; TEMP 37; O2SAT 90
[2021-11-01 04:00] VITALS: BP 112/55; PULSE 80; PULSE 83; RESP 22; TEMP 36.7; O2SAT 92
[2021-11-01 05:00] VITALS: BMI 24.3
[2021-11-01 06:04] VITALS: PULSE 82; PULSE 84; O2SAT 98
[2021-11-01 06:07] LABS: MANUAL DIFFERENTIAL MANUAL DIFFERENTIAL (MANUAL DIFF)
[2021-11-01 06:12] LABS: Basophils % 0.3 % (0.1-2.0); Eosinophils # 0.1 K/mm3 (0.0-0.4); Eosinophils % 1.3 % (0.1-12.0); Hematocrit 29.3 % (42.0-52.0); Hemoglobin 9.6 g/dL (14.1-18.0); Lymphocytes % 10.1 % (10-50); Mean Corpuscular HGB Conc 32.9 g/dL (31.8-35.4); Mean Corpuscular Hemoglobin 32.2 pg (27.0-31.2); Mean Corpuscular Volume 98.1 fl (80-94); Mean Platelet Volume 9.5 fl (7.4-10.4); Monocytes # 0.6 K/mm3 (0.1-1.0); Monocytes % 5.8 % (1.7-9.3); Neutrophils # 8.1 K/mm3 (1.8-7.8); Neutrophils % 82.5 % (37.0-80.0); Platelet Count 244 K/mm3 (142-424); Red Blood Count 2.99 M/mm3 (4.60-6.20); Red Cell Distribution Width 14.3 % (11.5-17.5); White Blood Count 9.8 K/mm3 (4.8-10.8)
[2021-11-01 06:17] LABS: Chloride 97 mmol/L (98-107); Potassium 3.2 mmoL/L (3.5-5.1); Sodium 131 mmol/L (136-145)
[2021-11-01 06:20] LABS: Anion Gap 6.2 mEq/L (5-15); Blood Urea Nitrogen 16 mg/dl (9-20); Calcium 7.7 mg/dl (8.4-10.2); Carbon Dioxide 31 mmol/L (22.0-30.0); Creatinine Clearance Estimated 72 mL/min (50-200); Estimated Glomerular Filt Rate 67 ml/min (>60); GFR (African American) 81 ML/MIN (>60); Glucose 121 mg/dl (74-100)
[2021-11-01 07:37] VITALS: BP 120/56; PULSE 84; RESP 18; TEMP 36.4; O2SAT 91
[2021-11-01 08:00] VITALS: PULSE 80; O2SAT 91
--- NOTE | 2021-11-01 08:27 | HMH.ACPN2 ---
<Andreia Gabriel - Last Filed: 11/01/21 08:27> Internal Medicine - PN: Subj *Date: 11/01/21 *Time: 08:27 Interval history: He does not sleep well in the hospital. He was up in the room yesterday and sit up in the chair as well. He tolerated this well. He feels his breathing is okay. He has been off oxygen since yesterday. He denies chest pain. He is eating well. He continues to be tired. Cardiology to follow.. Renal function is stable today with a BUN of 16 and creatinine 1.1. Potassium is low at 3.2. CBC shows a white blood cell count of 9800 with a hemoglobin of 9.6 hematocrit 29.3. Exam Vital signs and Labs for Last 24 Hours: Temp Pulse Resp BP Pulse Ox 97.6 F 84 18 120/56 L 91 L 11/01/21 07:37 11/01/21 07:37 11/01/21 07:37 11/01/21 07:37 11/01/21 07:37 Laboratory Results - last 24 hr 10/31/21 06:25: Total Counted 100, Neutrophils % (Manual) 78 H, Lymphocytes % (Manual) 11, Monocytes % (Manual) 9, Eosinophils % (Manual) 1, Blast Cells % 1.0, Platelet Estimate Normal, Macrocytosis 1+ 10/31/21 21:13: POC Glucose 151 H 11/01/21 05:35: WBC 9.8, RBC 2.99 L, Hgb 9.6 L, Hct 29.3 L, MCV 98.1 H, MCH 32.2 H, MCHC 32.9, RDW 14.3, Plt Count 244, MPV 9.5, Neut % (Auto) 82.5 H, Lymph % (Auto) 10.1, [place] % (Auto) 5.8, Eos % (Auto) 1.3, Baso % (Auto) 0.3, Neut # (Auto) 8.1 H, Lymph # (Auto) 1.0, [place] # (Auto) 0.6, Eos # (Auto) 0.1, Baso # (Auto) 0.0 11/01/21 05:35: Sodium 131 L, Potassium 3.2 L, Chloride 97 L, Carbon Dioxide 31 H, Anion Gap 6.2, BUN 16, Creatinine 1.10, Estimated Creat Clear 72, Estimated GFR 67, Est GFR ( Amer) 81, Glucose 121 H, Calcium 7.7 L I & O for Last 24 hours: Intake & Output 10/29/21 10/30/21 10/31/21 11/01/21 11:59 11:59 11:59 11:59 Intake Total 1447 / 1447 840 / 840 480 / 480 480 / 480 Output Total 2075 / 2075 4500 / 4500 1025 / 1025 1550 / 1550 Balance -628 / -628 -3660 / -3660 -545 / -545 -1070 / -1070 Weight 182 lb 2 oz 180 lb 4.8 oz 175 lb 9.6 oz 173 lb 11.2 oz Microbiology Reports for the Last 24 Hours: Microbiology 10/29/21 Unknown Sputum - Expectorated Sputum Gram Stain - Final 10/29/21 Unknown Sputum - Expectorated Sputum Sputum Culture - Preliminary - Constitutional no acute distress Comments: Sitting on bedside and has eaten all his breakfast - *Routine Respiratory Exam Present: crackles (Right mid and lower lung [place] posteriorly). Absent: respiratory distress - *Routine Cardiovascular Exam Present: RRR - *Routine Abdominal Exam Present: soft, normoactive bowel sounds. Absent: tenderness - *Routine Extremities Exam Absent: edema, calf tenderness - *Routine Neurological Exam Present: alert, oriented X3 Assessment and Plan (1) Non-ST elevation myocardial infarction (NSTEMI) Status: Acute Category: Medical Code(s): I21.4 - Non-ST elevation (NSTEMI) myocardial infarction (2) Pneumonia Status: Acute Category: Medical Code(s): J18.9 - Pneumonia, unspecified organism (3) Sepsis Status: Acute Qualifiers: Sepsis type: sepsis due to unspecified organism Sepsis acute organ dysfunction status: with acute organ dysfunction Severe sepsis acute organ dysfunction type: acute renal failure Acute renal failure type: unspecified Severe sepsis shock status: with septic shock Qualified Code(s): A41.9 - Sepsis, unspecified organism; R65.21 - Severe sepsis with septic shock; N17.9 - Acute kidney failure, unspecified Category: Medical Code(s): A41.9 - Sepsis, unspecified organism (4) Right lower lobe lung mass Status: Acute Category: Medical Code(s): R91.8 - Other nonspecific abnormal finding of lung field (5) Biventricular automatic implantable cardioverter defibrillator in situ Status: Acute Category: Medical Code(s): Z95.810 - Presence of automatic (implantable) cardiac defibrillator (6) COPD exacerbation Problem details: R/o pneumonia Status: Acute Category: Medical Code(s): J44.1 - Global Safety Officer
[2021-11-01 09:01] LABS: Eosinophils % 1 % (0-3); Lymphocytes % 9 % (10-50); Monocytes % 7 % (2-9); Neutrophils % 83 % (42-76); Total Cells Counted 100
[2021-11-01 09:05] LABS: Platelet Estimate Normal; RBC Morphology Normal
--- NOTE | 2021-11-01 09:24 | HMH.PHACLD ---
Sridhar Lynn has received discharge medication counseling on the following medications: ENTRESTO BRILINTA CRESTOR ASPIRIN PATIENT CANNOT TOLERATE A BETA TAMI AT THIS TIME DUE TO SHORTNESS OF BREATH. HOLDING NOW PER CARDIOLOGY. ALL NEW PRESCRIPTIONS WERE SENT TO [facility]. PATIENT AND PATIENT'S VERBALIZED UNDERSTANDING AND HAD NO QUESTIONS AT THIS TIME. -LESLIE BARRETO, ANYID
[2021-11-01 16:49] LABS: POC Glucose,Bedside 137 (70-110)
--- NOTE | 2021-11-03 13:27 | HMH.DCSUM ---
General - General Admission date:: 10/25/21 <Damien Murillo - 12/06/21 22:05> 10/25/21 <Nisreen Delong - 11/03/21 13:43> Discharge date: 11/01/21 <SindiNisreen - 11/03/21 13:43> HPI HPI: Mr. Lynn is a 66-year-old male with a history of COPD, type 2 diabetes, hyperlipidemia, hypertension, ASCVD, cardiomyopathy, and tobacco use who began feeling poorly a few days ago. He states his has had a cold for the past week. He began getting nauseated and started vomiting off and on a few days ago but denies any respiratory symptoms. He has had decreased appetite and severe weakness to the point that he could not get out of bed today. His had to call an ambulance and he was transported to the emergency room for further evaluation and treatment. His white blood cell count was elevated at 26.6, his sodium was low at 128, and his BUN and creatinine were elevated at 34 and 3. His lactic acid was elevated as was his troponin at 3.94. His Covid test was negative. He had a chest x-ray showing a new opacity in the right lower thorax of uncertain etiology and radiology recommended a follow-up CT. Cardiology was consulted due to patient's elevated troponin and hypotension. He denied any chest pain but did relate GERD-like symptoms. His last cath was several years ago. Cardiology felt he would need a heart cath once his renal function improved and his blood pressure stabilized. His preliminary echo showed an EF of 30 to 35%. He was started on pressors and antibiotics and a sepsis protocol was initiated. <Nisreen Delong - 11/03/21 13:43> Hospital Course Hospital Course: The patient was started on steroids and antibiotics and a sepsis protocol was initiated. His chest x-ray showed a new opacity in the right lower thorax of uncertain etiology. Cardiology did see the patient and wanted to do a heart cath once his renal function and blood pressure stabilized. His echo showed an EF of 30% with grade 1 diastolic dysfunction. The patient continued with chest pain and GERD type symptoms. His white blood cell count and electrolytes improved, but his troponin continued to elevate. His renal function improved as well. He was given some nitroglycerin with improvement in his chest discomfort, however it did not last. He was able to be weaned off the Levophed drip with a stable blood pressure. He was started on Protonix and a GI cocktail by cardiology and he was also started back on his isosorbide and Ranexa. He had a chest x-ray on 10/26/2021 which showed a worsening right basilar pneumonia. He was taken for heart cath and had a stent placed in the circumflex artery as as well as a vein graft to the right coronary artery. He had severe left ventricular dilatation and a severely reduced ejection fraction. He had severe to critical elevated LVEDP as well as critical right renal artery stenosis which was successfully stented. Cardiology started him on dual antiplatelet therapy. He rested fairly well after his heart cath but then began having some shortness of breath and chest pain as long as well as a change in his rhythm. He stated he thought he was going to . Dr. Mckeon was consulted he was given metoprolol, Lasix, and started on an amiodarone drip. He did not have much urine output, so a Pollack was inserted. He diuresed about 2000 mL and his breathing improved. His oxygen saturations improved to 100% on 4 L. After this, his shortness of breath improved but he continued to complain of some tightness in his chest and weakness. His amiodarone drip was discontinued and he was given more Lasix. He had a repeat chest x-ray on 10/30/2021 which showed mild pulmonary vascular congestion with persistent right basilar atelectasis and worsening small right pleural effusion. He was able to get up out of bed and into a chair. His blood culture showed no growth. PT was ordered to evaluate strength and endurance. They felt he was at baseline for
== END 2021-11-01 10:11 | disposition home or self-care (01) | DRG 246 ==
LOC: ER 12:11 → 2ND 14:09
PROVIDERS: Internal Medicine; Nurse Practitioner Family; Physician Assistant; Admitting Provider Family Medicine; Emergency Provider Emergency Medicine; PCP Family Medicine; Visit Provider Family Medicine
PROC: 027135Z Dilation of Coronary Artery, Two Arteries with Two Drug-eluting Intraluminal Devices, Percutaneous Approach (ICD-10-PCS; principal; 2021-10-27 12:45)
DX: I21.4 Non-ST elevation (NSTEMI) myocardial infarction (principal); A41.9 Sepsis, unspecified organism; R65.21 Severe sepsis with septic shock; N17.9 Acute kidney failure, unspecified; I50.22 Chronic systolic (congestive) heart failure; I25.810 Atherosclerosis of coronary artery bypass graft(s) without angina pectoris; I13.0 Hypertensive heart and chronic kidney disease with heart failure and stage 1 through stage 4 chronic kidney disease, or unspecified chronic kidney disease; J98.11 Atelectasis; I25.5 Ischemic cardiomyopathy; I25.10 Atherosclerotic heart disease of native coronary artery without angina pectoris; I65.29 Occlusion and stenosis of unspecified carotid artery; E11.51 Type 2 diabetes mellitus with diabetic peripheral angiopathy without gangrene; I25.2 Old myocardial infarction; E78.5 Hyperlipidemia, unspecified; M19.90 Unspecified osteoarthritis, unspecified site; Z95.810 Presence of automatic (implantable) cardiac defibrillator; Z95.1 Presence of aortocoronary bypass graft; Z95.5 Presence of coronary angioplasty implant and graft; F17.210 Nicotine dependence, cigarettes, uncomplicated; K21.9 Gastro-esophageal reflux disease without esophagitis; Z85.818 Personal history of malignant neoplasm of other sites of lip, oral cavity, and pharynx; I70.1 Atherosclerosis of renal artery; N18.9 Chronic kidney disease, unspecified; Z20.822 Contact with and (suspected) exposure to COVID-19
CPT/HCPCS: 36252; 36415; 37236; 71045; 71046; 80048; 80053; 80061; 80076; 81001; 82803; 82962; 83605; 84145; 84484; 85007; 85014; 85018; 85025; 85048; 85049; 85347; 87040; 87070; 87205; 92928; 92937; 93005; 93306; 93459; 94640; 94761; 96365; 97162; 99152; 99153; 99284; C1725; C1769; C1874; C1876; C1894; C9600; C9604; C9803; J0282; J0456; J0696; J1644; J2405; J2720; Q9967; U0003; U0005

== ENCOUNTER 2021-11-04 11:53 | Emergency (ER) | payer MEDICARE, SELFPAY ==
[2021-11-04] VITALS (9 sets, daily range): BP systolic 112–136; BP diastolic 57–77; PULSE 66–82; RESP 14–18; TEMP 36.8; O2SAT 94–97; BMI 23.0
--- NOTE | 2021-11-04 12:05 | ECG_ITS ---
APPROVED REPORT Exam: Resting ECG HR:77 bpm ECG Measurements Heart Rate 77 AXES DE 168 P 57 QRSd 134 QRS 78 QT 411 T 90 QTc 443 Conclusion ELECTRONIC VENTRICULAR PACEMAKER ABNORMAL RHYTHM ECG UNCONFIRMED REPORT Electronically signed by : Akin Jaeger MD 11/05/2021 08:38:39
--- NOTE | 2021-11-04 12:20 | XR_ITS ---
PROCEDURE INFORMATION: Exam: XR Chest Exam date and time: 11/04/2021 12:20 PM Age: 66 years old Clinical indication: Other: Palpatations; Prior surgery; Surgery date: 6+ months; Surgery type: Pacemaker/stents; Patient HX: Palpitations TECHNIQUE: Imaging protocol: XR of the chest. Views: 2 views. COMPARISON: CR XR CHEST 2V 10/30/2021 8:31 AM FINDINGS: Tubes, catheters and devices: Stable positioning of AICD. Lungs: Hyperinflation, interstitial prominence, and asymmetric right basilar airspace disease. Pleural spaces: Right pleural effusion partially obscuring the right hemidiaphragm. Heart/Mediastinum: No cardiomegaly. Vasculature: Ectasia of the thoracic aorta. Bones/joints: Median sternotomy. Degenerative change. IMPRESSION: 1. Hyperinflation, interstitial prominence, and asymmetric right basilar airspace disease. 2. Right pleural effusion partially obscuring the right hemidiaphragm.
--- NOTE | 2021-11-04 12:27 | HMH.EDGENADL ---
ED Disposition Clinical Impression: Troponin level elevated, Palpitations Disposition: Home, Self-Care Condition on Discharge: Good Referrals: Damien Murillo MD [Primary Care Provider] - - Critical Care Critical Care Time: No Attestation: On 11/04/21, the high probability of a clinically significant, sudden or life threatening deterioration of the following system(s) required my full and direct attention, intervention and personal management. The time I documented below is in addition to time spent performing reported procedures but includes the following listed in this critical care notation. Medical Decision Making - [place] Inquiry Pt receiving controlled substance: No Vital Signs: 11/04/21 11:54 11/04/21 12:15 11/04/21 12:45 Temperature 98.2 F Temperature Source Oral Pulse Rate 76 82 Pulse Rate [Left Radial] 68 Respiratory Rate 15 14 18 Blood Pressure 129/62 117/67 Blood Pressure [Right Arm] 131/67 Blood Pressure Mean Blood Pressure Mean [Right Arm] 88 02 Sat by Pulse Oximetry 94 L 97 96 Oxygen Delivery Method Room Air 11/04/21 13:30 11/04/21 14:00 11/04/21 14:30 Temperature Temperature Source Pulse Rate 74 73 76 Pulse Rate [Left Radial] Respiratory Rate 15 18 18 Blood Pressure 112/57 L 115/60 124/59 L Blood Pressure [Right Arm] Blood Pressure Mean 81 83 84 Blood Pressure Mean [Right Arm] 02 Sat by Pulse Oximetry 95 97 97 Oxygen Delivery Method 11/04/21 15:00 11/04/21 15:30 Temperature Temperature Source Pulse Rate 66 71 Pulse Rate [Left Radial] Respiratory Rate 18 18 Blood Pressure 118/63 136/73 Blood Pressure [Right Arm] Blood Pressure Mean 89 92 Blood Pressure Mean [Right Arm] 02 Sat by Pulse Oximetry 95 96 Oxygen Delivery Method - Lab Data Lab Results 11/04/21 12:50: WBC 10.9 H, RBC 3.04 L, Hgb 9.7 L, Hct 30.6 L, MCV 100.7 H, MCH 32.0 H, MCHC 31.8, RDW 14.2, Plt Count 252, MPV 10.8 H, Neut % (Auto) 85.8 H, Lymph % (Auto) 9.8 L, [place] % (Auto) 3.2, Eos % (Auto) 0.9, Baso % (Auto) 0.2, Neut # (Auto) 9.4 H, Lymph # (Auto) 1.1, [place] # (Auto) 0.4, Eos # (Auto) 0.1, Baso # (Auto) 0.0, Total Counted 100, Neutrophils % (Manual) 85 H, Lymphocytes % (Manual) 9 L, Monocytes % (Manual) 6, Platelet Estimate Normal, RBC Morphology Normal 11/04/21 12:50: Sodium 131 L, Potassium 4.0, Chloride 99, Carbon Dioxide 27, Anion Gap 9.0, BUN 17, Creatinine 1.20, Estimated Creat Clear 62, Estimated GFR 60, Est GFR ( Amer) 73, Glucose 100, Calcium 8.3 L, Troponin I 0.95 H, TSH 2.56 11/04/21 12:50: Calcium 8.3 L, Phosphorus 3.3, Magnesium 1.5 L 11/04/21 12:50: Free T4 1.36 11/04/21 12:50: NT-Pro-B Natriuret Pep 65659 H 11/04/21 15:00: Troponin I 1.05 H Result diagrams: 11/04/21 12:50 11/04/21 12:50 Orders (Tests/Meds): ED MEDICATIONS Discontinued Medications Generic Name Dose Route Start Last Admin Trade Name Freq PRN Reason Stop Dose Admin Furosemide 80 mg 11/04/21 15:27 11/04/21 15:35 Furosemide 40mg/4ml Vial IV 11/04/21 15:28 80 mg ONCE ONE Administration Magnesium Oxide 400 mg 11/05/21 13:27 Magnesium Oxide 400mg Tablet PO 11/05/21 13:28 ONCE ONE Magnesium Oxide 400 mg 11/04/21 13:30 11/04/21 13:31 Magnesium Oxide 400mg Tablet PO 11/04/21 13:31 400 mg ONCE ONE Administration ORDERS Category Date Time Status Troponin I Q3H Lab 11/04/21 18:30 Ordered Medical Decision Narrative: 66 yo male w/ ischemic cardiomyopathy w/ known CHF s/p recent catherization and stent placement in left circumflex, vein graft in RCA, AICD placement presents for evaluation of palpitations, now resolved substernal chest pressure, with recent diagnosis of pneumonia on outpt abx. He is well appearing, in NAD, HDS, with normal heart rate, afebrile, on room air. EKG shows ventricular paced rhythm with appropriate capture. No acute ischemic changes. DDx includes but not limited to arrhythmia, ACS, electrolyte abn
[2021-11-04 12:59] LABS: Basophils % 0.2 % (0.1-2.0); Eosinophils # 0.1 K/mm3 (0.0-0.4); Eosinophils % 0.9 % (0.1-12.0); Hematocrit 30.6 % (42.0-52.0); Hemoglobin 9.7 g/dL (14.1-18.0); Lymphocytes # 1.1 K/mm3 (0.7-4.5); Lymphocytes % 9.8 % (10-50); Mean Corpuscular HGB Conc 31.8 g/dL (31.8-35.4); Mean Corpuscular Volume 100.7 fl (80-94); Mean Platelet Volume 10.8 fl (7.4-10.4); Monocytes # 0.4 K/mm3 (0.1-1.0); Monocytes % 3.2 % (1.7-9.3); Neutrophils # 9.4 K/mm3 (1.8-7.8); Neutrophils % 85.8 % (37.0-80.0); Platelet Count 252 K/mm3 (142-424); Red Blood Count 3.04 M/mm3 (4.60-6.20); Red Cell Distribution Width 14.2 % (11.5-17.5); White Blood Count 10.9 K/mm3 (4.8-10.8)
[2021-11-04 13:02] LABS: MANUAL DIFFERENTIAL MANUAL DIFFERENTIAL (MANUAL DIFF)
[2021-11-04 13:04] LABS: Chloride 99 mmol/L (98-107); Sodium 131 mmol/L (136-145)
[2021-11-04 13:07] LABS: Blood Urea Nitrogen 17 mg/dl (9-20); Calcium 8.3 mg/dl (8.4-10.2); Carbon Dioxide 27 mmol/L (22.0-30.0); Creatinine Clearance Estimated 62 mL/min (50-200); Estimated Glomerular Filt Rate 60 ml/min (>60); GFR (African American) 73 ML/MIN (>60); Glucose 100 mg/dl (74-100)
[2021-11-04 13:08] LABS: Calcium 8.3 mg/dl (8.4-10.2); Magnesium 1.5 mg/dl (1.6-2.3); Phosphorous 3.3 mg/dl (2.5-4.5)
[2021-11-04 13:17] LABS: Lymphocytes % 9 % (10-50); Monocytes % 6 % (2-9); Neutrophils % 85 % (42-76); Total Cells Counted 100
[2021-11-04 13:18] LABS: Platelet Estimate Normal; RBC Morphology Normal
[2021-11-04 13:22] LABS: Troponin I 0.95 ng/ml (0.00-0.034)
[2021-11-04 13:39] LABS: Thyroid Stimulating Hormone 2.56 uIU/mL (0.465-4.68)
[2021-11-04 13:40] LABS: Free T4 (Free Thyroxine) 1.36 ng/dl (0.78-2.19)
[2021-11-04 13:45] LABS: NT Pro Brain Natriuretic Pep. 17100 pg/mL (0-125)
[2021-11-04 15:19] LABS: Troponin I 1.05 ng/ml (0.00-0.034)
--- NOTE | 2021-11-04 15:20 | PC.NURSE ---
Dr Mckeon paged.
--- NOTE | 2021-11-04 15:24 | ECG_ITS ---
APPROVED REPORT Exam: Resting ECG HR:77 bpm ECG Measurements Heart Rate 77 AXES FL 164 P 66 QRSd 134 QRS 76 QT 441 T 90 QTc 473 Conclusion ELECTRONIC VENTRICULAR PACEMAKER ABNORMAL RHYTHM ECG UNCONFIRMED REPORT Electronically signed by : Akin Jaeger MD 11/08/2021 21:57:40
== END 2021-11-04 16:50 | disposition home or self-care (01) ==
PROVIDERS: Emergency Provider Student in an Organized Health Care Education/Training Program; PCP Family Medicine
DX: I25.5 Ischemic cardiomyopathy (principal); I10 Essential (primary) hypertension; I50.9 Heart failure, unspecified; E11.9 Type 2 diabetes mellitus without complications; R77.8 Other specified abnormalities of plasma proteins; J44.9 Chronic obstructive pulmonary disease, unspecified; E78.5 Hyperlipidemia, unspecified; Z79.899 Other long term (current) drug therapy; F17.210 Nicotine dependence, cigarettes, uncomplicated
CPT/HCPCS: 71046; 80048; 82310; 83735; 83880; 84100; 84439; 84443; 84484; 85007; 85025; 93005; 96374; 99283; 99284

== ENCOUNTER → 2021-11-06 10:52 | Outpatient (CLI) | payer MEDICARE, SELFPAY ==
[2021-11-06 11:31] LABS: Hematocrit 32.8 % (42.0-52.0); Hemoglobin 10.4 g/dL (14.1-18.0)
[2021-11-06 12:06] LABS: Blood Urea Nitrogen 23 mg/dl (9-20); Estimated Glomerular Filt Rate 55 ml/min (>60); GFR (African American) 66 ML/MIN (>60)
== END ==
PROVIDERS: Visit Provider Internal Medicine
DX: I25.10 Atherosclerotic heart disease of native coronary artery without angina pectoris (principal)
CPT/HCPCS: 36415; 82565; 84520; 85014; 85018

== ENCOUNTER → 2021-11-08 15:05 | Outpatient (CLI) | payer MEDICARE, SELFPAY ==
[2021-11-08 18:05] LABS: Chloride 95 mmol/L (98-107)
[2021-11-08 18:06] LABS: Sodium 130 mmol/L (136-145)
[2021-11-08 18:08] LABS: Blood Urea Nitrogen 23 mg/dl (9-20); Estimated Glomerular Filt Rate 50 ml/min (>60); GFR (African American) 61 ML/MIN (>60)
[2021-11-08 18:09] LABS: Calcium 8.4 mg/dl (8.4-10.2); Carbon Dioxide 23 mmol/L (22.0-30.0); Glucose 84 mg/dl (74-100)
== END ==
PROVIDERS: Visit Provider Physician Assistant
DX: R53.1 Weakness (principal)
CPT/HCPCS: 36415; 80048

== ENCOUNTER → 2021-12-25 11:55 | Outpatient (CLI) | payer MEDICARE, SELFPAY ==
[2021-12-25 12:16] LABS: Basophils # 0.1 K/mm3 (0-0.2); Basophils % 0.6 % (0.1-2.0); Eosinophils # 0.3 K/mm3 (0.0-0.4); Eosinophils % 3.5 % (0.1-12.0); Hematocrit 36.6 % (42.0-52.0); Hemoglobin 11.1 g/dL (14.1-18.0); Lymphocytes % 12.9 % (10-50); Mean Corpuscular HGB Conc 30.4 g/dL (31.8-35.4); Mean Corpuscular Hemoglobin 32.3 pg (27.0-31.2); Mean Corpuscular Volume 106.1 fl (80-94); Mean Platelet Volume 9.2 fl (7.4-10.4); Monocytes # 0.5 K/mm3 (0.1-1.0); Monocytes % 5.9 % (1.7-9.3); Neutrophils # 5.9 K/mm3 (1.8-7.8); Neutrophils % 77.1 % (37.0-80.0); Platelet Count 265 K/mm3 (142-424); Red Blood Count 3.45 M/mm3 (4.60-6.20); Red Cell Distribution Width 17.5 % (11.5-17.5); White Blood Count 7.6 K/mm3 (4.8-10.8)
[2021-12-25 13:15] LABS: Anion Gap 11.9 mEq/L (5-15); Blood Urea Nitrogen 32 mg/dl (9-20); Carbon Dioxide 27 mmol/L (22.0-30.0); Chloride 104 mmol/L (98-107); Estimated Glomerular Filt Rate 40 ml/min (>60); GFR (African American) 49 ML/MIN (>60); Glucose 87 mg/dl (74-100); Potassium 4.9 mmoL/L (3.5-5.1); Sodium 138 mmol/L (136-145)
== END ==
PROVIDERS: PCP Family Medicine; Visit Provider Physician Assistant
DX: E11.9 Type 2 diabetes mellitus without complications (principal); E78.5 Hyperlipidemia, unspecified; I25.10 Atherosclerotic heart disease of native coronary artery without angina pectoris; I25.5 Ischemic cardiomyopathy; I50.20 Unspecified systolic (congestive) heart failure; I65.29 Occlusion and stenosis of unspecified carotid artery; I70.1 Atherosclerosis of renal artery; I73.9 Peripheral vascular disease, unspecified; J44.9 Chronic obstructive pulmonary disease, unspecified; K21.9 Gastro-esophageal reflux disease without esophagitis; Z72.0 Tobacco use; Z86.73 Personal history of transient ischemic attack (TIA), and cerebral infarction without residual deficits; I11.0 Hypertensive heart disease with heart failure; Z79.84 Long term (current) use of oral hypoglycemic drugs
CPT/HCPCS: 36415; 80048; 85025

== ENCOUNTER → 2022-02-23 11:07 | Outpatient (CLI) | payer MEDICARE, SELFPAY ==
[2022-02-23 13:13] LABS: Chloride 104 mmol/L (98-107); Potassium 4.8 mmoL/L (3.5-5.1); Sodium 138 mmol/L (136-145)
[2022-02-23 13:16] LABS: Anion Gap 14.8 mEq/L (5-15); Blood Urea Nitrogen 18 mg/dl (9-20); Calcium 9.2 mg/dl (8.4-10.2); Carbon Dioxide 24 mmol/L (22.0-30.0); Estimated Glomerular Filt Rate 47 ml/min (>60); GFR (African American) 56 ML/MIN (>60); Glucose 102 mg/dl (74-100)
== END ==
PROVIDERS: PCP Family Medicine; Visit Provider Internal Medicine Cardiovascular Disease
DX: Z79.899 Other long term (current) drug therapy (principal)
CPT/HCPCS: 36415; 80048

== ENCOUNTER → 2022-03-30 11:05 | Outpatient (CLI) | payer MEDICARE, SELFPAY ==
--- NOTE | 2022-03-30 11:14 | XR_ITS ---
FINAL REPORT TECHNIQUE: Chest PA & Lateral CLINICAL HISTORY: DYSPNEA,COPD,ISCHEMIC CARDIOMYOPATHY COMPARISON: November 04, 2021 FINDINGS: 2 views of the chest were performed. The heart is mildly enlarged. There is a left-sided pacemaker. The mediastinum is within normal limits. There are patchy bibasilar airspace infiltrates, right greater than left. Right basilar infiltrates have improved. There is a small right pleural effusion. There is no pneumothorax. The bony thorax appears intact. IMPRESSION: Right greater than left bibasilar airspace infiltrates. Improved on the right. Reviewed, Interpreted and Dictated by Den Muñoz MD Transcribed by Joe Heck Authenticated and . [facility]
== END ==
PROVIDERS: PCP Family Medicine; Visit Provider Family Medicine
DX: R06.09 Other forms of dyspnea (principal); I25.5 Ischemic cardiomyopathy; J44.9 Chronic obstructive pulmonary disease, unspecified
CPT/HCPCS: 71046; C9803; U0003; U0005

== ENCOUNTER → 2022-04-09 06:46 | Outpatient (CLI) | payer MEDICARE, SELFPAY ==
--- NOTE | 2022-04-09 06:47 | NM_ITS ---
APPROVED REPORT Exam: Nuclear Stress Test Indication: short of breath Patient Location: Outpatient Stress Tech: Vicki Oswald PA Tech:LORENZO Cantrell RT(R)(N) Ht: 5 ft 7 in Wt: 200 lbs HR: 60 bpm BP: 106/51 mmHg BSA: 2.02 m2 TID: 0.99 BMI: 31.3 History: short of breath Procedure: Patient received a 0.4 mg of intravenous Lexiscan, resting heart rate 60 bpm, resting blood pressure 106/51 mmHg, with Lexiscan maximum heart rate achived was 77 bpm which is Less than 85 % of the maximum predicted heart rate and blood pressure was 112/50 mmHg. With Lexiscan, patient denied any complaint of chest pain. patient was unable to lay on his belly for prone images Electrocardiogram Electrocardiogram shows electronically paced rhythm, with Lexiscan less than 1.[address] segment depression noted from baseline EKG. The EKG portion of the Lexiscan is nondiagnostic. Cardiac Stress and Resting SPECT Images: Cardiac Stress and Resting SPECT images were obtained using technetium 99m Myoview 31.7 mCi stress and 10.32 mCi at rest. Gated SPECT for analysis of segmental wall motion and calculation of the ejection fraction also done. Cardiac stress and rest SPECT images show uniform myocardial activity without segmental perfusion abnormality, left ventricle is dilated with stress and rest, compared to ejection fraction is 15% with left ventricular global hypokinesis. Right ventricle is normal size and contractility. Conclusion: 1. The EKG portion of the Lexiscan Myoview is nondiagnostic. 2. No scintigraphic evidence of reversible ischemia seen, computer derived ejection fraction 15% with left ventricular global hypokinesis, left ventricle is dilated with stress and rest. 3. Abnormal dipyridamole sestamibi study due to low ejection fraction. Electronically signed by : Rell Lui MD 04/09/2022 18:57:29
--- NOTE | 2022-04-09 06:47 | CT_ITS ---
FINAL REPORT TECHNIQUE: 1.25 mm axial slices were performed through the chest at 10 mm intervals utilizing high-resolution protocol. Coronal reformatted images were submitted. This study was performed with techniques to keep radiation doses as low as reasonably achievable (ALARA). Individualized dose reduction techniques using automated exposure control or adjustment of mA and/or kV according to the patient's size were employed. CLINICAL HISTORY: E11.69 - Type 2 diabetes mellitus dyspnea FINDINGS: CT CHEST WITHOUT CONTRAST/HIGH-RESOLUTION There is no axillary adenopathy. There is no hilar or mediastinal mass or adenopathy. The heart is enlarged. There is no pericardial or pleural effusion. There are changes from emphysema. There are subpleural ground-glass opacities in the left, greater than right, lower lobes. Limited images of the upper abdomen are unremarkable. High-resolution imaging through the chest reveals no honeycombing fibrosis or bronchiectasis. There is mild emphysema. IMPRESSION: 1. No evidence of UIP/IPF. 2. Subpleural ground-glass opacities in the lower lobes, favor infectious or inflammatory. 3. Emphysema Reviewed, Interpreted and Dictated by Renae Wolf MD Transcribed by Selene Skaggs Authenticated and [facility]
--- NOTE | 2022-04-09 06:47 | CA_ITS ---
APPROVED REPORT EXAM: Comprehensive 2D, Doppler, and color-flow Echocardiogram Electronic Warfare Operator: Vita Pete RDCS Ht: 5 ft 11 in Wt: 189lbs BSA: 2.06 BP: 126/68 mmHg Indications: POWELL,CM,CAD,CHF,AICD 2D Dimensions LVOT 1.96 cm (M/F) 1.5-2.5 LA Volume 98.00 mL LA Volume Index 47.57 mL/m2 (M/F) 16-34 M-Mode Dimensions RVDd 2.81 cm (0.9-2.6) LA Diam 4.13 cm (1.9-4.0) LVDd 6.37 cm (3.5-5.7) Ao Diam 3.59 cm (2.0-3.7) LVDs 6.24 cm (3.5-5.7) IVSd 0.53 cm (0.6-1.1) PWd 1.03 cm (0.6-1.1) EF (Teich) 4.60% FS 2.00% EDV (Teich) 206.30 mL ESV (Teich) 196.90 mL LV Diastology E Decel Time 260.00 (160-240 msec) E/A Ratio 1.1 MED E' 4.70 (< 7 cm/sec) E'/MED E' Ratio 12.57 (>14) LAT E' 7.00 (<10 cm/sec) E/LAT E' Ratio 8.44 (>14) Aortic Valve LVOT Max 125.00 (70-110 cm/s) LVOT VTI 24.96 cm AoV Peak Amarjit. 160.00 (50-130 cm/s) AI PHT 411.00 ms AO Peak GR. 10.20 mmHg AO Mean GR. 5.10 (<5 mmHg) AO VTI 34.61 (18-25 cm) LINDEN (VTI) 2.18 (2.5-4.5 cm2) Mitral Valve MV E Max Amarjit. 59.00 (40-130 cm/s) MV A Velocity 55.00 (40-130 cm/s) E/A Ratio 1.07 MV Decel. Time 260.00 (160-240 ms) MV PHT 76.00 ms Tricuspid Valve TR P. Velocity 276.00 cm/s RAP Estimate 10.00 mmHg RVSP 40.50 mmHg Left Ventricle Technically difficult study because of the patient factors and poor acoustic windows, left atrium is mildly enlarged, left ventricle is mildly dilated, severe reduced left ventricular systolic function, estimated ejection fraction appears to be 20%, left ventricle is globally hypokinetic, superimposed segmental wall motion abnormalities cannot be excluded. Diastolic parameters are inconclusive. Right Ventricle Right atrium and right ventricle are normal size and contractility, pacemaker leads in the right ventricle. Aortic Valve Aortic valve is thickened and calcified without aortic stenosis, there is mild aortic insufficiency. Mitral Valve Mitral valve leaflets are minimally thickened, there is mild mitral regurgitation. Tricuspid Valve Tricuspid grossly normal, there is mild tricuspid regurgitation, tricuspid regurgitation jet velocity is inadequate for calculation of the right ventricular systolic pressure. Pulmonic Valve Pulmonic valve is poorly visualized. Great Vessels Aortic root is normal size. Inferior vena cava is poorly visualized. Pericardium No significant pericardial effusion noted. Conclusion 1. Dilated left ventricle, severe reduced left ventricular systolic function, visually estimated ejection fraction 20%, left ventricle is globally hypokinetic, superimposed segmental wall motion abnormalities cannot be excluded. 2. Mild aortic, mitral and tricuspid regurgitation. 3. No significant pericardial effusion. 4. Inferior vena cava is poorly visualized. Electronically signed by : Rell Lui MD 04/09/2022 20:06:31
--- NOTE | 2022-04-09 06:47 | CA_ITS ---
APPROVED REPORT Exam: Pharmacologic Technologist: Vicki Call, Ht: 5 ft 11 in Wt: 189 lbs BSA: 2.06 m2 HR: 62 bpm BP: 106/51 mmHg Medical History Medications: Aspirin,,,,, Metoprolol,,,,, Metformin,,,,, Tylenol,,,,, Tramadol,,,,, Nitroglycerin,,,,, MethylpredNISOne,,,,, EnTRESTO,,,,, Dexlansoprazole,,,,, TricAGRELOR,,,,, Furosemide,,,,, AmOdraone,,,,, Stress Test Details Test: LEXISCAN Reason for pharmacologic stress test: physical limitation. HR Resting HR: 60 bpm Max Heart Rate (APMHR): 152.281329 bpm Max HR Achieved: 77 bpm Target HR (85% APMHR): 129.699888 bpm % of APMHR: 50.66 Recovery HR: 70 bpm BP Resting BP: 106/51 mmHg Max BP: 112/50 mmHg Recovery BP: 109.0/50.0 mmHg ECG Resting ECG: NSR, V. pacing Clinical Reason for Termination: Completed Protocol Exercise duration: 04:01 min Highest Stage Achieved: Stress ECG Conclusion Symptoms: None Arrhythmias/Ectopy: None ST-T Changes: <1.5mm ST Segment changes Conclusion: Non-Diagnostic Test Summary REST . . . . . . . Resting REST 08:54 . . 60 . 106/ 51 . . Stage 1 01:00 . . 65 . . . . Stage 2 01:00 . . 77 . 92/ 50 . . Stage 3 01:00 . . 72 . 106/ 50 . . Stage 4 01:00 . . 71 . 112/ 50 . . Stage 4 01:01 . . 71 . 112/ 50 . Stop exercise at 04:01 RECOVERY 01:00 . . 76 . . . . RECOVERY 02:00 . . 70 . 102/ 52 . . RECOVERY 02:55 . . 70 . 109/ 50 . . Electronically signed by : Rell Lui MD 04/09/2022 18:30:36
== END ==
PROVIDERS: PCP Family Medicine; Visit Provider Internal Medicine
DX: E11.69 Type 2 diabetes mellitus with other specified complication (principal); E78.2 Mixed hyperlipidemia; I25.118 Atherosclerotic heart disease of native coronary artery with other forms of angina pectoris; I25.2 Old myocardial infarction; I25.5 Ischemic cardiomyopathy; I48.92 Unspecified atrial flutter; I50.23 Acute on chronic systolic (congestive) heart failure; I65.23 Occlusion and stenosis of bilateral carotid arteries; I70.1 Atherosclerosis of renal artery; J44.1 Chronic obstructive pulmonary disease with (acute) exacerbation; K21.9 Gastro-esophageal reflux disease without esophagitis; R06.00 Dyspnea, unspecified; Z72.0 Tobacco use; Z86.73 Personal history of transient ischemic attack (TIA), and cerebral infarction without residual deficits; Z95.810 Presence of automatic (implantable) cardiac defibrillator; I11.0 Hypertensive heart disease with heart failure
CPT/HCPCS: 71250; 78452; 93017; 93306; A9502; J2785

== ENCOUNTER → 2022-04-26 11:02 | Outpatient (CLI) | payer MEDICARE, SELFPAY ==
[2022-04-26 12:40] LABS: Alanine Aminotransferase 15 U/L (12-78); Albumin Level 3.4 g/dl (3.5-5.0); Albumin/Globulin Ratio 1.3 (1.1-1.8); Alkaline Phosphatase 129 U/L (38-126); Anion Gap 10.5 mEq/L (5-15); Aspartate Amino Transferase 20 U/L (17-59); Blood Urea Nitrogen 25 mg/dl (9-20); Calcium 8.8 mg/dl (8.4-10.2); Carbon Dioxide 27 mmol/L (22.0-30.0); Chloride 105 mmol/L (98-107); Estimated Glomerular Filt Rate 43 ml/min (>60); GFR (African American) 52 ML/MIN (>60); Globulin 2.6 g/dL (1.3-3.2); Glucose 113 mg/dl (74-100); Potassium 4.5 mmoL/L (3.5-5.1); Sodium 138 mmol/L (136-145)
[2022-04-26 12:43] LABS: Bilirubin,Total < 0.1 mg/dl (0.2-1.3)
[2022-04-26 12:48] LABS: NT Pro Brain Natriuretic Pep. 12600 pg/mL (0-125)
[2022-04-26 14:25] LABS: Iron 19 ug/dL (49-181)
[2022-04-26 15:00] LABS: Ferritin 80.4 ng/ml (17.9-464)
== END ==
PROVIDERS: PCP Family Medicine; Visit Provider Physician Assistant
DX: D50.9 Iron deficiency anemia, unspecified (principal); R06.02 Shortness of breath
CPT/HCPCS: 36415; 80053; 82728; 83540; 83880; 85378

== ENCOUNTER 2022-04-27 00:12 | Inpatient (IN) | payer MEDICARE, SELFPAY ==
[2022-04-27] VITALS (82 sets, daily range): BP systolic 83–200; BP diastolic 44–87; PULSE 75–118; RESP 13–28; TEMP 36.3–36.7; O2SAT 90–100; BMI 25.7; BMI 25.3
--- NOTE | 2022-04-27 | IR_ITS ---
APPROVED REPORT Patient Location: Inpatient [place] Yarder: LORENZO Ayoub RT (R) PROCEDURES Left heart catheterization Left ventriculogram Selective coronary angiogram Left internal mammary angiography Selective engage the saphenous vein graft to the right coronary Intravascular lithotripsy to the circumflex artery Drug-eluting stent deployment to the circumflex artery Drug-eluting stent deployment to the terminal obtuse marginal artery INDICATION Ischemic cardiomyopathy, End-stage cardiomyopathy with acute coronary syndrome/unstable angina, Coronary artery disease, Extensive and critical calcification SCAI INDICATION Clinical history: This patient underwent revascularization several months ago and I specifically remember this case as patient had a very calcified cumbersome proximal to mid circumflex artery stenosis. The plan today was to proceed with shockwave technology and deliver intravascular ultrasound lithotripsy in order to reduce the calcium and deliver stents. Stents cannot be delivered several months ago due to the extensive calcification. Informed consent was obtained prior to the procedure. COMPLICATIONS None Estimated Blood Loss: Less than 10 ML TECHNIQUE One percent lidocaine used to anesthetize the right groin. The right femoral artery was accessed via the Seldinger technique and a 5 Cymraes sheath was placed in the right femoral artery. A JL 4, JR4 catheter were used to perform left heart catheterization, left ventriculogram selective coronary angiography as well as selective engagement of the solitary vein graft and nonselective engagement of the left internal mammary artery. Following this a 5 Cymraes sheath exchanged for a 6 Cymraes sheath and an EBU 3.75 guide catheter was placed in the left main artery followed by a Choice PT extra-support wire. Therapeutic heparin was administered with therapeutic ACT prior to this. A 2.5 x 12 mm shockwave balloon was delivered at 4 so and then delivered 4 rounds of intravascular lithotripsy before the inflation was increased to 6 so followed by rupture of the balloon. At this point a guide liner was advanced and a 2.5 mm balloon was deployed at 20 so up and down the circumflex artery including into the terminal obtuse marginal artery at 20 so to predilate. A 2.25 x 38 mm resolute [place] stent was placed in the terminal obtuse marginal artery to 90% stenotic area and deployed at 16 so. A 2.5 x 38 mm resolute [place] stent was then placed proximal to this yet still overlapping it extending into the proximal circumflex artery and deployed at 20 so reducing the stenosis to 0%. The critical stenosis was reduced to angiographically 0% stenosis. GAEL-3 flow was present before and after the procedure. At the end procedure the apparatus was removed and the patient was transferred to the postop putting in stable addition for sheath removal ANGIOGRAPHIC RESULTS The left main artery Has a stent in the ostial proximal segment which is widely patent and normal The left anterior descending artery Ostially occluded The circumflex artery Is a dominant vessel gives rise to a large first obtuse marginal artery/ramus intermedius which has proximal hazy 20 to 30% stenosis but is patent.True circumflex artery has a stent originating off the left main artery which is widely patent. Distal to the stent is a concentric calcified 90% stenosis. The terminal obtuse marginal artery which supplies a moderate amount of myocardium in his bifurcating has a proximal concentric 90% stenosis The right coronary artery Is noted to be ostially occluded however was not engaged due to patient's nephropathy The CARRERO ventriculogram reveals Not performed The left vent
--- NOTE | 2022-04-27 00:10 | ECG_ITS ---
APPROVED REPORT Exam: Resting ECG HR:91 bpm ECG Measurements Heart Rate 91 AXES SC 172 P 58 QRSd 133 QRS 88 QT 384 T 78 QTc 433 Conclusion ELECTRONIC VENTRICULAR PACEMAKER ABNORMAL RHYTHM ECG UNCONFIRMED REPORT Electronically signed by : Akin Jaeger MD 04/27/2022 21:40:39
[2022-04-27 00:24] LABS: Coronavirus 19, PCR Not Detected (NotDetected); Influenza A, PCR Not Detected (NotDetected); Influenza B, PCR Not Detected (NotDetected)
--- NOTE | 2022-04-27 00:32 | XR_ITS ---
PROCEDURE INFORMATION: Exam: XR Chest Exam date and time: 04/27/2022 12:30 AM Age: 66 years old Clinical indication: Sternal or substernal pain; Additional info: Chest pain TECHNIQUE: Imaging protocol: Radiologic exam of the chest. Views: 2 views. COMPARISON: CT HIGH RESOLUTION CHEST 04/09/2022 6:51 AM FINDINGS: Tubes, catheters and devices: Biventricular cardiac pacemaker without gross hardware complication or change. Lungs: New alveolar densities in the lung bases, right greater than left, concerning for basilar pneumonia versus edema or atelectasis. Pleural spaces: Small right basilar pleural effusion is new. No pneumothorax. Mild bilateral apical pleural/parenchymal scarring. Heart/Mediastinum: Heart size upper limits of normal. No tracheal/mediastinal shift. Vasculature: Moderate aortic ectasia/tortuosity and calcific atherosclerosis. Bones/joints: Prior median sternotomy. No acute osseous abnormalities are identified. Osteopenia. IMPRESSION: 1. New alveolar opacities in the lung bases, right greater than left, consistent with basilar pneumonia versus edema or atelectasis. 2. Small right basilar pleural effusion is new. 3. Borderline cardiomegaly and cardiac pacemaker.
--- NOTE | 2022-04-27 00:39 | PC.NURSE ---
Pt gone to RAD for XRAY
[2022-04-27 00:40] LABS: Basophils % 0.1 % (0.1-2.0); Eosinophils # 0.1 K/mm3 (0.0-0.4); Eosinophils % 1.5 % (0.1-12.0); Hematocrit 31.1 % (42.0-52.0); Hemoglobin 9.5 g/dL (14.1-18.0); Lymphocytes # 0.4 K/mm3 (0.7-4.5); Lymphocytes % 5.1 % (10-50); Mean Corpuscular HGB Conc 30.4 g/dL (31.8-35.4); Mean Corpuscular Hemoglobin 30.1 pg (27.0-31.2); Mean Corpuscular Volume 99.1 fl (80-94); Mean Platelet Volume 9.4 fl (7.4-10.4); Monocytes # 0.1 K/mm3 (0.1-1.0); Monocytes % 1.8 % (1.7-9.3); Neutrophils # 6.8 K/mm3 (1.8-7.8); Neutrophils % 91.5 % (37.0-80.0); Platelet Count 320 K/mm3 (142-424); Red Blood Count 3.14 M/mm3 (4.60-6.20); Red Cell Distribution Width 17.4 % (11.5-17.5); White Blood Count 7.5 K/mm3 (4.8-10.8)
--- NOTE | 2022-04-27 00:41 | PC.NURSE ---
Pt back from RAD
[2022-04-27 00:44] LABS: MANUAL DIFFERENTIAL MANUAL DIFFERENTIAL (MANUAL DIFF)
[2022-04-27 00:46] LABS: Alanine Aminotransferase 27 U/L (12-78); Alkaline Phosphatase 136 U/L (38-126); Anion Gap 14.8 mEq/L (5-15); Aspartate Amino Transferase 31 U/L (17-59); Bilirubin,Direct 0.2 mg/dl (0.0-0.4); Bilirubin,Total 0.2 mg/dl (0.2-1.3); Blood Urea Nitrogen 25 mg/dl (9-20); Calcium 9.3 mg/dl (8.4-10.2); Carbon Dioxide 25 mmol/L (22.0-30.0); Chloride 101 mmol/L (98-107); Creatinine Clearance Estimated 49 mL/min (50-200); Estimated Glomerular Filt Rate 40 ml/min (>60); GFR (African American) 49 ML/MIN (>60); Glucose 209 mg/dl (74-100); Potassium 4.8 mmoL/L (3.5-5.1); Sodium 136 mmol/L (136-145); Total Protein,Serum 7.2 g/dl (6.3-8.2)
--- NOTE | 2022-04-27 00:52 | HMH.EDCP ---
ED Disposition Clinical Impression: Unstable angina pectoris, Tobacco abuse, Biventricular automatic implantable cardioverter defibrillator in situ COPD (chronic obstructive pulmonary disease) Qualifiers: COPD type: unspecified COPD Qualified Code(s): J44.9 - Chronic obstructive pulmonary disease, unspecified Disposition: Admitted As Inpatient Condition on Discharge: Fair Referrals: Damien Murillo MD [Primary Care Provider] - - Critical Care Critical Care Time: No Attestation: On 04/27/22, the high probability of a clinically significant, sudden or life threatening deterioration of the following system(s) required my full and direct attention, intervention and personal management. The time I documented below is in addition to time spent performing reported procedures but includes the following listed in this critical care notation. Medical Decision Making - Medical Records Medical records reviewed: Yes: I reviewed the patient's medical records. - [place] Inquiry Pt receiving controlled substance: No Vital Signs: 04/27/22 00:18 Temperature 98.1 F Temperature Source Oral Pulse Rate [Right Brachial] 92 H Respiratory Rate 24 Blood Pressure [Right Arm] 126/71 Blood Pressure Mean [Right Arm] 89 Blood Pressure Source [Right Arm] Automatic Cuff Blood Pressure Position [Right Arm] Sitting 02 Sat by Pulse Oximetry 99 Oxygen Delivery Method Room Air - Lab Data Lab results reviewed: Yes: I reviewed the patient's lab results. Lab Results 04/27/22 00:19: SARS-CoV-2 (PCR) Not detected, Influenza A Untype (PCR) Not detected, Influenza Type B (PCR) Not detected 04/27/22 00:20: WBC 7.5, RBC 3.14 L, Hgb 9.5 L, Hct 31.1 L, MCV 99.1 H, MCH 30.1, MCHC 30.4 L, RDW 17.4, Plt Count 320, MPV 9.4, Neut % (Auto) 91.5 H, Lymph % (Auto) 5.1 L, Sierra % (Auto) 1.8, Eos % (Auto) 1.5, Baso % (Auto) 0.1, Neut # (Auto) 6.8, Lymph # (Auto) 0.4 L, Sierra # (Auto) 0.1, Eos # (Auto) 0.1, Baso # (Auto) 0.0 04/27/22 00:20: Sodium 136, Potassium 4.8, Chloride 101, Carbon Dioxide 25, Anion Gap 14.8, BUN 25 H, Creatinine 1.70 H, Estimated Creat Clear 49, Estimated GFR 40 L, Est GFR ( Amer) 49 L, Glucose 209 H D, Calcium 9.3, Total Bilirubin 0.2, Direct Bilirubin 0.2, Conjugated Bilirubin 0.0, Indirect Bilirubin 0.0, Unconjugated Bilirubin 0.0, AST 31 D, ALT 27 D, Alkaline Phosphatase 136 H, Troponin I 0.02, Total Protein 7.2, Albumin 4.0 D, TSH 2.37, Thyroxine (T4) 7.8 04/27/22 00:20: NT-Pro-B Natriuret Pep 45101 H Result diagrams: 04/27/22 00:20 04/27/22 00:20 Orders (Tests/Meds): ED MEDICATIONS Generic Name Dose Route Start Last Admin Trade Name Freq PRN Reason Stop Dose Admin Nitroglycerin 0.4 mg 04/27/22 00:34 04/27/22 00:20 Nitroglycerin 0.4mg Sl Tablet SL 05/27/22 00:33 0.4 mg Q5MINP PRN Administration Chest Pain Discontinued Medications Generic Name Dose Route Start Last Admin Trade Name Freq PRN Reason Stop Dose Admin Aspirin 243 mg 04/27/22 00:33 04/27/22 00:45 Aspirin 81mg Chewable Tablet PO 04/27/22 00:34 243 mg ONCE ONE Administration Nitroglycerin 1 gm 04/27/22 00:34 04/27/22 00:55 Nitroglycerin 1 Gm Ointment TD 04/27/22 00:35 1 gm ONCE ONE Administration ORDERS Category Date Time Status Complete Blood Count Auto Diff Stat Lab 04/27/22 00:20 Results Troponin I Q3H Lab 04/27/22 03:45 Ordered Troponin I Q3H Lab 04/27/22 06:45 Ordered - Radiology Data #1 Image(s): Chest Image Reviewed: Yes I have reviewed radiologist's interpretation Preliminary Findings: Abnormal - ECG Data Tracing #1 I reviewed this ECG and interpreted as documented below: Ischemic changes: non-specific ST-T wave changes Pacemaker function: normal pacer function - Physician Consults Physician Consulted: babs Reason -: Admission Medical Decision Narrative: has known cad with sob and admitted - has chest pain - angina Chest Pain HPI - General Chief C
--- NOTE | 2022-04-27 00:53 | PC.NURSE ---
at BS speaking with pt
[2022-04-27 00:58] LABS: Troponin I 0.02 ng/ml (0.00-0.034)
[2022-04-27 01:03] LABS: T4 (Thyroxine) 7.8 ug/dl (5.53-11.0)
[2022-04-27 01:16] LABS: Thyroid Stimulating Hormone 2.37 uIU/mL (0.465-4.68)
[2022-04-27 01:22] LABS: NT Pro Brain Natriuretic Pep. 13100 pg/mL (0-125)
--- NOTE | 2022-04-27 01:34 | PC.NURSE ---
Dr. Chidi tellez
--- NOTE | 2022-04-27 01:36 | PC.NURSE ---
speaking with Dr. Murillo
--- NOTE | 2022-04-27 01:37 | PC.NURSE ---
Notified house of pt admission and need for bed assignment
[2022-04-27 01:43] LABS: Lymphocytes % 6 % (10-50); Macrocytosis 1+; Monocytes % 1 % (2-9); Neutrophils % 93 % (42-76); Ovalocytes 1+; Platelet Estimate Normal; Total Cells Counted 100
--- NOTE | 2022-04-27 02:18 | PC.NURSE ---
pt arrived to floor via wheelchair at 2:14 AM
[2022-04-27 04:17] LABS: Troponin I 0.02 ng/ml (0.00-0.034)
--- NOTE | 2022-04-27 05:57 | CT_ITS ---
FINAL REPORT TECHNIQUE: After the administration of intravenous contrast, axial images through the chest were performed by computed tomography.This study was performed with techniques to keep radiation doses as low as reasonably achievable, (ALARA). Individualized dose reduction techniques using automated exposure control or adjustment of mA and/or kV according to the patient''s size were employed. CLINICAL HISTORY: chest pain COMPARISON: 04/09/2022 FINDINGS: There is no axillary adenopathy. There is cardiomegaly. A pacer is identified. The patient is status post median sternotomy. There are multiple mildly enlarged mediastinal nodes. There is an 18 mm right paratracheal node, previously measured 13 mm. This is nonspecific but favor reactive. Small pleural effusion is identified. There is no pericardial effusion. Note is made of mild scarring and mild emphysema. There is bibasilar atelectasis. Limited images of the upper abdomen are unremarkable. IMPRESSION: Nonspecific mediastinal adenopathy, favor reactive. Small pleural effusion and bibasilar atelectasis. Reviewed, Interpreted and Dictated by Doc Porter III, MD Transcribed by Andreia Lund Authenticated and [facility][1]
[2022-04-27 06:17] LABS: Basophils % 0.1 % (0.1-2.0); Eosinophils # 0.2 K/mm3 (0.0-0.4); Eosinophils % 1.6 % (0.1-12.0); Hematocrit 29.7 % (42.0-52.0); Hemoglobin 9.5 g/dL (14.1-18.0); Lymphocytes # 0.7 K/mm3 (0.7-4.5); Lymphocytes % 6.8 % (10-50); Mean Corpuscular HGB Conc 32.1 g/dL (31.8-35.4); Mean Corpuscular Hemoglobin 31.9 pg (27.0-31.2); Mean Corpuscular Volume 99.4 fl (80-94); Mean Platelet Volume 8.7 fl (7.4-10.4); Monocytes # 0.2 K/mm3 (0.1-1.0); Monocytes % 2.3 % (1.7-9.3); Neutrophils # 8.5 K/mm3 (1.8-7.8); Neutrophils % 89.3 % (37.0-80.0); Platelet Count 318 K/mm3 (142-424); Red Blood Count 2.99 M/mm3 (4.60-6.20); Red Cell Distribution Width 17.3 % (11.5-17.5); White Blood Count 9.5 K/mm3 (4.8-10.8)
[2022-04-27 06:25] LABS: Chloride 104 mmol/L (98-107); Potassium 4.9 mmoL/L (3.5-5.1); Sodium 135 mmol/L (136-145)
[2022-04-27 06:27] LABS: Blood Urea Nitrogen 24 mg/dl (9-20); Creatinine Clearance Estimated 48 mL/min (50-200); Estimated Glomerular Filt Rate 40 ml/min (>60); GFR (African American) 49 ML/MIN (>60)
[2022-04-27 06:28] LABS: Anion Gap 12.9 mEq/L (5-15); Calcium 9.3 mg/dl (8.4-10.2); Carbon Dioxide 23 mmol/L (22.0-30.0); Glucose 188 mg/dl (74-100)
[2022-04-27 06:43] LABS: POC Glucose,Bedside 206 (70-110)
[2022-04-27 06:50] LABS: Troponin I 0.02 ng/ml (0.00-0.034)
--- NOTE | 2022-04-27 07:02 | PC.NURSE ---
Patient called out for chest pain 05/26 sitting on the side of the bed sob. Applied 2l nc. Jenifer Murillo. Order morphine 4mg and ct of chest with contrast. (Radiology stated they are waiting for patient labs to results then will get patient for scan) After 20 min no relief noted. Jenifer Murillo Ordered 40mg iv Lasix and 15mg tordal iv. Patient still having no relief. Jenifer Murillo 0.4mg nitro SL prn q5min ordered. After 3 administration of nitro patient finally having some relief with a score of 3/10. Patient does have expiatory wheezing, scheduled breathing treatment gave by RT. Patient now resting in bed awaiting CT.
--- NOTE | 2022-04-27 08:00 | CA_ITS ---
APPROVED REPORT EXAM: Comprehensive 2D, Doppler, and color-flow Echocardiogram Drying Machine Back Tender: Annalise Ortiz RT(R) Ht: 5 ft 11 in Wt: 184lbs BSA: 2.04 BP: 126/71 mmHg Indications: CP, angina, COPD, smoker, palpitations, DM,HTN, HLD, AICD in place, CAD, AFIB, GERD, SOB Recent echo 04/09/22, EF (20%), recheck EF. M-Mode Dimensions RVDd 1.20 cm (0.9-2.6) LVDd 7.15 cm (3.5-5.7) LVDs 6.82 cm (3.5-5.7) IVSd 0.84 cm (0.6-1.1) PWd 0.84 cm (0.6-1.1) EF (Teich) 10.10% FS 4.60% EDV (Teich) 267.90 mL ESV (Teich) 240.80 mL Conclusion 1. Limited echocardiogram is performed to evaluate left ventricular systolic function. The left ventricle is dilated, estimated ejection fraction 20%, left ventricle is globally hypokinetic. 2. No significant pericardial effusion noted. Electronically signed by : Rell Lui MD 04/27/2022 13:09:40
--- NOTE | 2022-04-27 08:13 | PC.NURSE ---
pt to CT scan via wheelchair with RT (Denae)
--- NOTE | 2022-04-27 08:27 | PC.NURSE ---
back from CT scan
--- NOTE | 2022-04-27 08:31 | HMH.PHAVTE ---
[facility] Pharmacy VTE Monitoring - Patient Demographics Admission date: 04/27/22 Report Date: 04/27/22 Time: 08:31 Allergies/Adverse Reactions: Patient Allergies No Known Drug Allergies Allergy (Verified 04/10/22 11:24) Height: 1.8 m Weight: 82.157 kg Patient Problems: Current Active Problems COPD (chronic obstructive pulmonary disease) (Chronic) Tobacco abuse (Chronic) Biventricular automatic implantable cardioverter defibrillator in situ (Acute) Unstable angina pectoris (Acute) - VTE Risk Labs: VTE Related Lab Results Hgb 9.5 g/dL (14.1-18.0) L 04/27/22 06:09 Hct 29.7 % (42.0-52.0) L 04/27/22 06:09 Plt Count 318 K/mm3 (142-424) 04/27/22 06:09 BUN 24 mg/dl (9-20) H 04/27/22 06:09 Creatinine 1.70 mg/dl (0.66-1.25) H 04/27/22 06:09 Estimated Creat Clear 48 mL/min (50-200) 04/27/22 06:09 VTE Score: 7 VTE Risk Level: Moderate Risk - Prophylaxis VTE Prophylaxis Ordered?: Yes Types of VTE Prophylaxis: TEDS Knee High Location of Applied Device: Bilateral Lower Extremeties
--- NOTE | 2022-04-27 08:36 | HMH.PHAINT ---
MEDICATION RECONCILIATION COMPLETED ON PATIENT USING EXTERNAL FILL HISTORY FROM PHARMACY AND LIST FROM CARDIOLOGY OFFICE. -ANYI SIMOND
--- NOTE | 2022-04-27 09:01 | HMH.HP ---
*Admission Date: 04/27/22 <Nisreen Delong - 04/27/22 09:15> *Chief complaint: chest pain, SOA <Nisreen Delong - 04/27/22 09:15> *History of present illness: Mr. Lynn is a 66-year-old male with a history of coronary artery disease status post CABG, MIs, ischemic cardiomyopathy with a biventricular ICD, COPD, type 2 diabetes, and tobacco use. He has not been feeling well since the first part of March. His had COVID and he was seen in the office on March 16 and was diagnosed with bronchitis and started on Zithromax. His Lasix dose was also increased at that time. He returned to the office on 03/30/2022 with continued episodes of shortness of breath, nausea, and episodes of nocturnal dyspnea. His weight was down and he had diuresed well with the Lasix. A chest x-ray was ordered and a COVID test was also ordered. His COVID test was positive and his chest x-ray showed bibasilar infiltrates. He was started on Levaquin. He states he began feeling better and then approximately 2 weeks ago, he began having more shortness of breath. He was seen by cardiology and had a chest CT which showed subpleural groundglass opacities in the lower lobes as well as emphysema. He had a stress test with a reported EF of 15%. He had an echo which showed an EF of 20%. He was seen in follow-up by cardiology and an appointment was made for him with pulmonology. He presented to the office yesterday with increasing shortness of breath. He did have some chest congestion and a cough. His oxygen interestingly enough was 100% on room air. His CBC showed a left shift and he was started back on Levaquin and a steroid Dosepak. He was also given samples of Trelegy. Lab work was ordered and his BNP came back elevated at 12,600. His D-dimer was elevated at 1. His BUN and creatinine were elevated at 25 and 1.6. His iron was also low at 19. The case was discussed with Dr. Murillo and it was felt the patient would need to be admitted. He wanted to wait until the morning of 04/27/2022 to come into the hospital, but last night around 11 PM, he began having crushing chest pain that radiated across his entire chest up into his neck, and through to his back. He presented to the ER at that time. His BNP was further elevated at 13,100. He had a chest x-ray showing new alveolar opacities in the lung bases consistent with basilar pneumonia versus edema or atelectasis. He was admitted and cardiology was consulted. This morning he continues with chest pain. He has had multiple doses of nitroglycerin with minimal relief and has also had morphine. <Nisreen Delong 04/27/22 09:15> [facility] History I have reviewed the patient's past medical history: Yes <Nisreen Delong 04/27/22 09:15> Medical History: Reports:: Arrhythmia, Atherosclerotic Heart Disease, Atrial Fibrillation, Cancer, Cardiomyopathy, Carotid Stenosis, Congestive Heart Failure, Chronic Obstructive Pulmonary Disease (COPD), Coronary Artery Disease, Cerebrovascular Accident, Diabetes Mellitus Type 2, Gastroesophageal Reflux Disease(GERD), Hyperlipidemia, Hypertension, Internal Pacemaker, Lung Disease, Myocardial Infarction, Palpitations, Peripheral Vascular Disease Denies:: Diabetes Mellitus Type 1, Home Oxygen, MRSA <Nisreen Delong 04/27/22 09:15> *Have you ever received a pneumonia vaccine?: Yes <Nisreen Delong 04/27/22 09:15> *Have you received a flu vaccine this season?: Yes <Nisreen Delong 04/27/22 09:15> Other Medical History: Reports: Anemia, Arthritis, Blood Transfusion Reaction, Cataracts, Chemotherapy, Radiation Therapy, Other <Nisreen Delong 04/27/22 09:15> Other Surgeries: Yes: Angioplasty, CABG, Cardiac Catheterization, Cardiac Surgery, Coronary Stent, Open Heart Surgery, Pacemaker, Other (Carotid stent) <Nisreen Delong 04/27/22 09:15> Amputation: No <Nisreen Delong 04/27/22 09:15> Fractures: No <Nisreen Delong 04/27/22 09:15> - *Social History Smoking Status: Current some day smoker <Nisreen Delong 04/27/22
--- NOTE | 2022-04-27 09:19 | ECG_ITS ---
APPROVED REPORT Exam: Resting ECG HR:100 bpm ECG Measurements Heart Rate 100 AXES SD 179 P 135 QRSd 127 QRS 95 QT 360 T 122 QTc 417 Conclusion ELECTRONIC VENTRICULAR PACEMAKER ABNORMAL RHYTHM ECG UNCONFIRMED REPORT Electronically signed by : Akin Jaeger MD 04/27/2022 21:40:25
--- NOTE | 2022-04-27 09:24 | HMH.PULMCON ---
*Admission Date: 04/27/22 *Reason for consult:: Acute hypoxic respiratory failure *History of present illness: Mr. Lynn is a 66-year-old male current smoker greater than [id number] smoker carries a diagnosis COPD, atrial fibrillation on amiodarone presented to hospital with worsening respiratory associated cough and worsening productive phlegm, not associate with fevers and chills. Dyspnea worsens with exertion relieved with taking rest and inhalers. Patient also complains of chest pain, cardiology following [facility] History Medical History: Reports:: Arrhythmia, Atherosclerotic Heart Disease, Atrial Fibrillation, Cancer, Cardiomyopathy, Carotid Stenosis, Congestive Heart Failure, Chronic Obstructive Pulmonary Disease (COPD), Coronary Artery Disease, Cerebrovascular Accident, Diabetes Mellitus Type 2, Gastroesophageal Reflux Disease(GERD), Hyperlipidemia, Hypertension, Internal Pacemaker, Lung Disease, Myocardial Infarction, Palpitations, Peripheral Vascular Disease Denies:: Diabetes Mellitus Type 1, Home Oxygen, MRSA *Have you ever received a pneumonia vaccine?: Yes *Have you received a flu vaccine this season?: Yes Other Medical History: Reports: Anemia, Arthritis, Blood Transfusion Reaction, Cataracts, Chemotherapy, Radiation Therapy, Other Other Surgeries: Yes: Angioplasty, CABG, Cardiac Catheterization, Cardiac Surgery, Coronary Stent, Open Heart Surgery, Pacemaker, Other (Carotid stent) Amputation: No Fractures: No - *Social History Smoking Status: Current some day smoker Tobacco Type: cigarettes # Packs/Day (cigarettes): 1 #Yrs smoked (if former smoker): 50 Alcohol Intake: never Alcohol Intake Frequency:: holidays/special occasions only *Occupational Status:: retired Housing: house Household Members: spouse *Travel in the last 8 weeks: None Family Hx:: Anemia, Heart Attack, Hyperlipidemia ROS - Review of Systems Rest of the review of systems negative except as mentioned in the HPI - Cons Reports body ache(s), Reports fatigue, Denies anorexia, Denies chills, Denies fever(s) - Eyes Denies change in vision, Denies discharge - ENT Denies bleeding gums, Denies change in voice - Card Reports chest pain at rest, Reports shortness of breath, Reports shortness of breath with activity - Resp Respiratory: Reports chest congestion, Reports cough, Reports excessive phlegm production, Reports wheezing - GI Gastrointestingal: Denies: abdominal pain, belching - [place] Musculoskeletal: Reports back pain, Reports muscle aches - Psych Denies thoughts of hurting/killing others, Denies thoughts of hurting/killing yourself Meds Home Medications Medication Instructions Recorded Confirmed Type Budesonide/Formoterol Fumarate 2 puffs IH BID 04/02/18 04/27/22 History [Symbicort 160-4.5 Mcg Inhaler] Ipratropium/Albuterol Sulfate 3 ml IH QIDRT 04/02/18 04/27/22 History [Duoneb 3mL neb] Dexlansoprazole [Dexilant] 60 mg PO DAILY 09/01/19 04/27/22 History Metformin HCl [Metformin 1000mg 1,000 mg PO DAILY 07/19/20 04/27/22 History Tablets] Nitroglycerin 0.4 mg SL Q5MINP PRN 10/25/21 04/27/22 History Acetaminophen [Acetaminophen 325mg 650 mg PO Q6HP PRN 10/26/21 04/27/22 History tab] Aspirin [Aspirin 81mg EC Tab] 81 mg PO DAILY #0 11/01/21 04/27/22 Rx Ticagrelor [Brilinta 90mg 90 mg PO BID #60 tab 11/01/21 04/27/22 Rx Tablet] cyanocobalamin (vitamin B-12) 1,000 mcg PO DAILY 03/26/22 04/27/22 History 1,000 mcg capsule ferrous sulfate 325 mg (65 mg 325 mg PO DAILY 03/26/22 04/27/22 History iron) tablet Amiodarone HCl [Pacerone 200mg Tab] 200 mg PO DAILY 04/27/22 04/27/22 History Furosemide [Furosemide 40MG tAB*] 40 mg PO DAILY 04/27/22 04/27/22 History Metoprolol Succinate [Metoprolol 25 mg PO DAILY 04/27/22 04/27/22 History Succinate 25mg Tablet*] Sacubitril/Valsartan [Entresto] 1 tab PO BID 04/27/22 04/27/22 History levoFLOXacin [Levaquin 500mg 500 mg PO DAILY 04/27/22 04/27/22 History
--- NOTE | 2022-04-27 10:56 | HMH.CNCARD ---
History of Present Illness Consult date: 04/27/22 Requesting physician: Damien Murillo Consult reason: chest pain, shortness of breath Chief complaint: soa and chest pain Additional Medical History:: Significant past medical history: Current tobacco user Biventricular AICD COPD Coronary artery disease status post stents and CABG A. fib Ischemic cardiomyopathy Carotid artery stenosis Diabetes mellitus type 2 Hypertension Hyperlipidemia Echo 03/2022 Conclusion 1. Dilated left ventricle, severe reduced left ventricular systolic function, visually estimated ejection fraction 20%, left ventricle is globally hypokinetic, superimposed segmental wall motion abnormalities cannot be excluded. 2. Mild aortic, mitral and tricuspid regurgitation. 3. No significant pericardial effusion. 4. Inferior vena cava is poorly visualized. Echo 04/2022-reduced EF 15% Heart cath October 2021 Impression: Critical coronary disease as described above with successful stenting of a critically diseased circumflex artery reducing the stenosis to 0% with 1 drug-eluting stent. Successful stenting of what appeared to be a severe ostial stenosis involving a vein graft to the right coronary artery. severe left ventricular dilation with severely reduced ejection fraction. Severe to critically elevated LVEDP. critical right renal artery stenosis successful stenting the right renal artery critical disease reduced to 0% with 1 bare-metal stent History of present illness: 66-year-old white male with above past significant medical history, presented to ER yesterday with complaint of sudden onset of midsternal chest pain and shortness of breath. Patient and reports he was just sitting on the couch when developed symptoms. On presentation to ER EKG showed electronic ventricular pacemaker at a rate of 90. Hemoglobin was 9.5 creatinine was 1.7 BNP was 13,100. X-ray was negative for acute process. CT of chest showed nonspecific mediastinal adenopathy favor reactive. Small pleural effusion and bibasilar atelectasis. Serial troponins remain negative. This morning reports has continued to have chest pain as well as shortness of breath no EKG changes from previous. [facility] History Medical History: Reports:: Arrhythmia, Atherosclerotic Heart Disease, Atrial Fibrillation, Cancer, Cardiomyopathy, Carotid Stenosis, Congestive Heart Failure, Chronic Obstructive Pulmonary Disease (COPD), Coronary Artery Disease, Cerebrovascular Accident, Diabetes Mellitus Type 2, Gastroesophageal Reflux Disease(GERD), Hyperlipidemia, Hypertension, Internal Pacemaker, Lung Disease, Myocardial Infarction, Palpitations, Peripheral Vascular Disease Denies:: Diabetes Mellitus Type 1, Home Oxygen, MRSA *Have you ever received a pneumonia vaccine?: Yes *Have you received a flu vaccine this season?: Yes Other Medical History: Reports: Anemia, Arthritis, Blood Transfusion Reaction, Cataracts, Chemotherapy, Radiation Therapy, Other Other Surgeries: Yes: Angioplasty, CABG, Cardiac Catheterization, Cardiac Surgery, Coronary Stent, Open Heart Surgery, Pacemaker, Other (Carotid stent) Amputation: No Fractures: No - *Social History Smoking Status: Current some day smoker Tobacco Type: cigarettes # Packs/Day (cigarettes): 1 #Yrs smoked (if former smoker): 50 Alcohol Intake: never Alcohol Intake Frequency:: holidays/special occasions only *Occupational Status:: retired Housing: house Household Members: spouse *Travel in the last 8 weeks: None Family Hx:: Anemia, Heart Attack, Hyperlipidemia Meds Home Medications Medication Instructions Recorded Confirmed Type Budesonide/Formoterol Fumarate 2 puffs IH BID 04/02/18 04/27/22 History [Symbicort 160-4.5 Mcg Inhaler] Ipratropium/Albuterol Sulfate 3 ml IH QIDRT 04/02/18 04/27/22 History [Duoneb 3mL neb] Dexlansoprazole [Dexilant] 60 mg PO DAILY 09/01/19 04/27/22 History Metformin HCl [Metformin 1000mg 1,000 mg PO DAILY 07/19/2004/16
[2022-04-27 11:52] LABS: POC Glucose,Bedside 132 (70-110)
--- NOTE | 2022-04-27 14:14 | PC.NURSE ---
pt to cathlab
[2022-04-27 15:50] LABS: CATHL Activated Clotting Time 288 SEC (74-125)
--- NOTE | 2022-04-27 18:30 | PC.NURSE ---
[facility]
--- NOTE | 2022-04-27 18:38 | SUR.PHASEII ---
Notified RN on 2nd floor to hold eliquis for tonight d/t manual pull of groin sheath.
--- NOTE | 2022-04-27 18:43 | PC.NURSE ---
Patient alert and oriented x4, AV Paced with rate in the 80's, patient had a cardiac cath completed with 2 stents placed. Insertion site right femoral, dressing dry and intact. Patient is to lie flat until midnight this evening, then can be elevated 15 degrees every 15 minutes. No longer complaining of chest pain.
[2022-04-28] VITALS (23 sets, daily range): BP systolic 107–125; BP diastolic 44–86; PULSE 70–99; RESP 13–24; TEMP 36.4–36.7; O2SAT 92–98; BMI 25.7
--- NOTE | 2022-04-28 01:45 | PC.NURSE ---
notified MD Hernandez of pt's back pain and HR in 100-100's after standing at side of bed to void, tylenol had been given with no relief, ordered 2mg morphine once
--- NOTE | 2022-04-28 02:11 | ECG_ITS ---
APPROVED REPORT Exam: Resting ECG HR:99 bpm ECG Measurements Heart Rate 99 AXES IL 153 P 62 QRSd 170 QRS 257 QT 402 T 77 QTc 458 Conclusion ELECTRONIC VENTRICULAR PACEMAKER ABNORMAL RHYTHM ECG UNCONFIRMED REPORT Electronically signed by : Akin Jaeger MD 04/28/2022 08:12:00
[2022-04-28 07:22] LABS: Chloride 106 mmol/L (98-107); Potassium 5.2 mmoL/L (3.5-5.1); Sodium 135 mmol/L (136-145)
[2022-04-28 07:24] LABS: Blood Urea Nitrogen 39 mg/dl (9-20); Creatinine Clearance Estimated 33 mL/min (50-200); Estimated Glomerular Filt Rate 26 ml/min (>60); GFR (African American) 31 ML/MIN (>60)
[2022-04-28 07:25] LABS: Alanine Aminotransferase 113 U/L (12-78); Albumin Level 3.4 g/dl (3.5-5.0); Albumin/Globulin Ratio 1.2 (1.1-1.8); Alkaline Phosphatase 121 U/L (38-126); Anion Gap 11.2 mEq/L (5-15); Aspartate Amino Transferase 130 U/L (17-59); Calcium 8.9 mg/dl (8.4-10.2); Carbon Dioxide 23 mmol/L (22.0-30.0); Globulin 2.9 g/dL (1.3-3.2); Glucose 198 mg/dl (74-100); Total Protein,Serum 6.3 g/dl (6.3-8.2)
[2022-04-28 07:29] LABS: Bilirubin,Total < 0.1 mg/dl (0.2-1.3)
[2022-04-28 07:32] LABS: Eosinophils % 0.3 % (0.1-12.0); Hematocrit 28.2 % (42.0-52.0); Hemoglobin 8.7 g/dL (14.1-18.0); Lymphocytes # 0.4 K/mm3 (0.7-4.5); Lymphocytes % 3.8 % (10-50); Mean Corpuscular HGB Conc 30.6 g/dL (31.8-35.4); Mean Corpuscular Hemoglobin 30.3 pg (27.0-31.2); Mean Corpuscular Volume 98.8 fl (80-94); Mean Platelet Volume 9.9 fl (7.4-10.4); Monocytes # 0.2 K/mm3 (0.1-1.0); Monocytes % 1.9 % (1.7-9.3); Neutrophils # 10.4 K/mm3 (1.8-7.8); Platelet Count 294 K/mm3 (142-424); Red Blood Count 2.86 M/mm3 (4.60-6.20); Red Cell Distribution Width 17.6 % (11.5-17.5); White Blood Count 11.1 K/mm3 (4.8-10.8)
[2022-04-28 07:35] LABS: MANUAL DIFFERENTIAL MANUAL DIFFERENTIAL (MANUAL DIFF)
--- NOTE | 2022-04-28 09:17 | HMH.ACPN2 ---
Internal Medicine - PN: Subj *Date: 04/28/22 *Time: 09:17 Interval history: He underwent cardiac cath yesterday and received 2 stents. Since then he has had no further chest pain. He remains dyspneic with slightest exertion and feels weak when trying to sit up or stand. Denies cough. He was able to eat breakfast this morning. No nausea. Exam Vital signs and Labs for Last 24 Hours: Temp Pulse Resp BP Pulse Ox 98.1 F 79 20 108/57 L 92 L 04/28/22 08:00 04/28/22 08:00 04/28/22 08:00 04/28/22 08:00 04/28/22 08:00 Laboratory Results - last 24 hr 04/27/22 11:31: POC Glucose 132 H 04/27/22 15:12: Activated Clotting Time 288 H* 04/28/22 06:45: WBC 11.1 H, RBC 2.86 L, Hgb 8.7 L, Hct 28.2 L, MCV 98.8 H, MCH 30.3, MCHC 30.6 L, RDW 17.6 H, Plt Count 294, MPV 9.9, Neut % (Auto) 94.0 H, Lymph % (Auto) 3.8 L, [place] % (Auto) 1.9, Eos % (Auto) 0.3, Baso % (Auto) 0.0 L, Neut # (Auto) 10.4 H, Lymph # (Auto) 0.4 L, [place] # (Auto) 0.2, Eos # (Auto) 0.0, Baso # (Auto) 0.0 04/28/22 06:45: Sodium 135 L, Potassium 5.2 H, Chloride 106, Carbon Dioxide 23, Anion Gap 11.2, BUN 39 H D, Creatinine 2.50 H D, Estimated Creat Clear 33, Estimated GFR 26 L, Est GFR ( Amer) 31 L D, Glucose 198 H, Calcium 8.9, Total Bilirubin < 0.1 L, AST 130 H D, ALT 113 H D, Alkaline Phosphatase 121, Total Protein 6.3, Albumin 3.4 L D, Globulin 2.9, Albumin/Globulin Ratio 1.2 I & O for Last 24 hours: Intake & Output 04/25/22 04/26/22 04/27/22 04/28/22 11:59 11:59 11:59 11:59 Intake Total 306 / 306 1105 / 1105 Output Total 100 / 100 750 / 750 Balance 206 / 206 355 / 355 Weight 181 lb 2 oz 184 lb Microbiology Reports for the Last 24 Hours: Microbiology 04/27/22 09:00 Sputum - Expectorated Sputum Gram Stain - Final Narrative: He appears more comfortable. Color is pale. Chest reveals diminished breath sounds throughout both lung evans but no wheezes today. Heart is regular. Abdomen is soft and nondistended with no tenderness. Extremities with trace edema. Assessment and Plan (1) Unstable angina pectoris Status: Acute Category: Medical Code(s): I20.0 - Unstable angina (2) Biventricular automatic implantable cardioverter defibrillator in situ Status: Chronic Category: Medical Code(s): Z95.810 - Presence of automatic (implantable) cardiac defibrillator (3) COPD (chronic obstructive pulmonary disease) Status: Chronic Qualifiers: COPD type: unspecified COPD Qualified Code(s): J44.9 - Chronic obstructive pulmonary disease, unspecified Category: Medical Code(s): J44.9 - Chronic obstructive pulmonary disease, unspecified (4) Tobacco abuse Status: Chronic Category: Medical Code(s): Z72.0 - Tobacco use (5) Paroxysmal atrial fibrillation Status: Chronic Category: Medical Code(s): I48.0 - Paroxysmal atrial fibrillation (6) ASCVD (arteriosclerotic cardiovascular disease) Status: Chronic Category: Medical Code(s): I25.10 - Atherosclerotic heart disease of [place] coronary artery without angina pectoris (7) GERD (gastroesophageal reflux disease) Status: Chronic Qualifiers: Esophagitis presence: esophagitis presence not specified Qualified Code(s): K21.9 - Gastro-esophageal reflux disease without esophagitis Category: Medical Code(s): K21.9 - Gastro-esophageal reflux disease without esophagitis (8) History of CVA (cerebrovascular accident) Status: Chronic Category: Medical Code(s): Z86.73 - Personal history of transient ischemic attack (TIA), and cerebral infarction without residual deficits (9) Hx of lymphoma Status: Chronic Category: Medical Code(s): Z85.72 - Personal history of non-Hodgkin lymphomas (10) Hyperlipidemia Status: Chronic Qualifiers: Hyperlipidemia type: mixed hyperlipidemia Qualified Code(s): E78.2 - Mixed hyperlipidemia Category: Medical Code(s): E78.5 - Hyperlipidemia, unspecified (11) Hypertension Status: Research Fellow
[2022-04-28 11:06] LABS: Lymphocytes % 6 % (10-50); Neutrophils % 94 % (42-76); Platelet Estimate Normal; Total Cells Counted 100
[2022-04-28 11:07] LABS: RBC Morphology Normal
[2022-04-28 20:56] LABS: POC Glucose,Bedside 158 (70-110)
--- NOTE | 2022-04-28 22:57 | PC.NURSE ---
pt asked RN if was given his iron pill today, checked emar and did not see ferrous sulfate ordered but saw in summary that pt does take ferrous sulfate 325mg at home, will notify day RN tomorrow to check with team when they round to see if can restart pt's home ferrous sulfate for him
[2022-04-29] VITALS (23 sets, daily range): BP systolic 96–138; BP diastolic 46–82; PULSE 67–116; RESP 14–31; TEMP 36.2–36.8; O2SAT 94–100; BMI 25.7
[2022-04-29 06:28] LABS: POC Glucose,Bedside 202 (70-110)
[2022-04-29 07:23] LABS: Basophils % 0.1 % (0.1-2.0); Eosinophils % 0.1 % (0.1-12.0); Hematocrit 28.8 % (42.0-52.0); Hemoglobin 8.7 g/dL (14.1-18.0); Lymphocytes # 0.3 K/mm3 (0.7-4.5); Lymphocytes % 2.1 % (10-50); Mean Corpuscular HGB Conc 30.3 g/dL (31.8-35.4); Mean Corpuscular Hemoglobin 29.9 pg (27.0-31.2); Mean Corpuscular Volume 98.5 fl (80-94); Mean Platelet Volume 9.4 fl (7.4-10.4); Monocytes # 0.3 K/mm3 (0.1-1.0); Monocytes % 2.1 % (1.7-9.3); Neutrophils # 12.2 K/mm3 (1.8-7.8); Neutrophils % 95.6 % (37.0-80.0); Platelet Count 310 K/mm3 (142-424); Red Blood Count 2.92 M/mm3 (4.60-6.20); Red Cell Distribution Width 17.9 % (11.5-17.5); White Blood Count 12.8 K/mm3 (4.8-10.8)
[2022-04-29 07:26] LABS: Chloride 106 mmol/L (98-107)
[2022-04-29 07:27] LABS: Potassium 4.7 mmoL/L (3.5-5.1); Sodium 138 mmol/L (136-145)
[2022-04-29 07:28] LABS: MANUAL DIFFERENTIAL MANUAL DIFFERENTIAL (MANUAL DIFF)
[2022-04-29 07:30] LABS: Anion Gap 11.7 mEq/L (5-15); Blood Urea Nitrogen 53 mg/dl (9-20); Calcium 8.5 mg/dl (8.4-10.2); Carbon Dioxide 25 mmol/L (22.0-30.0); Creatinine Clearance Estimated 29 mL/min (50-200); Estimated Glomerular Filt Rate 22 ml/min (>60); GFR (African American) 26 ML/MIN (>60); Glucose 195 mg/dl (74-100)
--- NOTE | 2022-04-29 09:03 | HMH.ACPN2 ---
Internal Medicine - PN: Subj *Date: 04/29/22 *Time: 09:03 Interval history: No new complaints. Still quite dyspneic with slightest exertion. No chest pain. Eating well. No bowel movement. Minimal cough that is mostly nonproductive. Exam Vital signs and Labs for Last 24 Hours: Temp Pulse Resp BP Pulse Ox 98.3 F 82 14 101/51 L 98 04/29/22 08:25 04/29/22 06:11 04/29/22 06:00 04/29/22 06:00 04/29/22 06:11 Laboratory Results - last 24 hr 04/28/22 06:45: Total Counted 100, Neutrophils % (Manual) 94 H, Lymphocytes % (Manual) 6 L, Platelet Estimate Normal, RBC Morphology Normal 04/28/22 20:44: POC Glucose 158 H 04/29/22 06:19: POC Glucose 202 H 04/29/22 07:03: WBC 12.8 H, RBC 2.92 L, Hgb 8.7 L, Hct 28.8 L, MCV 98.5 H, MCH 29.9, MCHC 30.3 L, RDW 17.9 H, Plt Count 310, MPV 9.4, Neut % (Auto) 95.6 H, Lymph % (Auto) 2.1 L, [place] % (Auto) 2.1, Eos % (Auto) 0.1, Baso % (Auto) 0.1, Neut # (Auto) 12.2 H, Lymph # (Auto) 0.3 L, [place] # (Auto) 0.3, Eos # (Auto) 0.0, Baso # (Auto) 0.0 04/29/22 07:03: Sodium 138, Potassium 4.7, Chloride 106, Carbon Dioxide 25, Anion Gap 11.7, BUN 53 H D, Creatinine 2.90 H, Estimated Creat Clear 29, Estimated GFR 22 L, Est GFR ( Amer) 26 L, Glucose 195 H, Calcium 8.5 I & O for Last 24 hours: Intake & Output 04/26/22 04/27/22 04/28/22 04/29/22 11:59 11:59 11:59 11:59 Intake Total 306 / 306 1105 / 1105 1100 / 1100 Output Total 100 / 100 850 / 850 2049 / 2049 Balance 206 / 206 255 / 255 -950 / -950 Weight 181 lb 2 oz 184 lb 184 lb Microbiology Reports for the Last 24 Hours: Microbiology 04/27/22 09:00 Sputum - Expectorated Sputum Gram Stain - Final 04/27/22 09:00 Sputum - Expectorated Sputum Sputum Culture - Preliminary Narrative: He is sitting up in a chair. He appears in no distress. Color is slightly pale. Chest with scattered rhonchi. No wheezes. Heart is regular. Abdomen soft and nondistended with no tenderness. Assessment and Plan (1) Unstable angina pectoris Status: Acute Category: Medical Code(s): I20.0 - Unstable angina (2) Biventricular automatic implantable cardioverter defibrillator in situ Status: Chronic Category: Medical Code(s): Z95.810 - Presence of automatic (implantable) cardiac defibrillator (3) COPD (chronic obstructive pulmonary disease) Status: Chronic Qualifiers: COPD type: unspecified COPD Qualified Code(s): J44.9 - Chronic obstructive pulmonary disease, unspecified Category: Medical Code(s): J44.9 - Chronic obstructive pulmonary disease, unspecified (4) Tobacco abuse Status: Chronic Category: Medical Code(s): Z72.0 - Tobacco use (5) Paroxysmal atrial fibrillation Status: Chronic Category: Medical Code(s): I48.0 - Paroxysmal atrial fibrillation (6) ASCVD (arteriosclerotic cardiovascular disease) Status: Chronic Category: Medical Code(s): I25.10 - Atherosclerotic heart disease of [place] coronary artery without angina pectoris (7) GERD (gastroesophageal reflux disease) Status: Chronic Qualifiers: Esophagitis presence: esophagitis presence not specified Qualified Code(s): K21.9 - Gastro-esophageal reflux disease without esophagitis Category: Medical Code(s): K21.9 - Gastro-esophageal reflux disease without esophagitis (8) History of CVA (cerebrovascular accident) Status: Chronic Category: Medical Code(s): Z86.73 - Personal history of transient ischemic attack (TIA), and cerebral infarction without residual deficits (9) Hx of lymphoma Status: Chronic Category: Medical Code(s): Z85.72 - Personal history of non-Hodgkin lymphomas (10) Hyperlipidemia Status: Chronic Qualifiers: Hyperlipidemia type: mixed hyperlipidemia Qualified Code(s): E78.2 - Mixed hyperlipidemia Category: Medical Code(s): E78.5 - Hyperlipidemia, unspecified (11) Hypertension Status: Chronic Qualifiers: Hypertension type: primary hypertension Qualifie
[2022-04-29 10:37] LABS: Lymphocytes % 3 % (10-50); Monocytes % 1 % (2-9); Neutrophils % 96 % (42-76); Platelet Estimate Normal; Total Cells Counted 100
[2022-04-29 10:38] LABS: Ovalocytes 1+
--- NOTE | 2022-04-29 17:02 | PC.NURSE ---
Patient alert and oriented x4, out of bed to chair the majority of the day, RT DC'd O2 this morning, patient maintaining O2 saturation of 98-100% on Room air. Ambulated with walker and assistive personnel x1, to the end of the hallway and back to room, post-walk VSS. AV Paced on tele, HR in the 80's. Tolerating cardiac diet, uses the urinal, no BM this shift. Two episodes of pain noted, relieved with PRN Morphine.
--- NOTE | 2022-04-29 19:15 | PC.NURSE ---
rounded on pt, pt sitting comfortably in chair, emptied urinal and updated white board; asked pt if needed anything, pt stated no; asked pt if ready to get back into bed, pt stated no, made sure call rivera within pt's reach and instructed pt to call when ready to get back into bed
[2022-04-30] VITALS (20 sets, daily range): BP systolic 93–145; BP diastolic 45–66; PULSE 65–109; RESP 12–28; TEMP 36.5–36.8; O2SAT 94–100; BMI 25.7
--- NOTE | 2022-04-30 00:44 | PC.NURSE ---
pt c/o nausea and asked for pain medication, zofran and morphine given see emar
--- NOTE | 2022-04-30 02:41 | ECG_ITS ---
APPROVED REPORT Exam: Resting ECG HR:122 bpm ECG Measurements Heart Rate 122 AXES NJ 110 P 55 QRSd 170 QRS 96 QT 352 T -78 QTc 424 Conclusion Tachycardia of uncertain etiology INTRAVENTRICULAR CONDUCTION DELAY [130+ ms QRS DURATION] ABNORMAL ECG UNCONFIRMED REPORT Electronically signed by : Akin Jaeger MD 04/30/2022 14:23:55
--- NOTE | 2022-04-30 03:18 | PC.NURSE ---
pt's rhythm changed and HR increased on monitor, breathing very labored, diaphoretic, and c/o'd of back and chest pain, this RN gave one dose of nitro 0.4, EKG performed, took ekg print out to MD Mars in ER to read, MD Mars read ekg as BBB, MD Mars notified MD Mckeon of episode and ekg result, finishing area supervisor gave 1 dose of 2mg morphine and another dose of nitro 0.4, pt back to AV paced on monitor with HR in 80's, pt sitting up in bed resting, call rivera within reach
[2022-04-30 06:15] LABS: Basophils % 0.1 % (0.1-2.0); Eosinophils # 0.1 K/mm3 (0.0-0.4); Eosinophils % 0.3 % (0.1-12.0); Hemoglobin 9.3 g/dL (14.1-18.0); Lymphocytes # 0.4 K/mm3 (0.7-4.5); Lymphocytes % 2.6 % (10-50); Mean Corpuscular HGB Conc 31.2 g/dL (31.8-35.4); Mean Corpuscular Volume 99.2 fl (80-94); Mean Platelet Volume 9.6 fl (7.4-10.4); Monocytes # 0.4 K/mm3 (0.1-1.0); Monocytes % 2.5 % (1.7-9.3); Neutrophils # 14.4 K/mm3 (1.8-7.8); Neutrophils % 94.5 % (37.0-80.0); Platelet Count 342 K/mm3 (142-424); Red Cell Distribution Width 17.9 % (11.5-17.5); White Blood Count 15.2 K/mm3 (4.8-10.8)
[2022-04-30 06:16] LABS: Hematocrit 29.8 % (42.0-52.0); MANUAL DIFFERENTIAL MANUAL DIFFERENTIAL (MANUAL DIFF)
[2022-04-30 06:26] LABS: Anisocytosis 2+; Hypochromasia 1+; Lymphocytes % 5 % (10-50); Neutrophils % 88 % (42-76); Platelet Estimate Normal; Total Cells Counted 100
[2022-04-30 06:28] LABS: Sodium 136 mmol/L (136-145)
[2022-04-30 06:30] LABS: Blood Urea Nitrogen 59 mg/dl (9-20); Calcium 8.6 mg/dl (8.4-10.2); Carbon Dioxide 21 mmol/L (22.0-30.0); Chloride 106 mmol/L (98-107); Creatinine Clearance Estimated 32 mL/min (50-200); Estimated Glomerular Filt Rate 25 ml/min (>60); GFR (African American) 30 ML/MIN (>60); Glucose 205 mg/dl (74-100)
--- NOTE | 2022-04-30 08:07 | XR_ITS ---
FINAL REPORT CLINICAL HISTORY: Pleural effusions COMPARISON: 04/27/2022 FINDINGS: Two views of the chest were obtained. The heart is enlarged. The patient is status post median sternotomy. A left subclavian AICD is present. There is persistent pulmonary vascular congestion. There is partially improved aeration in lung bases. There are persistent small bilateral pleural effusions. IMPRESSION: Partially improved aeration in the lung bases with persistent small bilateral pleural effusions. Reviewed, Interpreted and Dictated by Doc Portre III, MD Transcribed by Selene Skaggs Authenticated and . [facility]
--- NOTE | 2022-04-30 08:49 | HMH.ACPN2 ---
<Andreia Gabriel - Last Filed: 04/30/22 08:49> Internal Medicine - PN: Subj *Date: 04/30/22 *Time: 08:49 Interval history: Patient states he would like to go home today. He did have 2 episodes of chest discomfort during the night which was finally relieved with nitroglycerin x2. He was able to eat breakfast this morning and states that it was delicious. He is currently up in a chair and denies chest pain. He has a nonproductive cough. He states he is not short of breath. Patient does state that he is constipated. Exam Vital signs and Labs for Last 24 Hours: Temp Pulse Resp BP Pulse Ox 98.0 F 88 22 134/58 L 97 04/30/22 04:00 04/30/22 08:00 04/30/22 08:00 04/30/22 08:00 04/30/22 08:00 Laboratory Results - last 24 hr 04/29/22 07:03: Total Counted 100, Neutrophils % (Manual) 96 H, Lymphocytes % (Manual) 3 L, Monocytes % (Manual) 1 L, Platelet Estimate Normal, Ovalocytes 1+ 04/30/22 05:28: WBC 15.2 H, RBC 3.00 L, Hgb 9.3 L, Hct 29.8 L, MCV 99.2 H, MCH 31.0, MCHC 31.2 L, RDW 17.9 H, Plt Count 342, MPV 9.6, Neut % (Auto) 94.5 H, Lymph % (Auto) 2.6 L, [place] % (Auto) 2.5, Eos % (Auto) 0.3, Baso % (Auto) 0.1, Neut # (Auto) 14.4 H, Lymph # (Auto) 0.4 L, [place] # (Auto) 0.4, Eos # (Auto) 0.1, Baso # (Auto) 0.0, Total Counted 100, Neutrophils % (Manual) 88 H, Band Neutrophils % 7.0, Lymphocytes % (Manual) 5 L, Platelet Estimate Normal, Hypochromasia 1+, Anisocytosis 2+ 04/30/22 05:28: Sodium 136, Potassium 5.0, Chloride 106, Carbon Dioxide 21 L, Anion Gap 14.0, BUN 59 H, Creatinine 2.60 H, Estimated Creat Clear 32, Estimated GFR 25 L, Est GFR ( Amer) 30 L, Glucose 205 H, Calcium 8.6 I & O for Last 24 hours: Intake & Output 04/27/22 04/28/22 04/29/22 04/30/22 11:59 11:59 11:59 11:59 Intake Total 306 / 306 1105 / 1105 1340 / 1340 600 / 600 Output Total 100 / 100 850 / 850 2250 / 2250 1000 / 1000 Balance 206 / 206 255 / 255 -910 / -910 -400 / -400 Weight 181 lb 2 oz 184 lb 184 lb 183 lb 15.965 oz Microbiology Reports for the Last 24 Hours: Microbiology 04/27/22 09:00 Sputum - Expectorated Sputum Gram Stain - Final 04/27/22 09:00 Sputum - Expectorated Sputum Sputum Culture - Preliminary - Constitutional no acute distress Comments: Dyspneic with talking - *Routine Respiratory Exam Present: CTA bilaterally (Clearly and posteriorly), diminished air movement Comments: Congested cough - *Routine Cardiovascular Exam Present: RRR - *Routine Abdominal Exam Present: soft, normoactive bowel sounds. Absent: tenderness - *Routine Extremities Exam Present: edema (Trace bilateral) - *Routine Neurological Exam Present: alert, oriented X3 Assessment and Plan (1) Unstable angina pectoris Status: Acute Category: Medical Code(s): I20.0 - Unstable angina (2) Biventricular automatic implantable cardioverter defibrillator in situ Status: Chronic Category: Medical Code(s): Z95.810 - Presence of automatic (implantable) cardiac defibrillator (3) COPD (chronic obstructive pulmonary disease) Status: Chronic Qualifiers: COPD type: unspecified COPD Qualified Code(s): J44.9 - Chronic obstructive pulmonary disease, unspecified Category: Medical Code(s): J44.9 - Chronic obstructive pulmonary disease, unspecified (4) Tobacco abuse Status: Chronic Category: Medical Code(s): Z72.0 - Tobacco use (5) Paroxysmal atrial fibrillation Status: Chronic Category: Medical Code(s): I48.0 - Paroxysmal atrial fibrillation (6) ASCVD (arteriosclerotic cardiovascular disease) Status: Chronic Category: Medical Code(s): I25.10 - Atherosclerotic heart disease of [place] coronary artery without angina pectoris (7) GERD (gastroesophageal reflux disease) Status: Chronic Qualifiers: Esophagitis presence: esophagitis presence not specified Qualified Code(s): K21.9 - Gastro-esophageal reflux disease without esophagitis Category: Medical Code(s): K21.9 - Gastro-esop
--- NOTE | 2022-04-30 09:19 | HMH.ACPN2 ---
Internal Medicine - PN: Subj *Date: 04/30/22 *Time: 09:19 Exam Vital signs and Labs for Last 24 Hours: Temp Pulse Resp BP Pulse Ox 97.7 F 88 22 134/58 L 97 04/30/22 08:00 04/30/22 08:00 04/30/22 08:00 04/30/22 08:00 04/30/22 08:00 Laboratory Results - last 24 hr 04/29/22 07:03: Total Counted 100, Neutrophils % (Manual) 96 H, Lymphocytes % (Manual) 3 L, Monocytes % (Manual) 1 L, Platelet Estimate Normal, Ovalocytes 1+ 04/30/22 05:28: WBC 15.2 H, RBC 3.00 L, Hgb 9.3 L, Hct 29.8 L, MCV 99.2 H, MCH 31.0, MCHC 31.2 L, RDW 17.9 H, Plt Count 342, MPV 9.6, Neut % (Auto) 94.5 H, Lymph % (Auto) 2.6 L, [place] % (Auto) 2.5, Eos % (Auto) 0.3, Baso % (Auto) 0.1, Neut # (Auto) 14.4 H, Lymph # (Auto) 0.4 L, [place] # (Auto) 0.4, Eos # (Auto) 0.1, Baso # (Auto) 0.0, Total Counted 100, Neutrophils % (Manual) 88 H, Band Neutrophils % 7.0, Lymphocytes % (Manual) 5 L, Platelet Estimate Normal, Hypochromasia 1+, Anisocytosis 2+ 04/30/22 05:28: Sodium 136, Potassium 5.0, Chloride 106, Carbon Dioxide 21 L, Anion Gap 14.0, BUN 59 H, Creatinine 2.60 H, Estimated Creat Clear 32, Estimated GFR 25 L, Est GFR ( Amer) 30 L, Glucose 205 H, Calcium 8.6 I & O for Last 24 hours: Intake & Output 04/27/22 04/28/22 04/29/22 04/30/22 23:59 23:59 23:59 23:59 Intake Total 306 / 306 1835 / 1835 1210 / 1210 240 / 240 Output Total 250 / 250 1700 / 1700 2250 / 2250 0 / 0 Balance 56 / 56 135 / 135 -1040 / -1040 240 / 240 Weight 82.157 kg 83.461 kg 83.461 kg 83.46 kg Microbiology Reports for the Last 24 Hours: Microbiology 04/27/22 09:00 Sputum - Expectorated Sputum Gram Stain - Final 04/27/22 09:00 Sputum - Expectorated Sputum Sputum Culture - Preliminary Assessment and Plan (1) Unstable angina pectoris Status: Acute Category: Medical Code(s): I20.0 - Unstable angina (2) Biventricular automatic implantable cardioverter defibrillator in situ Status: Chronic Category: Medical Code(s): Z95.810 - Presence of automatic (implantable) cardiac defibrillator (3) COPD (chronic obstructive pulmonary disease) Status: Chronic Qualifiers: COPD type: unspecified COPD Qualified Code(s): J44.9 - Chronic obstructive pulmonary disease, unspecified Category: Medical Code(s): J44.9 - Chronic obstructive pulmonary disease, unspecified (4) Tobacco abuse Status: Chronic Category: Medical Code(s): Z72.0 - Tobacco use (5) Paroxysmal atrial fibrillation Status: Chronic Category: Medical Code(s): I48.0 - Paroxysmal atrial fibrillation (6) ASCVD (arteriosclerotic cardiovascular disease) Status: Chronic Category: Medical Code(s): I25.10 - Atherosclerotic heart disease of [place] coronary artery without angina pectoris (7) GERD (gastroesophageal reflux disease) Status: Chronic Qualifiers: Esophagitis presence: esophagitis presence not specified Qualified Code(s): K21.9 - Gastro-esophageal reflux disease without esophagitis Category: Medical Code(s): K21.9 - Gastro-esophageal reflux disease without esophagitis (8) History of CVA (cerebrovascular accident) Status: Chronic Category: Medical Code(s): Z86.73 - Personal history of transient ischemic attack (TIA), and cerebral infarction without residual deficits (9) Hx of lymphoma Status: Chronic Category: Medical Code(s): Z85.72 - Personal history of non-Hodgkin lymphomas (10) Hyperlipidemia Status: Chronic Qualifiers: Hyperlipidemia type: mixed hyperlipidemia Qualified Code(s): E78.2 - Mixed hyperlipidemia Category: Medical Code(s): E78.5 - Hyperlipidemia, unspecified (11) Hypertension Status: Chronic Qualifiers: Hypertension type: primary hypertension Qualified Code(s): I10 - Essential (primary) hypertension Category: Medical Code(s): I10 - Essential (primary) hypertension (12) Ischemic cardiomyopathy Status: Chronic Category: Medical Code(s): I25.5 - Ischemic cardiomyopathy (13) Ty
--- NOTE | 2022-04-30 09:26 | HMH.PULMPN ---
Internal Medicine - PN: Subj *Date: 04/30/22 *Time: 09:27 Interval history: No acute respiratory vents overnight. Episode of chest pain. Placed back on nasal cannula. Admits intermittent cough. Exam - Constitutional Constitutional:: Present: no acute distress, comfortable - HENMT Exam HENMT: Present: normocephalic, atraumatic - Eye Exam Eyes:: Present: normal appearance both eyes and related structures - Neck Exam Neck:: Present: normal visual inspection, thyroid normal - Respiratory Exam Respiratory:: Present: able to speak in complete sentences, no respiratory distress, crackles. Absent: wheezing - Cardiovascular Exam Cardiac:: Present: S1, S2, dyspnea on exertion - GI Exam GI:: Present: soft, no hepatosplenomegaly - Skin Exam Skin: Present: warm, no rash - Neurological Exam Neurological: Present: alert, awake, normal cognition - Extremities Exam Extremities: Present: no cyanosis, no clubbing - Psychiatric Exam Psychiatric: Present: normal affect, appearance grossly normal Assessment and Plan (1) Unstable angina pectoris Status: Acute Category: Medical Code(s): I20.0 - Unstable angina (2) Biventricular automatic implantable cardioverter defibrillator in situ Status: Chronic Category: Medical Code(s): Z95.810 - Presence of automatic (implantable) cardiac defibrillator (3) COPD (chronic obstructive pulmonary disease) Status: Chronic Qualifiers: COPD type: unspecified COPD Qualified Code(s): J44.9 - Chronic obstructive pulmonary disease, unspecified Category: Medical Code(s): J44.9 - Chronic obstructive pulmonary disease, unspecified (4) Tobacco abuse Status: Chronic Category: Medical Code(s): Z72.0 - Tobacco use (5) Paroxysmal atrial fibrillation Status: Chronic Category: Medical Code(s): I48.0 - Paroxysmal atrial fibrillation (6) ASCVD (arteriosclerotic cardiovascular disease) Status: Chronic Category: Medical Code(s): I25.10 - Atherosclerotic heart disease of [place] coronary artery without angina pectoris (7) GERD (gastroesophageal reflux disease) Status: Chronic Qualifiers: Esophagitis presence: esophagitis presence not specified Qualified Code(s): K21.9 - Gastro-esophageal reflux disease without esophagitis Category: Medical Code(s): K21.9 - Gastro-esophageal reflux disease without esophagitis (8) History of CVA (cerebrovascular accident) Status: Chronic Category: Medical Code(s): Z86.73 - Personal history of transient ischemic attack (TIA), and cerebral infarction without residual deficits (9) Hx of lymphoma Status: Chronic Category: Medical Code(s): Z85.72 - Personal history of non-Hodgkin lymphomas (10) Hyperlipidemia Status: Chronic Qualifiers: Hyperlipidemia type: mixed hyperlipidemia Qualified Code(s): E78.2 - Mixed hyperlipidemia Category: Medical Code(s): E78.5 - Hyperlipidemia, unspecified (11) Hypertension Status: Chronic Qualifiers: Hypertension type: primary hypertension Qualified Code(s): I10 - Essential (primary) hypertension Category: Medical Code(s): I10 - Essential (primary) hypertension (12) Ischemic cardiomyopathy Status: Chronic Category: Medical Code(s): I25.5 - Ischemic cardiomyopathy (13) Type 2 diabetes mellitus Status: Chronic Qualifiers: Diabetes mellitus medical terminologist insulin use: unspecified medical terminologist insulin use status Diabetes mellitus complication status: with other specified complication Qualified Code(s): E11.69 - Type 2 diabetes mellitus with other specified complication Category: Medical Code(s): E11.9 - Type 2 diabetes mellitus without complications (14) Acute on chronic renal insufficiency Status: Acute Category: Medical Code(s): N28.9 - Disorder of kidney and ureter, unspecified; N18.9 - Chronic kidney disease, unspecified - Assessment and plan all Dx Assessment and Plan for all problems:: #Acute hyp
--- NOTE | 2022-04-30 09:40 | HMH.PNCARD ---
Subjective Date: 04/30/22 Time: 09:00 Principal diagnosis: SOB, CHF, CAD Interval history: This is a 66-year-old white gentleman who presented to the emergency department with complaints of chest pain and shortness of breath. The patient underwent left cardiac catheterization and had severe to critical circumflex artery disease. He underwent stenting to the proximal circumflex artery and the terminal obtuse marginal artery. The patient has been on Brilinta and aspirin since that time. The patient states around 1 AM this morning he had sudden onset of shortness of breath. He states that he got a breathing treatment which made his symptoms worse. He states that he began to do a lot of coughing and got profoundly short of breath and then started having some tightness in his chest. He states that this lasted about an hour and a half and then resolved. The patient reports around 4 AM he had a repeat of the same symptoms where he got profoundly short of breath started coughing a lot and then had some chest pain and tightness in his chest. He took 2 nitroglycerin and his symptoms resolved. He states that he has had no symptoms since that time. He states that he feels much better sitting up in the chair this morning. He states that he is short of breath and it had been doing really well since getting stenting but through the night last night he had those 2 episodes of some profound shortness of breath. He only had the chest pain and tightness after he got short of breath and had a lot of coughing. He denies any fever, chills, nausea, vomiting, diarrhea. He does have orthopnea. He does also have bilateral. Exam Vital signs and Labs for Last 24 Hours: Temp Pulse Resp BP Pulse Ox 97.7 F 88 22 134/58 L 97 04/30/22 08:00 04/30/22 08:00 04/30/22 08:00 04/30/22 08:00 04/30/22 08:00 Laboratory Results - last 24 hr 04/29/22 07:03: Total Counted 100, Neutrophils % (Manual) 96 H, Lymphocytes % (Manual) 3 L, Monocytes % (Manual) 1 L, Platelet Estimate Normal, Ovalocytes 1+ 04/30/22 05:28: WBC 15.2 H, RBC 3.00 L, Hgb 9.3 L, Hct 29.8 L, MCV 99.2 H, MCH 31.0, MCHC 31.2 L, RDW 17.9 H, Plt Count 342, MPV 9.6, Neut % (Auto) 94.5 H, Lymph % (Auto) 2.6 L, [place] % (Auto) 2.5, Eos % (Auto) 0.3, Baso % (Auto) 0.1, Neut # (Auto) 14.4 H, Lymph # (Auto) 0.4 L, [place] # (Auto) 0.4, Eos # (Auto) 0.1, Baso # (Auto) 0.0, Total Counted 100, Neutrophils % (Manual) 88 H, Band Neutrophils % 7.0, Lymphocytes % (Manual) 5 L, Platelet Estimate Normal, Hypochromasia 1+, Anisocytosis 2+ 04/30/22 05:28: Sodium 136, Potassium 5.0, Chloride 106, Carbon Dioxide 21 L, Anion Gap 14.0, BUN 59 H, Creatinine 2.60 H, Estimated Creat Clear 32, Estimated GFR 25 L, Est GFR ( Amer) 30 L, Glucose 205 H, Calcium 8.6 I & O for Last 24 hours: Intake & Output 04/27/22 04/28/22 04/29/22 04/30/22 23:59 23:59 23:59 23:59 Intake Total 306 / 306 1835 / 1835 1210 / 1210 240 / 240 Output Total 250 / 250 1700 / 1700 2250 / 2250 0 / 0 Balance 56 / 56 135 / 135 -1040 / -1040 240 / 240 Weight 181 lb 2.003 oz 184 lb 184 lb 183 lb 15.965 oz Microbiology Reports for the Last 24 Hours: Microbiology 04/27/22 09:00 Sputum - Expectorated Sputum Gram Stain - Final 04/27/22 09:00 Sputum - Expectorated Sputum Sputum Culture - Preliminary Narrative: Telemetry strip is V pacing with a rate in the 70s and underlying rhythm is atrial fibrillation. Echo shows: 1. Limited echocardiogram is performed to evaluate left ventricular systolic function. The left ventricle is dilated, estimated ejection fraction 20%, left ventricle is globally hypokinetic. 2. No significant pericardial effusion noted. LHC shows: The left main artery Has a stent in the ostial proximal segment which is widely patent and normal The left anterior descending artery Ostially occluded The circumflex artery Is a dominant vessel gives rise to a large first obtuse marginal artery/ramus intermedius which has
--- NOTE | 2022-04-30 09:48 | CA_ITS ---
FINAL REPORT TECHNIQUE: Color Doppler, duplex Doppler and rojas scale sonography of the bilateral neck arterial vasculature was performed. Velocities were measured in the carotid arteries. Stenosis evaluation based on the validated velocity criteria. CLINICAL HISTORY: LT CARTOID BRUIT,SIRENA,PRIOR STENTING RT CARTOID,HTN,HLD,SMOKER FINDINGS: A right carotid stent is present. The peak systolic velocity of the right common carotid artery is 85 cm/s. The peak systolic velocity of the right internal carotid artery is 320 cm/s and end diastolic velocity 100 cm/s. A moderate amount of plaque is present. The right external carotid artery is patent. The right vertebral artery is patent with antegrade flow. The peak systolic velocity of the left common carotid artery is 127 cm/s. The peak systolic velocity of the left internal carotid artery is 314 cm/s and end diastolic velocity 81 cm/s. A moderate amount of plaque is present. The left external carotid artery is patent.The left vertebral artery is patent with antegrade flow. IMPRESSION: 70-99% stenosis of the bilateral ICAs. Moderate plaque bilaterally. Bilateral patent vertebral arteries with antegrade flow. If indicated, CTA or MRA could further evaluate. Reviewed, Interpreted and Dictated by Doc Porter III, MD Transcribed by Johanna Francis Authenticated and [facility]
--- NOTE | 2022-04-30 10:28 | DIET.NUTRFU ---
rounded with provider this morning and breakfast intake was 100% along with last couple meals. Continues on cardiac diet, declined education when interviewed. He seemed pretty aware of foods to avoid. No dietary concerns at this time.
--- NOTE | 2022-04-30 10:53 | PC.NURSE ---
went down to radiology with patient. patient tolerated transfer and xray well. standing with minimal assistance. no complaints during transfer to and from xray. no concerns during that time.
--- NOTE | 2022-04-30 16:08 | PC.NURSE ---
Pt has been up to the chair off and on this shift with standby assist. he ambulated in the cordon with his without difficulty. nad noted. lungs are clear, bowel sounds are active. pt has not complained of chest pressure, pain or burning this shift.
[2022-05-01] VITALS (8 sets, daily range): BP systolic 104–136; BP diastolic 54–68; PULSE 71–95; RESP 12–22; TEMP 36.4–36.5; O2SAT 93–97; BMI 25.7
[2022-05-01 01:38] LABS: POC Glucose,Bedside 280 (70-110)
[2022-05-01 01:38] LABS: POC Glucose,Bedside 224 (70-110)
[2022-05-01 01:38] LABS: POC Glucose,Bedside 177 (70-110)
[2022-05-01 01:38] LABS: POC Glucose,Bedside 201 (70-110)
[2022-05-01 01:38] LABS: POC Glucose,Bedside 227 (70-110)
[2022-05-01 06:21] LABS: Basophils % 0.1 % (0.1-2.0); Eosinophils # 0.1 K/mm3 (0.0-0.4); Eosinophils % 0.4 % (0.1-12.0); Hematocrit 36.3 % (42.0-52.0); Hemoglobin 10.8 g/dL (14.1-18.0); Lymphocytes # 0.6 K/mm3 (0.7-4.5); Lymphocytes % 4.3 % (10-50); Mean Corpuscular HGB Conc 29.8 g/dL (31.8-35.4); Mean Corpuscular Hemoglobin 29.9 pg (27.0-31.2); Mean Corpuscular Volume 100.3 fl (80-94); Mean Platelet Volume 9.5 fl (7.4-10.4); Monocytes # 0.9 K/mm3 (0.1-1.0); Monocytes % 6.1 % (1.7-9.3); Neutrophils # 13.3 K/mm3 (1.8-7.8); Neutrophils % 89.2 % (37.0-80.0); Platelet Count 358 K/mm3 (142-424); Red Blood Count 3.61 M/mm3 (4.60-6.20); Red Cell Distribution Width 18.1 % (11.5-17.5); White Blood Count 14.9 K/mm3 (4.8-10.8)
[2022-05-01 06:23] LABS: MANUAL DIFFERENTIAL MANUAL DIFFERENTIAL (MANUAL DIFF)
[2022-05-01 06:58] LABS: Lymphocytes % 12 % (10-50); Monocytes % 1 % (2-9); Neutrophils % 87 % (42-76); Total Cells Counted 100
[2022-05-01 06:59] LABS: Anisocytosis 1+; Chloride 107 mmol/L (98-107); Hypochromasia 1+; Platelet Estimate Normal; Potassium 4.4 mmoL/L (3.5-5.1); Sodium 139 mmol/L (136-145)
[2022-05-01 07:02] LABS: Anion Gap 12.4 mEq/L (5-15); Blood Urea Nitrogen 57 mg/dl (9-20); Calcium 9.2 mg/dl (8.4-10.2); Carbon Dioxide 24 mmol/L (22.0-30.0); Chol/HDL Ratio 3.6 (1-3.5); Cholesterol 154 mg/dl (140-200); Creatinine Clearance Estimated 36 mL/min (50-200); Estimated Glomerular Filt Rate 28 ml/min (>60); GFR (African American) 34 ML/MIN (>60); Glucose 134 mg/dl (74-100); HDL Cholesterol 43 mg/dl (40-60); Triglycerides 105 mg/dl (30-150); VLDL Cholesterol 21 mg/dL (0-40)
--- NOTE | 2022-05-01 08:05 | PC.NURSE ---
pt vomited aprox 500mL of bile. Phenergan infusing via PIV. Pt reports immediate relief after episode.
--- NOTE | 2022-05-01 08:30 | PC.NURSE ---
morning rounds with md and case management. patient sitting up to chair. no complaints at that time, eager to go home. md plan waiting on cardiology and pulmonology to round, and give any other recommendations.
--- NOTE | 2022-05-01 08:40 | HMH.ACPN2 ---
<Andreia Gabriel - Last Filed: 05/01/22 08:40> Internal Medicine - PN: Subj *Date: 05/01/22 *Time: 08:40 Interval history: Patient did have a good day yesterday. He had no further chest pain. He was able to walk up and down the cordon without dyspnea. He was eating well. He did become nauseated and vomited during the night and is nauseated this AM. He is currently receiving Phenergan IV. White blood cell count is 14,900 with a hemoglobin of 10.8 hematocrit 36.3. BMP shows a normal electrolytes with a BUN of 57 and creatinine of 2.3 Exam Vital signs and Labs for Last 24 Hours: Temp Pulse Resp BP Pulse Ox 97.7 F 78 18 122/54 L 94 L 05/01/22 08:00 05/01/22 08:00 05/01/22 06:00 05/01/22 06:00 05/01/22 06:26 Laboratory Results - last 24 hr 04/29/22 11:55: POC Glucose 227 H 04/29/22 16:25: POC Glucose 280 H 04/29/22 20:40: POC Glucose 224 H 04/30/22 11:23: POC Glucose 201 H 04/30/22 16:53: POC Glucose 177 H 05/01/22 06:00: WBC 14.9 H, RBC 3.61 L, Hgb 10.8 L, Hct 36.3 L, MCV 100.3 H, MCH 29.9, MCHC 29.8 L, RDW 18.1 H, Plt Count 358, MPV 9.5, Neut % (Auto) 89.2 H, Lymph % (Auto) 4.3 L, [place] % (Auto) 6.1, Eos % (Auto) 0.4, Baso % (Auto) 0.1, Neut # (Auto) 13.3 H, Lymph # (Auto) 0.6 L, [place] # (Auto) 0.9, Eos # (Auto) 0.1, Baso # (Auto) 0.0, Total Counted 100, Neutrophils % (Manual) 87 H, Lymphocytes % (Manual) 12, Monocytes % (Manual) 1 L, Platelet Estimate Normal, Hypochromasia 1+, Anisocytosis 1+ 05/01/22 06:00: Sodium 139, Potassium 4.4, Chloride 107, Carbon Dioxide 24, Anion Gap 12.4, BUN 57 H, Creatinine 2.30 H, Estimated Creat Clear 36, Estimated GFR 28 L, Est GFR ( Amer) 34 L, Glucose 134 H, Calcium 9.2, Triglycerides 105, Cholesterol 154, VLDL Cholesterol 21, HDL Cholesterol 43, Cholesterol/HDL Ratio 3.6 H I & O for Last 24 hours: Intake & Output 04/28/22 04/29/22 04/30/22 05/01/22 11:59 11:59 11:59 11:59 Intake Total 1105 / 1105 1340 / 1340 1090 / 1090 1109 / 1109 Output Total 850 / 850 2250 / 2250 1200 / 1200 2275 / 2275 Balance 255 / 255 -910 / -910 -110 / -110 -1166 / -1166 Weight 184 lb 184 lb 183 lb 15.965 oz 183 lb 12.8 oz Microbiology Reports for the Last 24 Hours: Microbiology 04/27/22 09:00 Sputum - Expectorated Sputum Gram Stain - Final 04/27/22 09:00 Sputum - Expectorated Sputum Sputum Culture - Preliminary - Constitutional no acute distress (Sitting on bedside and appears comfortable at present.) - *Routine Respiratory Exam Present: CTA bilaterally (A&P) - *Routine Cardiovascular Exam Present: RRR - *Routine Abdominal Exam Present: soft. Absent: normoactive bowel sounds (Diminished) - *Routine Extremities Exam Present: edema. Absent: calf tenderness - *Routine Neurological Exam Present: alert, oriented X3 Assessment and Plan (1) Ischemic cardiomyopathy Status: Chronic Category: Medical Code(s): I25.5 - Ischemic cardiomyopathy (2) Biventricular automatic implantable cardioverter defibrillator in situ Status: Chronic Category: Medical Code(s): Z95.810 - Presence of automatic (implantable) cardiac defibrillator (3) COPD (chronic obstructive pulmonary disease) Status: Chronic Qualifiers: COPD type: unspecified COPD Qualified Code(s): J44.9 - Chronic obstructive pulmonary disease, unspecified Category: Medical Code(s): J44.9 - Chronic obstructive pulmonary disease, unspecified (4) Tobacco abuse Status: Chronic Category: Medical Code(s): Z72.0 - Tobacco use (5) Paroxysmal atrial fibrillation Status: Chronic Category: Medical Code(s): I48.0 - Paroxysmal atrial fibrillation (6) ASCVD (arteriosclerotic cardiovascular disease) Status: Chronic Category: Medical Code(s): I25.10 - Atherosclerotic heart disease of [place] coronary artery without angina pectoris (7) GERD (gastroesophageal reflux disease) Status: Chronic Qualifiers: Esophagitis presence: esophagitis presence not specified Qualified C
--- NOTE | 2022-05-01 09:57 | PC.NURSE ---
Rounded on pt, cleaned and straightened room. Pt up to chair, no needs voiced at this time.
--- NOTE | 2022-05-01 10:06 | HMH.PNCARD ---
Subjective Date: 05/01/22 Time: 09:30 Principal diagnosis: SOB, CHF, CAD Interval history: This is a 66-year-old white gentleman who presented to the emergency department with complaints of chest pain and shortness of breath. He underwent left cardiac catheterization and had stenting to his circumflex artery and terminal obtuse marginal artery. The patient is on Plavix and aspirin for dual antiplatelet therapy. He is tolerating this well. He states his shortness of breath has significantly improved and he is feeling much better this morning. He states that he still has some mild shortness of breath with exertion but it is much better than it was yesterday. He denies any chest pain or pressure. He denies any fever, chills, nausea, vomiting, diarrhea. Exam Vital signs and Labs for Last 24 Hours: Temp Pulse Resp BP Pulse Ox 97.7 F 71 15 110/55 L 93 L 05/01/22 08:00 05/01/22 08:00 05/01/22 08:00 05/01/22 08:00 05/01/22 08:00 Laboratory Results - last 24 hr 04/29/22 11:55: POC Glucose 227 H 04/29/22 16:25: POC Glucose 280 H 04/29/22 20:40: POC Glucose 224 H 04/30/22 11:23: POC Glucose 201 H 04/30/22 16:53: POC Glucose 177 H 05/01/22 06:00: WBC 14.9 H, RBC 3.61 L, Hgb 10.8 L, Hct 36.3 L, MCV 100.3 H, MCH 29.9, MCHC 29.8 L, RDW 18.1 H, Plt Count 358, MPV 9.5, Neut % (Auto) 89.2 H, Lymph % (Auto) 4.3 L, [place] % (Auto) 6.1, Eos % (Auto) 0.4, Baso % (Auto) 0.1, Neut # (Auto) 13.3 H, Lymph # (Auto) 0.6 L, [place] # (Auto) 0.9, Eos # (Auto) 0.1, Baso # (Auto) 0.0, Total Counted 100, Neutrophils % (Manual) 87 H, Lymphocytes % (Manual) 12, Monocytes % (Manual) 1 L, Platelet Estimate Normal, Hypochromasia 1+, Anisocytosis 1+ 08/16/22 06:00: Sodium 139, Potassium 4.4, Chloride 107, Carbon Dioxide 24, Anion Gap 12.4, BUN 57 H, Creatinine 2.30 H, Estimated Creat Clear 36, Estimated GFR 28 L, Est GFR ( Amer) 34 L, Glucose 134 H, Calcium 9.2, Triglycerides 105, Cholesterol 154, VLDL Cholesterol 21, HDL Cholesterol 43, Cholesterol/HDL Ratio 3.6 H I & O for Last 24 hours: Intake & Output 04/28/22 04/29/22 04/30/22 05/01/22 23:59 23:59 23:59 23:59 Intake Total 1835 / 1835 1210 / 1210 1220 / 1220 379 / 379 Output Total 1700 / 1700 2250 / 2250 2225 / 2225 250 / 250 Balance 135 / 135 -1040 / -1040 -1005 / -1005 129 / 129 Weight 184 lb 184 lb 183 lb 15.965 oz 183 lb 12.8 oz Microbiology Reports for the Last 24 Hours: Microbiology 04/27/22 09:00 Sputum - Expectorated Sputum Gram Stain - Final 04/27/22 09:00 Sputum - Expectorated Sputum Sputum Culture - Final Normal Respiratory [place] Narrative: Telemetry strip is V pacing with underlying atrial fibrillation and a rate of 70 bpm. CNI shows: 70-99% stenosis of the bilateral ICAs. Moderate plaque bilaterally. Bilateral patent vertebral arteries with antegrade flow. If indicated, CTA or MRA could further evaluate. - Constitutional no acute distress, average body habitus - *Routine HEENT Exam Head: Present: normocephalic, atraumatic Eye: Present: EOMI, PERRL ENT: Present: mucous membranes moist - *Routine Neck Exam Present: supple, full ROM, carotid bruit. Absent: JVD, lymphadenopathy - *Routine Respiratory Exam Present: decreased breath sounds, CTA bilaterally - *Routine Cardiovascular Exam Present: RRR, Normal S1, Normal S2. Absent: murmur - *Routine Abdominal Exam Present: soft, normoactive bowel sounds. Absent: tenderness, distended - *Routine Extremities Exam Present: edema, full ROM, pulses intact, normal capillary refill. Absent: cyanosis, clubbing - *Routine Skin Exam Present: intact, warm. Absent: erythema, rash - *Routine Neurological Exam Present: alert, oriented X3, CN II-XII intact. Absent: sensory deficit, motor deficit Progress Note: A&P (1) Ischemic cardiomyopathy Status: Chronic (2) Biventricular automatic implantable cardioverter defibrillator in situ Status: Chronic (3) COPD (chr
[2022-05-01 12:03] LABS: POC Glucose,Bedside 146 (70-110)
--- NOTE | 2022-05-01 15:17 | PC.NURSE ---
pharmacy waiting to hear from Dr. Murillo regarding new rx for a statin upon discharge.
--- NOTE | 2022-05-01 16:22 | PC.NURSE ---
pharmacist at [facility] providing education r/t meds
--- NOTE | 2022-05-01 16:26 | HMH.PHACLD ---
Sridhar Lynn has received discharge medication counseling on the following medications: -ASPIRIN (BLOOD THINNER, DAILY, BLEED/BRUISE RISK, BLEED LOCATION CHANGES APPEARANCE) -ELIQUIS (BLOOD THINNER, TWICE DAILY, BLEED/BRUISE RISK, BLEED LOCATION CHANGES APPEARANCE, BUMP HEAD = GO TO ER TO RULE OUT HEAD BLEED) -PLAVIX (BLOOD THINNER, DAILY, BLEED/BRUISE RISK, BLEED LOCATION CHANGES APPEARANCE, BUMP HEAD = GO TO ER TO RULE OUT HEAD BLEED) -CARVEDILOL (STOP METOPROLOL, TWICE DAILY, BETA TAMI, DIZZINESS/LIGHTHEADEDNESS POSSIBLE) -ENTRESTO (ON PREVIOUSLY) -CRESTOR (CHOLESTEROL, DAILY, WATCH FOR MUSCLE PAIN/WEAKNESS) - SPOKE WITH OFFICE, WAS SUPPOSED TO CALL IN TO PHARMACY, HADN'T BEEN CALLED IN OF 16:20 SO I DISCHARGE COUNSELED PATIENT AND WROTE ON THE PACKET THE DOSE AND ROUTE THEY WERE SUPPOSED TO BE ON PER NURSE AT DR HOGAN'S OFFICE.
--- NOTE | 2022-05-02 08:51 | HMH.DCSUM ---
General - General Admission date:: 04/27/22 <Damien Murillo - 05/08/22 21:31> 04/27/22 <Nisreen Delong - 05/02/22 09:08> Discharge date: 05/01/22 <Nisreen Delong - 05/02/22 09:08> HPI HPI: Mr. Lynn is a 66-year-old male with a history of coronary artery disease status post CABG, MIs, ischemic cardiomyopathy with a biventricular ICD, COPD, type 2 diabetes, and tobacco use. He has not been feeling well since the first part of March. His had COVID and he was seen in the office on March 16 and was diagnosed with bronchitis and started on Zithromax. His Lasix dose was also increased at that time. He returned to the office on 03/30/2022 with continued episodes of shortness of breath, nausea, and episodes of nocturnal dyspnea. His weight was down and he had diuresed well with the Lasix. A chest x-ray was ordered and a COVID test was also ordered. His COVID test was positive and his chest x-ray showed bibasilar infiltrates. He was started on Levaquin. He states he began feeling better and then approximately 2 weeks ago, he began having more shortness of breath. He was seen by cardiology and had a chest CT which showed subpleural groundglass opacities in the lower lobes as well as emphysema. He had a stress test with a reported EF of 15%. He had an echo which showed an EF of 20%. He was seen in follow-up by cardiology and an appointment was made for him with pulmonology. He presented to the office yesterday with increasing shortness of breath. He did have some chest congestion and a cough. His oxygen interestingly enough was 100% on room air. His CBC showed a left shift and he was started back on Levaquin and a steroid Dosepak. He was also given samples of Trelegy. Lab work was ordered and his BNP came back elevated at 12,600. His D-dimer was elevated at 1. His BUN and creatinine were elevated at 25 and 1.6. His iron was also low at 19. The case was discussed with Dr. Murilol and it was felt the patient would need to be admitted. He wanted to wait until the morning of 04/27/2022 to come into the hospital, but last night around 11 PM, he began having crushing chest pain that radiated across his entire chest up into his neck, and through to his back. He presented to the ER at that time. His BNP was further elevated at 13,100. He had a chest x-ray showing new alveolar opacities in the lung bases consistent with basilar pneumonia versus edema or atelectasis. He was admitted and cardiology was consulted. This morning he continues with chest pain. He has had multiple doses of nitroglycerin with minimal relief and has also had morphine. <Nisreen Delong - 05/02/22 09:08> Hospital Course Hospital Course: Patient was given Lasix in the ER and numerous doses of morphine and nitroglycerin with only intermittent relief of his chest pain. Cardiology and pulmonology were consulted. He had no changes in his EKG or elevation of his cardiac enzymes. He did not appear to have pneumonia. Steroids were added. He was seen by pulmonology who felt the patient's symptoms were likely a combination of COPD exacerbation and volume overload. He recommended duo nebs, methylprednisolone, and doxycycline. He felt the groundglass opacities on the CT were likely from volume overload. The casey was seen by cardiology who felt he would need diuresis. They started him on Bumex 1 mg twice daily along with Aldactone 25 mg daily. He was also started on Entresto, Jardiance, and Coreg. They wanted to perform a heart cath and start him on Eliquis. He had a heart cath which showed severe to critical disease in the circumflex. Stenting was performed. He had no further chest pain after the 2 stents were placed. He did remain dyspneic with exertion. He did have some episodes of profound shortness of breath and it was felt his Brilinta may be contributing to this, therefore it was discontinued and he was started on Plavix and Aspirin. His IV fluids were disc
[2022-05-02 11:22] LABS: Direct LDL Cholesterol 82 mg/dL (100-129)
--- NOTE | 2022-05-02 14:46 | CARE MANAGER ---
Spoke with Mrs. Lynn r/t post discharge status. She states that patient was able to picker feeder medications from Pharmacy. They had to call MD to get a new prescription for Crestor, but should be able to picker feeder from pharmacy tomorrow. She states that patient is feeling better today and has no known needs at this time.
== END 2022-05-01 16:25 | disposition short-term general hospital (02) | DRG 246 ==
LOC: ER 01:41 → 2ND 04:48
PROVIDERS: Internal Medicine; Nurse Practitioner Family; Admitting Provider Family Medicine; Emergency Provider Emergency Medicine; PCP Family Medicine; Visit Provider Family Medicine
PROC: 02F03ZZ Fragmentation in Coronary Artery, One Artery, Percutaneous Approach (ICD-10-PCS; principal; 2022-04-27 10:15)
DX: I25.110 Atherosclerotic heart disease of native coronary artery with unstable angina pectoris (principal); I50.23 Acute on chronic systolic (congestive) heart failure; J96.01 Acute respiratory failure with hypoxia; J18.9 Pneumonia, unspecified organism; I25.5 Ischemic cardiomyopathy; Z95.810 Presence of automatic (implantable) cardiac defibrillator; Z95.1 Presence of aortocoronary bypass graft; I50.9 Heart failure, unspecified; Z95.5 Presence of coronary angioplasty implant and graft; F17.210 Nicotine dependence, cigarettes, uncomplicated; I48.0 Paroxysmal atrial fibrillation; Z85.72 Personal history of non-Hodgkin lymphomas; I65.23 Occlusion and stenosis of bilateral carotid arteries; I25.2 Old myocardial infarction; E11.9 Type 2 diabetes mellitus without complications; N14.1 Nephropathy induced by other drugs, medicaments and biological substances; K21.9 Gastro-esophageal reflux disease without esophagitis; Z86.73 Personal history of transient ischemic attack (TIA), and cerebral infarction without residual deficits; Z87.891 Personal history of nicotine dependence; Z86.16 Personal history of COVID-19; I11.0 Hypertensive heart disease with heart failure; J43.9 Emphysema, unspecified; J84.10 Pulmonary fibrosis, unspecified
CPT/HCPCS: 0715T; 36415; 71046; 71260; 80048; 80053; 80061; 80076; 82728; 82962; 83540; 83735; 83880; 84436; 84443; 84484; 85007; 85025; 85347; 85378; 87070; 87205; 92928; 92929; 93005; 93308; 93459; 93880; 94640; 94761; 99152; 99153; 99285; C1725; C1761; C1769; C1876; C1894; C9600; C9601; C9803; J0595; J1644; J2405; Q9967; U0003; U0005

== ENCOUNTER → 2022-05-08 10:18 | Outpatient (CLI) | payer MEDICARE, SELFPAY ==
[2022-05-08 10:48] LABS: Hematocrit 37.4 % (42.0-52.0); Hemoglobin 10.4 g/dL (14.1-18.0)
[2022-05-08 12:05] LABS: Chloride 106 mmol/L (98-107); Potassium 3.9 mmoL/L (3.5-5.1); Sodium 139 mmol/L (136-145)
[2022-05-08 12:08] LABS: Anion Gap 15.9 mEq/L (5-15); Blood Urea Nitrogen 33 mg/dl (9-20); Calcium 7.9 mg/dl (8.4-10.2); Carbon Dioxide 21 mmol/L (22.0-30.0); Estimated Glomerular Filt Rate 43 ml/min (>60); GFR (African American) 52 ML/MIN (>60); Glucose 228 mg/dl (74-100)
== END ==
PROVIDERS: PCP Family Medicine; Visit Provider Family Medicine
DX: R79.89 Other specified abnormal findings of blood chemistry (principal)
CPT/HCPCS: 36415; 80048; 85014; 85018

== ENCOUNTER → 2022-06-01 09:24 | Outpatient (CLI) | payer MEDICARE, SELFPAY ==
[2022-06-01 10:20] VITALS: PULSE 63; PULSE 65
[2022-06-01 10:50] VITALS: BP 125/60; BP 140/60; PULSE 70; PULSE 74; RESP 20; RESP 24; O2SAT 100; O2SAT 99
== END ==
PROVIDERS: PCP Family Medicine; Visit Provider Internal Medicine Pulmonary Disease
DX: J44.1 Chronic obstructive pulmonary disease with (acute) exacerbation (principal)
CPT/HCPCS: 94060; 94618; 94640; 94727; 94729

== ENCOUNTER 2022-07-10 20:44 | Emergency (ER) | payer MEDICARE, SELFPAY ==
[2022-07-10 20:44] VITALS: BP 140/65; PULSE 82; RESP 16; TEMP 36.8; O2SAT 96; BMI 29.1; BMI 31.9
--- NOTE | 2022-07-10 20:45 | CT_ITS ---
PROCEDURE INFORMATION: Exam: CT Head Without Contrast Exam date and time: 07/10/2022 8:44 PM Age: 66 years old Clinical indication: Other: Right side of body weakness; Additional info: Stroke alert TECHNIQUE: Imaging protocol: Computed tomography of the head without contrast. Radiation optimization: All CT scans at this facility use at least one of these dose optimization techniques: automated exposure control; mA and/or kV adjustment per patient size (includes targeted exams where dose is matched to clinical indication); or iterative reconstruction. Other technique: STROKE PROTOCOL was implemented. COMPARISON: US CA CAROTID DUPLEX BI 04/30/2022 10:25 AM FINDINGS: Brain: Periventricular and subcortical small vessel ischemic changes. Advanced atrophy associated. No acute hemorrhage, mass effect, midline shift, or extra-axial fluid collection. 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 Cerebral ventricles: No ventriculomegaly. Paranasal sinuses: Visualized sinuses are unremarkable. No fluid levels. Mastoid air cells: Visualized mastoid air cells are well aerated. Bones/joints: Unremarkable. No acute fracture. Soft tissues: Unremarkable. 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 ASSESSMENT: ASPECTS ([place] Stroke Program Early CT Score) is 10.
--- NOTE | 2022-07-10 20:49 | PC.NURSE ---
PT GONE TO CT
--- NOTE | 2022-07-10 20:50 | XR_ITS ---
PROCEDURE INFORMATION: Exam: XR Chest Exam date and time: 07/10/2022 9:06 PM Age: 66 years old Clinical indication: Other: Right sided weakness, stroke protocol; Additional info: R sidied weakness TECHNIQUE: Imaging protocol: Radiologic exam of the chest. Views: 1 view. COMPARISON: CR XR CHEST 2V 04/30/2022 8:32 AM FINDINGS: Tubes, catheters and devices: Left subclavian pacemaker leads overlie the left ventricle and epicardial lead. Lungs: Unremarkable. No consolidation. Pleural spaces: Unremarkable. No pleural effusion. No pneumothorax. Heart/Mediastinum: Cardiomegaly. Bones/joints: Median sternotomy. IMPRESSION: No acute findings. No significant interval change since 04/30/2022.
--- NOTE | 2022-07-10 20:50 | ECG_ITS ---
APPROVED REPORT Exam: Resting ECG HR:76 bpm ECG Measurements Heart Rate 76 AXES WY 181 P 77 QRSd 124 QRS 101 QT 455 T 72 QTc 486 Conclusion ELECTRONIC VENTRICULAR PACEMAKER - underlying Afib Diffuse ST/TW changes with pacer associated IV conduction delay UNCONFIRMED REPORT Electronically signed by : Akin Jaeger MD 07/12/2022 21:11:41
[2022-07-10 21:00] VITALS: BP 143/75; PULSE 73; RESP 18; O2SAT 99
[2022-07-10 21:07] LABS: Blood Urea Nitrogen 23 mg/dl (9-20); Calcium 8.7 mg/dl (8.4-10.2); Carbon Dioxide 31 mmol/L (22.0-30.0); Chloride 99 mmol/L (98-107); Creatinine Clearance Estimated 53 mL/min (50-200); Estimated Glomerular Filt Rate 43 ml/min (>60); GFR (African American) 52 ML/MIN (>60); Glucose 99 mg/dl (74-100); Sodium 142 mmol/L (136-145)
[2022-07-10 21:08] LABS: Basophils # 0.1 K/mm3 (0-0.2); Basophils % 0.7 % (0.1-2.0); Eosinophils # 0.3 K/mm3 (0.0-0.4); Eosinophils % 3.8 % (0.1-12.0); Hematocrit 37.9 % (42.0-52.0); Hemoglobin 11.5 g/dL (14.1-18.0); Lymphocytes # 1.2 K/mm3 (0.7-4.5); Lymphocytes % 14.5 % (10-50); Mean Corpuscular HGB Conc 30.2 g/dL (31.8-35.4); Mean Corpuscular Hemoglobin 30.1 pg (27.0-31.2); Mean Corpuscular Volume 99.7 fl (80-94); Mean Platelet Volume 9.9 fl (7.4-10.4); Monocytes # 0.4 K/mm3 (0.1-1.0); Neutrophils # 6.2 K/mm3 (1.8-7.8); Neutrophils % 76.1 % (37.0-80.0); Platelet Count 309 K/mm3 (142-424); Red Blood Count 3.81 M/mm3 (4.60-6.20); Red Cell Distribution Width 17.9 % (11.5-17.5); White Blood Count 8.2 K/mm3 (4.8-10.8)
[2022-07-10 21:11] LABS: Activated Partial Thrombo Time 34.3 seconds (22.8-30.6); INR 1.06 (0.9-1.1); Prothrombin Time 11.4 seconds (10.1-12.5)
--- NOTE | 2022-07-10 21:12 | [facility].EDNEU ---
Discharge Plan Disposition Patient Disposition: Xfer Short-Term Hosp Chief Complaint: Neuro Symptoms/Deficit Prescriptions Prescriptions: No Action cyanocobalamin (vitamin B-12) 1,000 mcg capsule 1,000 mcg PO DAILY ferrous sulfate [FeroSul] 325 mg (65 mg iron) tablet 325 mg PO DAILY rosuvastatin 10 mg tablet 10 mg PO DAILY [id number]-suiyozby 100-62.5-25 mcg blister with device 1 inh IH DAILY Qty: 90 3RF albuterol sulfate 90 mcg/actuation HFA aerosol inhaler 2 inh inhalation QID PRN (Reason: shortness of breath or wheezing) 90 Days Qty: 8.5 2RF metformin 1,000 MG tablet 1,000 mg PO DAILY nitroglycerin 0.4 MG tablet, sublingual 0.4 mg SL Q5MINP PRN (Reason: Chest Pain) acetaminophen 325 MG tablet 650 mg PO Q6HP PRN (Reason: As Needed For Fever Or Pain) aspirin 81 MG tablet,delayed release (DR/EC) 81 mg PO DAILY Qty: 0 0RF amiodarone 200 MG tablet 200 mg PO DAILY sacubitril-valsartan 1 EACH tablet 1 tab PO BID ondansetron HCl 4 MG tablet 4 mg PO TIDP PRN (Reason: Nausea And Vomiting) ipratropium-albuterol 3 ML solution for nebulization 3 ml IH Q6RT PRN (Reason: Shortness Of Breath Or Wheezing) 0RF clopidogrel 75 MG tablet 75 mg PO DAILY Qty: 30 2RF carvedilol 3.125 MG tablet 3.125 mg PO BID Qty: 60 2RF bumetanide 1 MG tablet 1 mg PO DAILY Qty: 30 2RF apixaban 5 MG tablet 5 mg PO BID Qty: 60 2RF empagliflozin 10 MG tablet 10 mg PO DAILY Qty: 30 2RF dexlansoprazole 60 MG capsule,biphase delayed releas 60 mg PO DAILY Clinical Impressions Clinical Impression: Acute CVA (cerebrovascular accident), Biventricular automatic implantable cardioverter defibrillator in situ, COPD (chronic obstructive pulmonary disease), Chronic renal insufficiency Discharge ED Provider: Pedro Mars Neuro HPI General Chief Complaint: Neuro Symptoms/Deficit Stated Complaint: STROKE Time Seen by Provider: 07/10/22 21:00 Mode of Arrival: Family Vehicle Source of Information: Spouse and Medical Record Limitations: Physical Limitations Description of Symptoms (Recalled from ER Triage Doc. by RN): pt stated that she last conversated with the pt at 7pm and he took a nap when she woke him up just before 8 to turn the television channel the pt was unable to respond he was drooling with a facial droop on the right side. pt is unable to make clear audible words. History of Present Illness HPI Narrative: last normal 1899 - pt was noted with confusion and slurred speech with rt sided weakness and facial asym- hx of cad/pacemaker and a fib - old stroke 20 yrs ago - no fever or rash or trauma Onset (ago): hour(s) Time: 19:00 Date last observed normal: 07/10/22 Time last observed normal: 19:00 Timing confirmed by: spouse Location: right face, dysarthria, right arm and right leg History of same: No Severity: severe Context: sudden onset On Anticoagulants: Yes Associated symptoms: denies other symptoms Treatments Prior to Arrival: none Related Data Home Medications Medication Instructions Recorded Confirmed dexlansoprazole 60 mg 60 mg PO DAILY GERD 09/01/19 06/05/22 capsule,biphase delayed release metformin 1,000 mg tablet 1,000 mg PO DAILY Diabetes 07/19/20 06/05/22 nitroglycerin 0.4 mg sublingual 0.4 mg sublingual Q5MINP PRN Chest 10/25/21 06/05/22 tablet Pain acetaminophen 325 mg tablet 650 mg PO Q6HP PRN As Needed For 10/26/21 06/05/22 Fever Or Pain cyanocobalamin (vitamin B-12) 1,000 mcg PO DAILY Supplement 03/26/22 06/05/22 1,000 mcg capsule ferrous sulfate 325 mg (65 mg 325 mg PO DAILY Supplement 03/26/22 06/05/22 iron) tablet (FeroSul) amiodarone 200 mg tablet 200 mg PO DAILY HEART RATE 04/27/22 06/05/22 ondansetron HCl 4 mg tablet 4 mg PO TIDP PRN Nausea And 04/27/22 06/05/22 Vomiting sacubitril 49 mg-valsartan 51 mg 1 tab PO BID CHF 04/27/22 06/05/22 tablet rosuvastatin 10 mg tablet 10 mg PO
[2022-07-10 21:24] LABS: Troponin I 0.03 ng/ml (0.00-0.034)
[2022-07-10 21:30] VITALS: BP 133/65; PULSE 71; RESP 18; O2SAT 97
[2022-07-10 22:00] VITALS: BP 136/66; PULSE 72; RESP 18; O2SAT 96
--- NOTE | 2022-07-10 22:20 | PC.NURSE ---
[facility] HERE TO TRANSPORT PT
[2022-07-10 22:23] VITALS: BP 136/66; PULSE 70; RESP 16; TEMP 36.8; O2SAT 96
== END 2022-07-10 22:20 | disposition short-term general hospital (02) ==
PROVIDERS: Emergency Provider Emergency Medicine; PCP Family Medicine
DX: I63.9 Cerebral infarction, unspecified (principal); N18.9 Chronic kidney disease, unspecified; J44.9 Chronic obstructive pulmonary disease, unspecified; Z86.73 Personal history of transient ischemic attack (TIA), and cerebral infarction without residual deficits; Z95.810 Presence of automatic (implantable) cardiac defibrillator; Z79.84 Long term (current) use of oral hypoglycemic drugs; Z79.899 Other long term (current) drug therapy; I73.9 Peripheral vascular disease, unspecified; E11.9 Type 2 diabetes mellitus without complications; I11.0 Hypertensive heart disease with heart failure; I50.9 Heart failure, unspecified; Z85.72 Personal history of non-Hodgkin lymphomas
CPT/HCPCS: 70450; 71045; 80048; 84484; 85025; 85610; 85730; 93005; 99284